=== PATIENT | female | born 1940 | race Caucasian/White ===

== ENCOUNTER → 2023-06-24 10:20 | Outpatient (REF) | payer OTHER, SELFPAY | LOC: RAD 10:20 | PROVIDERS: ATTENDING PHYSICIAN Nurse Practitioner; FAMILY PHYSICIAN Family Medicine | DX: R19.7 Diarrhea, unspecified (principal) | CPT/HCPCS: 74019 ==

== ENCOUNTER → 2023-07-13 09:51 | Outpatient (REF) | payer OTHER, SELFPAY | LOC: RAD 09:51 | PROVIDERS: ATTENDING PHYSICIAN Family Medicine; REFERRING PHYSICIAN Internal Medicine Rheumatology | DX: M81.0 Age-related osteoporosis without current pathological fracture (principal) | CPT/HCPCS: 77080 ==

== ENCOUNTER → 2023-10-07 06:39 | Day surgery (SDC) | payer OTHER, SELFPAY | LOC: GI 06:39 | PROVIDERS: ATTENDING PHYSICIAN Internal Medicine Gastroenterology | DX: R19.4 Change in bowel habit (principal); K57.30 Diverticulosis of large intestine without perforation or abscess without bleeding; K64.8 Other hemorrhoids; R13.10 Dysphagia, unspecified; K44.9 Diaphragmatic hernia without obstruction or gangrene; K31.7 Polyp of stomach and duodenum; K31.89 Other diseases of stomach and duodenum; K29.50 Unspecified chronic gastritis without bleeding | CPT/HCPCS: 45380; 43239; 88305; 88342; 93005 ==

== ENCOUNTER → 2023-10-13 13:51 | Outpatient (REF) | payer OTHER, SELFPAY | LOC: RCS 13:51 | PROVIDERS: ATTENDING PHYSICIAN Nuclear Medicine Nuclear Cardiology; FAMILY PHYSICIAN Family Medicine | DX: I10 Essential (primary) hypertension (principal); I34.0 Nonrheumatic mitral (valve) insufficiency | CPT/HCPCS: 93306 ==

== ENCOUNTER 2024-02-15 16:32 | Emergency (ER) | payer OTHER, SELFPAY ==
[2024-02-15 16:37] VITALS: BP 158/80
--- NOTE | 2024-02-15 16:37 | ED.GENMED ---
ED Provider Triage
<Tha Zabala PA-C - Last Filed: 02/15/24 16:38>
-
Patient seen by provider in Triage?: Seen in Triage
Attestation: A medical screening examination has been initiated by a qualified medical provider. Based on the assessment performed at this time, it has been determined that an emergent medical condition may exist and the patient has been informed
that further medical evaluation and possible additional diagnostic testing may be needed.
HPI: 83-year-old female status post accidental fall. Injuring left elbow and left rib area. Patient has a moderate to large size hematoma over the left elbow. No other injuries sustained.
GENERAL: Alert , in no apparent distress
EYE: No visual abnormalities.
NECK: Trachea midline
ENT: No visible abnormalities.
LUNGS: No acute respiratory distress
NEUROLOGICAL: Alert and oriented
SKIN: Skin intact. Hematoma to the left elbow
MUSCULOSKELETAL: Moving extremities normally
PSYCH: Normal and appropriate interaction.
This is a medical evaluation conducted in person to initiate diagnostic evaluation and provide initial therapeutics. Please see further documentation by the treating clinician.
History of Present Illness
<Tha Zabala PA-C - Last Filed: 02/15/24 16:38>
General
Chief Complaint: Skin Surface Trauma
Time Seen by Provider: 02/15/24 18:57
<Caitlin Crystal NP - Last Filed: 02/15/24 19:18>
General
Source: patient
Exam Limitations: none
Nursing documentation reviewed up to this point in time: agreed with
History of Present Illness
History of Present Illness:
Patient states she tripped and fell in parking lot. Denies hitting her head. COmplains of pain to left elbow, left chest wall lpain. Brought to ED by son for eval.
Past History
<Tha Zabala PA-C - Last Filed: 02/15/24 16:38>
Past History
ED Past Medical History: CHF, GERD, HTN, Psychiatric (Anxiety/depression), Other (Osteopenia) and Other (Neuropathy feet under care of Pain Management)
ED Past Surgical History: Cholecystectomy, Gynecological (Hysterectomy) and Other (Hemorrhoidectomy, bladder lift)
Social History
Tobacco: Former smoker
Alcohol: None
Personal:
Living: alone
Review of Systems
<Caitlin Crystal NP - Last Filed: 02/15/24 19:18>
Review of Systems
Allergies reviewed?: Yes
All Other Systems: ROS reviewed and negative except as documented in HPI and ROS
Constitutional: Reports no symptoms
EENT: Reports no symptoms
Respiratory: Reports no symptoms
Cardiac: Reports no symptoms
ABD/GI: Reports no symptoms
: Reports no symptoms
Musculoskeletal: Reports joint pain (pain to left elbow, left chest wall)
Skin: Reports other (small superficial skin tear to left lateral elbow)
Neurological: Reports no symptoms
Psychiatric: Reports no symptoms
Phy Exam
<Caitlin Crystal NP - Last Filed: 02/15/24 19:18>
General Physical Exam
General Presentation: well appearing and no apparent distress
General age: appears stated age
General Skin: warm and dry
General Habitus: normal
General Mental: alert
Cardiovascular Exam
Cardiovascular Exam: regular rate/rhythm and no edema
Pulmonary Exam
Pulmonary Exam: no respiratory distress
Neurological Exam
Neurological Exam: alert, oriented x3, CN II-XII intact, no motor deficits and no sensory deficits
Musculoskeletal Exam
Musculoskeletal Exam: full ROM and neuro vasc intact
Skin Exam
Skin Exam: normal color, warm/dry and no rash
Psychiatric Exam
Psychiatric Exam: normal mood/affect
Course
<Tha Zabala PA-C - Last Filed: 02/15/24 16:38>
Orders/Labs/Results
Orders:
Orders
02/15/24 16:36
CR Elbow - Left Min 3 Views Urgent
Comment:
Reason For Exam: fall, pain, large hematoma
CR Ribs-left 3 Vw W/pa Chest Urgent
Comment:
Reason For Exam: fall, pain
Vital Signs
Initial and Last Documented VS:
Initial Vital Signs
Temp Pulse Resp BP Pulse Ox
98.2 F 79 20 158/80 97
02/15/24 16:37 02/15/24 16:37 02/15/24 16:37 02/15/24 16:37 02/15/24 16:37
Last Documented Vital Signs
Temp Pulse Resp BP Pulse Ox
98.2 F 79 20 158/80 97
02/15/24 16:37 02/15/24 16:37 02/15/24 16:37 02/15/24 16:37 02/15/24 16:37
<Caitlin Crystal, FISH PEDDLER - Last Filed: 02/15/24 19:18>
Orders/Labs/Results
Orders:
Orders
02/15/24 16:36
CR Elbow - Left Min 3 Views Urgent
Comment:
Reason For Exam: fall, pain, large hematoma
CR Ribs-left 3 Vw W/pa Chest Urgent
Comment:
Reason For Exam: fall, pain
Vital Signs
Initial and Last Documented VS:
Initial Vital Signs
Temp Pulse Resp BP Pulse Ox
98.2 F 79 20 158/80 97
02/15/24 16:37 02/15/24 16:37 02/15/24 16:37 02/15/24 16:37 02/15/24 16:37
Last Documented Vital Signs
Temp Pulse Resp BP Pulse Ox
98.2 F 79 20 158/80 97
02/15/24 16:37 02/15/24 16:37 02/15/24 16:37 02/15/24 16:37 02/15/24 16:37
<Caitlin Crystal NP - Last Filed: 02/15/24 19:18>
*Radiology
Radiology exam reviewed: radiology read reviewed
*Pulse Oximetry
Patient hypoxic: no
*Critical Care Note
Total Time (30-74mins, 75-104mins- exclusive of procedures): Not Applicable
ED Attending Note
<Tha Zabala PA-C - Last Filed: 02/15/24 16:38>
-
Portions of this chart may have been created with voice recognition software.� Occasional wrong word or��sound alike� substitutions may have occurred due to the inherent limitations of voice recognition software.
Discharge Plan
Departure
Patient Disposition: Home (Routine Discharge)
Date of Disposition: 02/15/24
Time of Disposition: 19:10
Patient with high blood pressure during this ER visit?: No
Condition: Good
Covid-19: Not Applicable
Discharge Problem:
Chest wall contusion, Contusion of elbow
Instructions: Wound Care (DC), Contusion, RICE Therapy
Prescriptions:
No Action
conjugated estrogens [Premarin] 0.625 MG tablet
0.625 mg PO DAILY@1700
estradiol [Estring] 1 VAG.RING ring
1 vag.ring VG [id number]
acetaminophen 325 MG tablet
650 mg PO Q6HPRN PRN (Reason: MILD PAIN) 0RF
aspirin 325 MG tablet
325 mg PO DAILY Qty: 30 0RF
pantoprazole 40 MG tablet,delayed release (DR/EC)
40 mg PO DAILY Qty: 30 0RF
metoprolol tartrate 50 MG tablet
50 mg PO DAILY Qty: 30 0RF
fludrocortisone 0.1 MG tablet
0.1 mg PO DAILY Qty: 30 0RF
cyclosporine [Restasis] 10 DROPS dropperette
1 drops ophthalmic (eye) BID Qty: 1 0RF
cholecalciferol (vitamin D3) 1,000 UNITS tablet
1,000 units PO DAILY Qty: 30 0RF
multivitamin with folic acid [Tab-A-Chapo] 1 TABLET tablet
1 tab PO DAILY 0RF
amitriptyline 10 MG tablet
10 mg PO HS Qty: 60 0RF
Rx Instructions:
take 2 tablets at night for 14 days, then 1 tablet a day for 14 days, then 1 tablet every other day.
colestipol 1 GM tablet
1 gm PO BID Qty: 60 0RF
Referrals:
Darian Giles DO [Family Provider] - Follow up in 2-3 days
Interventions
Interventions:
*Risk Screen - Suicide Last Done: 02/15/24 16:38
*General Assessment Last Done: 02/15/24 16:38
*Neglect/Abuse Screening Last Done: 02/15/24 18:00
*ED COVID-19 Vaccine History Last Done: 02/15/24 16:38
ED-Skin Assessment Last Done: 02/15/24 18:00
Discharge Date and Time
Print Language: [place] LEONE[place]
Skin Exam
<Caitlin Crystal FISH PEDDLER - Last Filed: 02/15/24 19:18>
Abrasion
Left Lateral Elbow:
Description of abrasion: superfical/clean
Musculoskeletal Injury Exam
<Caitlin Crystal FISH PEDDLER - Last Filed: 02/15/24 19:18>
Musculoskeletal Injury Exam
Left Elbow:
Pain with Movement?: Moderate
Tender to palpation?: Moderate
Soft tissue swelling?: Moderate
External deformity and angulation?: None
Joint effusion?: None
Contusion?: Moderate
Hematoma-local bleeding into tissue?: Moderate
Strain- Sprain- Tear (Connective tissue injury)?: None
Crepitus with movement?: No
Joint instability?: No
Malalignment/deformity?: No
Range of motion: Full
Distal skin color and temperature: normal-warm & good color
Capillary Refill: normal
Normal distal neurovascular exam?: Yes
Left Lateral Chest:
Pain with Movement?: Moderate
Tender to palpation?: Mild
Soft tissue swelling?: None
External deformity and angulation?: None
Joint effusion?: None
Contusion?: Moderate
Strain- Sprain- Tear (Connective tissue injury)?: None
Crepitus with movement?: No
Joint instability?: No
Malalignment/deformity?: No
Range of motion: Full
Distal skin color and temperature: normal-warm & good color
Capillary Refill: normal
Normal distal neurovascular exam?: Yes
[2024-02-15 20:11] VITALS: BP 150/80
== END 2024-02-15 20:13 | disposition home or self-care (01) ==
LOC: EMR 16:32
PROVIDERS: EMERGENCY PHYSICIAN Emergency Medicine; FAMILY PHYSICIAN Family Medicine
DX: S20.212A Contusion of left front wall of thorax, initial encounter (principal); S50.02XA Contusion of left elbow, initial encounter; W01.0XXA Fall on same level from slipping, tripping and stumbling without subsequent striking against object, initial encounter; I11.0 Hypertensive heart disease with heart failure; I50.9 Heart failure, unspecified; K21.9 Gastro-esophageal reflux disease without esophagitis; Z79.01 Long term (current) use of anticoagulants; Z90.49 Acquired absence of other specified parts of digestive tract; Z87.891 Personal history of nicotine dependence
CPT/HCPCS: 99284; 71101; 73080

== ENCOUNTER → 2024-03-15 12:03 | Outpatient (REF) | payer OTHER, SELFPAY | LOC: HWWDC 12:03 | PROVIDERS: ATTENDING PHYSICIAN Advanced Practice Midwife; FAMILY PHYSICIAN Family Medicine | DX: Z12.31 Encounter for screening mammogram for malignant neoplasm of breast (principal) | CPT/HCPCS: 77063; 77067 ==

== ENCOUNTER → 2024-07-28 14:18 | Outpatient (REF) | payer OTHER, SELFPAY | LOC: RCS 14:18 | PROVIDERS: ATTENDING PHYSICIAN Nuclear Medicine Nuclear Cardiology; FAMILY PHYSICIAN Family Medicine | DX: I48.0 Paroxysmal atrial fibrillation (principal); I34.0 Nonrheumatic mitral (valve) insufficiency | CPT/HCPCS: 93306 ==

== ENCOUNTER → 2024-08-18 14:23 | Outpatient (REF) | payer OTHER, SELFPAY | LOC: RAD 14:23 | PROVIDERS: ATTENDING PHYSICIAN Internal Medicine Gastroenterology | DX: R19.4 Change in bowel habit (principal); K59.1 Functional diarrhea; R19.7 Diarrhea, unspecified; N39.490 Overflow incontinence | CPT/HCPCS: 74018 ==

== ENCOUNTER → 2024-09-27 12:48 | Outpatient (REF) | payer OTHER, SELFPAY | LOC: HWRAD 12:48 | PROVIDERS: ATTENDING PHYSICIAN Family Medicine | DX: R10.31 Right lower quadrant pain (principal) | CPT/HCPCS: 74176 ==

== ENCOUNTER 2024-11-06 00:46 | Emergency (ER) | payer OTHER, SELFPAY ==
[2024-11-06 00:48] VITALS: BP 132/72
[2024-11-06 02:41] VITALS: BP 115/68
--- NOTE | 2024-11-06 02:43 | ED.GENMED ---
History of Present Illness
General
Chief Complaint: Abdominal Pain
Source: patient, records and family
Exam Limitations: none
Time Seen by Provider: 11/06/24 02:33
Nursing documentation reviewed up to this point in time: agreed with
History of Present Illness
History of Present Illness:
[age]-year-old female chronic A-fib on Eliquis, right sided spigelian hernia scheduled for elective repair in November with Dr. Snell presents with 2 episodes of right sided abdominal pain worse with sitting up better with lying back, no vomiting
no diarrhea no constipation no fevers
Past History
Past History
ED Past Medical History: Arrthythmia, CHF, GERD, HTN, Psychiatric (Anxiety/depression), Other (Osteopenia) and Other (Neuropathy feet under care of Pain Management)
ED Past Surgical History: Cholecystectomy, Gynecological (Hysterectomy) and Other (Hemorrhoidectomy, bladder lift)
Social History
Tobacco: Former smoker
Alcohol: None
Drug: None
Personal:
Living: alone
Employment: Retired
Review of Systems
Review of Systems
All Other Systems: Not applicable
Constitutional: Denies fever or fatigue
ABD/GI: Reports abdominal pain; Denies nausea, vomiting, diarrhea, bloody stools or black stools
: Reports no symptoms
Phy Exam
Physical Exam
Physical Exam:
Physical Exam
General: no apparent distress, not acutely ill
Neck: No jaundice
Heart: Irregular
Lungs: no acute respiratory distress. clear bilaterally
Abdomen: Soft minimal pain in the right abdomen no appreciable hernia
Neuro: alert and oriented. no focal neurological deficits
Skin: no rash
Psychiatric: well kept. interactive and cooperative
Extremities: no edema.
Course
Orders/Labs/Results
Orders:
Orders
11/06/24 02:42
Electrocardiogram (*1) Urgent
Reason for Study: Abdominal Pain
CT Abd/pel W Iv And Oral Contr Urgent
Comment:
Reason For Exam: Pain right-sided spigelian hernia
EKG- Treatment ONCE
Iohexol [Omnipaque] See Protocol PO NOW STA
11/06/24 02:43
Iohexol [Omnipaque] 50 ml .ROUTE .STK-MED ONE
11/06/24 02:54
Complete Blood Count/With Diff Urgent
Comprehensive Metabolic Panel Urgent
11/06/24 06:24
Urinalysis Reflex To Culture Urgent
Abnormal Lab Results
11/06/24
02:54
WBC 4.5 L 10^3/uL
(4.8-10.8)
RBC 4.00 L 10^6/uL
(4.20-5.40)
Hgb 10.0 L g/dL
(12.0-16.0)
Hct 31.8 L %
(37.0-47.0)
MCV 79.5 L fL
(81.0-99.0)
MCH 25.0 L pg
(27.0-31.0)
MCHC 31.4 L g/dL
(33.0-37.0)
RDW 15.0 H %
(11.5-14.5)
Plt Count 129 L 10^3/uL
(130-400)
Absolute Lymphs (auto) 0.5 L 10^3/uL
(1.2-3.4)
Absolute Monos (auto) 0.8 H 10^3/uL
(0.1-0.6)
Lymphocytes % 11.2 L %
(20.5-51.1)
Monocytes % 16.5 H %
(1.7-9.3)
Carbon Dioxide 31 H mmol/L
(22-30)
BUN 20 H mg/dl
(7-17)
Creatinine 1.1 H mg/dL
(0.6-1.0)
Glucose 160 H mg/dl
(70-99)
Calcium 11.1 H mg/dl
(8.4-10.2)
Alkaline Phosphatase 251 H U/L
(38-126)
Total Protein 6.1 L g/dl
(6.3-8.2)
Albumin 3.4 L g/dl
(3.5-5.0)
11/06/24 02:54
11/06/24 02:54
Vital Signs
Initial and Last Documented VS:
Initial Vital Signs
Temp Pulse Resp BP Pulse Ox
98 F 80 20 132/72 97
11/06/24 00:48 11/06/24 00:48 11/06/24 00:48 11/06/24 00:48 11/06/24 00:48
Last Documented Vital Signs
Temp Pulse Resp BP Pulse Ox
98 F 81 16 125/60 97
11/06/24 00:48 11/06/24 06:03 11/06/24 06:03 11/06/24 06:03 11/06/24 02:46
MDM/Problems Addressed
Differential Diagnosis Includes:
Symptomatic hernia, appendicitis, colitis, muscle strain ischemic bowel
MDM/Problems Addressed:
Abdominal pain
Chronic conditions affecting care: Arrhythmia
Acute Exacerbation and/or Progression of Chronic Illness: Arrhythmia
*Radiology
Radiology exam reviewed: radiology read reviewed
*Pulse Oximetry
SaO2: 97
Oxygen Mode of Delivery: Room air
Patient hypoxic: no
*EKG
Interpreted by ED Provider?: Yes
Interpretation: abnormal
Comparison EKG: no comparison EKG present
Heart Rate: 78
Rate: normal
Rhythm: a-fib
Ischemia: non-specific ST changes
*Casting Finisher Interpretation
Rate: normal
Interpretation: normal
Heart Rate: 78
Rhythm: a-fib
*Critical Care Note
Total Time (30-74mins, 75-104mins- exclusive of procedures): Not Applicable
Update Note
Update Note:
Update prior records briefly reviewed particularly history and physical prior to planned elective surgery, she is on Eliquis, does not have much pain now she is elderly we will check CT scan to define anatomy potential pathology that would require
intervention
Update, CT report noted, will check urinalysis
ED Attending Note
-
Portions of this chart may have been created with voice recognition software.� Occasional wrong word or��sound alike� substitutions may have occurred due to the inherent limitations of voice recognition software.
Discharge Plan
Departure
Prescriptions:
No Action
Premarin 0.625 MG tablet
0.625 mg PO DAILY@1700
Estring 1 VAG.RING ring
1 vag.ring VG [id number]
acetaminophen 325 MG tablet
650 mg PO Q6HPRN PRN (Reason: MILD PAIN) 0RF
aspirin 325 MG tablet
325 mg PO DAILY Qty: 30 0RF
pantoprazole 40 MG tablet,delayed release (DR/EC)
40 mg PO DAILY Qty: 30 0RF
metoprolol tartrate 50 MG tablet
50 mg PO DAILY Qty: 30 0RF
fludrocortisone 0.1 MG tablet
0.1 mg PO DAILY Qty: 30 0RF
cyclosporine [Restasis] 10 DROPS dropperette
1 drops ophthalmic (eye) BID Qty: 1 0RF
cholecalciferol (vitamin D3) 1,000 UNITS tablet
1,000 units PO DAILY Qty: 30 0RF
multivitamin with folic acid [Tab-A-Chapo] 1 TABLET tablet
1 tab PO DAILY 0RF
amitriptyline 10 MG tablet
10 mg PO HS Qty: 60 0RF
Rx Instructions:
take 2 tablets at night for 14 days, then 1 tablet a day for 14 days, then 1 tablet every other day.
colestipol 1 GM tablet
1 gm PO BID Qty: 60 0RF
Referrals:
Darian Giles DO [Family Provider, Family Practice]
Interventions
Interventions:
*Risk Screen - Suicide Last Done: 11/06/24 00:48
*General Assessment Last Done: 11/06/24 02:47
*Neglect/Abuse Screening Last Done: 11/06/24 00:48
*ED- Fall Risk Assessment Last Done: 11/06/24 02:59
KN-Seecvm-Cnwdcnalsy Assessment Last Done: 11/06/24 03:06
Discharge Date and Time
Print Language: KYRGYZ
[2024-11-06 02:47] VITALS: BMI 25.9
[2024-11-06] MEDS: OMNIPAQUE 50 ML PO (02:55)
[2024-11-06 03:00] VITALS: BP 115/83
--- NOTE | 2024-11-06 03:12 | EDRN ---
Pt noted R side abdominal pain around [id number] last night. Pt called her daughter who brought pt to ED. Pt had similar episode of pain last week and did not tell anyone until the following day after pain resolved. Pt scheduled for hernia repair
in November. Pt denies pain at present time. No cp, sob, n/v/d/c, urinary symptoms, fever/chills/cough.
[2024-11-06 03:22] LABS: Hematocrit 31.8 % (37.0-47.0); Hemoglobin 10.0 g/dL (12.0-16.0); Mean Corp Hgb Conc. 31.4 g/dL (33.0-37.0); Mean Corpuscular Volume 79.5 fL (81.0-99.0); Nucleated Red Blood Cells % 0 %; Platelet Count 129 10^3/uL (130-400); Red Cell Dist. Width 15.0 % (11.5-14.5)
[2024-11-06 03:34] LABS: ALT (SGPT) 18 U/L (0-35); AST (SGOT) 28 U/L (14-36); Albumin 3.4 g/dl (3.5-5.0); Alkaline Phosphatase 251 U/L (38-126); Blood Urea Nitrogen 20 mg/dl (7-17); Calcium 11.1 mg/dl (8.4-10.2); Carbon Dioxide 31 mmol/L (22-30); Chloride 100 mmol/L (98-107); Estimated Creatinine Clearance 34 ml/min; Glucose 160 mg/dl (70-99); Potassium 4.2 mmol/L (3.5-5.1); Sodium 135 mmol/L (135-145); Total Protein 6.1 g/dl (6.3-8.2); eGFR 49.24
[2024-11-06 04:00] VITALS: BP 134/84
[2024-11-06 06:03] VITALS: BP 125/60
[2024-11-06 06:58] LABS: Urine Character Clear (Clear)
[2024-11-06 07:33] VITALS: BP 123/60
== END 2024-11-06 07:52 | disposition home or self-care (01) ==
LOC: EMR 00:46
PROVIDERS: EMERGENCY PHYSICIAN Emergency Medicine; FAMILY PHYSICIAN Family Medicine
DX: R10.9 Unspecified abdominal pain (principal); K43.9 Ventral hernia without obstruction or gangrene; I48.20 Chronic atrial fibrillation, unspecified; Z79.01 Long term (current) use of anticoagulants; I11.0 Hypertensive heart disease with heart failure; I50.9 Heart failure, unspecified; Z87.891 Personal history of nicotine dependence; Z90.49 Acquired absence of other specified parts of digestive tract; Z90.710 Acquired absence of both cervix and uterus
CPT/HCPCS: 99284; 74177; 80053; 81003; 81015; 85025; 87077; 87086; 87186; 93005; Q9967

== ENCOUNTER 2024-11-15 03:10 | Inpatient (IN) | payer OTHER, SELFPAY ==
[2024-11-14 21:28] VITALS: BP 129/58
[2024-11-14 22:03] LABS: Urine Character Clear (Clear)
[2024-11-14 22:07] LABS: Hematocrit 32.9 % (37.0-47.0); Hemoglobin 10.4 g/dL (12.0-16.0); Mean Corp Hgb Conc. 31.6 g/dL (33.0-37.0); Mean Corpuscular Volume 79.7 fL (81.0-99.0); Nucleated Red Blood Cells % 0 %; Red Cell Dist. Width 15.3 % (11.5-14.5)
[2024-11-14 22:10] LABS: Urine Squamous Cell 0-2 /LPF (Few)
[2024-11-14 22:29] LABS: ALT (SGPT) 19 U/L (0-35); AST (SGOT) 27 U/L (14-36); Albumin 3.6 g/dl (3.5-5.0); Alkaline Phosphatase 212 U/L (38-126); Blood Urea Nitrogen 34 mg/dl (7-17); Carbon Dioxide 32 mmol/L (22-30); Chloride 94 mmol/L (98-107); Glucose 203 mg/dl (70-99); Potassium 3.4 mmol/L (3.5-5.1); Sodium 132 mmol/L (135-145); Total Protein 6.7 g/dl (6.3-8.2); eGFR 36.87
[2024-11-14 22:42] LABS: Calcium 14.5 mg/dl (8.4-10.2)
[2024-11-15] VITALS (10 sets, daily range): BP systolic 117–158; BP diastolic 60–83
--- NOTE | 2024-11-15 00:43 | ED.GENMED ---
History of Present Illness
General
Chief Complaint: Change in Mental Status
Source: patient and spouse
Time Seen by Provider: 11/15/24 00:19
History of Present Illness
History of Present Illness:
This patient is a 84-year-old female presents emergency department with progressive generalized weakness, excessive thirst, loss of appetite, weight loss, and fatigue. Is unclear exactly when this started, patient states within the last week or so
although daughter states she has had 'good days and bad days' for the last few months. She has been sleeping more than usual. She denies associated fever, chills, nausea, vomiting, chest pain, abdominal pain, headache. Patient has occasional
dyspnea which is very consistent with her prior history of heart failure. She is compliant with her medications with the exception of amoxicillin which she was recently prescribed after an ER visit for abdominal discomfort.
Past History
Past History
ED Past Medical History: Arrthythmia, CHF, GERD, HTN, Psychiatric (Anxiety/depression), Other (Osteopenia) and Other (Neuropathy feet under care of Pain Management)
ED Past Surgical History: Cholecystectomy, Gynecological (Hysterectomy), Orthopedic and Other (Hemorrhoidectomy, bladder lift)
Social History
Tobacco: Former smoker
Alcohol: None
Drug: None
Personal:
Living: alone
Employment: Retired
Phy Exam
Physical Exam
Physical Exam:
GENERAL: Alert , in no apparent distress
EYE: pupils equal and reactive
NECK: Supple, no significant adenopathy.
ENT: o/p clr, mmm.
CARDIAC: irreg irreg
LUNGS: Clear breath sounds bilaterally, no acute respiratory distress, no wheezes/rales/rhonchi
ABDOMEN: Soft, without focal tenderness, no r/g, no cvat
NEUROLOGICAL: Alert and oriented, no focal neuro deficits
SKIN: Warm and dry, skin intact.
MUSCULOSKELETAL: 1+ le edema, well perfused.
PSYCH: Normal and appropriate interaction.
Course
Orders/Labs/Results
Orders:
Orders
11/14/24 21:52
Complete Blood Count/With Diff Urgent
Comprehensive Metabolic Panel Urgent
Urine Microscopic Reflex Cult Urgent
Urine Reflex Culture from UA [Urinalysis Reflex To Culture] Urgent
Date Specimen was Collected: 11/14/24
Time Specimen was Collected: 21:36
Urine Culture Urgent
ERIK Source: U
Specimen Description:
Date Specimen was Collected: 11/14/24
Time Specimen was Collected: 21:36
11/15/24 00:50
Furosemide [Lasix] 40 mg IV NOW STA
CR Chest - 2 Views Urgent
Comment:
Reason For Exam: cough, hx smoking
11/15/24 00:53
Potassium Chloride [KCl] 40 meq PO NOW STA
11/15/24 01:00
0.9% Sodium Chloride 500 ml [Nss] 500 ml IV 100 mls/hr
11/15/24 01:07
Intact PTH Includes Calcium Urgent
TSH Urgent
11/15/24 01:23
Calcitonin ([place]) Synthetic [Calcimar/Calcitonin 400 Units/ 2 ml] 280 units IM NOW STA
11/15/24 01:44
EKG [Electrocardiogram (*1)] Urgent
Reason for Study: Fatigue / Weakness
Other Reason for Exam: elevated calcium
11/15/24 01:46
EKG- Treatment ONCE
11/15/24 02:41
Admit/Transfer Patient As Directed
Co-Sign Provider:
Level of Care: Inpatient admission
Assign to:: Medical/Surgical
Physician / Group: neftali
Diagnosis: hypercalcemia
Reason for Hospitalization: hypercalcemia
Expected length of stay greater than two midnights?: Yes
ELOS- Estimated Length of Stay in days: 2
I certify the patient meets the requirements for IP care: Yes
PRN Pain Medication Management As Directed
May give lesser potent ordered pain med per pt: Yes
preference::
Protocol:: Medication orders for pain may be administered in a
manner that supports deferring to patient preference
when the pt is:
- Requesting an ordered lesser potent pain medication.
Least to most potent pain medications are defined
as: acetaminophen < NSAID < tramadol < opioids
(morphine, oxycodone, hydromorphone).
- Requesting a lesser dose of the same medication IF
ORDERED.
- Requesting a less intrusive route of administration
if both routes are prescribed by the provider (PO <
IV).
11/15/24 02:44
Code Status As Directed
Resuscitation Status: Full Code
11/15/24 03:27
0.9% Sodium Chloride 500 ml [Nss] 500 ml IV 125 mls/hr
Acetaminophen [Tylenol] 650 mg PO Q4HPRN PRN
Bisacodyl [Dulcolax] 10 mg RECTAL [id number] PRN
Docusate W/Senna [Senokot-S] 1 tablet PO BIDPRN PRN
Guaifenesin/Dextromethorphan [Robitussin Dm] 5 ml PO Q6HPRN PRN
Ondansetron Injectable [Zofran] 4 mg IV Q6HPRN PRN
Polyethylene Glycol Powder [Miralax] 17 grams PO DAILYPRN PRN
11/15/24 03:27
Consult Notification Routine
Specialty to Notify: Nephrology
Date consulting provider notified: 11/15/24
Time consulting provider notified: 07:22
Notified:: Provider
NEPHROLOGY CONSULT Routine
Consulting Provider: Blayne Hoskins
Was physician already notified: No
Reason for consult: hypecalcemia, IVETTE
VTE Contraindication Routine
VTE Mechanical Device Contraindication: Medical Contraindication
Pharmocologic Contraindication: Medical Contraindication
Activity As Directed
Activity Level: With Assistance
Intake/ Output As Directed
Frequency: Per unit guidelines
Vital Signs As Directed
Frequency: Per unit guidelines
Kidney & Bladder US [US Renal With Bladder] Routine
Comment:
Reason For Exam: IVETTE
11/15/24 Breakfast
Regular
At Your Request: Limited Participation
Does patient need a safe tray?: No
11/15/24 06:21
Basic Metabolic Panel IN AM
Complete Blood Count/No Diff IN AM
Magnesium IN AM
Phosphorus IN AM
Protein Electrophoresis Reflex [S] IN AM
Vitamin D 1,25 Dihydroxy [S] IN AM
Vitamin D, 25-OH IN AM
11/15/24 08:00
Amlodipine [Norvasc] 2.5 mg PO DAILY
Apixaban [Eliquis] 5 mg PO BID
Furosemide [Lasix] 60 mg PO DAILY
Loratadine [Claritin] 10 mg PO DAILY
Memantine HCl [Namenda] 10 mg PO BID
Metoprolol Xl [Toprol Xl] 75 mg PO DAILY
Pantoprazole [Protonix] 40 mg PO DAILY
Sertraline HCl [Zoloft] 25 mg PO DAILY
11/15/24 12:00
Calcitonin ([place]) Synthetic [Calcimar/Calcitonin 400 Units/ 2 ml] 280 units IM Q12H
11/15/24 22:00
Amitriptyline [Elavil] 10 mg PO HS
11/16/24 11:23
colestipol See Dose Instructions PO BID
Abnormal Lab Results
11/14/24 11/15/24
21:52 01:07
WBC 4.4 L 10^3/uL
(4.8-10.8)
RBC 4.13 L 10^6/uL
(4.20-5.40)
Hgb 10.4 L g/dL
(12.0-16.0)
Hct 32.9 L %
(37.0-47.0)
MCV 79.7 L fL
(81.0-99.0)
MCH 25.2 L pg
(27.0-31.0)
MCHC 31.6 L g/dL
(33.0-37.0)
RDW 15.3 H %
(11.5-14.5)
Absolute Lymphs (auto) 0.7 L 10^3/uL
(1.2-3.4)
Absolute Monos (auto) 0.8 H 10^3/uL
(0.1-0.6)
Lymphocytes % 16.8 L %
(20.5-51.1)
Monocytes % 18.4 H %
(1.7-9.3)
Sodium 132 L mmol/L
(135-145)
Potassium 3.4 L mmol/L
(3.5-5.1)
Chloride 94 L mmol/L
(98-107)
Carbon Dioxide 32 H mmol/L
(22-30)
BUN 34 H mg/dl
(7-17)
Creatinine 1.4 H mg/dL
(0.6-1.0)
Glucose 203 H mg/dl
(70-99)
Calcium 14.5 H* mg/dl 13.8 H* mg/dl
(8.4-10.2) (8.4-10.2)
Alkaline Phosphatase 212 H U/L
(38-126)
PTH Intact 4.0 L pg/ml
(13.6-85.8)
Ur Occult Blood Reflex 2+ A
(Negative)
Urine RBC 3-6 A /HPF
(0-2)
Urine Bacteria (Reflex) Many A
(Negative)
Urine Albumin (Reflex) 1+ A
(Neg - Trace)
11/14/24 21:52
11/14/24 21:52
Vital Signs
Initial and Last Documented VS:
Initial Vital Signs
Temp Pulse Resp BP Pulse Ox
97.6 F 78 20 129/58 95
11/14/24 21:28 11/14/24 21:28 11/14/24 21:28 11/14/24 21:28 11/14/24 21:28
Last Documented Vital Signs
Temp Pulse Resp BP Pulse Ox
97.3 F 108 18 143/86 97
11/18/24 14:00 11/18/24 14:00 11/18/24 14:00 11/18/24 14:00 11/18/24 14:00
*Pulse Oximetry
SaO2: 95
Oxygen Mode of Delivery: Room air
Patient hypoxic: no
*Critical Care Note
Total Time (30-74mins, 75-104mins- exclusive of procedures): Not Applicable
Update Note
Update Note:
Patient presents to the Emergency Department with ____weakness, fatigue, etc
Number and Complexity of Problems Addressed at the Encounter
� Chronic conditions affecting care:
� Acute Exacerbation and/or Progression of Chronic Illness:
� Differential Diagnosis includes:but not limited to hyperparathyr, malignancy, electrolyte d/w, uti, etc etc.
Amount and/or Complexity of Data to be Reviewed and Analyzed
� I performed an independent evaluation of and my interpretation is:
EKG:Read by me, atrial fibrillation, nonspecific T wave flattening, no acute ischemia
CT:
Xrays:cxr nad
Laboratory Studies:stable wbc/hgb...platelet clumping but presumed nl on smear. HypoNa, Hypo K, increasing renal insuffic with markedly increased HyperCa. U/a not c/w infx.
Other:
� Review of other/old records reveals:
� Clinical information was obtained by an independent historian:daughter
� Prescriptions/Medications Considered but not given:
� Further testing considered but not performed:
Risk of Complications and/or Morbidity or Mortality of Patient Management
� Social determinants of health affecting care:
� Discussion with other providers (PCP, Hospitalists, Consultants, etc):
� Escalation of care including admission/observation vs risk of discharge considered: New onset hyper Ca noted which may be cause of many of her sxs. Will check pth. Occas cough noted here, hx of smoking at least 20 pack years
in past, will get screening cxr here (pox wnl), admit for hyperCa tx and continued evalatuion re:cause. Malignancy a consideration.Discussed with Dr. Trinh via Marydel text for admission
ED Attending Note
-
Portions of this chart may have been created with voice recognition software.� Occasional wrong word or��sound alike� substitutions may have occurred due to the inherent limitations of voice recognition software.
Discharge Plan
Departure
Patient Disposition: Admit
Date of Disposition: 11/15/24
Time of Disposition: 00:54
Presentation/result/management discussed w/ accepting MD/DO: Hospitalist
Discharge Problem:
Hypercalcemia
Interventions
Interventions:
*Risk Screen - Suicide Last Done: 11/15/24 10:13
*General Assessment Last Done: 11/14/24 21:28
*Neglect/Abuse Screening Last Done: 11/14/24 21:28
*ED COVID-19 Vaccine History Last Done: 11/14/24 21:33
*Nursing Disposition Last Done: 11/15/24 14:42
ED- Pulmonary Assessment Last Done: 11/15/24 14:42
ED-Psychological Assessment Last Done: 11/15/24 14:42
ED- Neurological Assessment Last Done: 11/15/24 01:30
ED- Cardiac Assessment Last Done: 11/15/24 14:42
ED Swallowing Screen Last Done: 11/15/24 01:30
Discharge Date and Time
Discharge Date/Time: 11/15/24 14:44
[2024-11-15] MEDS: NSS 500 IV ×3 (01:25→11:12)
[2024-11-15] MEDS: KCL 40 MEQ PO ×2 (01:25→09:16)
[2024-11-15] MEDS: LASIX 40 MG IV (01:25)
[2024-11-15 01:52] LABS: Calcium 13.8 mg/dl (8.4-10.2)
[2024-11-15] MEDS: CALCIMAR/CALCITONIN 400 UNITS/ 2 ML 280 UNITS IM (01:53)
--- NOTE | 2024-11-15 01:59 | HPS.HSE ---
Family Physician
-
Family Physician: Darian Giles
Chief Complaint
-
Weakness
History of Present Illness
This is a 84 y.o female with PMH of arial fibrillation on apixaban, CHF, hypertension, presenting to the emergency department with progressive generalized weakness and failure to thrive over the last 1 week.
Patient and family unclear when symptoms started. However more recently she has had decreased appetite, decreased p.o. intake, subjective weight loss. She is denying any diarrhea. She is denying nausea or vomiting. She is also denying
constipation. She has had no fevers or chills. She reports a nonproductive hacking cough. Daughters report increased nasal drip with clear mucus. She reports headaches occasionally. She reports small somnolence.
Patient is currently awaiting surgery for inguinal hernia repair and she has been mostly laying flat. Medication list indicates that she is more recently on vitamin D as well as calcium supplementation. No other medication changes.
She is chronically on Lasix and she states that weight is been slowly going down. She denies any night sweats. She denies any recent travels and no known sick contacts. She denies any flank pain. She denies any dysuria or gross hematuria.
In the emergency department she was afebrile, blood pressure was 142/89 with a pulse rate of 76 and she was satting 95% on room air. Chest x-ray shows trace bilateral pleural effusions which are similar to prior x-ray from 1 year ago.
CBC was unremarkable, electrolytes notable for bicarb of 32, sodium of 132 and a potassium of 3.4. BUN and creatinine were 34 and 1.4 respectively. She has calcium is elevated to 14.9. LFTs unremarkable. TSH is within the normal range. UA has
2+ blood and bacteria but otherwise unremarkable.
Medical History
Past Medical History
Past Medical History: Reports Arrhythmia (Atrial fibrillation status post cardioversion), CHF, GERD and HTN
Past Surgical History: Reports Cholecystectomy, Gynocological (Hysterectomy) and Orthopedic (Left hip partial replacement)
Additional Past Surgical History:
Rectocele Repair() 1997
Bladder Suspension Repair() 1999
Social History
Tobacco: Non-smoker
Alcohol: None
Drug: None
Employment: Not Employed
Family History
Family History: Not pertinent
Allergies / Home Medications
Allergies reflects when Allergies were last updated in [facility].
Home Medications with original date entered in [facility]
Allergy/Medication List:
Allergies
Allergy/AdvReac Type Severity Reaction Status Date / Time
clarithromycin Allergy Unknown Verified 11/14/24 21:33
erythromycin base Allergy Unknown Verified 11/14/24 21:33
Home Medications
Eliquis 5 MG 1 tab Orally twice daily for 90 days Sep, Active
Lasix 40 MG 1.5 tablet Orally Once a Day for 90 days Active
Pantoprazole Sodium 40 MG 1 tablet 1/2 hour before morning and evening meal Orally twice a day for 90 days Active
Toprol XL 50 MG 1.5 tab Orally Once a day for 90 days Oct, Active
Calcium Carbonate 1250 (500 Ca) MG 1 tablet with food Orally once a day Active
Amitriptyline HCl 50 MG 1 tablet at bedtime Oral Once a day July, Active
Propylene Glycol - 2 drops in affected eye once a day Active
Sertraline HCl 25 MG 1 tablet Orally Once a Day at bedtime Active
Multivitamin - 1 tablet Orally Once a day Active
Acetaminophen 500 MG 1 capsule Orally Once a Day at night Active
Memantine HCl 10 MG 1 tablet Orally twice a day for 90 days Active
Claritin 10 MG 1 tablet Orally prn Active
Acidophilus - 1 tab Orally Once a Day Active
Colestipol HCl 1 GM 1 tablet Orally Twice a day for 90 days Active
amLODIPine Besylate 2.5 MG 1 tablet Orally twice a day for 90 days Active
Magnesium 250 MG 1 tablet with a meal Orally Once a day Active
Vitamin D3 25 MCG (1000 UT) 1 tablet Orally Once a Day Active
Review of Systems
-
Constitutional: Reports No Symptoms
EENT: Reports Runny Nose
Respiratory: Reports Cough (non-productive)
Cardiac: Reports No Symptoms
Abdomen/GI: Reports Anorexia
: Reports No Symptoms
Musculoskeletal: Reports No Symptoms
Skin: Reports No Symptoms
Neurological: Reports Weakness; Denies Dizzy
Hematologic/Lymphatic: Reports No Symptoms; Denies Bleeding or Swollen Glands
Psych: Reports No Symptoms
Physical Exam
Vital Signs
Vital Signs
Temp Pulse Resp BP Pulse Ox
97.6 F 76 20 142/89 95
11/14/24 21:28 11/15/24 01:25 11/14/24 21:28 11/15/24 01:11/15/24 00:50
Physical Exam
General: No Apparent Distress and Conversant
HEENT: NormoCephalic, Anicteric, Moist mucous membranes, Atraumatic and PERRLA; No Oxygen
Respiratory: Clear
Cardiac: S1/S2 and Irregular Rhythm
Breast: Deferred by me
GI: Soft, Non Tender, Non Distended, Normal Bowel Sounds and No Hepatosplenomegaly
Rectal: Deferred by Provider
Genito-urinary: Deferred by me
Musculoskeletal: No Clubbing, No Cyanosis, Edema, Left Lower Extremity (1+ pitting), Edema, Right Lower Extremity (1+ pitting) and No Edema
Skin: Warm
Neuro: AO x 3 and Nonfocal/grossly intact
Hematologic/Lymphatic: No Lymphadenopathy
Psych: Calm
Laboratory Results
-
11/14/24 21:52
11/14/24 21:52
Laboratory Results
Total Bilirubin 1.1 mg/dl (0.2-1.3) 11/14/24 21:52
AST 27 U/L (14-36) 11/14/24 21:52
ALT 19 U/L (0-35) 11/14/24 21:52
Alkaline Phosphatase 212 U/L (38-126) H 11/14/24 21:52
Data Reviewed
-
Diagnostic Radiology: Image Personally Visualized and interpreted
Lab Data: Labs Reviewed by me
Old Records: Reviewed
Impression/Plan
-
IMPRESSION:
84 y.o w/ AFIB, CHF, CKD presenting with weakness and found to have hypercalcemia and IVETTE.
PLAN:
1. Hypercalcemia - Ca 14.9 ,was normal within the last 6 months, on calcium and Vitamin D supplementation but unlikely to cause this degree of elevation. Hx suggestive of dehydration which is also unlikely to be causative. Evidence suggests
symptomatic with loss of appetite, weightloss, lethargy and weakness. Also IVETTE.
- admit to med/surg
- pth pending, checking pthrp, spep
- check phos and vit D
- given hx of CHF with small pl effusions and peripheral edema, hesitant to give aggressive hydration
- continue lasix with gentle hydration at 75ml/hr and monitor closely
- calcitonin x 1 given but developed a facial rash soon after, stopped and gave benadryl. H
- bisphosphonate likely in am pending renal eval
- nephrology consult
2. IVETTE - Suspect related to hypercalcemia/dehydration. ? CRAB
- spep as above
- renal u/s
- avoid nephrotoxins
- continue lasix with hydration
- nephrology consult
3. Cough - suspect UACS. No infiltrates to suggest pneumonia. Rhinorrhea and hx of alleriges
- continue loratidine daily
- cough suppression
4. AFIB
- continue eliquis
- continue metoprolol
- check bnp
HTN
- continue amlodipine
GERD
- continue ppi
DVT PPX - on apixaban
Code status - Full Code
[2024-11-15 02:21] LABS: TSH 2.48 uIU/ml (0.47-4.68)
[2024-11-15] MEDS: BENADRYL 25 MG PO (04:25)
[2024-11-15 07:20] LABS: Hematocrit 33.2 % (37.0-47.0); Hemoglobin 10.6 g/dL (12.0-16.0); Mean Corp Hgb Conc. 31.9 g/dL (33.0-37.0); Mean Corpuscular Volume 78.7 fL (81.0-99.0); Red Cell Dist. Width 15.4 % (11.5-14.5)
[2024-11-15 07:31] LABS: Vitamin D, 25-OH*** 60.1 ng/mL (30-80)
--- NOTE | 2024-11-15 07:40 | W.PN.HOSP.TC ---
Today's Communication/Plan
-
see A/P
Assessment / Plan
Assessment / Plan
HPI: 84 yo female with PMH of A fibrillation on apixaban, CHF, hypertension, p/w progressive generalized weakness and failure to thrive over the last 1 week.
She also c/o decreased appetite, decreased p.o. intake, subjective weight loss. Daughters report increased nasal drip with clear mucus.
Patient is currently awaiting surgery for inguinal hernia repair. Medication list indicates that she is more recently on vitamin D as well as calcium supplementation. No other medication changes.
She is chronically on Lasix and she states that weight is been slowly going down.
In the ED, her calcium level was noted to be elevated at 14.9.
A/P:
# Hypercalcemia
Noted pt recently started with calcium and Vitamin D supplementation
Calcium level 14.5 on admission
s/p calcitonin and developed facial rash soon after, stopped and gave Benadryl.
Vit D level WNL at 60
Follow PTH level, PTH related peptide
Follow SPEP
Cont gentle IVF insetting of h/o CHF and small peripheral edema
Cont lasix with gentle hydration
Renal eval for likely bisphosphonate
# IVETTE, related to hypercalcemia/dehydration.
SCr 1.4 -> 1.1 with IVF
Follow SPEP as above
Follow renal US
Avoid nephrotoxins
Continue lasix with hydration
Nephrology consult
# Cough - suspect UACS, much resolved.
Rhinorrhea and hx of allergies
No infiltrates to suggest pneumonia. Follow formal report
continue loratadine daily
cough suppression
# Paroxysmal AFIB
continue eliquis
continue metoprolol
# HTN
continue amlodipine
# GERD
continue ppi
# Hypokalemia
replete
DVT PPX - on apixaban
Code status - Full Code
DW daughter at bedside
DW RN
Anticipated Discharge: 24 - 48 hours
Subjective/Interval History
-
Date of Service: November 15, 2024
Objective Data
-
Labs:
Laboratory Results
11/14/24 11/15/24 11/15/24
21:52 01:07 06:21
WBC 4.4 L 5.7
Hgb 10.4 L 10.6 L
Hct 32.9 L 33.2 L
Plt Count Pending
Sodium 132 L Pending
Potassium 3.4 L Pending
Chloride 94 L Pending
Carbon Dioxide 32 H Pending
BUN 34 H Pending
Creatinine 1.4 H Pending
Glucose 203 H Pending
Calcium 14.5 H* 13.8 H* Pending
Total Bilirubin 1.1
AST 27
ALT 19
Alkaline Phosphatase 212 H
Vital Signs:
Vital Signs
Temp Pulse Resp BP Pulse Ox
36.4 C 78 18 134/61 96
11/14/24 21:28 11/15/24 05:00 11/15/24 05:00 11/15/24 05:00 11/15/24 05:00
I&O
11/14/24 11/15/24 11/16/24
06:59 06:59 06:59
Output Total 900 / 900
Balance -900 / -900
Review of Systems
-
History Source: Patient
All other systems: Reviewed and negative
Physical Exam
-
General: Well Developed, Well Nourished, No Apparent Distress, Comfortable and Conversant; Negative Respiratory Distress
HEENT: Normocephalic, Atraumatic, Nose Appears Normal and Ears Appear Normal; Negative Oxygen
Respiratory: Clear to Auscultation and Non Labored Respirations; Negative Accessory Resp Muscle Use
Cardiac: S1/S2 and Irregular Rhythm; Negative Tachycardic
GI: Soft, Nontender, Nondistended and Normal Bowel Sounds
Skin: Warm and Dry
Neuro: Awake, Alert and Oriented
Psych: Calm and Intact Judgement/Insight
Data Reviewed
-
Labs: Labs Reviewed by me
[2024-11-15] MEDS: NSS IV (07:41)
[2024-11-15 07:43] LABS: Blood Urea Nitrogen 30 mg/dl (7-17); Calcium 13.4 mg/dl (8.4-10.2); Carbon Dioxide 32 mmol/L (22-30); Chloride 96 mmol/L (98-107); Glucose 169 mg/dl (70-99); Magnesium 1.6 mg/dl (1.6-2.3); Potassium 3.2 mmol/L (3.5-5.1); Sodium 135 mmol/L (135-145); eGFR 49.24
[2024-11-15] MEDS: TOPROL XL 75 MG PO (09:14)
[2024-11-15] MEDS: PROTONIX 40 MG PO (09:15)
[2024-11-15] MEDS: CLARITIN 10 MG PO (09:15)
[2024-11-15] MEDS: LASIX 60 MG PO (09:15)
[2024-11-15] MEDS: NAMENDA 10 MG PO ×2 (09:15→20:25)
[2024-11-15] MEDS: NORVASC 2.5 MG PO (09:15)
[2024-11-15] MEDS: ELIQUIS 5 MG PO ×2 (09:16→20:24)
[2024-11-15] MEDS: ZOLOFT 25 MG PO (09:17)
--- NOTE | 2024-11-15 10:18 | W.CON.NEPH ---
Consultation
-
Date/Time Consultation Requested: November 15, 2024 1 AM
Date/Time Consultation Performed: November 15, 2024 9 AM
Requesting Provider: Aiden Puri
Performing Provider: Dr. Hoskins
Reason for Consultation: Acute kidney injury and hypercalcemia
Medical History
-
Chief Complaint: Acute kidney injury and hypercalcemia
History of Present Illness:
84 y.o female with PMH of arial fibrillation on apixaban, CHF, hypertension, presenting to the emergency department with progressive generalized weakness and failure to thrive over the last 1 week.
She is found to have hypercalcemia of 14.2 as well as acute kidney injury
Renal consult for above
She was given calcitonin last night developed a rash
Receiving IV fluids isotonic saline
Remains on Lasix
History was obtained via the patient and her daughter at the bedside
She does take vitamin D and calcium
Past Medical History
arial fibrillation on apixaban, CHF, hypertension,
Social History
Quit smoking in her 50s
Tobacco: Former Smoker
Alcohol: None
Family History
Family History: Not Pertinent
Allergies / Home Medications
Allergy/AdvReac Type Severity Reaction Status Date / Time
clarithromycin Allergy Unknown Verified 11/14/24 21:33
erythromycin base Allergy Unknown Verified 11/14/24 21:33
�Medication �Instructions �Recorded �Confirmed �Type
cholecalciferol (vitamin D3) 25 1,000 units PO DAILY #30 tabs 10/08/19 11/15/24 Rx
mcg (1,000 unit) tablet
colestipol 1 gram tablet 1 gm PO BID High cholesterol #60 10/08/19 11/15/24 Rx
tabs
multivitamin with folic acid 400 1 tab PO DAILY 10/08/19 11/15/24 Rx
mcg tablet (Tab-A-Chapo)
pantoprazole 40 mg tablet,delayed 40 mg PO DAILY #30 tabs 10/08/19 11/15/24 Rx
release
Lactobac no.2-Bifidobac no.1-S. 1 cap PO DAILY 11/15/24 11/15/24 History
thermo 112.5 billion cell capsule
(Visbiome)
acetaminophen 325 mg tablet 500 mg PO DAILY 11/15/24 11/15/24 History
amitriptyline 50 mg tablet 50 mg PO HS 11/15/24 11/15/24 History
amlodipine 2.5 mg tablet 2.5 mg PO DAILY 11/15/24 11/15/24 History
apixaban 5 mg tablet (Eliquis) 5 mg PO BID 11/15/24 11/15/24 History
calcium carbonate 500 mg PO DAILY 11/15/24 11/15/24 History
furosemide 40 mg tablet (Lasix) 60 mg PO DAILY 11/15/24 11/15/24 History
loratadine 10 mg tablet (Claritin) 10 mg PO DAILYPRN PRN allergies 11/15/24 11/15/24 History
magnesium oxide 250 mg PO DAILY 11/15/24 11/15/24 History
memantine 10 mg tablet 10 mg PO BID 11/15/24 11/15/24 History
metoprolol succinate 25 mg 75 mg PO DAILY 11/15/24 11/15/24 History
tablet,extended release 24 hr
peg 400-propylene glycol (PF) 0.4 1 drp BOTH EYES TIDPRN PRN dryness 11/15/24 11/15/24 History
%-0.3 % eye drops in a dropperette
(Systane (PF))
sertraline 25 mg tablet (Zoloft) 25 mg PO HS 11/15/24 11/15/24 History
Review of Systems
-
No chest pain or shortness of breath chronic neuropathy
All other systems: Negative unless noted
Physical Exam
Vital Signs
Vital Signs
Temp Pulse Resp BP Pulse Ox
97.6 F 78 18 134/61 96
11/14/24 21:28 11/15/24 05:00 11/15/24 05:00 11/15/24 05:00 11/15/24 05:00
Lab Results
WBC 5.7 10^3/uL (4.8-10.8) 11/15/24 06:21
RBC 4.22 10^6/uL (4.20-5.40) 11/15/24 06:21
Hgb 10.6 g/dL (12.0-16.0) L 11/15/24 06:21
Hct 33.2 % (37.0-47.0) L 11/15/24 06:21
Plt Count 10^3/uL (130-400) 11/15/24 06:21
Sodium 135 mmol/L (135-145) 11/15/24 06:21
Potassium 3.2 mmol/L (3.5-5.1) L 11/15/24 06:21
Chloride 96 mmol/L (98-107) L 11/15/24 06:21
Carbon Dioxide 32 mmol/L (22-30) H 11/15/24 06:21
BUN 30 mg/dl (7-17) H 11/15/24 06:21
Creatinine 1.1 mg/dL (0.6-1.0) H 11/15/24 06:21
eGFR 49.24 11/15/24 06:21
Glucose 169 mg/dl (70-99) H 11/15/24 06:21
Calcium 13.4 mg/dl (8.4-10.2) H* 11/15/24 06:21
Phosphorus 3.8 mg/dl (2.5-4.5) 11/15/24 06:21
Albumin 3.6 g/dl (3.5-5.0) 11/14/24 21:52
Physical Exam
General no acute distress
HEENT no cephalic atraumatic extraocular muscle intact no scleral icterus no JVD neck supple
lungs clear to auscultation bilateral
heart regular S1-S2 positive
abdomen soft nontender positive bowel sounds
extremities trace edema
Neurologically nonfocal alert and oriented x 3
Skin no lesions no abrasions no petechiae
Psych normal affect no bizarre behavior
Data Reviewed
-
Radiology: Image Personally Visualized and interpreted (No nodules/official read pending)
Labs: Labs Reviewed by me, Discussed with Nurse, Discussed with Patient and Discussed with Family
Assessment/Plan
-
84 y.o female with PMH of arial fibrillation on apixaban, CHF, hypertension, presenting to the emergency department with progressive generalized weakness and failure to thrive over the last 1 week.
She is found to have hypercalcemia of 14.2 as well as acute kidney injury
Renal consult for above
Impression.
Acute kidney injury creatinine of 1.4 on chronic kidney disease stage IIIa
Hypercalcemia concern for paraprotein
CHF ejection fraction 50% as of July 2024 = compensated
Hypertension stable
Atrial fibrillation stable
Plan.
Continue normal saline we will increase the rate slightly to 125 cc/h
Discontinue Lasix for now and follow weights
Vitamin D 25 OH-60.1
PTH
Status post calcitonin appears to have developed a rash
Ordered pamidronate
Paraproteinemia workup pending
[2024-11-15] MEDS: NSS 1000 IV ×2 (11:10→17:37)
[2024-11-15] MEDS: AREDIA 280 MG IV (11:41)
--- NOTE | 2024-11-15 14:30 | CM ---
CM reviewed chart and met with pt's granddaughter in ED, pt was in Ultrasound. Pt lives alone, [address] story [facility], [address].
Independent in ADLs, personal care and ambulation at baseline, no assistive devices, has RW.
Per chart pt is waiting to have inguinal hernia repair.
No hx VN, granddaughter unsure if hx of SNF/Acute Rehab.
PCP: Darian Giles
Pharmacy: [facility]
CM will continue to follow for any discharge planning needs.
[2024-11-15] MEDS: ROBITUSSIN DM 5 ML PO (20:33)
[2024-11-15] MEDS: ELAVIL 10 MG PO ×2 (21:16→21:22)
--- NOTE | 2024-11-15 21:25 | PTCARENOTE ---
This RN reached out to patient's daughter/ POChrissy Chang, to explain that pharmacy does not stock Colestipol. She will have a family member bring in medication . She will also fax patient's living will to the nursing station.
[2024-11-16] MEDS: NSS 1000 IV ×3 (02:15→20:34)
--- NOTE | 2024-11-16 02:37 | DOWNTIME ---
There was a [employer] Downtime on 11/16/2024 from 0100 to 11/16/2024 at 0235. Downtime documentation of patient's care, including medication administrations, has been reconciled in the electronic record per guidelines. Refer to the
patient's paper chart under the miscellaneous tab to see printed paper medication records and downtime forms.
[2024-11-16] MEDS: ROBITUSSIN DM 5 ML PO ×2 (05:06→20:32)
--- NOTE | 2024-11-16 06:29 | PTCARENOTE ---
Patient urinated moderate amount urine beginning of shift and dry throughout the night. Receiving IVF @125ml/hr. Patient bladder scanned 630ml- urinated- scanned 438ml- orders entered to straight cath- tolerated 15F straight for 500ml yellow urine.
[2024-11-16 07:38] LABS: Hematocrit 31.1 % (37.0-47.0); Hemoglobin 10.0 g/dL (12.0-16.0); Mean Corp Hgb Conc. 32.2 g/dL (33.0-37.0); Mean Corpuscular Volume 78.7 fL (81.0-99.0); Red Cell Dist. Width 15.7 % (11.5-14.5)
[2024-11-16 07:45] VITALS: BP 132/68
--- NOTE | 2024-11-16 08:00 | W.PN.HOSP.TC ---
Today's Communication/Plan
-
see A/P
Assessment / Plan
Assessment / Plan
HPI: 84 yo female with PMH of A fibrillation on apixaban, CHF, hypertension, p/w progressive generalized weakness and failure to thrive over the last 1 week.
She also c/o decreased appetite, decreased p.o. intake, subjective weight loss. Daughters report increased nasal drip with clear mucus.
Patient is currently awaiting surgery for inguinal hernia repair. Medication list indicates that she is more recently on vitamin D as well as calcium supplementation. No other medication changes.
She is chronically on Lasix and she states that weight is been slowly going down.
In the ED, her calcium level was noted to be elevated at 14.9.
A/P:
# Hypercalcemia
Noted pt recently started with calcium and Vitamin D supplementation
Calcium level 14.5 on admission
s/p calcitonin and developed facial rash soon after, stopped and gave Benadryl.
Vit D level WNL at 60, PTH level low at 4.0
Follow PTH related peptide
Follow SPEP
Cont IVF and off lasix per renal
s/p pamidronate 11/15 per renal
Renal on board
# IVETTE, related to hypercalcemia/dehydration.
SCr 1.4 -> 1.1 with IVF
Follow SPEP as above
renal US unrevealing: No calculus. No hydronephrosis or obstructive uropathy.
Avoid nephrotoxins
IVF as above
Nephrology on board
# ?Acute urinary retention
bladder scan, straight cath PRN
# Cough - suspect UACS, much resolved.
Rhinorrhea and hx of allergies
No infiltrates to suggest pneumonia. Follow formal report
continue loratadine daily
cough suppression
# Paroxysmal AFIB
continue eliquis
continue metoprolol
# HTN
continue amlodipine
# GERD
continue ppi
# Hypokalemia
replete
DVT PPX - on apixaban
Code status - Full Code
Dispo: PT OT eval
Anticipated Discharge: 24 - 48 hours
Subjective/Interval History
-
Date of Service: November 16, 2024
Objective Data
-
Labs:
Laboratory Results
11/16/24
07:11
WBC 5.3
Hgb 10.0 L
Hct 31.1 L
Plt Count Pending
Sodium Pending
Potassium Pending
Chloride Pending
Carbon Dioxide Pending
BUN Pending
Creatinine Pending
Glucose Pending
Calcium Pending
Vital Signs:
Vital Signs
Temp Pulse Resp BP Pulse Ox
36.7 C 81 18 132/68 94
11/16/24 07:45 11/16/24 07:45 11/16/24 07:45 11/16/24 07:45 11/16/24 07:45
I&O
11/15/24 11/16/24 11/17/24
06:59 06:59 06:59
Intake Total 2460 / 2460
Output Total 900 / 900 500 / 500
Balance -900 / -900 1959 / 1959
Review of Systems
-
History Source: Patient
All other systems: Reviewed and negative
Physical Exam
-
General: Well Developed, Well Nourished, No Apparent Distress, Comfortable and Conversant; Negative Respiratory Distress
HEENT: Normocephalic, Atraumatic, Nose Appears Normal and Ears Appear Normal; Negative Oxygen
Respiratory: Clear to Auscultation and Non Labored Respirations; Negative Accessory Resp Muscle Use
Cardiac: S1/S2 and Irregular Rhythm; Negative Tachycardic
GI: Soft, Nontender, Nondistended and Normal Bowel Sounds
Skin: Warm and Dry
Neuro: Awake, Alert and Oriented
Psych: Calm and Intact Judgement/Insight
Data Reviewed
-
Ultrasound: Report Reviewed by me
Labs: Labs Reviewed by me
[2024-11-16 08:13] LABS: Blood Urea Nitrogen 29 mg/dl (7-17); Calcium 11.8 mg/dl (8.4-10.2); Carbon Dioxide 26 mmol/L (22-30); Chloride 104 mmol/L (98-107); Glucose 118 mg/dl (70-99); Magnesium 1.3 mg/dl (1.6-2.3); Potassium 3.7 mmol/L (3.5-5.1); Sodium 134 mmol/L (135-145); eGFR 33.94
[2024-11-16] MEDS: NAMENDA 10 MG PO ×2 (08:51→20:25)
[2024-11-16] MEDS: ZOLOFT 25 MG PO (08:51)
[2024-11-16] MEDS: TOPROL XL 75 MG PO (08:51)
[2024-11-16] MEDS: NORVASC 2.5 MG PO (08:51)
[2024-11-16] MEDS: PROTONIX 40 MG PO (08:51)
[2024-11-16] MEDS: CLARITIN 10 MG PO (08:51)
[2024-11-16] MEDS: ELIQUIS 5 MG PO ×2 (08:51→20:24)
[2024-11-16] MEDS: NON-FORMULARY ITEM 1 GM PO ×2 (11:30→20:25)
[2024-11-16 13:24] VITALS: BP 134/72; PULSE 77
[2024-11-16] MEDS: MAGNESIUM SULFATE 50 IV (13:50)
--- NOTE | 2024-11-16 13:59 | W.PN.NEPH.PH ---
Today's Communication / Plan
-
Maintain IV fluids
Obtain urine protein to creatinine ratio
Follow BMP
Replete magnesium
Assessment/Plan
-
84 y.o female with PMH of arial fibrillation on apixaban, CHF, hypertension, presenting to the emergency department with progressive generalized weakness and failure to thrive over the last 1 week.
She is found to have hypercalcemia of 14.2 as well as acute kidney injury
Renal consult for above
Impression.
Acute kidney injury creatinine of 1.4 on chronic kidney disease stage IIIa
Hypercalcemia concern for paraprotein
CHF ejection fraction 50% as of July 2024 = compensated
Hypertension stable
Atrial fibrillation stable
Plan.
IVETTE worsening
Will obtain bladder scan to assess for possible underlying constrictive
Continue normal saline we will increase the rate slightly to 100 cc/hr
Discontinue Lasix for now and follow weights
Vitamin D 25 OH-60.1
PTH expectedly low at 4
Status post calcitonin appears to have developed a rash
Pamidronate provided last evening with good result serum calcium level now down to 11.8
Anemia narrow anion gap hypercalcemia and proteinuria concerning for multiple myeloma
Will quantitate underlying proteinuria, with urine protein to creatinine ratio
Renal ultrasound reviewed without acute abnormalities
Paraproteinemia workup pending
Worsening IVETTE with ongoing hypercalcemia notable for increased clinical risk, maintain IV fluids
-
-
Date of Service: November 16, 2024
CC / HPI / ROS
-
Chief Complaint:
Hypercalcemia
Acute kidney injury
History of Present Illness:
Serum calcium down to 11.8 following IV fluids and pamidronate
Hemodynamically stable
IVETTE worsening with creatinine up to 1.5
Review of Systems:
Nonoliguric but did require straight cath
No chest pain or shortness of breath
Labs
-
Labs:
WBC 5.3 10^3/uL (4.8-10.8) 11/16/24 07:11
RBC 3.95 10^6/uL (4.20-5.40) L 11/16/24 07:11
Hgb 10.0 g/dL (12.0-16.0) L 11/16/24 07:11
Hct 31.1 % (37.0-47.0) L 11/16/24 07:11
Plt Count 10^3/uL (130-400) 11/16/24 07:11
Sodium 134 mmol/L (135-145) L 11/16/24 07:11
Potassium 3.7 mmol/L (3.5-5.1) 11/16/24 07:11
Chloride 104 mmol/L (98-107) 11/16/24 07:11
Carbon Dioxide 26 mmol/L (22-30) 11/16/24 07:11
BUN 29 mg/dl (7-17) H 11/16/24 07:11
Creatinine 1.5 mg/dL (0.6-1.0) H 11/16/24 07:11
eGFR 33.94 11/16/24 07:11
Glucose 118 mg/dl (70-99) H 11/16/24 07:11
Calcium 11.8 mg/dl (8.4-10.2) H 11/16/24 07:11
Phosphorus 3.8 mg/dl (2.5-4.5) 11/15/24 06:21
Albumin 3.6 g/dl (3.5-5.0) 11/14/24 21:52
Physical Exam
-
Vital Signs:
Vital Signs
Temp Pulse Resp BP Pulse Ox
98.1 F 81 18 132/68 94
11/16/24 07:45 11/16/24 07:45 11/16/24 07:45 11/16/24 07:45 11/16/24 13:36
Cardiovascular:: Regular rate and rhythm
Respiratory:: Bilateral: CTA
Lung Excursion:: Normal
Abdomen:: Nontender and Soft
Bowel Sounds:: Normal
Extremity Edema:: +1: Bilateral:
Kumar Catheter: No
[2024-11-16 14:48] VITALS: BP 128/73; PULSE 75; O2SAT 96
[2024-11-16 15:50] VITALS: BP 136/72
[2024-11-16 23:45] VITALS: BP 162/87
[2024-11-17] MEDS: NSS 1000 IV ×2 (05:42→19:35)
[2024-11-17 06:57] LABS: Hematocrit 32.7 % (37.0-47.0); Hemoglobin 10.5 g/dL (12.0-16.0); Mean Corp Hgb Conc. 32.1 g/dL (33.0-37.0); Mean Corpuscular Volume 78.0 fL (81.0-99.0); Red Cell Dist. Width 15.8 % (11.5-14.5)
[2024-11-17 07:19] LABS: Blood Urea Nitrogen 30 mg/dl (7-17); Calcium 11.5 mg/dl (8.4-10.2); Carbon Dioxide 23 mmol/L (22-30); Chloride 107 mmol/L (98-107); Glucose 150 mg/dl (70-99); Magnesium 1.5 mg/dl (1.6-2.3); Potassium 4.0 mmol/L (3.5-5.1); Sodium 136 mmol/L (135-145); eGFR 33.94
[2024-11-17 07:49] VITALS: BP 133/82
[2024-11-17] MEDS: MAGNESIUM SULFATE 50 IV (07:59)
[2024-11-17] MEDS: PROTONIX 40 MG PO (08:27)
[2024-11-17] MEDS: TOPROL XL 75 MG PO (08:28)
[2024-11-17] MEDS: NORVASC 2.5 MG PO (08:29)
[2024-11-17] MEDS: NON-FORMULARY ITEM 1 GM PO ×2 (08:29→19:34)
[2024-11-17] MEDS: NAMENDA 10 MG PO ×2 (08:29→19:34)
[2024-11-17] MEDS: ZOLOFT 25 MG PO (08:29)
[2024-11-17] MEDS: ELIQUIS 5 MG PO ×2 (08:29→19:34)
[2024-11-17] MEDS: CLARITIN 10 MG PO (08:30)
--- NOTE | 2024-11-17 08:48 | W.PN.HOSP.TC ---
Today's Communication/Plan
-
see A/P
Assessment / Plan
Assessment / Plan
HPI: 84 yo female with PMH of A fibrillation on apixaban, CHF, hypertension, p/w progressive generalized weakness and failure to thrive over the last 1 week.
She also c/o decreased appetite, decreased p.o. intake, subjective weight loss. Daughters report increased nasal drip with clear mucus.
Patient is currently awaiting surgery for inguinal hernia repair. Medication list indicates that she is more recently on vitamin D as well as calcium supplementation. No other medication changes.
She is chronically on Lasix and she states that weight is been slowly going down.
In the ED, her calcium level was noted to be elevated at 14.9.
A/P:
# Hypercalcemia
Noted pt recently started with calcium and Vitamin D supplementation
Calcium level 14.5 on admission -> 11.5 today
s/p calcitonin and developed facial rash soon after, stopped and gave Benadryl.
Vit D level WNL at 60, PTH level low at 4.0
Follow PTH related peptide
Follow SPEP
Cont IVF and off lasix per renal
s/p pamidronate 11/15 per renal
Renal on board
# IVETTE, related to hypercalcemia/dehydration.
SCr 1.4 -> 1.1 -> 1.5
IVF as above
Follow SPEP as above
renal US unrevealing: No calculus. No hydronephrosis or obstructive uropathy.
Avoid nephrotoxins
Nephrology on board
# Intermittent urinary retention
cont bladder scan, straight cath PRN
# Cough - suspect UACS, much resolved.
Rhinorrhea and hx of allergies
No infiltrates to suggest pneumonia. Follow formal report
continue loratadine daily
cough suppression
# Paroxysmal AFIB
continue eliquis
continue metoprolol
# HTN
continue amlodipine
# GERD
continue ppi
# Hypokalemia
replete
DVT PPX - on apixaban
Code status - Full Code
Dispo: PT OT eval cleared for HH
DW RN
Anticipated Discharge: 24 - 48 hours
Subjective/Interval History
-
Date of Service: November 17, 2024
Objective Data
-
Labs:
Laboratory Results
11/17/24
06:33
WBC 10.0
Hgb 10.5 L
Hct 32.7 L
Plt Count
Sodium 136
Potassium 4.0
Chloride 107
Carbon Dioxide 23
BUN 30 H
Creatinine 1.5 H
Glucose 150 H
Calcium 11.5 H
Vital Signs:
Vital Signs
Temp Pulse Resp BP Pulse Ox
37.6 C 89 16 162/87 95
11/16/24 23:45 11/16/24 23:45 11/16/24 23:45 11/16/24 23:45 11/17/24 01:44
I&O
11/16/24 11/17/24 11/18/24
06:59 06:59 06:59
Intake Total 2460 / 2460 1979
Output Total 500 / 500
Balance 1959 / 1959
Review of Systems
-
History Source: Patient
All other systems: Reviewed and negative
Physical Exam
-
General: Well Developed, Well Nourished, No Apparent Distress, Comfortable and Conversant; Negative Respiratory Distress
HEENT: Normocephalic, Atraumatic, Nose Appears Normal and Ears Appear Normal; Negative Oxygen
Respiratory: Clear to Auscultation and Non Labored Respirations; Negative Accessory Resp Muscle Use
Cardiac: S1/S2; Negative Tachycardic
GI: Soft, Nontender, Nondistended and Normal Bowel Sounds
Skin: Warm and Dry
Neuro: Awake, Alert and Oriented
Psych: Calm and Intact Judgement/Insight
Data Reviewed
-
Ultrasound: Report Reviewed by me
Labs: Labs Reviewed by me
--- NOTE | 2024-11-17 10:16 | CM ---
Chart reviewed. Care ongoing.
Therapy rec home PT. Discussed w/ patient who appeared to be unsure but eventually declined altogether. CM encouraged patient if she changes her mind at d/c to let CM know
Plan: Home, no needs. Declined HC needs
--- NOTE | 2024-11-17 11:19 | W.PN.NEPH.PH ---
Today's Communication / Plan
-
Maintain IV fluids for hypercalcemia
20 mg of IV Lasix provided
Please try to record accurate I's and O's
Assessment/Plan
-
84 y.o female with PMH of arial fibrillation on apixaban, CHF, hypertension, presenting to the emergency department with progressive generalized weakness and failure to thrive over the last 1 week.
She is found to have hypercalcemia of 14.2 as well as acute kidney injury
Renal consult for above
Impression.
Acute kidney injury creatinine of 1.4 on chronic kidney disease stage IIIa
Hypercalcemia concern for paraprotein
CHF ejection fraction 50% as of July 2024 = compensated
Hypertension stable
Atrial fibrillation stable
Plan.
IVETTE persistent at 1.5 and subjectively non oliguric
Continue normal saline we will increase the rate slightly to 100 cc/hr but will give 20mg IV lasix
Vitamin D 25 OH-60.1
PTH expectedly low at 4
Status post calcitonin appears to have developed a rash
Pamidronate provided with good result serum calcium level now down to 11.5
Anemia, narrow anion gap, hypercalcemia and proteinuria concerning for multiple myeloma
Will quantitate underlying proteinuria, with urine protein to creatinine ratio: 400mg
Renal ultrasound reviewed without acute abnormalities
Paraproteinemia workup pending
Persistent IVETTE with ongoing hypercalcemia notable for increased clinical risk, maintain IV fluids
-
-
Date of Service: November 17, 2024
CC / HPI / ROS
-
Chief Complaint:
Hypercalcemia
Acute kidney injury
History of Present Illness:
Serum calcium down to 11.3 following IV fluids and pamidronate
Hemodynamically stable
IVETTE worsening with creatinine up to 1.5
Review of Systems:
Nonoliguric but did require straight cath
No chest pain or shortness of breath
Labs
-
Labs:
WBC 10.0 10^3/uL (4.8-10.8) 11/17/24 06:33
RBC 4.19 10^6/uL (4.20-5.40) L 11/17/24 06:33
Hgb 10.5 g/dL (12.0-16.0) L 11/17/24 06:33
Hct 32.7 % (37.0-47.0) L 11/17/24 06:33
Plt Count 10^3/uL (130-400) 11/17/24 06:33
Sodium 136 mmol/L (135-145) 11/17/24 06:33
Potassium 4.0 mmol/L (3.5-5.1) 11/17/24 06:33
Chloride 107 mmol/L (98-107) 11/17/24 06:33
Carbon Dioxide 23 mmol/L (22-30) 11/17/24 06:33
BUN 30 mg/dl (7-17) H 11/17/24 06:33
Creatinine 1.5 mg/dL (0.6-1.0) H 11/17/24 06:33
eGFR 33.94 11/17/24 06:33
Glucose 150 mg/dl (70-99) H 11/17/24 06:33
Calcium 11.5 mg/dl (8.4-10.2) H 11/17/24 06:33
Phosphorus 3.8 mg/dl (2.5-4.5) 11/15/24 06:21
Albumin 3.6 g/dl (3.5-5.0) 11/14/24 21:52
Physical Exam
-
Vital Signs:
Vital Signs
Temp Pulse Resp BP Pulse Ox
98.6 F 93 18 133/82 93
11/17/24 07:49 11/17/24 07:49 11/17/24 07:49 11/17/24 07:49 11/17/24 10:09
Cardiovascular:: Regular rate and rhythm
Respiratory:: Bilateral: Coarse
Lung Excursion:: Normal
Abdomen:: Nontender and Soft
Bowel Sounds:: Normal
Extremity Edema:: +1: Bilateral:
Kumar Catheter: No
[2024-11-17] MEDS: LASIX 20 MG IV (12:02)
[2024-11-17 15:54] VITALS: BP 137/72
[2024-11-17] MEDS: ELAVIL 10 MG PO (19:34)
[2024-11-17 23:50] VITALS: BP 159/81
[2024-11-18] MEDS: NSS 1000 IV (05:09)
[2024-11-18 07:35] VITALS: BP 166/90
[2024-11-18 08:22] LABS: Hematocrit 30.2 % (37.0-47.0); Hemoglobin 10.0 g/dL (12.0-16.0); Mean Corp Hgb Conc. 33.1 g/dL (33.0-37.0); Mean Corpuscular Volume 76.6 fL (81.0-99.0); Red Cell Dist. Width 15.9 % (11.5-14.5)
[2024-11-18 08:48] LABS: Blood Urea Nitrogen 25 mg/dl (7-17); Calcium 10.0 mg/dl (8.4-10.2); Carbon Dioxide 20 mmol/L (22-30); Chloride 107 mmol/L (98-107); Glucose 140 mg/dl (70-99); Magnesium 1.2 mg/dl (1.6-2.3); Potassium 3.2 mmol/L (3.5-5.1); Sodium 135 mmol/L (135-145); eGFR 44.36
[2024-11-18] MEDS: NORVASC 2.5 MG PO (09:26)
[2024-11-18] MEDS: ZOLOFT 25 MG PO (09:26)
[2024-11-18] MEDS: TOPROL XL 75 MG PO (09:26)
[2024-11-18] MEDS: PROTONIX 40 MG PO (09:26)
[2024-11-18] MEDS: ELIQUIS 5 MG PO (09:26)
[2024-11-18] MEDS: NAMENDA 10 MG PO (09:27)
[2024-11-18] MEDS: CLARITIN 10 MG PO (09:27)
[2024-11-18] MEDS: NON-FORMULARY ITEM 1 GM PO (09:27)
[2024-11-18] MEDS: MAGNESIUM SULFATE 50 IV (09:45)
[2024-11-18] MEDS: KCL 40 MEQ PO (09:45)
[2024-11-18] MEDS: FLUSH (NSS) 1 FLUSH IV ×2 (09:45→10:37)
[2024-11-18] MEDS: MERREM 1000 MG IV (10:37)
[2024-11-18] MEDS: STERILE WATER FOR INJECTION 20 ML IV (10:37)
--- NOTE | 2024-11-18 10:57 | W.PN.HOSP.TC ---
Today's Communication/Plan
-
see A/P
Assessment / Plan
Assessment / Plan
HPI: 84 yo female with PMH of A fibrillation on apixaban, CHF, hypertension, p/w progressive generalized weakness and failure to thrive over the last 1 week.
She also c/o decreased appetite, decreased p.o. intake, subjective weight loss. Daughters report increased nasal drip with clear mucus.
Patient is currently awaiting surgery for inguinal hernia repair. Medication list indicates that she is more recently on vitamin D as well as calcium supplementation. No other medication changes.
She is chronically on Lasix and she states that weight is been slowly going down.
In the ED, her calcium level was noted to be elevated at 14.9.
A/P:
# Hypercalcemia
Noted pt recently started with calcium and Vitamin D supplementation, DC both going forward
Calcium level 14.5 on admission -> 10 today, follow up repeat level outpt
s/p calcitonin and developed facial rash soon after, stopped and gave Benadryl.
Vit D level WNL at 60, PTH level low at 4.0
Follow PTH related peptide and SPEP result outpt with your PCP
DC IVF per renal
s/p IV Lasix 20 mg
s/p pamidronate 11/15 per renal
Renal on board , cleared for discharge
# IVETTE, related to hypercalcemia/dehydration.
SCr 1.2 today
IVF as above
Follow SPEP as above outpt
renal US unrevealing: No calculus. No hydronephrosis or obstructive uropathy.
Avoid nephrotoxins
Nephrology on board
# Intermittent urinary retention
# ESBL E coli UTI
cont bladder scan, straight cath PRN
Started Merrem, DC with Levaquin for 3 days
# Cough - suspect UACS, much resolved.
Rhinorrhea and hx of allergies
No infiltrates to suggest pneumonia. Follow formal report
continue loratadine daily
cough suppression
# Paroxysmal AFIB
continue Eliquis
continue metoprolol
# HTN
continue amlodipine
# GERD
continue ppi
# Hypokalemia
# Hypomagnesemia
replete lytes
Check levels ouptpt
DVT PPX - on apixaban
Code status - Full Code
Dispo: PT OT eval cleared for HH
DW renal
updated daughter on the phone. Explained at great length.
Anticipated Discharge: Today
Subjective/Interval History
-
Date of Service: November 18, 2024
Objective Data
-
Labs:
Laboratory Results
11/18/24
07:53
WBC 8.7
Hgb 10.0 L
Hct 30.2 L
Plt Count
Sodium 135
Potassium 3.2 L
Chloride 107
Carbon Dioxide 20 L
BUN 25 H
Creatinine 1.2 H
Glucose 140 H
Calcium 10.0 D
Vital Signs:
Vital Signs
Temp Pulse Resp BP Pulse Ox
36.7 C 102 20 166/90 93
11/18/24 07:35 11/18/24 09:26 11/18/24 07:35 11/18/24 09:26 11/18/24 09:22
I&O
11/17/24 11/18/24 11/19/24
06:59 06:59 06:59
Intake Total 1979 300 / 300
Balance 1979 300 / 300
Review of Systems
-
History Source: Patient
All other systems: Reviewed and negative
Physical Exam
-
General: Well Developed, Well Nourished, No Apparent Distress, Comfortable and Conversant; Negative Respiratory Distress
HEENT: Normocephalic, Atraumatic, Nose Appears Normal and Ears Appear Normal; Negative Oxygen
Respiratory: Clear to Auscultation and Non Labored Respirations; Negative Accessory Resp Muscle Use
Cardiac: S1/S2; Negative Tachycardic
GI: Soft, Nontender, Nondistended and Normal Bowel Sounds
Skin: Warm and Dry
Neuro: Awake, Alert and Oriented
Psych: Calm and Intact Judgement/Insight
Data Reviewed
-
Ultrasound: Report Reviewed by me
Labs: Labs Reviewed by me
[2024-11-18 11:07] VITALS: BP 150/90; PULSE 103; O2SAT 94
[2024-11-18] MEDS: KCL 20 MEQ PO (12:17)
--- NOTE | 2024-11-18 12:20 | W.PN.NEPH.PH ---
Today's Communication / Plan
-
Okay for discharge from renal standpoint follow-up with primary labs in a week
Assessment/Plan
-
84 y.o female with PMH of arial fibrillation on apixaban, CHF, hypertension, presenting to the emergency department with progressive generalized weakness and failure to thrive over the last 1 week.
She is found to have hypercalcemia of 14.2 as well as acute kidney injury
Renal consult for above
Impression.
Acute kidney injury creatinine of 1.4 on chronic kidney disease stage IIIa
Hypercalcemia concern for paraprotein
CHF ejection fraction 50% as of July 2024 = compensated
Hypertension stable
Atrial fibrillation stable
Plan.
IVETTE persistent at 1.5 and subjectively non oliguric
Continue normal saline we will increase the rate slightly to 100 cc/hr but will give 20mg IV lasix
Vitamin D 25 OH-60.1
PTH expectedly low at 4
Status post calcitonin appears to have developed a rash
Pamidronate provided with good result serum calcium level now down to 11.5
Anemia, narrow anion gap, hypercalcemia and proteinuria concerning for multiple myeloma
Will quantitate underlying proteinuria, with urine protein to creatinine ratio: 400mg
Renal ultrasound reviewed without acute abnormalities
Paraproteinemia workup pending
Improved electrolytes
Okay for discharge from renal standpoint follow-up with primary
-
-
Date of Service: November 18, 2024
CC / HPI / ROS
-
Chief Complaint:
Hypercalcemia
Acute kidney injury
History of Present Illness:
Serum calcium down to 11.3 following IV fluids and pamidronate
Hemodynamically stable
IVETTE improved
Review of Systems:
Nonoliguric but did require straight cath
No chest pain or shortness of breath
Labs
-
Labs:
WBC 8.7 10^3/uL (4.8-10.8) 11/18/24 07:53
RBC 3.94 10^6/uL (4.20-5.40) L 11/18/24 07:53
Hgb 10.0 g/dL (12.0-16.0) L 11/18/24 07:53
Hct 30.2 % (37.0-47.0) L 11/18/24 07:53
Plt Count 10^3/uL (130-400) 11/18/24 07:53
Sodium 135 mmol/L (135-145) 11/18/24 07:53
Potassium 3.2 mmol/L (3.5-5.1) L 11/18/24 07:53
Chloride 107 mmol/L (98-107) 11/18/24 07:53
Carbon Dioxide 20 mmol/L (22-30) L 11/18/24 07:53
BUN 25 mg/dl (7-17) H 11/18/24 07:53
Creatinine 1.2 mg/dL (0.6-1.0) H 11/18/24 07:53
eGFR 44.36 11/18/24 07:53
Glucose 140 mg/dl (70-99) H 11/18/24 07:53
Calcium 10.0 mg/dl (8.4-10.2) D 11/18/24 07:53
Phosphorus 3.8 mg/dl (2.5-4.5) 11/15/24 06:21
Albumin 3.6 g/dl (3.5-5.0) 11/14/24 21:52
Physical Exam
-
Vital Signs:
Vital Signs
Temp Pulse Resp BP Pulse Ox
98.0 F 102 20 166/90 93
11/18/24 07:35 11/18/24 09:26 11/18/24 07:35 11/18/24 09:26 11/18/24 09:22
Cardiovascular:: Regular rate and rhythm
Respiratory:: Bilateral: Coarse
Lung Excursion:: Normal
Abdomen:: Nontender and Soft
Bowel Sounds:: Normal
Extremity Edema:: +1: Bilateral:
Kumar Catheter: No
--- NOTE | 2024-11-18 12:26 | CM ---
Patient for d/c today
Met w/ patient and daughter bedside. Offered home PT again, daughter agreeable to [facility]. Daughter requesting her sister, Chrissy, to be contacted to arrange initial visit.
Referral to [facility] entered in [facility]
IMM verbally reviewed, copy provided, copy on chart
[facility]

Plan: Home w/ [facility]
[2024-11-18 13:26] LABS: Albumin 3.07 g/dL (3.75-5.01); SPEP IFE Reflex Not Done; Total Protein-Electrophoresis 6.2 g/dL (6.3-8.2)
[2024-11-18 14:00] VITALS: BP 143/86
--- NOTE | 2024-11-18 15:49 | W.DCSUMMARY ---
Discharge Summary
Discharge Data
Date of Admission: 11/15/24
Date of Discharge: 11/18/24
Total time spent discharging patient (in min): 40
-
Pending Results: No
Hospital Course
Principal Diagnosis:
Hypercalcemia, currently unclear etiology
IVETTE, related to hypercalcemia/dehydration.
Intermittent urinary retention with ESBL E coli UTI
Chronic Diagnoses:�
Paroxysmal atrial fibrillation, on Eliquis and metoprolol
HTN, continue amlodipine
GERD
Consultations:�
Nephrology
Procedures:�
None
Clinical course:�
This is a 84-year-old female with past medical history as stated above, who presented with generalized weakness and failure to thrive for about 1 week.
In the ED, her calcium level was noted to be elevated at 14.9.
Problem 1:
Hypercalcemia, currently unclear etiology.
It was noted that the patient was recently started with calcium and vitamin D supplementation. She should stop these supplementation going forward.
Her calcium level normalized to 10 on the day of discharge.
She did receive calcitonin x 1 dose (and developed facial rash, which resolved following Benadryl), and pamidronate x 1 dose.
She also received IV fluid during her hospital stay.
Her vitamin D level was within normal limit at 60, and parathyroid hormone level appropriately low at 4.0.
SPEP and parathyroid hormone related protein were sent, results were still pending at the time of discharge.
She has been informed to follow up these results outpatient with her PCP.
Problem 2:
IVETTE, related to hypercalcemia/dehydration.
Her creatinine improved from 1.5 to 1.2.
Her renal ultrasound was unrevealing: No calculus. No hydronephrosis or obstructive uropathy.
She has been informed to follow-up SPEP outpatient.
Problem 3:
Intermittent urinary retention with ESBL E coli UTI.
She was started with Merrem while in the hospital, and was discharged with Levaquin for 3 more days.
As for the rest of her medical problems, they were stable during her hospital stay.
Discharge Plan
-
Patient Disposition: Home with Home Care
Discharge Diagnosis/Procedures: Hypercalcemia (status post calcitonin and pamidronate, calcium level improved from 14.5 to 10);
IVETTE (related to hypercalcemia vs dehydration), SCr at 1.2 on day of discharge;
ESBL E coli UTI
Condition: Fair
Diet: As tolerated
Activity: As tolerated
Driving Restrictions: As prior to admission
Blood Work: BMP, Magnesium level within 1 week, result to PCP
Activity Restrictions/Additional Instructions:
Follow up PTH related peptide and SPEP result with your PCP
Referrals:
Darian Giles DO [Family Provider, [facility]] - in less than 1 week
Additional Discharge Medication Instructions: Hold Lasix for 1 week, resume when cleared by your PCP
Continue Levaquin for 3 days
STOP calcium and vit D supplement.
Prescriptions:
New
levofloxacin 500 mg tablet
500 mg PO DAILY 3 Days Qty: 3 0RF
(DME) BMP
See Rx Instructions .Route .MEDSUPPLY Qty: 1 0RF
Rx Instructions:
Check within 1 week (11/21 to 11/25), result to PCP
(DME) magnesium
See Rx Instructions .Route .MEDSUPPLY Qty: 1 0RF
Rx Instructions:
Check within 1 week (11/21 to 11/25), result to PCP
Continued
acetaminophen 325 MG tablet
500 mg PO DAILY
metoprolol succinate 25 mg Tablet Extended Release 24 Hr
75 mg PO DAILY
memantine 10 mg Tablet
10 mg PO BID
Eliquis 5 mg Tablet
5 mg PO BID
amlodipine 2.5 mg Tablet
2.5 mg PO DAILY
sertraline [Zoloft] 25 mg Tablet
25 mg PO HS
amitriptyline 50 mg Tablet
50 mg PO HS
loratadine [Claritin] 10 mg Tablet
10 mg PO DAILYPRN PRN (Reason: allergies)
magnesium oxide 250 mg magnesium Tablet
250 mg PO DAILY
Systane (PF) 0.4-0.3 % Dropperette
1 drp BOTH EYES TIDPRN PRN (Reason: dryness)
Visbiome 112.5 billion cell Capsule
1 cap PO DAILY
pantoprazole 40 MG tablet,delayed release (DR/EC)
40 mg PO DAILY Qty: 30 0RF
multivitamin with folic acid [Tab-A-Chapo] 1 TABLET tablet
1 tab PO DAILY 0RF
colestipol 1 GM tablet
1 gm PO BID Qty: 60 0RF
Held
furosemide [Lasix] 40 mg Tablet
60 mg PO DAILY
Hold Instructions: Resume on 11/25/24.
Discontinued
calcium carbonate [Calcium 500] 500 mg calcium (1,250 mg) Tablet
500 mg PO DAILY
cholecalciferol (vitamin D3) 1,000 UNITS tablet
1,000 units PO DAILY Qty: 30 0RF
Discharge Orders:
Discharge Patient (As Directed); Ordered 11/18/24
Ordered By: Neena Evans
Discharge Date and Time
Discharge Date/Time: 11/18/24 14:49
Print Language: MONTSERRATIAN
[2024-11-20 20:00] LABS: PTH Related Peptide LC-MS/MS <2.0 pmol/L (0.0-3.4)
== END 2024-11-18 14:49 | disposition home health service (06) | DRG 683 ==
LOC: 4 EAST ACU 03:10
PROVIDERS: Emergency Medicine; Nurse Practitioner Family; ADMITTING PHYSICIAN Internal Medicine; ATTENDING PHYSICIAN Internal Medicine; CONSULT PHYSICIAN Internal Medicine Nephrology; EMERGENCY PHYSICIAN Emergency Medicine; FAMILY PHYSICIAN Family Medicine
DX: N17.9 Acute kidney failure, unspecified (principal); C90.00 Multiple myeloma not having achieved remission; I13.0 Hypertensive heart and chronic kidney disease with heart failure and stage 1 through stage 4 chronic kidney disease, or unspecified chronic kidney disease; N39.0 Urinary tract infection, site not specified; E83.52 Hypercalcemia; I48.0 Paroxysmal atrial fibrillation; E86.0 Dehydration; E78.00 Pure hypercholesterolemia, unspecified; K21.9 Gastro-esophageal reflux disease without esophagitis; Z79.01 Long term (current) use of anticoagulants; Z79.899 Other long term (current) drug therapy; Z87.891 Personal history of nicotine dependence; Z88.1 Allergy status to other antibiotic agents; N18.31 Chronic kidney disease, stage 3a; R05.8 Other specified cough; E87.6 Hypokalemia; R62.7 Adult failure to thrive; R33.8 Other retention of urine; B96.20 Unspecified Escherichia coli [E. coli] as the cause of diseases classified elsewhere; I50.9 Heart failure, unspecified; G62.9 Polyneuropathy, unspecified; F32.A Depression, unspecified; F41.9 Anxiety disorder, unspecified; M85.80 Other specified disorders of bone density and structure, unspecified site
CPT/HCPCS: 71046; 76770; 80048; 80053; 81003; 81015; 82306; 82570; 82652; 83519; 83735; 83970; 84100; 84155; 84156; 84165; 84300; 84443; 85025; 85027; 87077; 87086; 87186; 93005; 97116; 97163; 97167; 97530; J0630; J2185; J2430

== ENCOUNTER 2024-11-20 14:02 | Inpatient (IN) | payer OTHER, SELFPAY ==
[2024-11-20] VITALS (13 sets, daily range): BP systolic 117–154; BP diastolic 65–127; BMI 26.6; BMI 26.7
--- NOTE | 2024-11-20 11:02 | ED.GENMED ---
History of Present Illness
General
Chief Complaint: Breathing Problem
Source: patient and family
Time Seen by Provider: 11/20/24 10:34
History of Present Illness
History of Present Illness:
84-year-old female presents to the emergency room complaining of feeling short of breath. Patient also has been feeling quite weak seems a bit confused to family. She has a fairly significant sore throat. She has had poor oral intake because she
has no appetite. She has been drinking some liquids. She was hospitalized here at [facility] very recently for hypercalcemia and renal insufficiency. She was discharged 2 days ago. She was instructed to hold her daily dose of Lasix 60 mg for 1
week based upon the fact she was very dry in association with her hypocalcemia. A workup was initiated for multiple myeloma which as far as the family notes is still pending. Patient also complaining of pain in her left neck and bilateral thighs.
The neck pain is worse with movement. Patient was also started on Levaquin 500 mg 1 pill once a day for 3 days. She did not take her dose today. No fever.
Past History
Past History
ED Past Medical History: Arrthythmia, CHF, GERD, HTN, Psychiatric (Anxiety/depression), Other (Osteopenia) and Other (Neuropathy feet under care of Pain Management)
ED Past Surgical History: Cholecystectomy, Gynecological (Hysterectomy), Orthopedic and Other (Hemorrhoidectomy, bladder lift)
Social History
Tobacco: Former smoker
Alcohol: None
Drug: None
Personal:
Living: alone
Employment: Retired
Phy Exam
Physical Exam
Physical Exam:
General: Awake, Alert, Oriented X3. Has moderate increased work of breathing
Vitals: Afebrile, tachycardic, tachypneic, hypoxic on room air
Head: Atraumatic
Eyes: Pupils equal, EOMI
Throat: Airway intact, no exudates
Neck: Trachea midline
Lungs: Crackles bilaterally
Heart: Tachycardic, irregular
Abd: Soft, Nontender, No pulsatile mass
Neuro: Nonfocal
Skin: Warm, dry, no rash
Extremities: pulses equal b/l, minimal edema
Scores
Heart Failure Risk
Heart Failure Risk Score: Yes
History of Stroke or TIA: No
History of intubation for respiratory distress: No
Heart rate on ED arrival >/= 110: Yes
SaO2 <90% on arrival on room air: Yes
HR >/=110 during 3min walk test (or too ill to perform test): Yes
ECG has acute ischemic changes: No
Urea >/=12mmol/L (BUN 33.6mg/dL): No
Serum CO2>/=35mmol/L: No
Troponin I or T elevated to ID Level (0.4mg/dL): No
NT-proBNP >/=5,000ng/L (5,000pg/ml): No
HF Risk Score: 3
Admission Status: HIGH RISK 15.9% Consider SNF treatment or admission to hospital
Course
Orders/Labs/Results
Orders:
Orders
11/20/24 10:27
EKG [Electrocardiogram (*1)] Urgent
Reason for Study: Bradycardia / Tachycardia
EKG- Treatment ONCE
11/20/24 10:48
Complete Blood Count/With Diff Urgent
Comprehensive Metabolic Panel Urgent
Creatine Phosphokinase Urgent
NT-proBNP Urgent
11/20/24 11:06
Add On- LAB Urgent
Tests Added?: bnp, cpk
11/20/24 11:07
CR Chest Portable - 1 View Urgent
Comment:
Reason For Exam: sob
Reason Study Needs to be Portable: Patient Unstable
11/20/24 11:10
Diltiazem 125 mg/125 ml Nss [Cardizem] 125 mg in 125 ml IV NOW
Initial dose in mg/hr, then titrate:: 5
Titrate to keep:: Heart rate 80-100 bpm
Titrate by mg/hr:: 5 mg/hr
Frequency of titrations (minutes):: 15
Maximum dose in mg/hr:: 15
Diltiazem HCl [Cardizem] 15 mg IV NOW STA
11/20/24 11:12
COVID-19 Antigen Urgent
Source: Nasal Swab
Influenza A+B Rapid Molecular Urgent
ERIK Source: Nasal Swab
Specimen Description:
11/20/24 12:13
Apixaban [Eliquis] 5 mg PO NOW STA
Furosemide [Lasix] 40 mg IV NOW STA
11/20/24 13:13
Admit/Transfer Patient As Directed
Co-Sign Provider:
Level of Care: Inpatient admission
Assign to:: Telemetry
Physician / Group: elizabeth
Diagnosis: chf exacerbation
Reason for Telemetry: Acute Heart Failure
Date to Stop Telemetry: 11/23/24
Time to Stop Telemetry: 11:00
Reason for Hospitalization: chf exacerbation
Expected length of stay greater than two midnights?: Yes
ELOS- Estimated Length of Stay in days: 2
I certify the patient meets the requirements for IP care: Yes
PRN Pain Medication Management As Directed
May give lesser potent ordered pain med per pt: Yes
preference::
Protocol:: Medication orders for pain may be administered in a
manner that supports deferring to patient preference
when the pt is:
- Requesting an ordered lesser potent pain medication.
Least to most potent pain medications are defined
as: acetaminophen < NSAID < tramadol < opioids
(morphine, oxycodone, hydromorphone).
- Requesting a lesser dose of the same medication IF
ORDERED.
- Requesting a less intrusive route of administration
if both routes are prescribed by the provider (PO <
IV).
11/20/24 13:14
Code Status As Directed
Resuscitation Status: Full Code
11/20/24 13:52
Monotest Urgent
Rapid Strep Group A Urgent
ERIK Source: Throat/Pharynx
Specimen Description:
Date Specimen was Collected: 11/20/24
Time Specimen was Collected: 13:44
Throat Culture [Throat Culture, Comprehensive] Urgent
ERIK Source: Throat/Pharynx
Specimen Description:
Date Specimen was Collected: 11/20/24
Time Specimen was Collected: 13:44
11/20/24 Dinner
Cholesterol Lowering
At Your Request: Full Participation
Cholesterol Lowering: Sodium, 2 Gram
11/20/24 16:42
Echo 2D MMode Color/Doppler Routine
Reason for Study: chf
VTE Contraindication Routine
VTE Mechanical Device Contraindication: Medical Contraindication
Pharmocologic Contraindication: Medical Contraindication
Activity As Directed
Activity Level: As Tolerated
I/O [Intake/ Output] As Directed
Frequency: q12h
Vital Signs As Directed
Frequency: Per unit guidelines
Weight As Directed
Frequency: Daily
11/20/24 16:53
Carboxymethylcellulose [Refresh Celluvisc Gel] 1 drops BOTH EYES TIDPRN PRN
11/20/24 20:00
Apixaban [Eliquis] 5 mg PO BID
Memantine HCl [Namenda] 10 mg PO BID
colestipol 1 gm PO BID
11/20/24 22:00
Acetaminophen [Tylenol] 500 mg PO HS
Amitriptyline [Elavil] 50 mg PO HS
Sertraline HCl [Zoloft] 25 mg PO HS
11/21/24 06:00
Complete Blood Count/With Diff IN AM
Comprehensive Metabolic Panel IN AM
11/21/24 08:00
Amlodipine [Norvasc] 2.5 mg PO DAILY
Furosemide [Lasix] 40 mg IV DAILY
LevoFLOXacin [Levaquin] 500 mg PO DAILY
Metoprolol Xl [Toprol Xl] 75 mg PO DAILY
Pantoprazole [Protonix] 40 mg PO DAILY
11/23/24 11:00
DC Protocol for Telemetry ONCE
Abnormal Lab Results
11/20/24
10:48
WBC 11.4 H 10^3/uL
(4.8-10.8)
Hgb 10.8 L g/dL
(12.0-16.0)
Hct 33.1 L %
(37.0-47.0)
MCV 76.4 L fL
(81.0-99.0)
MCH 24.9 L pg
(27.0-31.0)
MCHC 32.6 L g/dL
(33.0-37.0)
RDW 16.5 H %
(11.5-14.5)
Absolute Neuts (auto) 9.7 H 10^3/uL
(1.4-6.5)
Absolute Lymphs (auto) 0.5 L 10^3/uL
(1.2-3.4)
Absolute Monos (auto) 1.2 H 10^3/uL
(0.1-0.6)
Neutrophils % 85.2 H %
(42.2-75.2)
Lymphocytes % 4.0 L %
(20.5-51.1)
Monocytes % 10.2 H %
(1.7-9.3)
Sodium 131 L mmol/L
(135-145)
Carbon Dioxide 17 L mmol/L
(22-30)
BUN 23 H mg/dl
(7-17)
Glucose 140 H mg/dl
(70-99)
Total Bilirubin 2.0 H mg/dl
(0.2-1.3)
Alkaline Phosphatase 166 H U/L
(38-126)
Creatine Kinase < 20 L U/L
(30-135)
Total Protein 6.2 L g/dl
(6.3-8.2)
Albumin 3.2 L g/dl
(3.5-5.0)
11/20/24 10:48
11/20/24 10:48
Vital Signs
Initial and Last Documented VS:
Initial Vital Signs
Temp Pulse Resp BP Pulse Ox
97.7 F 132 18 154/88 92
11/20/24 10:23 11/20/24 10:23 11/20/24 10:23 11/20/24 10:23 11/20/24 10:23
Last Documented Vital Signs
Temp Pulse Resp BP Pulse Ox
97.7 F 120 29 134/75 93
11/20/24 10:23 11/20/24 15:04 11/20/24 14:30 11/20/24 15:04 11/20/24 14:30
MDM/Problems Addressed
Differential Diagnosis Includes:
COVID, heart failure, recurrence of hypercalcemia, renal failure
MDM/Problems Addressed:
Patient presents with shortness of breath, mild confusion. Workup here indicates development of congestive heart failure likely due to the required IV fluid resuscitation during her recent hospitalization as well as holding Lasix. Patient will
require hospitalization for IV diuresis. Patient also was noted to be in A-fib with rapid ventricular response on arrival. IV Cardizem bolus and infusion initiated as well. Heart rate improved to the 1 teens.
*Pulse Oximetry
SaO2: 91
Nasal Cannula flow liters per minute: 2
Oxygen Mode of Delivery: Room air
Patient hypoxic: yes
*EKG
Interpreted by ED Provider?: Yes
Interpretation: abnormal
Comparison EKG: changes noted
Heart Rate: 131
Rate: tachycardiac
Rhythm: a-fib
[place]: normal axis
Interval: normal interval
QRS Pattern: normal QRS
Ischemia: non-specific ST changes
*[employer] Interpretation
Rate: tachycardiac
Interpretation: abnormal
Heart Rate: 131
Rhythm: a-fib
*Critical Care Note
Total Time (30-74mins, 75-104mins- exclusive of procedures): 33 min
comment:
Critical care statement: A total of 33 minutes of critical care time was provided for this patient. This includes management of unstable vital signs, evaluation of the patient at bedside, reviewing the patient's pertinent medical records, discussion
with consultants, review of old EKGs and review of pertinent medical records. This time with separate from time utilized to perform the aforementioned documented procedures
Data Reviewed
Review of Other/Old Records Reveals: Testing, Progress Notes and Discharge Summary
ED Attending Note
-
Portions of this chart may have been created with voice recognition software.� Occasional wrong word or��sound alike� substitutions may have occurred due to the inherent limitations of voice recognition software.
Discharge Plan
Departure
Patient Disposition: Admit
Date of Disposition: 11/20/24
Time of Disposition: 12:14
Admit to: IMU
Presentation/result/management discussed w/ accepting MD/DO: Hospitalist
Condition: Fair
Discharge Problem:
Acute exacerbation of CHF (congestive heart failure)
Interventions
Interventions:
*Risk Screen - Suicide Last Done: 11/20/24 15:19
*General Assessment Last Done: 11/20/24 10:25
*Neglect/Abuse Screening Last Done: 11/20/24 10:25
*ED COVID-19 Vaccine History Last Done: 11/20/24 15:19
*Nursing Disposition Last Done: 11/20/24 15:07
ED- Cardiac Assessment Last Done: 11/20/24 10:55
ED- Pulmonary Assessment Last Done: 11/20/24 10:55
Discharge Date and Time
Discharge Date/Time: 11/20/24 15:09
[2024-11-20 11:15] LABS: Hematocrit 33.1 % (37.0-47.0); Hemoglobin 10.8 g/dL (12.0-16.0); Mean Corp Hgb Conc. 32.6 g/dL (33.0-37.0); Mean Corpuscular Volume 76.4 fL (81.0-99.0); Nucleated Red Blood Cells % 0 %; Red Cell Dist. Width 16.5 % (11.5-14.5)
[2024-11-20] MEDS: CARDIZEM 15 MG IV (11:18)
[2024-11-20 11:20] LABS: ALT (SGPT) 21 U/L (0-35); AST (SGOT) 29 U/L (14-36); Albumin 3.2 g/dl (3.5-5.0); Alkaline Phosphatase 166 U/L (38-126); Blood Urea Nitrogen 23 mg/dl (7-17); Calcium 9.4 mg/dl (8.4-10.2); Carbon Dioxide 17 mmol/L (22-30); Chloride 106 mmol/L (98-107); Estimated Creatinine Clearance 41 ml/min; Glucose 140 mg/dl (70-99); Potassium 4.2 mmol/L (3.5-5.1); Sodium 131 mmol/L (135-145); Total Protein 6.2 g/dl (6.3-8.2); eGFR > 60.00
[2024-11-20] MEDS: CARDIZEM 125 IV ×2 (11:22→20:30)
[2024-11-20 11:42] LABS: COVID-19 Antigen Negative (Negative)
[2024-11-20] MEDS: LASIX 40 MG IV (12:23)
[2024-11-20] MEDS: ELIQUIS 5 MG PO ×2 (12:23→19:48)
--- NOTE | 2024-11-20 13:19 | HPS.HSE ---
Family Physician
-
Family Physician: Darian Giles
Chief Complaint
-
shortness of breath
History of Present Illness
84-year-old female past medical history of paroxysmal atrial fibrillation on apixaban, CHF, hypertension, GERD, ESBL E. coli, presenting with ongoing shortness of breath and increased lower extremity swelling. She has been very fatigued and
sleeping more. She has been having intermittent sore throat. She continues to have swelling behind her left neck with discomfort. She has increased lower extreme edema. Unclear if weight gain. No cough. No fevers or chills.
Patient was recently admitted for hypercalcemia thought to be secondary to calcium and vitamin D supplementation. She underwent workup for paraproteinemia and SPEP was negative. Seen by nephrology. She was initially given IV fluids then diuresed
and Lasix was held afterwards on discharge.
She is a former smoker. Denies alcohol.
Medical History
Past Medical History
Past Medical History: Reports Other (paroxysmal atrial fibrillation on apixaban, CHF, hypertension, GERD, ESBL E. coli)
Past Surgical History: Reports None
Social History
Tobacco: Former Smoker
Alcohol: None
Drug: None
Family History
Family History: Not pertinent
Allergies / Home Medications
Allergies reflects when Allergies were last updated in [facility].
Home Medications with original date entered in [facility]
Allergy/Medication List:
Allergies
Allergy/AdvReac Type Severity Reaction Status Date / Time
clarithromycin Allergy Unknown Verified 11/20/24 10:26
erythromycin base Allergy Unknown Verified 11/20/24 10:26
Home Medications
colestipol 1 gram tablet 1 gm PO BID High cholesterol #60 tabs 10/08/19
pantoprazole 40 mg tablet,delayed release 40 mg PO DAILY #30 tabs 10/08/19
amitriptyline 50 mg tablet 50 mg PO HS 11/15/24
amlodipine 2.5 mg tablet 2.5 mg PO DAILY 11/15/24
apixaban 5 mg tablet (Eliquis) 5 mg PO BID 11/15/24
memantine 10 mg tablet 10 mg PO BID 11/15/24
metoprolol succinate 25 mg tablet,extended release 24 hr 75 mg PO DAILY 11/15/24
peg 400-propylene glycol (PF) 0.4 %-0.3 % eye drops in a dropperette (Systane (PF)) 1 drp BOTH EYES TIDPRN PRN dryness 11/15/24
sertraline 25 mg tablet (Zoloft) 25 mg PO HS 11/15/24
levofloxacin 500 mg tablet 500 mg PO DAILY 3 days #3 tabs 11/18/24
acetaminophen 500 mg tablet 500 mg PO HS 11/20/24
Review of Systems
-
Constitutional: Reports No Symptoms
EENT: Reports No Symptoms
Respiratory: Reports See HPI
Cardiac: Reports See HPI
Abdomen/GI: Reports No Symptoms
: Reports No Symptoms
Musculoskeletal: Reports No Symptoms
Skin: Reports No Symptoms
Neurological: Reports No Symptoms
Endocrine: Reports No Symptoms
Hematologic/Lymphatic: Reports No Symptoms
Psych: Reports No Symptoms
Physical Exam
Vital Signs
Vital Signs
Temp Pulse Resp BP Pulse Ox
97.7 F 122 25 140/127 93
11/20/24 10:23 11/20/24 12:00 11/20/24 12:00 11/20/24 12:00 11/20/24 12:00
Physical Exam
General: Well Developed, Well Nourished and No Apparent Distress
HEENT: NormoCephalic, Moist mucous membranes and Atraumatic
Respiratory: Clear
Cardiac: S1/S2, Regular Rhythm, Irregular Rhythm and Peripheral Edema; No Murmur or Rub
GI: Soft, Non Tender, Non Distended and Normal Bowel Sounds; No Organomegaly
Rectal: Deferred by Provider
Musculoskeletal: No Clubbing, No Cyanosis and No Edema
Skin: No Rash
Neuro: Nonfocal/grossly intact
Laboratory Results
-
11/20/24 10:48
11/20/24 10:48
Laboratory Results
Total Bilirubin 2.0 mg/dl (0.2-1.3) H 11/20/24 10:48
AST 29 U/L (14-36) 11/20/24 10:48
ALT 21 U/L (0-35) 11/20/24 10:48
Alkaline Phosphatase 166 U/L (38-126) H 11/20/24 10:48
Data Reviewed
-
Lab Data: Labs Reviewed by me
Old Records: Reviewed
Impression/Plan
-
IMPRESSION:
PLAN:
# Acute CHF exacerbation secondary to recent IV fluids given for hypercalcemia
-Cardiac BNP of 3500
-Chest x-ray shows moderate acute interstitial/alveolar cardiogenic pulm edema, small bilateral pleural effusions, moderate bilateral lower lobe opacities probably compressive atelectasis, moderate cardiomegaly,
- Check I's and O's, daily weight
- 40 IV Lasix daily
- Echo from 09/2023 shows EF of 45 to 50%, severely dilated LA,
- Check echo
- Cardiology consulted
# Atrial fibrillation with RVR
- Cardizem drip
- Continue apixaban
- Continue metoprolol
# Intermittent sore throat
- Leukocytosis
- COVID-negative
- Check throat culture, strep, mono
- No clear signs of malignancy
# Posterior neck lymphadenopathy secondary to URI
- No clear signs of malignancy
# ESBL E. coli
- Received meropenem in hospital, has to finish Levaquin today and tomorrow
- No urinary symptoms at any time
Essential hypertension
- Continue amlodipine
GERD
- Continue Protonix
Chronic anemia
- Hemoglobin stable
History of hypercalcemia secondary to calcium supplementation versus rule out underlying paraproteinemia/malignancy
- Had paraprotein workup with negative SPEP
- PTH only for
- PTH RP pending
Dementia
- Continue memantine
Anxiety/depression
- Continue Zoloft, amitriptyline
Hypercholesteremia
- Continue colestipol
Full code
DVT prophylaxis�Eliquis
Regular diet
--- NOTE | 2024-11-20 13:25 | CM ---
Addendum entered by Rose Amador 11/20/24 13:31:
Pt is scheduled for hernia repair surgery on 12/02 at
Original Note:
CM reviewed chart and met with pt bedside in ED. Lives alone in [address] [facility], [address] [facility].
Independent in ADLs, personal care and ambulation at baseline. Has been using [facility] since last admission, discharged 11/18
Confirms prescription coverage.
Current with [facility] but they have not seen her yet as she just returned home 2 days ago.
No hx SNF, hx [facility] in 2019.
PCP: Darian Giles
Pharmacy: [facility]
Anticipate discharge home with [facility], CM will continue to follow.
--- NOTE | 2024-11-20 15:30 | PTCARENOTE ---
Addendum entered by Adam Truong RN 11/20/24 19:21:
PT received from ED AAOx3 w/o complaints of pain; Afib on monitor VSS; 2L nc clear / decreased; GI wnl; pure wick; skin CDI; PIVx1 wnl; see worklist for detailed assessment
Original Note:
PT received from OR AAOx3 w/o complaints of pain; Afib on monitor VSS; 2L nc clear / decreased; GI wnl; pure wick; skin CDI; PIVx1 wnl; see worklist for detailed assessment
[2024-11-20] MEDS: NAMENDA 10 MG PO (19:48)
[2024-11-20] MEDS: NON-FORMULARY ITEM 1 GM PO (19:49)
[2024-11-20] MEDS: ELAVIL 50 MG PO (22:07)
[2024-11-20] MEDS: ZOLOFT 25 MG PO (22:07)
[2024-11-20] MEDS: TYLENOL 500 MG PO (22:08)
--- NOTE | 2024-11-20 23:19 | PTCARENOTE ---
Received patient at change of shift. Afib on the monitor, HR in the 110s. VSS on 2L nasal cannula. Cardizem running as per protocol, see documentation. No complaints from pt at this time, call steen within reach.
[2024-11-21 03:50] VITALS: BP 128/64
[2024-11-21 04:27] VITALS: BMI 26.0
[2024-11-21 04:44] LABS: Hematocrit 29.9 % (37.0-47.0); Hemoglobin 9.8 g/dL (12.0-16.0); Mean Corp Hgb Conc. 32.8 g/dL (33.0-37.0); Mean Corpuscular Volume 76.5 fL (81.0-99.0); Nucleated Red Blood Cells % 0 %; Platelet Count 173 10^3/uL (130-400); Red Cell Dist. Width 16.7 % (11.5-14.5)
[2024-11-21 05:05] LABS: ALT (SGPT) 18 U/L (0-35); AST (SGOT) 19 U/L (14-36); Albumin 2.8 g/dl (3.5-5.0); Alkaline Phosphatase 156 U/L (38-126); Blood Urea Nitrogen 22 mg/dl (7-17); Calcium 8.7 mg/dl (8.4-10.2); Carbon Dioxide 21 mmol/L (22-30); Chloride 105 mmol/L (98-107); Estimated Creatinine Clearance 41 ml/min; Glucose 127 mg/dl (70-99); Potassium 3.3 mmol/L (3.5-5.1); Sodium 132 mmol/L (135-145); Total Protein 5.6 g/dl (6.3-8.2); eGFR > 60.00
[2024-11-21] MEDS: CARDIZEM 125 IV (06:04)
[2024-11-21] MEDS: KCL 40 MEQ PO ×2 (06:04→22:50)
[2024-11-21 07:59] VITALS: BP 122/79
[2024-11-21] MEDS: TOPROL XL 75 MG PO (08:19)
[2024-11-21] MEDS: ELIQUIS 5 MG PO ×2 (08:19→20:35)
[2024-11-21] MEDS: NAMENDA 10 MG PO ×2 (08:19→20:35)
[2024-11-21] MEDS: PROTONIX 40 MG PO (08:19)
[2024-11-21] MEDS: NON-FORMULARY ITEM 1 GM PO ×2 (08:20→20:35)
[2024-11-21] MEDS: LASIX 40 MG IV (08:21)
[2024-11-21] MEDS: NORVASC 2.5 MG PO (08:21)
[2024-11-21] MEDS: LEVAQUIN 500 MG PO (08:21)
[2024-11-21 10:40] LABS: Magnesium 1.3 mg/dl (1.6-2.3)
--- NOTE | 2024-11-21 10:41 | PTCARENOTE ---
Pt is AOx3, forgetful in conversation. No complaints of pain or discomfort. Assist x1 OOB with walker. Afib on tele monitor, VSS. Call steen within reach.
--- NOTE | 2024-11-21 11:25 | CON.CAR ---
Addendum entered and electronically signed by Kaushik Milian MD 11/21/24 15:03:
84-year-old woman admitted with acute HFmrEF following withdrawal of furosemide during brief hospital stay for hypercalcemia possibly related to vitamin D supplementation at which time furosemide 60 mg a day was withdrawn. In atrial fibrillation at
the time of presentation.
PMH: Recently diagnosed hypercalcemia, permanent/persistent atrial fibrillation, hypertension, orthostasis, hyperlipidemia, peripheral neuropathy, depression, mild presumed nonischemic cardiomyopathy, EF 45-50% 2023, cervical degenerative disc
disease, ESBL E. coli UTI
PSH:Left hip ORIF, hysterectomy, rectocele, cholecystectomy
Current meds: Acetaminophen, amitriptyline, amlodipine 2.5 mg daily, apixaban 5 mg twice daily, colestipol, Levaquin, Namenda, metoprolol succinate 75 a day, pantoprazole, sertraline 25 mg a day, furosemide 40 mg IV daily, IV diltiazem
Weight is 70.8 kg, down 1.9 kg, lungs are clear, soft systolic murmur at apex, JVD okay, mild nonpitting edema, JVD is reasonable
ECG atrial fibrillation with RVR, nonspecific ST and T wave changes
Echo 07/2024: EF 50%, mild LVH, normal RV, mild MR, mild aortic regurgitation, mild to moderate tricuspid regurgitation, pulmonary artery pressure 33 mmHg
Hemoglobin 9.8, MCV is 76, sodium 132, potassium 3.3, BUN/creatinine are 22 and 0.9, calcium is 8.7, magnesium is 1.3, bilirubin is 1.4, albumin is 2.8, proBNP is 3540
Impression:
Acute on chronic heart failure with mildly reduced EF
Persistent/permanent atrial fibrillation
Hypomagnesemia
Recent admission for hypercalcemia, possibly related to calcium supplementation
Hyperlipidemia
Urinary retention, recent USBL E. coli UTI
Plan:
She presents with weakness and acute heart failure with mildly reduced EF.
Her predominant complaint was not shortness of breath but weakness. I wonder if hypomagnesemia could have been contributing. Will supplement.
Volume status currently is reasonable and close to that of her admission weight on the previous hospital stay for hypercalcemia. Will switch back to furosemide 60 mg a day and follow renal function. Watch closely for recurrent IVETTE
I have taken liberty of adding iron studies as her MCV is low and she is anemic. This could further be contributing to her sense of malaise.
Await repeat echocardiogram.
She is on IV diltiazem, rates are reasonably controlled, will switch back to oral metoprolol using IV metoprolol as needed and can uptitrate as needed.
She would be reasonable candidate for spironolactone but will defer to her primary senior sql server database developer as an outpatient. She is a poor candidate for an SGLT2 antagonist.
Original Note:
Consultation
Consultation Request
Date/Time Consultation Requested: 11/21/2024, 1000
Date/Time Consultation Performed: 11/21/2024, 1125
Requesting Provider: Dr Betancourt
Performing Provider: LOWELL Carrera for Dr Milian
Reason for Consultation: heart failure
Medical History
-
Chief Complaint: SOB
History of Present Illness:
84-year-old female with PMH permanent atrial fibrillation on apixaban, HF, hypertension, GERD, admission last week to [facility] for hypercalcemia and IVETTE with creat 1.5. Hypercalcemia thought to be secondary to calcium and vit D supplements and they
were stopped. She was given IVF and one dose of IV Lasix. Lasix was held at discharge. Since discharge on 11/18/2024 she has had shortness of breath, fatigue, and has developed increased lower extremity edema. Also with sore throat. She presented
to ED 11/20/2024.
ED workup: proBNP 3540
Chest x-ray moderate pulmonary edema and small bilateral pleural effusions.
EKG: Atrial fibrillation with rapid ventricular response 131 bpm.
BUN/creatinine 23/0.9, NA 131, K 4.2, repeat 3.3, mag 1.3, calcium 9.4
She was started on IV Cardizem for rate control and given IV Lasix 40 mg x 1. Admitted to IVU for further management of acute heart failure exacerbation and A-fib with RVR.
Last admission 11/15-11/18/24 for hypercalcemia thought to be secondary to calcium and vitamin D supplementation. She underwent workup for paraproteinemia and SPEP was negative. Seen by nephrology. She was initially given IV fluids then diuresed
and Lasix was held afterwards on discharge.
She is a former smoker. Denies alcohol.
PMH:
Permanent atrial fibrillation
HTN
GERD
Hypercalcemia
IVETTE, related to hypercalcemia/dehydration s/p admission to 11/15-11/18/2024
Intermittent urinary retention with ESBL E coli UTI
Past Medical History
Past Medical History: Other (As above)
Past Surgical History: Other (Hemorrhoidectomy, rectocele repair, hysterectomy, bladder suspension repair, cholecystectomy, epidural steroid injections, left hip ORIF, cardioversion [facility] 09/2023)
Social History
Tobacco: Non-Smoker
Alcohol: Occasional
Allergies / Home Medications
Allergy/AdvReac Type Severity Reaction Status Date / Time
calcitonin Allergy Intermediate Rash Verified 11/20/24 15:48
clarithromycin Allergy Unknown Verified 11/20/24 10:26
erythromycin base Allergy Unknown Verified 11/20/24 10:26
�Medication �Instructions �Recorded �Confirmed �Type
colestipol 1 gram tablet 1 gm PO BID High cholesterol #60 10/08/19 11/20/24 Rx
tabs
pantoprazole 40 mg tablet,delayed 40 mg PO DAILY #30 tabs 10/08/19 11/20/24 Rx
release
amitriptyline 50 mg tablet 50 mg PO HS Mental Health/Anxiety 11/15/24 11/20/24 History
amlodipine 2.5 mg tablet 2.5 mg PO DAILY Blood Pressure 11/15/24 11/20/24 History
apixaban 5 mg tablet (Eliquis) 5 mg PO BID Blood Clot 11/15/24 11/20/24 History
Prevention/Tx
memantine 10 mg tablet 10 mg PO BID Neurological Condition 11/15/24 11/20/24 History
metoprolol succinate 25 mg 75 mg PO DAILY Blood Pressure 11/15/24 11/20/24 History
tablet,extended release 24 hr
peg 400-propylene glycol (PF) 0.4 1 drp BOTH EYES TIDPRN PRN dryness 11/15/24 11/20/24 History
%-0.3 % eye drops in a dropperette
(Systane (PF))
sertraline 25 mg tablet (Zoloft) 25 mg PO HS Mental Health/Anxiety 11/15/24 11/20/24 History
levofloxacin 500 mg tablet 500 mg PO DAILY 3 days #3 tabs 11/18/24 11/20/24 Rx
acetaminophen 500 mg tablet 500 mg PO HS Pain 11/20/24 11/20/24 History
Review of Systems
-
History Source: Patient
All other systems: Negative unless noted
Physical Exam
Vital Signs
Temp Pulse Resp BP Pulse Ox
97.5 F 115 20 122/79 93
11/21/24 07:59 11/21/24 08:30 11/21/24 07:59 11/21/24 08:19 11/21/24 07:59
GEN: No distress, awake, Ox3
HEENT: supple, anicteric, mmm
LUNGS: CTA, no wheezes/rales
CV: Irregular irregular
ABD: soft, BS+, NT/ND
EXT: 1+ bilateral lower extremity edema
NEURO: Gross non-focal
SKIN: No rash
Lab Results
11/21/24 03:56
11/21/24 03:56
[id number] Pept 3540 pg/ml 11/20/24 10:48
Impression / Plan
-
PCP:Jam Giles
Primary senior sql server database developer: Dr Stoll
Imp:
Acute HFpEF
Permanent atrial fibrillation
HTN
GERD
Hyperlipidemia
Hypercalcemia
admission for IVETTE, hypercalcemia/dehydration 11/15-11/18/2024
E coli UTI
intermittant urinary retention
Previous cardiovascular testing:
Echo 03/18: EF 55 to 60%, mild MR, TR
Echo 09/2023: EF 45 to 50%, mild LVH, mild MR, AI, TR, PASP 39 mmHg
Echo 07/2024: EF 50%, mild MR, AI, mild to moderate TR with PAP 30 mmHg
Plan:
1. Acute heart failure preserved EF
-Volume overloaded on exam, proBNP 3500, chest x-ray with pulmonary edema
- Agree with IV diuresis
- Acute heart failure likely due to her being off her usual outpatient furosemide 60 mg daily. Would resume outpatient diuretic dose
- Echo in July 2024 with EF 50% with mild valvular heart disease
- Daily weights, check I's and O's
- Continue Toprol, may need to uptitrate dose if needed for better rate control
- Consider SHANELLE/ARB, spironolactone for heart failure preserved EF, would need to be cautious given her history of orthostatic hypotension
- Would not start SGLT2 given history of UTI
- Patient lives alone and family does not feel that she is stable to return home on her own at this point.. Will likely need rehab stay after discharge.
-K 3.3, Mag 1.3-repletion ordered
2. A-fib with RVR
-Heart rates better controlled on Cardizem drip
-Wean off Cardizem and uptitrate Toprol as needed for rate control
-Continue oral anticoagulation with Eliquis
-pt does not wish to pursue rhythm control for afib, has been discussed in outpt setting.
3. HTN
- on Amlodipine in outpt setting
-consider change to SHANELLE/ARB/spironolactone given h/o HFpEF
Data Reviewed
-
EKG: Tracing Personally Visualized and interpreted
Labs: Labs Reviewed by me
[2024-11-21 11:53] VITALS: BP 112/69
--- NOTE | 2024-11-21 13:20 | CM ---
Reviewed chart. Met with and her daughter to review discharge plans. Mrs. Milian states prior to admission she resides alone in a first floor condo with out any steps to enter. She states prior to admission she just staring using a rolling walker.
She states she was current with [facility]. She states she was in [facility]. in the past. She states she has a prescription plan and Will need to pre-cert with her insurance. [facility]. We reviewed SNF/Rehab. if
indicated and she has selected [facility] and [facility] if SNF/Rehab. indicated. Awaiting therapy evaluations. Medical work-up in progress. The discharge plan is to go to SNF/Rehab. when bed available, approved by insurance when medically
sable.
[2024-11-21] MEDS: MAGNESIUM SULFATE 50 IV (13:56)
--- NOTE | 2024-11-21 13:57 | W.PN.HOSP.TC ---
Today's Communication/Plan
-
IV Lasix
Assessment / Plan
Assessment / Plan
Physical exam:
General: Acutely ill
HEENT: Normocephalic, Atraumatic and Moist Mucous Membranes
Respiratory: Few crackles in the bases; Negative Wheezes, Rales or Rhonchi
Cardiac: Irregular rate and rhythm and S1/S2
GI: Soft, Nontender and Nondistended
Musculoskeletal: No Clubbing, No Cyanosis and some bilateral lower extremity edema
Neuro: Awake, Alert and Oriented
Psych: Calm
A/P:
# Acute CHF exacerbation secondary to recent IV fluids given for hypercalcemia
-Cardiac BNP of 3500
-Chest x-ray shows moderate acute interstitial/alveolar cardiogenic pulm edema, small bilateral pleural effusions, moderate bilateral lower lobe opacities probably compressive atelectasis, moderate cardiomegaly,
- Check I's and O's, daily weight
- 40 IV Lasix daily
- Echo from 09/2023 shows EF of 45 to 50%, severely dilated LA,
- Check echo
- Cardiology consulted
- PT OT eval
- Discussed with son-in-law at bedside today on 11/21
# Atrial fibrillation with RVR
- Cardizem drip
- Continue apixaban
- Continue metoprolol
# Intermittent sore throat
- Leukocytosis
- COVID-negative
- Check throat culture, strep, mono
- No clear signs of malignancy
# Posterior neck lymphadenopathy secondary to URI
- No clear signs of malignancy
# ESBL E. coli
- Received meropenem in hospital, has to finish Levaquin today and tomorrow
- No urinary symptoms at any time
Essential hypertension
- Continue amlodipine
GERD
- Continue Protonix
Chronic anemia
- Hemoglobin stable
History of hypercalcemia secondary to calcium supplementation versus rule out underlying paraproteinemia/malignancy
- Had paraprotein workup with negative SPEP
- PTH only for
- PTH RP pending
Dementia
- Continue memantine
Anxiety/depression
- Continue Zoloft, amitriptyline
Hypercholesteremia
- Continue colestipol
Full code
DVT prophylaxis�Eliquis
Total time spent on today's encounter was 52 minutes which included time spent in counseling the patient/family regarding diagnosis and treatment plan as listed above, goals of care, and symptom management. Case was discussed with nursing staff,
specialists, and care coordinators/case management. All labs and imaging personally reviewed by me. Remainder the time spent in detailed review of previous records, lab data, imaging, and other medical provider documentation.
Anticipated Discharge: 24 - 48 hours
Subjective/Interval History
-
Date of Service: November 21, 2024
Patient is to having some shortness of breath although better overall. No chest pain. Afebrile
Objective Data
-
Labs:
Laboratory Results
11/21/24
03:56
WBC 9.6
Hgb 9.8 L
Hct 29.9 L
Plt Count 173
Sodium 132 L
Potassium 3.3 L
Chloride 105
Carbon Dioxide 21 L
BUN 22 H
Creatinine 0.9
Glucose 127 H
Calcium 8.7
Total Bilirubin 1.4 H
AST 19
ALT 18
Alkaline Phosphatase 156 H
Vital Signs:
Vital Signs
Temp Pulse Resp BP Pulse Ox
97.6 F 88 20 112/69 96
11/21/24 11:51 11/21/24 12:00 11/21/24 11:51 11/21/24 11:53 11/21/24 11:51
I&O
11/20/24 11/21/24 11/22/24
06:59 06:59 06:59
Output Total 1999
Balance -1999 / -1999
[2024-11-21 14:30] LABS: Iron 32 ug/dl (37-170)
[2024-11-21 14:39] LABS: Total Iron Binding Capacity 359 ug/dl (265-497)
[2024-11-21 15:21] VITALS: BP 123/69
[2024-11-21 19:11] VITALS: BP 124/77
[2024-11-21 22:48] VITALS: BP 123/84
[2024-11-21] MEDS: ZOLOFT 25 MG PO (22:50)
[2024-11-21] MEDS: TYLENOL 500 MG PO (22:50)
[2024-11-21] MEDS: ELAVIL 50 MG PO (22:50)
[2024-11-22] VITALS (12 sets, daily range): BP systolic 117–150; BP diastolic 65–84; PULSE 100–120; O2SAT 95; BMI 26.3
[2024-11-22 05:00] LABS: Hematocrit 31.2 % (37.0-47.0); Hemoglobin 10.1 g/dL (12.0-16.0); Mean Corp Hgb Conc. 32.4 g/dL (33.0-37.0); Mean Corpuscular Volume 77.4 fL (81.0-99.0); Red Cell Dist. Width 17.1 % (11.5-14.5)
[2024-11-22 05:37] LABS: Blood Urea Nitrogen 25 mg/dl (7-17); Calcium 9.3 mg/dl (8.4-10.2); Carbon Dioxide 20 mmol/L (22-30); Chloride 107 mmol/L (98-107); Estimated Creatinine Clearance 41 ml/min; Glucose 141 mg/dl (70-99); Magnesium 1.7 mg/dl (1.6-2.3); Potassium 4.6 mmol/L (3.5-5.1); Sodium 132 mmol/L (135-145); eGFR > 60.00
--- NOTE | 2024-11-22 09:00 | W.PN.HOSP.TC ---
Today's Communication/Plan
-
IV Lasix. Metoprolol.
Assessment / Plan
Assessment / Plan
Physical exam:
General: Acutely ill
HEENT: Normocephalic, Atraumatic and Moist Mucous Membranes
Respiratory: Few crackles in the bases; Negative Wheezes, Rales or Rhonchi
Cardiac: Irregular rate and rhythm, tachycardic and S1/S2, systolic murmur
GI: Soft, Nontender and Nondistended
Musculoskeletal: No Clubbing, No Cyanosis and some bilateral lower extremity edema
Neuro: Awake, Alert and Oriented, no gross focal deficits, cognitive deficits present
Psych: Calm
A/P:
Acute on chronic HFrEF:
Recent hospitalization for hypercalcemia in which she received fluids and diuretics held.
Back on IV Lasix--> currently Lasix IV 40 mg twice a day
Added spironolactone
Not a good candidate for SGLT2 inhibitors due to UTI
Monitor daily weights and ins and outs
Cardiology consult appreciated
PT OT eval
Discussed with daughter over the phone today, Chrissy
Persistent to permanent atrial fibrillation with rapid ventricular rates:
Received IV Cardizem drip during his hospital stay but now back to oral metoprolol succinate 75 mg daily--> increased to 75 mg twice a day today
On anticoagulation, Eliquis 5 mg p.o. twice a day
Cardiac monitoring
Sore throat:
Rapid strep negative
Influenza negative
COVID-19 negative
Monoscreen negative
Hypokalemia:
Repleted
Hypomagnesemia:
Repleted
Hyponatremia:
Mild
Recent UTI (ESBL):
Currently on Levaquin after course of meropenem
Recent hypercalcemia:
[place] to be related to vitamin D supplementation given pamidronate and rest of the workup pending as outpatient.
Will reach out to lab to see if some of the outpatient labs are back or not.
Recent IVETTE and also history of chronic kidney disease stage III-A:
Diuretics were held and now resumed but renal function remains stable
Creatinine 0.9 today
Anemia:
No signs of bleeding
Workup shows evidence of iron deficiency-will need further workup as outpatient
Hemoglobin 10.1 today
Elevated alk phos:
Will need further workup as outpatient
Hypoalbuminemia:
Monitor trend as outpatient
Hypertension:
Continue low-dose amlodipine and metoprolol
Dementia:
Continue memantine 10 mg p.o. twice a day
GERD:
Continue PPI
Depression:
Continue sertraline and amitriptyline
Other medical problems:
Dyslipidemia
Peripheral neuropathy
Orthostasis
Cervical degenerative disc disease
DVT prophylaxis:
Eliquis
CODE STATUS:
Full code
Total time spent on today's encounter was 52 minutes which included time spent in counseling the patient/family regarding diagnosis and treatment plan as listed above, goals of care, and symptom management. Case was discussed with nursing staff,
specialists, and care coordinators/case management. All labs and imaging personally reviewed by me. Remainder the time spent in detailed review of previous records, lab data, imaging, and other medical provider documentation.
Anticipated Discharge: > 48 hours
Subjective/Interval History
-
Date of Service: November 22, 2024
Heart rate was up this morning. Still somewhat short of breath. Still has some tiredness. No chest pain. Afebrile
Objective Data
-
Labs:
Laboratory Results
11/22/24
04:41
WBC 10.5
Hgb 10.1 L
Hct 31.2 L
Plt Count
Sodium 132 L
Potassium 4.6 D
Chloride 107
Carbon Dioxide 20 L
BUN 25 H
Creatinine 0.9
Glucose 141 H
Calcium 9.3
Vital Signs:
Vital Signs
Temp Pulse Resp BP Pulse Ox
98.7 F 110 13 126/65 90
11/22/24 06:46 11/22/24 06:46 11/22/24 06:46 11/22/24 04:34 11/22/24 06:46
I&O
11/21/24 11/22/24 11/23/24
06:59 06:59 06:59
Output Total 1999 700 / 700
Balance -1999 / -1999 -700 / -700
[2024-11-22] MEDS: NORVASC 2.5 MG PO (09:44)
[2024-11-22] MEDS: PROTONIX 40 MG PO (09:45)
[2024-11-22] MEDS: NAMENDA 10 MG PO ×2 (09:45→19:49)
[2024-11-22] MEDS: ELIQUIS 5 MG PO ×2 (09:45→19:49)
[2024-11-22] MEDS: MAGNESIUM OXIDE 400 MG PO (09:45)
[2024-11-22] MEDS: TOPROL XL 75 MG PO ×2 (09:46→19:51)
[2024-11-22] MEDS: LASIX 60 MG PO (09:47)
[2024-11-22] MEDS: LEVAQUIN 500 MG PO (09:47)
[2024-11-22] MEDS: NON-FORMULARY ITEM 1 GM PO ×2 (09:48→19:48)
[2024-11-22] MEDS: LOPRESSOR 5 MG IV (10:20)
[2024-11-22] MEDS: ALDACTONE 12.5 MG PO (11:47)
--- NOTE | 2024-11-22 12:23 | W.PN.CARDCBS ---
Addendum entered and electronically signed by Kaushik Milian MD 11/22/24 17:28:
84-year-old woman admitted with acute HFmrEF following withdrawal of furosemide during brief hospital stay for hypercalcemia possibly related to vitamin D supplementation at which time furosemide 60 mg a day was withdrawn. In atrial fibrillation at
the time of presentation.
PMH: Recently diagnosed hypercalcemia, permanent/persistent atrial fibrillation, hypertension, orthostasis, hyperlipidemia, peripheral neuropathy, depression, mild presumed nonischemic cardiomyopathy, EF 45-50% 2023, cervical degenerative disc
disease, ESBL E. coli UTI
Current meds: Amitriptyline, acetaminophen, amlodipine 2.5 daily, apixaban 5 twice daily, colestipol, Levaquin, Namenda, metoprolol ER 75 a day, pantoprazole, Zoloft, furosemide 60 daily, mag oxide 400
126/65, pulse 110, respiratory rate 13, weight is 71.7, which is up 0.9 kg, she seems tachypneic, sitting in chair, some crackles in bases, neck veins up modestly, irregular rate and rhythm, tachycardic, soft systolic murmur at apex
Echo yesterday: EF 55%, MAC, moderate MR, normal LA, aortic sclerosis with mild AI, moderate TR, pulmonary artery pressure is 49 mmHg, pleural effusion seen
Hemoglobin is 10.1, sodium is 132, CO2 is 20, BUN and creatinine are 25 and 0.9, magnesium is 1.7
Telemetry: Rate is rapid
Impression:
Acute HFpEF
Permanent atrial fibrillation, currently with rapid ventricular response
Hypertension
GERD
Hyperlipidemia
Recent admission for hypercalcemia, now normal calcemic
Recent IVETTE, resolved
ESBL E. coli UTI with urinary retention
Plan:
She is volume overloaded, and needs additional furosemide. I had transitioned her to oral furosemide today, will go back to furosemide 40 mg IV twice daily.
Her magnesium level is better. Will continue to supplements.
Rate control is not adequate at present. Will give IV Lopressor x 1 and increase metoprolol ER.
Echo confirms volume overload with evidence of pleural effusion and pulmonary hypertension.
Thus far renal function remains stable. Potassium is 4.6.
Will add spironolactone 12.5 mg daily , Currently she is not on potassium supplement but received 80 mill equivalents yesterday.
IVETTE may have related to hypercalcemia last visit.
No SGLT2 antagonist given UTIs.
Original Note:
Today's Communication / Plan
-
continue IV lasix
toprol increased and spironolactone added
Impression / Plan
-
PCP:Jam Giles
Primary supply cataloguer: Dr Stoll
Imp:
Acute HFpEF
Permanent atrial fibrillation with RVR
HTN
GERD
Hyperlipidemia
Hypercalcemia
admission for IVETTE, hypercalcemia/dehydration 11/15-11/18/2024
E coli UTI
intermittent urinary retention
Echo 03/18: EF 55 to 60%, mild MR, TR
Echo 09/2023: EF 45 to 50%, mild LVH, mild MR, AI, TR, PASP 39 mmHg
Echo 07/2024: EF 50%, mild MR, AI, mild to moderate TR with PAP 30 mmHg
ECHO 11/21/24: EF 55%, MAC, moderate MR, aortic sclerosis, mild AR, dilated RV and RA with moderate TR, PASP 49 mmHg
Plan:
-remains with evidence of volume overload. placed back on IV lasix 11/22. Exacerbation felt to be due to being off of her usual outpatient Lasix 60 mg daily
-continue compression stockings
-HRs suboptimally controlled in perm afib on review of tele overnight. toprol dose increased from 75mg daily to 75mg BID
-continue eliquis
-per OP conversations, does not wish to pursue rhythm control for afib.
-spironolactone 12.5mg added today given CHF and hypokalemia. She does have history of orthostatic hypotension. Will need to monitor. Not felt to be candidate for SGLT2 inhibitor given history of UTI. could stop OP amlodipine if additional BP
room needed
-replete mag
-Results of echo as above. Discussed results with patient and daughter at bedside 11/22
-PT/OT evals
-iron studies noted, defer treatment to primary service. hgb 10.1 on 11/22
-she remains on levaquin for treatment of UTI
-daughter at bedside also inquires about results of testing for MM, defer to primary service - serum protein electrophoresis was negative for monoclonal protein 11/15
Progress Note - Full Roll Inspector
Subjective
Date of Service: November 22, 2024
denies CP, current SOB
Objective
Labs:
11/22/24 04:41
11/22/24 04:41
Labs
Hgb 10.1 g/dL (12.0-16.0) L 11/22/24 04:41
Hct 31.2 % (37.0-47.0) L 11/22/24 04:41
Plt Count 10^3/uL (130-400) 11/22/24 04:41
Sodium 132 mmol/L (135-145) L 11/22/24 04:41
Potassium 4.6 mmol/L (3.5-5.1) D 11/22/24 04:41
BUN 25 mg/dl (7-17) H 11/22/24 04:41
Creatinine 0.9 mg/dL (0.6-1.0) 11/22/24 04:41
Glucose 141 mg/dl (70-99) H 11/22/24 04:41
Vital Signs and I&O:
Vital Signs
Temp Pulse Resp BP Pulse Ox
98.7 F 95 16 117/78 95
11/22/24 06:46 11/22/24 11:11 11/22/24 11:13 11/22/24 11:11 11/22/24 11:13
Vital Signs
Temp Pulse Resp BP Pulse Ox
98.7 F 95 16 117/78 95
11/22/24 06:46 11/22/24 11:11 11/22/24 11:13 11/22/24 11:11 11/22/24 11:13
Intake & Output
11/20/24 11/21/24 11/22/24 11/23/24
07:59 07:59 07:59 07:59
Output Total 1999 700 / 700
Balance -1999 - /
Physical Exam
Physical Exam
GEN: No distress, awake, alert, oriented x3
HEENT: supple, anicteric, mmm, eomi
LUNGS: Decreased BS at bases B/L, no wheezes
CV: Irreg, S1/S2, 1/6 murmur
ABD: soft, BS+, NT/ND
EXT: No cyanosis, clubbing. trace edema of B/L LE
NEURO: Gross non-focal
SKIN: Warm, pink, dry. No rash
[2024-11-22] MEDS: LASIX 40 MG IV (17:10)
--- NOTE | 2024-11-22 18:40 | PTCARENOTE ---
Pt c/o bilat thigh pain, Dr Sahu aware, PRN Tylenol ordered. Pt L hand and forearm swollen +1-[address] Sahu aware, U/S L upper extrem ordered and Pt sent for U/S.
[2024-11-22] MEDS: ZOLOFT 25 MG PO (22:10)
[2024-11-22] MEDS: ELAVIL 50 MG PO (22:10)
[2024-11-22] MEDS: TYLENOL 500 MG PO (22:10)
--- NOTE | 2024-11-22 23:13 | PTCARENOTE ---
Received patient at change of shift. Afib on the monitor HR in the 100s. 95% on room air. Contact precautions. No complaints from pt at this time, call steen within reach.
[2024-11-23 04:13] VITALS: BP 139/78
[2024-11-23 04:58] LABS: Hematocrit 31.6 % (37.0-47.0); Hemoglobin 10.4 g/dL (12.0-16.0); Mean Corp Hgb Conc. 32.9 g/dL (33.0-37.0); Mean Corpuscular Volume 76.7 fL (81.0-99.0); Nucleated Red Blood Cells % 0 %; Platelet Count 197 10^3/uL (130-400); Red Cell Dist. Width 16.9 % (11.5-14.5)
[2024-11-23 05:05] LABS: Blood Urea Nitrogen 22 mg/dl (7-17); Calcium 8.9 mg/dl (8.4-10.2); Carbon Dioxide 22 mmol/L (22-30); Chloride 104 mmol/L (98-107); Estimated Creatinine Clearance 46 ml/min; Glucose 143 mg/dl (70-99); Magnesium 1.4 mg/dl (1.6-2.3); Potassium 3.9 mmol/L (3.5-5.1); Sodium 132 mmol/L (135-145); eGFR > 60.00
[2024-11-23 06:59] VITALS: BP 138/74
[2024-11-23 08:00] VITALS: BMI 26.5
[2024-11-23] MEDS: PROTONIX 40 MG PO (08:09)
[2024-11-23] MEDS: ELIQUIS 5 MG PO ×2 (08:09→19:59)
[2024-11-23] MEDS: NORVASC 2.5 MG PO (08:09)
[2024-11-23] MEDS: NAMENDA 10 MG PO ×2 (08:09→19:59)
[2024-11-23] MEDS: MAGNESIUM OXIDE 400 MG PO (08:10)
[2024-11-23] MEDS: LASIX 40 MG IV ×2 (08:10→16:50)
[2024-11-23] MEDS: TOPROL XL 75 MG PO (08:10)
[2024-11-23] MEDS: ALDACTONE 12.5 MG PO (08:10)
[2024-11-23] MEDS: NON-FORMULARY ITEM 1 GM PO ×2 (08:11→19:59)
[2024-11-23] MEDS: TYLENOL 650 MG PO (08:11)
--- NOTE | 2024-11-23 10:01 | W.PN.HOSP.TC ---
Addendum entered and electronically signed by Arturo Sahu MD 11/23/24 15:20:
Acute Diastolic CHF (poa)
Original Note:
Today's Communication/Plan
-
CT of the head. IV Lasix. Increase beta-blockers. ID eval
Assessment / Plan
Assessment / Plan
Physical exam:
General: Acutely ill
HEENT: Normocephalic, Atraumatic and Moist Mucous Membranes
Respiratory: Few crackles in the bases; Negative Wheezes, Rales or Rhonchi
Cardiac: Irregular rate and rhythm, tachycardic and S1/S2, systolic murmur
GI: Soft, Nontender and Nondistended
Musculoskeletal: No Clubbing, No Cyanosis and some bilateral lower extremity edema
Neuro: Awake, Alert and disoriented, no gross focal deficits, cognitive deficits present
Psych: Calm
A/P:
Acute on chronic HFrEF:
Recent hospitalization for hypercalcemia in which she received fluids and diuretics held.
Back on IV Lasix--> currently Lasix IV 40 mg twice a day
Added spironolactone 12.5 mg p.o. daily
Not a good candidate for SGLT2 inhibitors due to UTI
Monitor daily weights and ins and outs
Cardiology consult appreciated
PT OT eval
Discussed with daughter over the phone today, Chrissy LAIRD-works here in the hospital. Also discussed with second daughter at bedside today.
Persistent to permanent atrial fibrillation with rapid ventricular rates:
Received IV Cardizem drip during his hospital stay but now back to oral metoprolol succinate 75 mg daily--> increased to 100 mg twice a day today
On anticoagulation, Eliquis 5 mg p.o. twice a day
Cardiac monitoring
Leukocytosis:
ID eval in the setting of recent ESBL E. coli
Repeat urine culture since symptoms not reliable with her
Altered mental status likely related to delirium:
Obtain CT of the head today
Monitor mental status and behavior
Sore throat:
Rapid strep negative
Influenza negative
COVID-19 negative
Monoscreen negative
Hypokalemia:
Repleted
Hypomagnesemia:
Repleted
Hyponatremia:
Mild
Recent UTI (ESBL):
Finish course of antibiotics last hospitalization
Recent hypercalcemia:
[place] to be related to vitamin D supplementation given pamidronate and rest of the workup pending as outpatient.
Reached out to lab and all the workup from prior hospitalization is back. PT HR normal less than 2, PTH 4, serum protein electrophoresis normal, and 1, 25 vitamin D elevated at 88 which could have explain her hypercalcemia. Calcium remains normal
during this hospital stay.
Recent IVETTE and also history of chronic kidney disease stage III-A:
Diuretics were held and now resumed but renal function remains stable while on diuretics
Creatinine 0.8 today
Anemia:
No signs of bleeding
Workup shows evidence of iron deficiency-will need further workup as outpatient
Hemoglobin 10.4 today
Elevated alk phos:
Will need further workup as outpatient
Hypoalbuminemia:
Monitor trend as outpatient
Hypertension:
Continue metoprolol and spironolactone
Discontinued amlodipine per cardio
Dementia:
Continue memantine 10 mg p.o. twice a day
GERD:
Continue PPI
Depression:
Continue sertraline and amitriptyline
Other medical problems:
Dyslipidemia
Peripheral neuropathy
Orthostasis
Cervical degenerative disc disease
DVT prophylaxis:
Eliquis
CODE STATUS:
Full code
Total time spent on today's encounter was 52 minutes which included time spent in counseling the patient/family regarding diagnosis and treatment plan as listed above, goals of care, and symptom management. Case was discussed with nursing staff,
specialists, and care coordinators/case management. All labs and imaging personally reviewed by me. Remainder the time spent in detailed review of previous records, lab data, imaging, and other medical provider documentation.
Anticipated Discharge: > 48 hours
Subjective/Interval History
-
Date of Service: November 23, 2024
Patient is still short of breath. Some confusion on and off. Heart rate still not optimal. Afebrile
Objective Data
-
Labs:
Laboratory Results
11/23/24
04:18
WBC 13.8 H
Hgb 10.4 L
Hct 31.6 L
Plt Count 197
Sodium 132 L
Potassium 3.9
Chloride 104
Carbon Dioxide 22
BUN 22 H
Creatinine 0.8
Glucose 143 H
Calcium 8.9
Vital Signs:
Vital Signs
Temp Pulse Resp BP Pulse Ox
98.2 F 112 16 138/74 92
11/23/24 06:58 11/23/24 08:10 11/23/24 06:58 11/23/24 08:10 11/23/24 06:58
I&O
11/22/24 11/23/24 11/24/24
06:59 06:59 06:59
Output Total 700 / 700 400 / 400
Balance -700 / -700 -400 / -400
--- NOTE | 2024-11-23 11:18 | W.PN.CARDCBS ---
Addendum entered and electronically signed by Fang Cho DO 11/23/24 18:16:
I saw and examined the patient.
The General Neurologist's note was reviewed and I agree with the note.
Comment: Patient was seen and examined. Out of bed to chair and offering no complaint
GEN: No distress. sitting in chair
HEENT: supple, mmm
LUNGS: CTA B/L anterolaterally, mild wheezes
CV: Irreg, S1/S2, 1/6 murmur
ABD: soft, BS+, NT/ND
EXT: +1 edema; compression stockings in place
Plan:
Acute HFpEF, Secondary to interruption of diuretic therapy
-Will plan to continue IV Lasix today.
-Monitor potassium/magnesium. Magnesium is still low and being repleted
- Continue compression stockings
- Heart rates remain suboptimally controlled in permanent A-fib on review of telemetry, overall heart rates around 100. Outpatient Norvasc 2.5 mg daily and increase Toprol dose to 100 mg twice daily
- Continue Eliquis
- per OP conversations, does not wish to pursue rhythm control for afib.
- spironolactone 12.5mg added this admission given CHF and hypokalemia. Not felt to be candidate for SGLT2 inhibitor given history of UTI.
- PT/OT evals
Original Note:
Today's Communication / Plan
-
continue IV lasix
stop norvasc, increase toprol
replete mag
Impression / Plan
-
PCP:Jam Giles
Primary unemployment specialist: Dr Stoll
Imp:
Acute HFpEF
Permanent atrial fibrillation with RVR
HTN
GERD
Hyperlipidemia
Hypercalcemia
Hypomagnesemia
admission for IVETTE, hypercalcemia/dehydration 11/15-11/18/2024
E coli UTI
intermittent urinary retention
Echo 03/18: EF 55 to 60%, mild MR, TR
Echo 09/2023: EF 45 to 50%, mild LVH, mild MR, AI, TR, PASP 39 mmHg
Echo 07/2024: EF 50%, mild MR, AI, mild to moderate TR with PAP 30 mmHg
ECHO 11/21/24: EF 55%, MAC, moderate MR, aortic sclerosis, mild AR, dilated RV and RA with moderate TR, PASP 49 mmHg
Plan:
- Will plan to continue IV Lasix today. Creatinine stable. Exacerbation felt to be due to being off her usual outpatient Lasix 60 mg daily
- Continue compression stockings
- Heart rates remain suboptimally controlled in permanent A-fib on review of telemetry, overall heart rates around 100. Outpatient Norvasc 2.5 mg daily and increase Toprol dose to 100 mg twice daily
- Continue Eliquis
- per OP conversations, does not wish to pursue rhythm control for afib.
- spironolactone 12.5mg added this admission given CHF and hypokalemia. She does have history of orthostatic hypotension. Will need to monitor. Not felt to be candidate for SGLT2 inhibitor given history of UTI.
- replete mag. Workup of hypomagnesemia per primary service
- Results of echo as above. Discussed results with patient and daughter at bedside 11/22
- PT/OT evals
- iron studies noted, defer treatment to primary service. hgb 10.4 on 11/23
- levaquin course completed
Progress Note - Director Of Managed Services
Subjective
Date of Service: November 23, 2024
Resting comfortably
Objective
Labs:
11/23/24 04:18
11/23/24 04:18
Labs
Hgb 10.4 g/dL (12.0-16.0) L 11/23/24 04:18
Hct 31.6 % (37.0-47.0) L 11/23/24 04:18
Plt Count 197 10^3/uL (130-400) 11/23/24 04:18
Sodium 132 mmol/L (135-145) L 11/23/24 04:18
Potassium 3.9 mmol/L (3.5-5.1) 11/23/24 04:18
BUN 22 mg/dl (7-17) H 11/23/24 04:18
Creatinine 0.8 mg/dL (0.6-1.0) 11/23/24 04:18
Glucose 143 mg/dl (70-99) H 11/23/24 04:18
Vital Signs and I&O:
Vital Signs
Temp Pulse Resp BP Pulse Ox
98.2 F 112 16 138/74 92
11/23/24 06:58 11/23/24 08:10 11/23/24 06:58 11/23/24 08:10 11/23/24 06:58
Vital Signs
Temp Pulse Resp BP Pulse Ox
98.2 F 112 16 138/74 92
11/23/24 06:58 11/23/24 08:10 11/23/24 06:58 11/23/24 08:10 11/23/24 06:58
Intake & Output
11/21/24 11/22/24 11/23/24 11/24/24
07:59 07:59 07:59 07:59
Output Total 1999 700 / 700 400 / 400
Balance -2000 / -2000 -700 / -700 -400 / -400
Physical Exam
Physical Exam
GEN: No distress. sitting in chair
HEENT: supple, mmm
LUNGS: CTA B/L anterolaterally, mild wheezes
CV: Irreg, S1/S2, 1/6 murmur
ABD: soft, BS+, NT/ND
EXT: No cyanosis, clubbing, edema. compression stockings in place
NEURO: Gross non-focal
SKIN: Warm, pink, dry. No rash
[2024-11-23 12:06] VITALS: BP 121/81
--- NOTE | 2024-11-23 12:08 | CON.ID ---
Consultation
-
Date/Time Consultation Requested: November 23, 2024 1201
Date/Time Consultation Performed: November 23, 2024 1210
Requesting Provider: Dr. Arturo Sahu
Performing Provider: Dr. Annabel Mendoza
Reason for Consultation: Leukocytosis and recent ESBL-ecoli in urine
Chief Complaint / Past History
Chief Complaint
Short of breath
History of Present Illness
History obtained from the patient as well as from her daughter at bedside. She is a 84-year-old female with CHF, paroxysmal atrial fibrillation on Eliquis who presented to the hospital November 20 due to shortness of breath and lower extremity
edema. She was recently hospitalized November 14 to November 18 with hypercalcemia, IVETTE. She had intermittent urinary retention. 11/14 UA with negative leukocyte Estrace negative nitrite, no significant pyuria. Urine culture grew 20,000 ESBL E. coli.
But she received meropenem in the hospital and then discharged on levofloxacin x 3 more days. She returned to the ER 11/20 due to SOB and increased LE edema. CXR showed pulm edema. PT also noted to have left hand swelling. No injury. She has
difficulty making a fist. No hx of gout. Peripheral US LUE neg DVT. c/o rhinorrhea and sore throat. No sore throat today. Rapid Group A strep negative. Admission wbc 11.4 which quickly resolved. WBC today 13.8. She has been afebrile. She does
have cough, nonproductive. SOB better. no N/V/abd pain/diarrhea. No dysuria/urgency/frequency/flank pain. Appetite has been poor for several months with weight loss, per daughter. Daughter also noted that patient is confused today.
Past History
Additional Past Medical History:
Mild dementia
Anxiety/depression
Dyslipidemia
Hypertension
Paroxysmal atrial fibrillation
CHF
GERD
Inguinal hernia
Additional Past Surgical History:
Left Hip partial replacement ORIF
Cholecystectomy
Rectocele repair
Hemorrhoidectomy
Bladder suspension
Cervical spine epidural steroid injection
Allergy History:
calcitonin Allergy (Verified 11/22/24 18:18)
Rash
clarithromycin Allergy (Verified 11/20/24 10:26)
Unknown
erythromycin base Allergy (Verified 11/20/24 10:26)
Unknown
Medications Reviewed: Yes
Current Antibiotics:
s/p levofloxacin x 2 doses
Social History
Tobacco: Former Smoker
Alcohol: None
Drug: None
Family History
Family History: Not Pertinent
Review of Systems
Review of Systems
General: Change in Appetite; Negative Fever or Chills
HEENT: Negative Sinus Problems or Headache
Cardiovascular: Negative Chest Pain
Respiratory: Dyspnea and Cough; Negative Sputum Production
Gasteroenterology: Negative Nausea, Vomiting or Diarrhea
Genital / Urological: Negative Dysuria or Flank Pain
Endocrine: Weakness
Skin / Hair / Nails: Negative Rash
All systems: All other systems were reviewed and were negative
Vital Signs
Temp Pulse Resp BP Pulse Ox
97.4 F 97 18 138/74 94
11/23/24 12:06 11/23/24 12:06 11/23/24 12:06 11/23/24 08:10 11/23/24 12:06
Physical Exam
Physical Exam
Constitutional: No Acute Distress
Head: Other (No frontal or maxillary sinus tenderness)
Eyes: No Conjunctival Hemorrhage and Sclera Anicteric
Cardiovascular: Regular Rate and S1/S2
Pulmonary: Rales (bases)
Gastrointestinal: Soft, Non Tender, Non Distended and Normal Bowel Sounds
Genito-Urinary: Negative CVA Tenderness
Extremities: Edema ( BLE)
Musculoskeletal: Other (left forearm/hand/wrist/fingers edematous, mildy warm, ecchymotic, ROM at wrist intact)
Neurological: Awake and Alert
Lab / Diagnostic Study Results
11/23/24 04:18
11/23/24 04:18
Abs Immat Gran (auto) 0.1 10^3/uL (0-0.05) H 11/23/24 04:18
Absolute Neuts (auto) 11.1 10^3/uL (1.4-6.5) H 11/23/24 04:18
Absolute Lymphs (auto) 0.9 10^3/uL (1.2-3.4) L 11/23/24 04:18
Absolute Monos (auto) 1.6 10^3/uL (0.1-0.6) H 11/23/24 04:18
Absolute Basos (auto) 0.0 10^3/uL (0-0.2) 11/23/24 04:18
Immature Gran % 0.6 % (0-0.5) H 11/23/24 04:18
Neutrophils % 80.6 % (42.2-75.2) H 11/23/24 04:18
Lymphocytes % 6.2 % (20.5-51.1) L 11/23/24 04:18
Monocytes % 11.6 % (1.7-9.3) H 11/23/24 04:18
Eosinophils % 0.9 % (0-6) 11/23/24 04:18
Basophils % 0.1 % (0-2) 11/23/24 04:18
Microbiology Results
Micro:
11/20/24 13:52 Throat Culture - Final
Throat/Pharynx Usual Respiratory Monserrat
11/20/24 13:52 Streptococcus Screen (ERIK) - Final
Throat/Pharynx No Beta Hemolytic Streptococci Isolated
Streptococcus Rapid Screen - Final
Rapid Strep Screen (Group A) Negative
11/20/24 11:12 Influenza Types A & B (ANISA) - Final
Nasal Swab Negative for Influenza A & B, NAAT
Negative results must be combined with clinical observations
and patient history.
Nucleic Acid Amplification test (NAAT)performed on the
[employer] platform.
CXR: MODERATE ACUTE INTERSTITIAL and ALVEOLAR CARDIOGENIC PULMONARY EDEMA. Small bilateral pleural effusions. Moderate bilateral lower lobe opacities (probably compressive atelectasis).
Assessment / Plan
# Leukocytosis - noninfectious vs infectious etiology. Afebrile
# Recent ESBL-Ecoli bacteruria only 20K, UA no pyuria - completed abx 11/22
- check blood cx's x 2
- doubt UTI as no symptoms. Daughter requesting repeat Ucx.
- trend wbc
-observe off abx for now.
# Left hand edema
- US no DVT
- check uric acid
-elevate extremity
# Acute on chronic CHF
-on diuretic
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
Mild dementia
Anxiety/depression
Dyslipidemia
Hypertension
Paroxysmal atrial fibrillation
CHF
GERD
Inguinal hernia
[2024-11-23] MEDS: MAGNESIUM SULFATE 50 IV (13:27)
--- NOTE | 2024-11-23 13:44 | CM ---
Reviewed chart. Sent referral to [facility] and [facility] to check on bed availability. Both [facility] and [facility] approved for admission pending bed availability and approval from her health insurance. Will need to check with them
tomorrow afternoon to confirm bed availability. Telephone call to daughter, Chrissy to update her on status of referrals. Prior to admission she resides alone in a first floor condo with out any steps to enter. Prior to admission she just staring
using a rolling walker. She was current with [facility]. She was in [facility]. in the past. She has a prescription plan and uses [facility]. Medical work-up in progress. The discharge plan is to go to SNF/Rehab. when bed
available, approved by insurance when medically sable.
[2024-11-23 13:48] LABS: Uric Acid 4.1 mg/dl (2.5-6.2)
--- NOTE | 2024-11-23 14:47 | PN.CDI ---
CDI
- -
CDI:
Physician Documentation Request
Admit Date: 11/20/24 14:02
Dear Doctor Luis Alberto,
Please review the following and provide your response in the progress notes.
Clinical Indicators:
Pt admitted with CHF
ECHO 11/21 ejection fraction 55%.
Due to potentially conflicting documentation regarding the type of CHF.
Cardiology 11/22 ,' Echo yesterday: EF 55%....Acute HFpEF...'
Progress notes 11/22 &11/23, ' Acute on chronic HFrEF....'
Due to potentially conflicting documentation please clarify the type/acuity of CHF :
Acute Diastolic CHF
Acute on Chronic Systolic CHF ( no change in documentation)
Other ( please specify)
Use of terms such as suspected, likely, concern for, or probable (associated with a specific diagnosis that is being evaluated, monitored, or treated as if it exists) are acceptable and can be coded in the inpatient setting, when documented at the
time of discharge.
Thank you,
Kaci Rodas RN
CDI Specialist
[place] [facility]
Please use your independent medical judgment in providing your response.
[2024-11-23 17:42] LABS: Urine Character Slightly Cloudy (Clear)
[2024-11-23 18:23] LABS: Urine Red Blood Cell 0-2 /HPF (0-2)
--- NOTE | 2024-11-23 19:04 | PTCARENOTE ---
~2648-2032: Handoff report received from ignacio RN. Pt Aox4 but forgetful at times. Max Ax2 with walker OOB to chair. Pt c/o generalized aches she says are 'from working with therapy.' PRN tylenol given with AM meds. Afib 100s-130s on tele, SBP
130s, RA satting 92%. All needs met at this time, call steen within reach.
~3874-1728: Patient to bedside commode with Ax2. Patient requires frequent prompting and reassurance with moving. Per daughters, 'this is not her baseline. She is more confused that usual, can you please ask Dr. Sahu what his plan is for this?'
Luis Alberto questioned, Head CT ordered. Patient transfered to head CT via stretcher.
~1330: Patient returned from CT scan via stretcher and slid over to bed. Mag bag hung per order.
~1350: RN noticed, IV site infiltrated. Dr Sahu made aware. New IV placed and blood cultures drawn and sent to lab.
~[id number]: Second set of blood cultures obtained and sent to lab. Pt Ax2 to commode, urine sample copllected and sent to lab. OOB to chair after. All needs met at this time, call steen within reach. Handoff report given to tommy LAIRD.
[2024-11-23] MEDS: TOPROL XL 100 MG PO (19:59)
--- NOTE | 2024-11-23 20:39 | PTCARENOTE ---
Received patient at change of shift. Bed assigned for transfer. Informed patient of transfer and new room number. Afib on the monitor, HR in the 100s. VSS on room air. OOB to chair. Report called to 3W. Patient transferred via wheel chair with
belongings from room.
[2024-11-23 20:45] VITALS: BP 120/68
[2024-11-23] MEDS: TYLENOL 500 MG PO (21:08)
[2024-11-23] MEDS: ELAVIL 50 MG PO (21:08)
[2024-11-23] MEDS: ZOLOFT 25 MG PO (21:08)
[2024-11-23 23:00] VITALS: BP 110/64
[2024-11-24] VITALS (8 sets, daily range): BP systolic 103–133; BP diastolic 60–75; PULSE 88; BMI 25.6
[2024-11-24 07:45] LABS: Blood Urea Nitrogen 24 mg/dl (7-17); Calcium 8.6 mg/dl (8.4-10.2); Carbon Dioxide 24 mmol/L (22-30); Chloride 103 mmol/L (98-107); Estimated Creatinine Clearance 46 ml/min; Glucose 112 mg/dl (70-99); Magnesium 1.7 mg/dl (1.6-2.3); Potassium 3.7 mmol/L (3.5-5.1); Sodium 132 mmol/L (135-145); eGFR > 60.00
[2024-11-24 07:56] LABS: Hematocrit 33.0 % (37.0-47.0); Hemoglobin 10.5 g/dL (12.0-16.0); Mean Corp Hgb Conc. 31.8 g/dL (33.0-37.0); Mean Corpuscular Volume 78.6 fL (81.0-99.0); Red Cell Dist. Width 16.8 % (11.5-14.5)
[2024-11-24] MEDS: ALDACTONE 12.5 MG PO (08:21)
[2024-11-24] MEDS: LASIX 40 MG IV ×2 (08:21→17:00)
[2024-11-24] MEDS: TOPROL XL 100 MG PO ×2 (08:21→20:29)
[2024-11-24] MEDS: MAGNESIUM OXIDE 400 MG PO (08:21)
[2024-11-24] MEDS: PROTONIX 40 MG PO (08:21)
[2024-11-24] MEDS: NAMENDA 10 MG PO ×2 (08:22→20:31)
[2024-11-24] MEDS: ELIQUIS 5 MG PO ×2 (08:22→20:31)
[2024-11-24] MEDS: NON-FORMULARY ITEM 1 GM PO ×2 (08:29→20:31)
--- NOTE | 2024-11-24 09:52 | W.PN.CARDCBS ---
Addendum entered and electronically signed by Kaushik Milian MD 11/24/24 11:09:
84-year-old woman admitted with acute HFmrEF following withdrawal of furosemide during brief hospital stay for hypercalcemia possibly related to vitamin D supplementation at which time furosemide 60 mg a day was withdrawn. In atrial fibrillation at
the time of presentation.
PMH: Recently diagnosed hypercalcemia, permanent/persistent atrial fibrillation, hypertension, orthostasis, hyperlipidemia, peripheral neuropathy, depression, mild presumed nonischemic cardiomyopathy, EF 45-50% 2023, cervical degenerative disc
disease, ESBL E. coli UTI
Meds: Acetaminophen, amitriptyline, apixaban 5 twice daily, colestipol, Namenda 10 mg twice daily, pantoprazole 40 mg a day, sertraline 25 mg a day, mag oxide 400 mg a day, furosemide still 40 mg IV twice daily, spironolactone 12.5 mg twice daily,
metoprolol ER 100 mg twice daily
133/75, pulse 99, respiratory rate 14, afebrile, sats 96%, weight is 69.85 kg, down 2.3 kg, though not substantially changed from admission, she says she feels much better, rare crackles in bases, irregular rate rhythm with MR murmur, JVD okay,
edema is improved
Hemoglobin 10.5, sodium 132, potassium 3.7, BUN and creatinine are 24 and 0.8
Ultrasound of left upper extremity unremarkable
Telemetry: Rate control is better
Impression:
Acute HFpEF
Permanent atrial fibrillation, currently with rapid ventricular response
Hypertension
GERD
Hyperlipidemia
Recent admission for hypercalcemia, now normal calcemic
Recent IVETTE, resolved
ESBL E. coli UTI with urinary retention
Plan:
Although her weight has not substantially changed she looks considerably better and heart rate is now controlled on higher dose metoprolol. Spironolactone has been started.
Will continue IV Lasix today and likely switch to oral in a.m. Potassium is adequate.
Given UTIs, no SGLT2 antagonist. Digoxin remains an option, but will hold for now
Okay to proceed with discharge planning. Patient possibly okay for discharge in the morning.
Original Note:
Today's Communication / Plan
-
Continue another day of IV diuretics, still about 10 pounds above dry weight but symptomatically feels improved.
Continue magnesium supplementation.
Heart rates somewhat better controlled with up titration of Toprol
Impression / Plan
-
PCP:Jam Giles
Primary student services representative: Dr Stoll
Imp:
Acute HFpEF
Permanent atrial fibrillation with RVR
HTN
GERD
Hyperlipidemia
Hypercalcemia
Hypomagnesemia
admission for IVETTE, hypercalcemia/dehydration 11/15-11/18/2024
E coli UTI
intermittent urinary retention
Echo 03/18: EF 55 to 60%, mild MR, TR
Echo 09/2023: EF 45 to 50%, mild LVH, mild MR, AI, TR, PASP 39 mmHg
Echo 07/2024: EF 50%, mild MR, AI, mild to moderate TR with PAP 30 mmHg
ECHO 11/21/24: EF 55%, MAC, moderate MR, aortic sclerosis, mild AR, dilated RV and RA with moderate TR, PASP 49 mmHg
Plan:
-Weight down 4 pounds overnight to 154 pounds. Weight down 6 pounds since admission. Patient and daughter report dry weight is around 145 to 148 pounds. Will plan to continue IV Lasix today, consider transition back to oral Lasix in a.m.. Usual
home dose is Lasix 60 mg daily. Creatinine stable. Exacerbation felt to be due to being off her usual outpatient Lasix 60 mg daily
- Continue compression stockings
- Heart rates somewhat better controlled since up titration of Toprol to 100 mg twice daily. Heart rates averaging in 90s.
-Outpatient amlodipine stopped when Toprol uptitrated
- Continue Eliquis
- per OP conversations, does not wish to pursue rhythm control for afib.
- spironolactone 12.5mg added this admission given CHF and hypokalemia. She does have history of orthostatic hypotension. Will need to monitor. BP is currently well-controlled 110/64 to 133/75. Not felt to be candidate for SGLT2 inhibitor given
history of UTI.
-Continue magnesium supplementation, magnesium oxide 400 mg daily. Mag 1.7 11/24. Workup of hypomagnesemia per primary service
- Results of echo as above. Discussed results with patient and daughter at bedside 11/22
- PT/OT evals
- iron studies noted, defer treatment to primary service. hgb 10.4 on 11/23
- levaquin course completed
- Will be going to [facility] for rehab prior to returning home
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
Subjective
Date of Service: November 24, 2024
Feels well, the best she has felt in days. No shortness of breath
No palpitations, lightheadedness
Objective
Labs:
11/24/24 06:50
11/24/24 06:50
Labs
Hgb 10.5 g/dL (12.0-16.0) L 11/24/24 06:50
Hct 33.0 % (37.0-47.0) L 11/24/24 06:50
Plt Count 10^3/uL (130-400) 11/24/24 06:50
Sodium 132 mmol/L (135-145) L 11/24/24 06:50
Potassium 3.7 mmol/L (3.5-5.1) 11/24/24 06:50
BUN 24 mg/dl (7-17) H 11/24/24 06:50
Creatinine 0.8 mg/dL (0.6-1.0) 11/24/24 06:50
Glucose 112 mg/dl (70-99) H 11/24/24 06:50
Vital Signs and I&O:
Vital Signs
Temp Pulse Resp BP Pulse Ox
98.2 F 99 14 133/75 96
11/24/24 07:52 11/24/24 07:52 11/24/24 07:52 11/24/24 07:52 11/24/24 07:52
Vital Signs
Temp Pulse Resp BP Pulse Ox
98.2 F 99 14 133/75 96
11/24/24 07:52 11/24/24 07:52 11/24/24 07:52 11/24/24 07:52 11/24/24 07:52
Intake & Output
11/22/24 11/23/24 11/24/24 11/25/24
06:59 06:59 06:59 06:59
Intake Total 240 / 240
Output Total 700 / 700 400 / 400 450 / 450
Balance -700 / -700 -400 / -400 -210 / -210
Physical Exam
Physical Exam
GEN: No distress, awake, Ox3
HEENT: supple, anicteric, mmm
LUNGS: CTA, no wheezes/rales
CV: Irregularly irregular reg, S1/S2, 1/6 syst LSB,
ABD: soft, BS+, NT/ND
EXT: Trace lower extremity edema
NEURO: Gross non-focal
SKIN: No rash
--- NOTE | 2024-11-24 11:52 | W.PN.ID1 ---
Date of Service
Date of Service: November 24, 2024
Today's Communication
Repeat blood cx's.
Observing off abx for now.
Assessment / Plan
# Leukocytosis resolved. Afebrile
# GPC cluster bacteremia 1 of 2 sets
- Suspect contaminant.
- Repeat blood cx's x 2 off abx.
# Urinary retention last night
- 11/23 ucx pending
- Send UA/Ucx if straight catheterization
# Left hand edema, improving
- US no DVT
- uric acid normal
-elevate extremity
# Acute on chronic CHF
-on diuretic
# Conditions [employer]
Mild dementia
Anxiety/depression
Dyslipidemia
Hypertension
Paroxysmal atrial fibrillation
CHF
GERD
Inguinal hernia
Chief Complaint
-: Leukocytosis
Subjective / Review of Systems
Unable to void overnight. Bladder scan with some retention.
Vital Signs / Physical Exam
Vital Signs
Vital Signs
Temp Pulse Resp BP Pulse Ox
98.3 F 91 14 103/60 96
11/24/24 10:53 11/24/24 10:53 11/24/24 10:53 11/24/24 10:53 11/24/24 10:53
Physical Exam
Constitutional: Chronically Ill
Cardiovascular: Regular Rate and S1/S2
Pulmonary: Rales (bases)
Gastrointestinal: Soft, Non Tender, Non Distended and Normal Bowel Sounds
Genito-Urinary: Negative CVA Tenderness
Extremities: Edema (BLE; Left hand edema improving.)
Neurological: Awake and Alert
Objective Data
Lab Data
Lab Results
11/24/24 06:50
11/24/24 06:50
Estimated Creat Clear 46 ml/min 11/24/24 06:50
Total Bilirubin 1.4 mg/dl (0.2-1.3) H 11/21/24 03:56
AST 19 U/L (14-36) 11/21/24 03:56
ALT 18 U/L (0-35) 11/21/24 03:56
Alkaline Phosphatase 156 U/L (38-126) H 11/21/24 03:56
Most recent labs reviewed.
Micro Results:
11/23/24 14:05 Blood Culture - Preliminary
Blood/Venous Positive culture in progress
Gram Stain - Preliminary
11/24/24 09:26 Blood Culture - Pending
Blood/Venous
11/24/24 08:36 Blood Culture - Pending
Blood/Venous
11/23/24 17:28 Urine Culture - Pending
Urine
11/23/24 14:50 Blood Culture - Pending
Blood/Venous
11/20/24 13:52 Throat Culture - Final
Throat/Pharynx Usual Respiratory Monserrat
11/20/24 13:52 Streptococcus Screen (ERIK) - Final
Throat/Pharynx No Beta Hemolytic Streptococci Isolated
Streptococcus Rapid Screen - Final
Rapid Strep Screen (Group A) Negative
11/20/24 11:12 Influenza Types A & B (ANISA) - Final
Nasal Swab Negative for Influenza A & B, NAAT
Negative results must be combined with clinical observations
and patient history.
Nucleic Acid Amplification test (NAAT)performed on the
[employer] platform.
CXR: MODERATE ACUTE INTERSTITIAL and ALVEOLAR CARDIOGENIC PULMONARY EDEMA. Small bilateral pleural effusions. Moderate bilateral lower lobe opacities (probably compressive atelectasis).
--- NOTE | 2024-11-24 11:56 | W.PN.HOSP.TC ---
Today's Communication/Plan
-
IV Lasix
Assessment / Plan
Assessment / Plan
Physical exam:
General: Acutely ill
HEENT: Normocephalic, Atraumatic and Moist Mucous Membranes
Respiratory: Clear to auscultation bilaterally; Negative Wheezes, Rales or Rhonchi
Cardiac: Irregular rate and rhythm, and S1/S2, systolic murmur
GI: Soft, Nontender and Nondistended
Musculoskeletal: No Clubbing, No Cyanosis and some bilateral lower extremity edema
Neuro: Awake, Alert and oriented, no gross focal deficits, cognitive deficits present
Psych: Calm
A/P:
Acute on chronic HFrEF:
Recent hospitalization for hypercalcemia in which she received fluids and diuretics held.
Back on IV Lasix--> currently Lasix IV 40 mg twice a day
Added spironolactone 12.5 mg p.o. daily
Not a good candidate for SGLT2 inhibitors due to UTI
Monitor daily weights and ins and outs
Cardiology consult appreciated
PT OT eval
Discussed with both daughters today-at bedside and over the phone
Persistent to permanent atrial fibrillation with rapid ventricular rates:
Received IV Cardizem drip during his hospital stay but now back to oral metoprolol suc-->tolerating 100 mg twice a day
On anticoagulation, Eliquis 5 mg p.o. twice a day
Cardiac monitoring
Leukocytosis:
Improved
ID eval in the setting of recent ESBL E. coli appreciated
Blood cultures ordered by ID (one of the sets positive) ID reordering today blood cx
Repeat urine culture pending
Altered mental status likely related to delirium:
Improving
Obtain CT of the head unremarkable for acute findings
Monitor mental status and behavior
Sore throat:
Rapid strep negative
Influenza negative
COVID-19 negative
Monoscreen negative
Hypokalemia:
Repleted
Hypomagnesemia:
Repleted
Hyponatremia:
Mild
Recent UTI (ESBL):
Finish course of antibiotics last hospitalization
Recent hypercalcemia:
[place] to be related to vitamin D supplementation given pamidronate and rest of the workup pending as outpatient.
Reached out to lab and all the workup from prior hospitalization is back. PT HR normal less than 2, PTH 4, serum protein electrophoresis normal, and 1, 25 vitamin D elevated at 88 which could have explain her hypercalcemia. Calcium remains normal
during this hospital stay.
Recent IVETTE and also history of chronic kidney disease stage III-A:
Diuretics were held and now resumed but renal function remains stable while on diuretics
Creatinine 0.8 today
Anemia:
No signs of bleeding
Workup shows evidence of iron deficiency-will need further workup as outpatient
Hemoglobin 10.5 today
Elevated alk phos:
Will need further workup as outpatient
Hypoalbuminemia:
Monitor trend as outpatient
Hypertension:
Continue metoprolol and spironolactone
Discontinued amlodipine per cardio
Dementia:
Continue memantine 10 mg p.o. twice a day
GERD:
Continue PPI
Depression:
Continue sertraline and amitriptyline
Other medical problems:
Dyslipidemia
Peripheral neuropathy
Orthostasis
Cervical degenerative disc disease
DVT prophylaxis:
Eliquis
CODE STATUS:
Full code
Total time spent on today's encounter was 52 minutes which included time spent in counseling the patient/family regarding diagnosis and treatment plan as listed above, goals of care, and symptom management. Case was discussed with nursing staff,
specialists, and care coordinators/case management. All labs and imaging personally reviewed by me. Remainder the time spent in detailed review of previous records, lab data, imaging, and other medical provider documentation.
Anticipated Discharge: 24 - 48 hours
Subjective/Interval History
-
Date of Service: November 24, 2024
Patient appears more alert today and had some nap this morning. Less shortness of breath. Heart rate much better. Afebrile
Objective Data
-
Labs:
Laboratory Results
11/24/24
06:50
WBC 10.0
Hgb 10.5 L
Hct 33.0 L
Plt Count
Sodium 132 L
Potassium 3.7
Chloride 103
Carbon Dioxide 24
BUN 24 H
Creatinine 0.8
Glucose 112 H
Calcium 8.6
Vital Signs:
Vital Signs
Temp Pulse Resp BP Pulse Ox
98.3 F 91 14 103/60 96
11/24/24 10:53 11/24/24 10:53 11/24/24 10:53 11/24/24 10:53 11/24/24 10:53
I&O
11/23/24 11/24/24 11/25/24
06:59 06:59 06:59
Intake Total 240 / 240
Output Total 400 / 400 450 / 450
Balance -400 / -400 -210 / -210
--- NOTE | 2024-11-24 15:18 | CM ---
spoke with daughter Chrissy Schneider [phone]
requested additional referral of [facility] in [facility]
Prefers [facility]
call daughter with updates
PLAN: SNF, pending bed availability, when stable, will need ins auth
--- NOTE | 2024-11-24 15:48 | PTCARENOTE ---
at 0827, lab called with positive blood culture of gram +cocci in clusters. at 0845, Dr. Mendoza in room and made aware. patient voided 500mls of daniela urine on bsc and bladder scanned for 27mls of urine. less sob, sat oob for breakfast and lunch,
appetite poor though, telemetry, vss, will continue to monitor.
[2024-11-24] MEDS: ZOLOFT 25 MG PO (21:20)
[2024-11-24] MEDS: ELAVIL 50 MG PO (21:20)
[2024-11-24] MEDS: TYLENOL 500 MG PO (21:20)
[2024-11-25] VITALS (7 sets, daily range): BP systolic 105–149; BP diastolic 50–88; PULSE 93; O2SAT 96; BMI 25.2
[2024-11-25 07:27] LABS: Hematocrit 30.7 % (37.0-47.0); Hemoglobin 9.9 g/dL (12.0-16.0); Mean Corp Hgb Conc. 32.2 g/dL (33.0-37.0); Mean Corpuscular Volume 77.7 fL (81.0-99.0); Nucleated Red Blood Cells % 0 %; Red Cell Dist. Width 16.5 % (11.5-14.5)
[2024-11-25 07:51] LABS: Blood Urea Nitrogen 22 mg/dl (7-17); Calcium 8.1 mg/dl (8.4-10.2); Carbon Dioxide 26 mmol/L (22-30); Chloride 103 mmol/L (98-107); Estimated Creatinine Clearance 41 ml/min; Glucose 107 mg/dl (70-99); Magnesium 1.5 mg/dl (1.6-2.3); Potassium 3.7 mmol/L (3.5-5.1); Sodium 131 mmol/L (135-145); eGFR > 60.00
[2024-11-25 08:02] LABS: Glucose - Point of Care 115 mg/dl (70-99)
--- NOTE | 2024-11-25 08:29 | W.PN.HOSP.TC ---
Addendum entered and electronically signed by Arturo Sahu MD 11/25/24 12:07:
Correction--> discussed with daughters yesterday and not today.
Original Note:
Today's Communication/Plan
-
IV Lasix
Assessment / Plan
Assessment / Plan
Physical exam:
General: Acutely ill
HEENT: Normocephalic, Atraumatic and Moist Mucous Membranes
Respiratory: Clear to auscultation bilaterally; Negative Wheezes, Rales or Rhonchi
Cardiac: Irregular rate and rhythm, and S1/S2, systolic murmur
GI: Soft, Nontender and Nondistended
Musculoskeletal: No Clubbing, No Cyanosis and some bilateral lower extremity edema
Neuro: Awake, Alert and oriented, no gross focal deficits, cognitive deficits present
Psych: Calm
A/P:
Acute on chronic HFrEF:
Recent hospitalization for hypercalcemia in which she received fluids and diuretics held.
Back on IV Lasix--> currently Lasix IV 40 mg twice a day and might be able to switch to oral either later today or tomorrow
Added spironolactone 12.5 mg p.o. daily
Not a good candidate for SGLT2 inhibitors due to UTI
Monitor daily weights and ins and outs
Cardiology consult appreciated
PT OT eval
Discussed with both daughters today-at bedside and over the phone
Persistent to permanent atrial fibrillation with rapid ventricular rates:
Received IV Cardizem drip during his hospital stay but now back to oral metoprolol suc-->tolerating 100 mg twice a day
On anticoagulation, Eliquis 5 mg p.o. twice a day
Cardiac monitoring
Leukocytosis:
Improved
ID eval in the setting of recent ESBL E. coli appreciated
Blood cultures ordered by ID (one of the sets positive) ID reordering today blood cx
Repeat urine culture pending
Altered mental status likely related to delirium:
Improving
Obtain CT of the head unremarkable for acute findings
Monitor mental status and behavior
Sore throat:
Rapid strep negative
Influenza negative
COVID-19 negative
Monoscreen negative
Hypokalemia:
Repleted
Hypomagnesemia:
Repleted
Hyponatremia:
Mild
Recent UTI (ESBL):
Finish course of antibiotics last hospitalization
Recent hypercalcemia:
[place] to be related to vitamin D supplementation given pamidronate and rest of the workup pending as outpatient.
Reached out to lab and all the workup from prior hospitalization is back. PT HR normal less than 2, PTH 4, serum protein electrophoresis normal, and 1, 25 vitamin D elevated at 88 which could have explain her hypercalcemia. Calcium remains normal
during this hospital stay.
Recent IVETTE and also history of chronic kidney disease stage III-A:
Diuretics were held and now resumed but renal function remains stable while on diuretics
Creatinine 0.8 today
Anemia:
No signs of bleeding
Workup shows evidence of iron deficiency-will need further workup as outpatient
Hemoglobin 10.5 today
Elevated alk phos:
Will need further workup as outpatient
Hypoalbuminemia:
Monitor trend as outpatient
Hypertension:
Continue metoprolol and spironolactone
Discontinued amlodipine per cardio
Dementia:
Continue memantine 10 mg p.o. twice a day
GERD:
Continue PPI
Depression:
Continue sertraline and amitriptyline
Other medical problems:
Dyslipidemia
Peripheral neuropathy
Orthostasis
Cervical degenerative disc disease
DVT prophylaxis:
Eliquis
CODE STATUS:
Full code
Time spent 35-minutes
Anticipated Discharge: 24 - 48 hours
Subjective/Interval History
-
Date of Service: November 25, 2024
Patient feels better overall. Less shortness of breath. No chest pain
Objective Data
-
Labs:
Laboratory Results
11/25/24
06:42
WBC 7.4
Hgb 9.9 L
Hct 30.7 L
Plt Count
Sodium 131 L
Potassium 3.7
Chloride 103
Carbon Dioxide 26
BUN 22 H
Creatinine 0.9
Glucose 107 H
Calcium 8.1 L
Vital Signs:
Vital Signs
Temp Pulse Resp BP Pulse Ox
97.6 F 99 19 105/88 94
11/25/24 07:00 11/25/24 07:00 11/25/24 07:00 11/25/24 07:00 11/25/24 07:00
I&O
11/24/24 11/25/24 11/26/24
06:59 06:59 06:59
Intake Total 240 / 240 600 / 600
Output Total 450 / 450 400 / 400
Balance -210 / -210 200 / 200
[2024-11-25] MEDS: ELIQUIS 5 MG PO ×2 (09:24→21:49)
[2024-11-25] MEDS: ALDACTONE 12.5 MG PO (09:24)
[2024-11-25] MEDS: LASIX 40 MG IV ×2 (09:25→16:56)
[2024-11-25] MEDS: MAGNESIUM OXIDE 400 MG PO ×2 (09:25→21:48)
[2024-11-25] MEDS: PROTONIX 40 MG PO (09:25)
[2024-11-25] MEDS: NAMENDA 10 MG PO ×2 (09:25→21:49)
[2024-11-25] MEDS: TOPROL XL 100 MG PO ×2 (09:25→21:49)
[2024-11-25] MEDS: MAGNESIUM SULFATE 50 IV (09:26)
[2024-11-25] MEDS: NON-FORMULARY ITEM 1 GM PO ×2 (10:05→21:50)
--- NOTE | 2024-11-25 10:59 | W.PN.CARDCBS ---
Addendum entered and electronically signed by Kaushik Milian MD 11/25/24 15:26:
84-year-old woman admitted with acute HFmrEF following withdrawal of furosemide during brief hospital stay for hypercalcemia possibly related to vitamin D supplementation at which time furosemide 60 mg a day was withdrawn. In atrial fibrillation at
the time of presentation.
PMH: Recently diagnosed hypercalcemia, permanent/persistent atrial fibrillation, hypertension, orthostasis, hyperlipidemia, peripheral neuropathy, depression, mild presumed nonischemic cardiomyopathy, EF 45-50% 2023, cervical degenerative disc
disease, ESBL E. coli UTI
Current meds: Amitriptyline 50 a day apixaban 5 mg twice daily, colestipol call, Namenda 10 twice daily, pantoprazole 40 a day, sertraline 25 at bedtime, mag oxide 400 a day, furosemide IV 40 mg twice daily, spironolactone 12.5 daily, metoprolol ER
100 mg twice daily
105/50, pulse 93, respiratory rate 18, weight is 68.7 kg, down 1.1 kg still with mild edema, lungs are clear, systolic murmur at apex, JVD probably still minimally elevated, abdomen benign, daughter at bedside
Hemoglobin 9.9, BUN/creatinine are 22 and 0.9, potassium is 3.7 sodium 131, had been 132, magnesium is 1.5
Plan:
Overall improved, still mildly volume overloaded so we will continue IV furosemide 1 more day, likely transition to 40 mg twice daily by mouth in AM. She is on spironolactone, not a good SGLT2 candidate.
Magnesium level is still low, will double mag oxide to 400 mg twice daily
Heart rate in atrial fibrillation is controlled on metoprolol ER 100 mg twice daily
She remains anticoagulated.
Goal is transfer to rehab, probably after the weekend.
Original Note:
Today's Communication / Plan
-
Replete K, mag
Consider transition to oral Lasix 60 mg daily 11/26/2024 and Aldactone 12.5 mg daily
Continue Toprol 100 mg twice a day for rate control
Would not send home on amlodipine
Outpatient cardiology follow-up
Impression / Plan
-
PCP:Jam Giles
Primary authorization nurse: Dr Stoll
Imp:
Presented 11/20/2024 with shortness of breath, fatigue, and has developed increased lower extremity edema
Acute HFpEF, proBNP 3540
Permanent atrial fibrillation with RVR on admission, improved
HTN
GERD
Hyperlipidemia
Hypercalcemia
Hypomagnesemia
admission for IVETTE, hypercalcemia/dehydration 11/15-11/18/2024
E coli UTI
intermittent urinary retention
Echo 03/18: EF 55 to 60%, mild MR, TR
Echo 09/2023: EF 45 to 50%, mild LVH, mild MR, AI, TR, PASP 39 mmHg
Echo 07/2024: EF 50%, mild MR, AI, mild to moderate TR with PAP 30 mmHg
ECHO 11/21/24: EF 55%, MAC, moderate MR, aortic sclerosis, mild AR, dilated RV and RA with moderate TR, PASP 49 mmHg
Plan:
Presented 11/20/2024 with shortness of breath, fatigue, and has developed increased lower extremity edema after interruption of outpatient diuretic therapy.
Acute heart failure exacerbation, proBNP 3540
-Weight down 3 pounds overnight to 151 pounds. Weight down 9 pounds since admission. Patient and daughter report dry weight is around 145 to 148 pounds.
-Transition back to oral Lasix 60 mg on 11/26/2024 which was prior outpatient dosing and patient did well on this
spironolactone 12.5mg added this admission given CHF and hypokalemia. She does have history of orthostatic hypotension. Will need to monitor.
-Creatinine stable 0.9
-Replete potassium, currently 3.7 11/25
-Continue magnesium supplementation, Mag 1.5 11/25, magnesium oxide 400 mg daily plus getting IV magnesium 11/25. Workup of hypomagnesemia per primary service
-Not felt to be candidate for SGLT2 inhibitor given history of UTI.
Persistent to permanent atrial fibrillation's. Previous outpatient conversations were to continue rate controlled A-fib and not consider resuming sinus rhythm.
- heart rates somewhat better controlled since up titration of Toprol to 100 mg twice daily. Heart rates averaging in 90s.
- Outpatient amlodipine stopped when Toprol uptitrated. Would not resume Amlodipine
- Continue Eliquis
- per OP conversations, does not wish to pursue rhythm control for afib.
- iron studies noted, defer treatment to primary service. hgb 10.4 on 11/23
- PT/OT input appreciated. Will be going to [facility] for rehab prior to returning home.
Discussed with nursing, daughter at bedside
History of Present Illness:
84-year-old female with PMH permanent atrial fibrillation on apixaban, HF, hypertension, GERD, admission last week to [facility] for hypercalcemia and IVETTE with creat 1.5. Hypercalcemia thought to be secondary to calcium and vit D supplements and they
were stopped. She was given IVF and one dose of IV Lasix. Lasix was held at discharge. Since discharge on 11/18/2024 she has had shortness of breath, fatigue, and has developed increased lower extremity edema. Also with sore throat. She presented
to ED 11/20/2024.
ED workup: proBNP 3540
Chest x-ray moderate pulmonary edema and small bilateral pleural effusions.
EKG: Atrial fibrillation with rapid ventricular response 131 bpm.
BUN/creatinine 23/0.9, NA 131, K 4.2, repeat 3.3, mag 1.3, calcium 9.4
She was started on IV Cardizem for rate control and given IV Lasix 40 mg x 1. Admitted to IVU for further management of acute heart failure exacerbation and A-fib with RVR.
Last admission 11/15-11/18/24 for hypercalcemia thought to be secondary to calcium and vitamin D supplementation. She underwent workup for paraproteinemia and SPEP was negative. Seen by nephrology. She was initially given IV fluids then diuresed
and Lasix was held afterwards on discharge.
Progress Note - De Icer Element Winder
Subjective
Date of Service: November 25, 2024
Patient seen and examined. Patient resting comfortably in bed. Notes good ongoing diuresis. No longer short of breath.
Objective
Labs:
11/25/24 06:42
11/25/24 06:42
Labs
Hgb 9.9 g/dL (12.0-16.0) L 11/25/24 06:42
Hct 30.7 % (37.0-47.0) L 11/25/24 06:42
Plt Count 10^3/uL (130-400) 11/25/24 06:42
Sodium 131 mmol/L (135-145) L 11/25/24 06:42
Potassium 3.7 mmol/L (3.5-5.1) 11/25/24 06:42
BUN 22 mg/dl (7-17) H 11/25/24 06:42
Creatinine 0.9 mg/dL (0.6-1.0) 11/25/24 06:42
Glucose 107 mg/dl (70-99) H 11/25/24 06:42
Vital Signs and I&O:
Vital Signs
Temp Pulse Resp BP Pulse Ox
98.0 F 93 18 105/50 96
11/25/24 10:57 11/25/24 10:57 11/25/24 10:57 11/25/24 10:57 11/25/24 10:57
Vital Signs
Temp Pulse Resp BP Pulse Ox
98.0 F 93 18 105/50 96
11/25/24 10:57 11/25/24 10:57 11/25/24 10:57 11/25/24 10:57 11/25/24 10:57
Intake & Output
11/23/24 11/24/24 11/25/24 11/26/24
06:59 06:59 06:59 06:59
Intake Total 240 / 240 600 / 600
Output Total 400 / 400 450 / 450 400 / 400
Balance -400 / -400 -210 / -210 200 / 200
Physical Exam
Physical Exam
GEN: No distress, awake, Ox3
HEENT: supple, anicteric, mmm
LUNGS: CTA, no wheezes/rales
CV: Irregularly irregular reg, S1/S2, 1/6 syst LSB,
ABD: soft, BS+, NT/ND
EXT: Trace lower extremity edema
NEURO: Gross non-focal
SKIN: No rash, clubbing or cyanosis
[2024-11-25] MEDS: KCL 40 MEQ PO (13:15)
--- NOTE | 2024-11-25 14:45 | W.PN.ID1 ---
Date of Service
Date of Service: November 25, 2024
Today's Communication
Observe off abx.
ID will sign off.
Assessment / Plan
# Leukocytosis resolved. Afebrile
# CoNS bacteremia 1 of 2 sets
- skin contaminant.
- Repeat blood cx's x 2 off abx, negative
# Intermittent urinary retention
- 11/23 ucx no growth
# Acute on chronic CHF
-on diuretic
Plan:
Observe off abx.
ID will sign off.
# Conditions [employer]
Mild dementia
Anxiety/depression
Dyslipidemia
Hypertension
Paroxysmal atrial fibrillation
CHF
GERD
Inguinal hernia
Chief Complaint
-: Leukocytosis
Subjective / Review of Systems
Cough resolved. Voiding without issues. No urine sxs.
Vital Signs / Physical Exam
Vital Signs
Vital Signs
Temp Pulse Resp BP Pulse Ox
98.0 F 93 18 105/50 96
11/25/24 10:57 11/25/24 10:57 11/25/24 10:57 11/25/24 10:57 11/25/24 10:57
Physical Exam
Constitutional: No Acute Distress and Comfortable
Cardiovascular: Regular Rate and S1/S2
Gastrointestinal: Soft, Non Tender, Non Distended and Normal Bowel Sounds
Genito-Urinary: Negative CVA Tenderness
Extremities: Edema (BLE and left hand decreasing)
Neurological: Awake and Alert
Objective Data
Lab Data
Lab Results
11/25/24 06:42
11/25/24 06:42
Estimated Creat Clear 41 ml/min 11/25/24 06:42
Total Bilirubin 1.4 mg/dl (0.2-1.3) H 11/21/24 03:56
AST 19 U/L (14-36) 11/21/24 03:56
ALT 18 U/L (0-35) 11/21/24 03:56
Alkaline Phosphatase 156 U/L (38-126) H 11/21/24 03:56
Most recent labs reviewed.
Micro Results:
11/23/24 17:28 Urine Culture - Final
Urine No Significant Growth
11/23/24 14:05 Blood Culture - Preliminary
Blood/Venous Coagulase neg. staphylococcus
Additional testing on request
Gram Stain - Preliminary
11/24/24 09:26 Blood Culture - Preliminary
Blood/Venous No Growth in 24 hours- Final report to follow
11/24/24 08:36 Blood Culture - Preliminary
Blood/Venous No Growth in 24 hours- Final report to follow
11/23/24 14:50 Blood Culture - Preliminary
Blood/Venous No Growth in 24 hours- Final report to follow
11/20/24 13:52 Throat Culture - Final
Throat/Pharynx Usual Respiratory Monserrat
11/20/24 13:52 Streptococcus Screen (ERIK) - Final
Throat/Pharynx No Beta Hemolytic Streptococci Isolated
Streptococcus Rapid Screen - Final
Rapid Strep Screen (Group A) Negative
11/20/24 11:12 Influenza Types A & B (ANISA) - Final
Nasal Swab Negative for Influenza A & B, NAAT
Negative results must be combined with clinical observations
and patient history.
Nucleic Acid Amplification test (NAAT)performed on the
[employer] platform.
CXR: MODERATE ACUTE INTERSTITIAL and ALVEOLAR CARDIOGENIC PULMONARY EDEMA. Small bilateral pleural effusions. Moderate bilateral lower lobe opacities (probably compressive atelectasis).
[2024-11-25] MEDS: TYLENOL 500 MG PO (21:49)
[2024-11-25] MEDS: ZOLOFT 25 MG PO (21:49)
[2024-11-25] MEDS: ELAVIL 50 MG PO (21:49)
[2024-11-26] VITALS (7 sets, daily range): BP systolic 109–122; BP diastolic 56–64; BMI 25.8
--- NOTE | 2024-11-26 07:34 | W.PN.HOSP.TC ---
Today's Communication/Plan
-
Diuresis.
Assessment / Plan
Assessment / Plan
Physical exam:
General: Acutely ill
HEENT: Normocephalic, Atraumatic and Moist Mucous Membranes
Respiratory: Clear to auscultation bilaterally; Negative Wheezes, Rales or Rhonchi
Cardiac: Irregular rate and rhythm, and S1/S2, systolic murmur
GI: Soft, Nontender and Nondistended
Musculoskeletal: No Clubbing, No Cyanosis and some bilateral lower extremity edema
Neuro: Awake, Alert and oriented, no gross focal deficits, cognitive deficits present
Psych: Calm
A/P:
Acute on chronic HFrEF:
Recent hospitalization for hypercalcemia in which she received fluids and diuretics held.
Back on IV Lasix--> currently Lasix IV 40 mg twice a day and might be able to switch to oral either later today or tomorrow
Added spironolactone 12.5 mg p.o. daily
Not a good candidate for SGLT2 inhibitors due to UTI
Monitor daily weights and ins and outs
Cardiology consult appreciated
PT OT recommends skilled rehab
Discussed with daughter Chrissy over the phone today
Persistent to permanent atrial fibrillation with rapid ventricular rates:
Received IV Cardizem drip during his hospital stay but now back to oral metoprolol suc-->tolerating 100 mg twice a day
On anticoagulation, Eliquis 5 mg p.o. twice a day
Cardiac monitoring
Leukocytosis:
Improved
ID eval in the setting of recent ESBL E. coli appreciated
Blood cultures ordered by ID (one of the sets positive) ID reordered blood cx and remain sterile
Repeat urine culture no growth
Altered mental status likely related to delirium:
Improving
Obtained CT of the head unremarkable for acute findings
Monitor mental status and behavior
Sore throat:
Rapid strep negative
Influenza negative
COVID-19 negative
Monoscreen negative
Hypokalemia:
Repleted
Hypomagnesemia:
Repleted
Hyponatremia:
Mild
Recent UTI (ESBL):
Finish course of antibiotics last hospitalization
Recent hypercalcemia:
[place] to be related to vitamin D supplementation given pamidronate and rest of the workup pending as outpatient.
Reached out to lab and all the workup from prior hospitalization is back. PT HR normal less than 2, PTH 4, serum protein electrophoresis normal, and 1, 25 vitamin D elevated at 88 which could have explain her hypercalcemia. Calcium remains normal
during this hospital stay.
Recent IVETTE and also history of chronic kidney disease stage III-A:
Diuretics were held and now resumed but renal function remains stable while on diuretics
Creatinine stable
Anemia:
No signs of bleeding
Workup shows evidence of iron deficiency-will need further workup as outpatient
Hemoglobin stable
Elevated alk phos:
Will need further workup as outpatient
Hypoalbuminemia:
Monitor trend as outpatient
Hypertension:
Continue metoprolol and spironolactone
Discontinued amlodipine per cardio
Dementia:
Continue memantine 10 mg p.o. twice a day
GERD:
Continue PPI
Depression:
Continue sertraline and amitriptyline
Other medical problems:
Dyslipidemia
Peripheral neuropathy
Orthostasis
Cervical degenerative disc disease
DVT prophylaxis:
Eliquis
CODE STATUS:
Full code
Time spent 35-minutes
Anticipated Discharge: > 48 hours
Subjective/Interval History
-
Date of Service: November 26, 2024
Patient feels better overall today. No chest pain.
Objective Data
-
Labs:
Laboratory Results
11/26/24
06:00
WBC Pending
Hgb Pending
Hct Pending
Plt Count Pending
Sodium Pending
Potassium Pending
Chloride Pending
Carbon Dioxide Pending
BUN Pending
Creatinine Pending
Glucose Pending
Calcium Pending
Vital Signs:
Vital Signs
Temp Pulse Resp BP Pulse Ox
98.1 F 83 16 111/63 100
11/26/24 07:00 11/26/24 07:00 11/26/24 07:00 11/26/24 07:00 11/26/24 07:00
I&O
11/25/24 11/26/24 11/27/24
06:59 06:59 06:59
Intake Total 600 / 600 1250 / 1250
Output Total 400 / 400 550 / 550
Balance 200 / 200 700 / 700
[2024-11-26] MEDS: ALDACTONE 12.5 MG PO (08:25)
[2024-11-26] MEDS: NAMENDA 10 MG PO ×2 (08:26→21:01)
[2024-11-26] MEDS: TOPROL XL 100 MG PO ×2 (08:26→21:04)
[2024-11-26] MEDS: ELIQUIS 5 MG PO ×2 (08:26→21:01)
[2024-11-26] MEDS: MAGNESIUM OXIDE 400 MG PO ×2 (08:26→21:04)
[2024-11-26] MEDS: PROTONIX 40 MG PO (08:26)
[2024-11-26] MEDS: LASIX 40 MG IV ×2 (08:26→16:56)
[2024-11-26] MEDS: NON-FORMULARY ITEM 1 GM PO ×2 (08:27→20:59)
[2024-11-26 09:36] LABS: Blood Urea Nitrogen 23 mg/dl (7-17); Calcium 8.8 mg/dl (8.4-10.2); Carbon Dioxide 23 mmol/L (22-30); Chloride 103 mmol/L (98-107); Estimated Creatinine Clearance 46 ml/min; Glucose 113 mg/dl (70-99); Magnesium 1.7 mg/dl (1.6-2.3); Potassium 4.2 mmol/L (3.5-5.1); Sodium 131 mmol/L (135-145); eGFR > 60.00
[2024-11-26 09:39] LABS: Hematocrit 30.9 % (37.0-47.0); Hemoglobin 10.1 g/dL (12.0-16.0); Mean Corp Hgb Conc. 32.7 g/dL (33.0-37.0); Mean Corpuscular Volume 77.3 fL (81.0-99.0); Red Cell Dist. Width 16.3 % (11.5-14.5)
[2024-11-26] MEDS: TYLENOL 650 MG PO (15:09)
--- NOTE | 2024-11-26 15:28 | W.PN.CARDCBS ---
Today's Communication / Plan
-
Metolazone 5 mg x 1 now with IV Lasix
Switch to oral furosemide 60 mg twice daily in a.m.
Impression / Plan
-
PCP:Jam Giles
Primary garnett feeder: Dr Stoll
Imp:
Presented 11/20/2024 with shortness of breath, fatigue, and has developed increased lower extremity edema
Acute HFpEF, proBNP 3540
Permanent atrial fibrillation with RVR on admission, improved
HTN
GERD
Hyperlipidemia
Hypercalcemia
Hypomagnesemia
admission for IVETTE, hypercalcemia/dehydration 11/15-11/18/2024
E coli UTI
intermittent urinary retention
Echo 03/18: EF 55 to 60%, mild MR, TR
Echo 09/2023: EF 45 to 50%, mild LVH, mild MR, AI, TR, PASP 39 mmHg
Echo 07/2024: EF 50%, mild MR, AI, mild to moderate TR with PAP 30 mmHg
ECHO 11/21/24: EF 55%, MAC, moderate MR, aortic sclerosis, mild AR, dilated RV and RA with moderate TR, PASP 49 mmHg
Plan:
She looks reasonably well, but her weight is up, and still not substantially changed from admission. Her lungs are relatively clear, neck veins are still somewhat elevated.
Will give metolazone 5 mg x 1 now prior to her last dose of Lasix IV.
Continue spironolactone, no Farxiga.
She is febrile, defer to hospitalist regarding evaluation. She has a history of UTI.
Ventricular response to atrial fibrillation is controlled.
Magnesium is 1.7.
History of Present Illness:
84-year-old female with PMH permanent atrial fibrillation on apixaban, HF, hypertension, GERD, admission last week to [facility] for hypercalcemia and IVETTE with creat 1.5. Hypercalcemia thought to be secondary to calcium and vit D supplements and they
were stopped. She was given IVF and one dose of IV Lasix. Lasix was held at discharge. Since discharge on 11/18/2024 she has had shortness of breath, fatigue, and has developed increased lower extremity edema. Also with sore throat. She presented
to ED 11/20/2024.
ED workup: proBNP 3540
Chest x-ray moderate pulmonary edema and small bilateral pleural effusions.
EKG: Atrial fibrillation with rapid ventricular response 131 bpm.
BUN/creatinine 23/0.9, NA 131, K 4.2, repeat 3.3, mag 1.3, calcium 9.4
She was started on IV Cardizem for rate control and given IV Lasix 40 mg x 1. Admitted to IVU for further management of acute heart failure exacerbation and A-fib with RVR.
Last admission 11/15-11/18/24 for hypercalcemia thought to be secondary to calcium and vitamin D supplementation. She underwent workup for paraproteinemia and SPEP was negative. Seen by nephrology. She was initially given IV fluids then diuresed
and Lasix was held afterwards on discharge.
Progress Note - Plasterer Stucco
Subjective
Date of Service: November 26, 2024:
Current meds: Acetaminophen, Elavil, apixaban 5 twice daily, colestipol, Namenda, Protonix, sertraline 25 a day, furosemide IV 40 twice daily, spironolactone 12.5 daily, metoprolol ER 100 mg twice daily, mag oxide 400 twice daily
States she feels well, but is febrile
109/69, temp is 38.3, respiratory rate 16, pulse 91, weight is 70.3 kg, up 1.6 kg, head neck exam is unremarkable, lungs are relatively clear, JVD about 8-10, irregular rate and rhythm with rate controlled, MR murmur, still 2+ edema
White count is 7.3 hemoglobin is 10.1, MCV is 77, sodium 131, potassium is 4.2, CO2 is 23, BUN/creatinine are 23 and 0.8, magnesium is 1.7
Objective
Labs:
11/26/24 08:09
11/26/24 08:09
Labs
Hgb 10.1 g/dL (12.0-16.0) L 11/26/24 08:09
Hct 30.9 % (37.0-47.0) L 11/26/24 08:09
Plt Count 10^3/uL (130-400) 11/26/24 08:09
Sodium 131 mmol/L (135-145) L 11/26/24 08:09
Potassium 4.2 mmol/L (3.5-5.1) 11/26/24 08:09
BUN 23 mg/dl (7-17) H 11/26/24 08:09
Creatinine 0.8 mg/dL (0.6-1.0) 11/26/24 08:09
Glucose 113 mg/dl (70-99) H 11/26/24 08:09
Vital Signs and I&O:
Vital Signs
Temp Pulse Resp BP Pulse Ox
38.3 C H 91 16 109/64 95
11/26/24 15:03 11/26/24 15:03 11/26/24 15:03 11/26/24 15:03 11/26/24 15:03
Vital Signs
Temp Pulse Resp BP Pulse Ox
38.3 C H 91 16 109/64 95
11/26/24 15:03 11/26/24 15:03 11/26/24 15:03 11/26/24 15:03 11/26/24 15:03
Intake & Output
11/24/24 11/25/24 11/26/24 11/27/24
07:59 07:59 07:59 07:59
Intake Total 240 / 240 600 / 600 1250 / 1250
Output Total 450 / 450 400 / 400 550 / 550 230 / 230
Balance -210 / -210 200 / 200 700 / 700 -230 / -230
Physical Exam
Physical Exam
See above
[2024-11-26] MEDS: ZAROXOLYN 5 MG PO (16:20)
[2024-11-26] MEDS: ZOLOFT 25 MG PO (21:01)
[2024-11-26] MEDS: TYLENOL 500 MG PO (21:01)
[2024-11-26] MEDS: ELAVIL 50 MG PO (21:01)
[2024-11-27 03:03] VITALS: BP 113/58
[2024-11-27 05:02] VITALS: BMI 25.4
[2024-11-27 07:20] LABS: Hematocrit 29.5 % (37.0-47.0); Hemoglobin 9.7 g/dL (12.0-16.0); Mean Corp Hgb Conc. 32.9 g/dL (33.0-37.0); Mean Corpuscular Volume 76.0 fL (81.0-99.0); Red Cell Dist. Width 16.1 % (11.5-14.5)
[2024-11-27 07:38] LABS: Blood Urea Nitrogen 20 mg/dl (7-17); Calcium 8.4 mg/dl (8.4-10.2); Carbon Dioxide 26 mmol/L (22-30); Chloride 99 mmol/L (98-107); Estimated Creatinine Clearance 46 ml/min; Glucose 110 mg/dl (70-99); Magnesium 1.5 mg/dl (1.6-2.3); Potassium 3.6 mmol/L (3.5-5.1); Sodium 130 mmol/L (135-145); eGFR > 60.00
[2024-11-27 08:00] VITALS: BP 130/66
--- NOTE | 2024-11-27 08:40 | W.PN.HOSP.TC ---
Today's Communication/Plan
-
Diuresis. Discharge planning
Assessment / Plan
Assessment / Plan
Physical exam:
General: No acute distress
HEENT: Normocephalic, Atraumatic and Moist Mucous Membranes
Respiratory: Clear to auscultation bilaterally; Negative Wheezes, Rales or Rhonchi
Cardiac: Irregular rate and rhythm, and S1/S2, systolic murmur
GI: Soft, Nontender and Nondistended
Musculoskeletal: No Clubbing, No Cyanosis and some bilateral lower extremity edema
Neuro: Awake, Alert and oriented, no gross focal deficits, cognitive deficits present
Psych: Calm
A/P:
Acute on chronic HFrEF:
Recent hospitalization for hypercalcemia in which she received fluids and diuretics held.
She had received IV Lasix during this hospital stay up until yesterday. She also had an extra dose of metolazone yesterday x 1. Currently on Lasix 60 mg twice a day.
Added spironolactone 12.5 mg p.o. daily
Not a good candidate for SGLT2 inhibitors due to UTI
Monitor daily weights and ins and outs
Cardiology consult appreciated
PT OT recommends skilled rehab
Discussed with daughter Chrissy over the phone yesterday and discussed with the other daughter today at bedside.
business system manager for discharge disposition
Fever on 11/26:
Blood cultures ordered yesterday and today pending so follow-up results over the next 24 hours
Afebrile today and hemodynamically stable
Persistent to permanent atrial fibrillation with rapid ventricular rates:
Received IV Cardizem drip during his hospital stay but now back to oral metoprolol suc-->tolerating 100 mg twice a day
On anticoagulation, Eliquis 5 mg p.o. twice a day
Cardiac monitoring
Leukocytosis:
Improved
ID eval in the setting of recent ESBL E. coli appreciated
Blood cultures ordered by ID (one of the sets positive) ID reordered blood cx and remained sterile
Repeated urine culture no growth.
Altered mental status likely related to delirium:
Improved
Obtained CT of the head unremarkable for acute findings
Monitor mental status and behavior but so far stable
Sore throat:
Rapid strep negative
Influenza negative
COVID-19 negative
Monoscreen negative
Hypokalemia:
Replete and trend
Hypomagnesemia:
Give 2 g of IV magnesium sulfate today and continue oral supplementation
Hyponatremia:
Mild
Continue to monitor
Recent UTI (ESBL):
Finish course of antibiotics last hospitalization
Recent hypercalcemia:
[place] to be related to vitamin D supplementation given pamidronate and rest of the workup pending as outpatient.
Reached out to lab and all the workup from prior hospitalization is back. PT HR normal less than 2, PTH 4, serum protein electrophoresis normal, and 1, 25 vitamin D elevated at 88 which could have explain her hypercalcemia. Calcium remains normal
during this hospital stay.
Recent IVETTE and also history of chronic kidney disease stage III-A:
Diuretics were held and now resumed but renal function remains stable while on diuretics
Creatinine stable, creatinine today 0.8
Anemia:
No signs of bleeding
Workup shows evidence of iron deficiency-will need further workup as outpatient
Hemoglobin stable, hemoglobin 9.7 today
Elevated alk phos:
Will need further workup as outpatient
Hypoalbuminemia:
Monitor trend as outpatient
Hypertension:
Continue metoprolol and spironolactone
Discontinued amlodipine per cardio
Dementia:
Continue memantine 10 mg p.o. twice a day
GERD:
Continue PPI
Depression:
Continue sertraline and amitriptyline
Other medical problems:
Dyslipidemia
Peripheral neuropathy
Orthostasis
Cervical degenerative disc disease
DVT prophylaxis:
Eliquis
CODE STATUS:
Full code
Time spent 35-minutes
Anticipated Discharge: 24 - 48 hours
Subjective/Interval History
-
Date of Service: November 27, 2024
Patient denies shortness of breath. No chest pain. Afebrile today
Objective Data
-
Labs:
Laboratory Results
11/27/24
06:22
WBC 5.8
Hgb 9.7 L
Hct 29.5 L
Plt Count
Sodium 130 L
Potassium 3.6
Chloride 99
Carbon Dioxide 26
BUN 20 H
Creatinine 0.8
Glucose 110 H
Calcium 8.4
Vital Signs:
Vital Signs
Temp Pulse Resp BP Pulse Ox
97.9 F 91 16 130/66 95
11/27/24 08:00 11/27/24 08:00 11/27/24 08:00 11/27/24 08:00 11/27/24 08:00
I&O
11/26/24 11/27/24 11/28/24
06:59 06:59 06:59
Intake Total 1250 / 1250 600 / 600
Output Total 550 / 550 1205 / 1205
Balance 700 / 700 -605 / -605
[2024-11-27] MEDS: ALDACTONE 12.5 MG PO (08:47)
[2024-11-27] MEDS: MAGNESIUM OXIDE 400 MG PO ×2 (08:47→22:12)
[2024-11-27] MEDS: LASIX 60 MG PO ×2 (08:47→16:40)
[2024-11-27] MEDS: ELIQUIS 5 MG PO ×2 (08:47→22:12)
[2024-11-27] MEDS: NAMENDA 10 MG PO ×2 (08:47→22:13)
[2024-11-27] MEDS: TOPROL XL 100 MG PO ×2 (08:47→22:13)
[2024-11-27] MEDS: NON-FORMULARY ITEM 1 GM PO ×2 (08:48→22:09)
[2024-11-27] MEDS: PROTONIX 40 MG PO (08:48)
[2024-11-27] MEDS: MAGNESIUM SULFATE 50 IV (08:50)
--- NOTE | 2024-11-27 09:28 | W.PN.CARDCBS ---
Today's Communication / Plan
-
Continue current regimen
Follow-up sodium
Impression / Plan
-
PCP:Jam Giles
Primary centrex radio operator: Dr Stoll
Imp:
Presented 11/20/2024 with shortness of breath, fatigue, and has developed increased lower extremity edema
Acute HFpEF, proBNP 3540
Permanent atrial fibrillation with RVR on admission, improved
HTN
GERD
Hyperlipidemia
Hypercalcemia
Hypomagnesemia
admission for IVETTE, hypercalcemia/dehydration 11/15-11/18/2024
E coli UTI
intermittent urinary retention
Echo 03/18: EF 55 to 60%, mild MR, TR
Echo 09/2023: EF 45 to 50%, mild LVH, mild MR, AI, TR, PASP 39 mmHg
Echo 07/2024: EF 50%, mild MR, AI, mild to moderate TR with PAP 30 mmHg
ECHO 11/21/24: EF 55%, MAC, moderate MR, aortic sclerosis, mild AR, dilated RV and RA with moderate TR, PASP 49 mmHg
Plan:
Overall she is doing reasonably well, now on oral furosemide.
However, she is still hypomagnesemic. She received IV magnesium today.
Sodium is 130, will need to follow.
Will continue current oral regimen, furosemide 60 mg twice daily.
If weight remains above target we can add intermittent dosing of metolazone or increase oral furosemide further.
Continue spironolactone, Farxiga.
Her ventricular response to atrial fibrillation remains controlled.
History of Present Illness:
84-year-old female with PMH permanent atrial fibrillation on apixaban, HF, hypertension, GERD, admission last week to [facility] for hypercalcemia and IVETTE with creat 1.5. Hypercalcemia thought to be secondary to calcium and vit D supplements and they
were stopped. She was given IVF and one dose of IV Lasix. Lasix was held at discharge. Since discharge on 11/18/2024 she has had shortness of breath, fatigue, and has developed increased lower extremity edema. Also with sore throat. She presented
to ED 11/20/2024.
ED workup: proBNP 3540
Chest x-ray moderate pulmonary edema and small bilateral pleural effusions.
EKG: Atrial fibrillation with rapid ventricular response 131 bpm.
BUN/creatinine 23/0.9, NA 131, K 4.2, repeat 3.3, mag 1.3, calcium 9.4
She was started on IV Cardizem for rate control and given IV Lasix 40 mg x 1. Admitted to IVU for further management of acute heart failure exacerbation and A-fib with RVR.
Last admission 11/15-11/18/24 for hypercalcemia thought to be secondary to calcium and vitamin D supplementation. She underwent workup for paraproteinemia and SPEP was negative. Seen by nephrology. She was initially given IV fluids then diuresed
and Lasix was held afterwards on discharge.
Progress Note - Medical Transcription Supervisor
Subjective
Date of Service: November 27, 2024:
84-year-old woman admitted with acute HFmrEF following withdrawal of furosemide during brief hospital stay for hypercalcemia possibly related to vitamin D supplementation at which time furosemide 60 mg a day was withdrawn. In atrial fibrillation at
the time of presentation.
PMH: Recently diagnosed hypercalcemia, permanent/persistent atrial fibrillation, hypertension, orthostasis, hyperlipidemia, peripheral neuropathy, depression, mild presumed nonischemic cardiomyopathy, EF 45-50% 2023, cervical degenerative disc
disease, ESBL E. coli UTI
Current medications: Acetaminophen, amitriptyline 50 nightly, apixaban 5 twice daily, colestipol, Namenda 10 mg twice daily, Protonix 40 mg a day, sertraline 25 at bedtime, spironolactone 12.5 twice daily, metoprolol ER 100 mg twice daily, mag oxide
400 twice daily, furosemide 60 mg p.o. twice daily, magnesium 2 g IV
130/66, pulse 91, respiratory rate 16, intake and output -0.6 L, weight is 69.26 kg, which is down 1 kg. She feels relatively well, is not febrile. Lungs are clear, neck veins are okay, systolic murmur at bases 1+ edema abdomen benign
Hemoglobin is 9.7, magnesium is 1.5, sodium is 130, potassium is 3.6 BUN and creatinine are 20 and 0.8
Objective
Labs:
11/27/24 06:22
11/27/24 06:22
Labs
Hgb 9.7 g/dL (12.0-16.0) L 11/27/24 06:22
Hct 29.5 % (37.0-47.0) L 11/27/24 06:22
Plt Count 10^3/uL (130-400) 11/27/24 06:22
Sodium 130 mmol/L (135-145) L 11/27/24 06:22
Potassium 3.6 mmol/L (3.5-5.1) 11/27/24 06:22
BUN 20 mg/dl (7-17) H 11/27/24 06:22
Creatinine 0.8 mg/dL (0.6-1.0) 11/27/24 06:22
Glucose 110 mg/dl (70-99) H 11/27/24 06:22
Vital Signs and I&O:
Vital Signs
Temp Pulse Resp BP Pulse Ox
36.6 C 91 16 130/66 95
11/27/24 08:00 11/27/24 08:00 11/27/24 08:00 11/27/24 08:00 11/27/24 08:00
Vital Signs
Temp Pulse Resp BP Pulse Ox
36.6 C 91 16 130/66 95
11/27/24 08:00 11/27/24 08:00 11/27/24 08:00 11/27/24 08:00 11/27/24 08:00
Intake & Output
11/25/24 11/26/24 11/27/24 11/28/24
07:59 07:59 07:59 07:59
Intake Total 600 / 600 1250 / 1250 600 / 600
Output Total 400 / 400 550 / 550 1205 / 1205
Balance 200 / 200 700 / 700 -605 / -605
Physical Exam
Physical Exam
See above
[2024-11-27 12:32] VITALS: BP 113/56
--- NOTE | 2024-11-27 12:32 | PTCARENOTE ---
patient c/o slight lightheadedness while on bsc, had been sitting oob for about 4 hours in chair prior. transferred back to bed and lightheadedness resolved immediately. vss, will make Dr. Barroso aware, will continue to monitor.
[2024-11-27 16:28] VITALS: BP 113/63
[2024-11-27] MEDS: TYLENOL 500 MG PO (22:10)
[2024-11-27] MEDS: ELAVIL 50 MG PO (22:11)
[2024-11-27] MEDS: ZOLOFT 25 MG PO (22:12)
[2024-11-27 23:00] VITALS: BP 114/68
[2024-11-28 05:58] VITALS: BMI 26.6
[2024-11-28 07:02] LABS: Blood Urea Nitrogen 20 mg/dl (7-17); Calcium 8.3 mg/dl (8.4-10.2); Carbon Dioxide 30 mmol/L (22-30); Chloride 95 mmol/L (98-107); Estimated Creatinine Clearance 41 ml/min; Glucose 111 mg/dl (70-99); Magnesium 1.6 mg/dl (1.6-2.3); Potassium 3.1 mmol/L (3.5-5.1); Sodium 129 mmol/L (135-145); eGFR > 60.00
[2024-11-28 07:18] VITALS: BP 117/63
[2024-11-28] MEDS: TOPROL XL 100 MG PO ×2 (08:24→20:59)
[2024-11-28] MEDS: NAMENDA 10 MG PO ×2 (08:25→20:58)
[2024-11-28] MEDS: PROTONIX 40 MG PO (08:25)
[2024-11-28] MEDS: MAGNESIUM OXIDE 400 MG PO ×2 (08:25→20:57)
[2024-11-28] MEDS: ELIQUIS 5 MG PO ×2 (08:25→20:56)
[2024-11-28] MEDS: LASIX 60 MG PO ×2 (08:25→15:41)
[2024-11-28] MEDS: ALDACTONE 12.5 MG PO (08:25)
[2024-11-28] MEDS: NON-FORMULARY ITEM 1 GM PO ×2 (08:26→20:56)
--- NOTE | 2024-11-28 09:28 | W.PN.HOSP.TC ---
Today's Communication/Plan
-
Vascular evaluation for right big toe ulcer
CT chest
Replace K & Mg
F/w Cardiology recommendations
Assessment / Plan
Assessment / Plan
Physical exam:
General: No acute distress
HEENT: Normocephalic, Atraumatic and Moist Mucous Membranes
Respiratory: Clear to auscultation bilaterally; Negative Wheezes, Rales or Rhonchi
Cardiac: Irregular rate and rhythm, and S1/S2, systolic murmur
GI: Soft, Nontender and Nondistended
Musculoskeletal: No Clubbing, No Cyanosis and some bilateral lower extremity edema
Neuro: Awake, Alert and oriented, no gross focal deficits, cognitive deficits present
Psych: Calm
A/P:
Acute on chronic HFrEF:
Recent hospitalization for hypercalcemia in which she received fluids and diuretics held.
She had received IV Lasix during this hospital stay up until yesterday. She also had an extra dose of metolazone yesterday x 1. Currently on Lasix 60 mg twice a day.
Added spironolactone 12.5 mg p.o. daily
Not a good candidate for SGLT2 inhibitors due to UTI
Monitor daily weights and ins and outs
Cardiology consult appreciated
PT OT recommends skilled rehab
Discussed with daughter Chrissy over the phone yesterday and discussed with the other daughter today at bedside.
senior planning manager for discharge disposition
Fever on 11/26:
No recurrence
Afebrile and hemodynamically stable
# possible abnormality of Chest x ray
with known prolonged smoking history, anemia, weakness, low sodium, ? lung disease, will do CT chest with IV contrast
# Right first toe small ulcer,
Per daughter, she noticed it few days ago
No known PAD, known neuropathy
Pt seems to have mild tenderness but not significant
d/w vascular sharepoint consultant, they will see her tomorrow
Will order BASIL study for now
Persistent to permanent atrial fibrillation with rapid ventricular rates:
Received IV Cardizem drip during his hospital stay but now back to oral metoprolol suc-->tolerating 100 mg twice a day
On anticoagulation, Eliquis 5 mg p.o. twice a day
Cardiac monitoring
Leukocytosis:
Resolved.
ID eval in the setting of recent ESBL E. coli appreciated
Blood cultures ordered by ID (one of the sets positive) ID reordered blood cx and remained sterile
Repeated urine culture no growth.
TME
Resolved, back to baseline
Obtained CT of the head unremarkable for acute findings
Monitor mental status and behavior but so far stable
Sore throat:
Resolved
Rapid strep negative
Influenza negative
COVID-19 negative
Monoscreen negative
Hypokalemia:
Replace
Hypomagnesemia:
Replace
Hyponatremia:
Mild
Continue to monitor
Recent UTI (ESBL):
Finish course of antibiotics last hospitalization
Recent hypercalcemia:
[place] to be related to vitamin D supplementation given pamidronate and rest of the workup pending as outpatient.
Reached out to lab and all the workup from prior hospitalization is back. PT HR normal less than 2, PTH 4, serum protein electrophoresis normal, and 1, 25 vitamin D elevated at 88 which could have explain her hypercalcemia. Calcium remains normal
during this hospital stay.
Recent IVETTE and also history of chronic kidney disease stage III-A:
Diuretics were held and now resumed but renal function remains stable while on diuretics
Creatinine stable, creatinine today 0.8
Anemia:
No signs of bleeding
Workup shows evidence of iron deficiency-will need further workup as outpatient
Hemoglobin stable, hemoglobin 9.7 today
Elevated alk phos:
Will need further workup as outpatient
Hypoalbuminemia:
Monitor trend as outpatient
Hypertension:
Continue metoprolol and spironolactone
Discontinued amlodipine per cardio
Dementia:
Continue memantine 10 mg p.o. twice a day
GERD:
Continue PPI
Depression:
Continue sertraline and amitriptyline
Other medical problems:
Dyslipidemia
Peripheral neuropathy
Orthostasis
Cervical degenerative disc disease
DVT prophylaxis:
Eliquis
CODE STATUS:
Full code
Total time spent to see the patient, examine the patient, review data and lab results, discuss treatment plan with patient, family, nursing staff around 59 minutes�
Anticipated Discharge: > 48 hours
Subjective/Interval History
-
Date of Service: November 28, 2024
No chest pain
No sob
No fevers
Objective Data
-
Labs:
Laboratory Results
11/28/24
06:08
Sodium 129 L
Potassium 3.1 L
Chloride 95 L
Carbon Dioxide 30
BUN 20 H
Creatinine 0.9
Glucose 111 H
Calcium 8.3 L
Vital Signs:
Vital Signs
Temp Pulse Resp BP Pulse Ox
97.8 F 81 17 117/63 96
11/28/24 07:18 11/28/24 08:25 11/28/24 07:18 11/28/24 08:25 11/28/24 07:18
I&O
11/27/24 11/28/24 11/29/24
06:59 06:59 06:59
Intake Total 600 / 600 780 / 780
Output Total 1205 / 1205
Balance -605 / -605 780 / 780
[2024-11-28] MEDS: MAGNESIUM SULFATE 100 IV (11:54)
[2024-11-28] MEDS: KLOR-CON 20 MEQ PO ×3 (12:03→20:57)
--- NOTE | 2024-11-28 12:48 | W.PN.CARDCBS ---
Today's Communication / Plan
-
Electrolyte repletion
Diuresis, monitor intake and output Daily weights
Impression / Plan
-
PCP:Jam Giles
Primary referral rn: Dr Stoll
Imp:
Presented 11/20/2024 with shortness of breath, fatigue, and has developed increased lower extremity edema
Acute HFpEF, proBNP 3540
Permanent atrial fibrillation with RVR on admission, improved
HTN
GERD
Hyperlipidemia
Hypercalcemia
Hypomagnesemia
admission for IVETTE, hypercalcemia/dehydration 11/15-11/18/2024
E coli UTI
intermittent urinary retention
Echo 03/18: EF 55 to 60%, mild MR, TR
Echo 09/2023: EF 45 to 50%, mild LVH, mild MR, AI, TR, PASP 39 mmHg
Echo 07/2024: EF 50%, mild MR, AI, mild to moderate TR with PAP 30 mmHg
ECHO 11/21/24: EF 55%, MAC, moderate MR, aortic sclerosis, mild AR, dilated RV and RA with moderate TR, PASP 49 mmHg
Plan:
She is still hypomagnesemic. She received IV magnesium previously, repeat IV mag today
Potassium 3.1 currently receiving 20 mEq twice daily, will add additional one-time dose this afternoon. Likely low mag driving low potassium
Sodium is 129, will need to follow.
Will continue current oral regimen, furosemide 60 mg twice daily.
If weight remains above target we can add intermittent dosing of metolazone or increase oral furosemide further.
Continue spironolactone, Farxiga.
Her ventricular response to atrial fibrillation remains controlled.
History of Present Illness:
84-year-old female with PMH permanent atrial fibrillation on apixaban, HF, hypertension, GERD, admission last week to [facility] for hypercalcemia and IVETTE with creat 1.5. Hypercalcemia thought to be secondary to calcium and vit D supplements and they
were stopped. She was given IVF and one dose of IV Lasix. Lasix was held at discharge. Since discharge on 11/18/2024 she has had shortness of breath, fatigue, and has developed increased lower extremity edema. Also with sore throat. She presented
to ED 11/20/2024.
ED workup: proBNP 3540
Chest x-ray moderate pulmonary edema and small bilateral pleural effusions.
EKG: Atrial fibrillation with rapid ventricular response 131 bpm.
BUN/creatinine 23/0.9, NA 131, K 4.2, repeat 3.3, mag 1.3, calcium 9.4
She was started on IV Cardizem for rate control and given IV Lasix 40 mg x 1. Admitted to IVU for further management of acute heart failure exacerbation and A-fib with RVR.
Last admission 11/15-11/18/24 for hypercalcemia thought to be secondary to calcium and vitamin D supplementation. She underwent workup for paraproteinemia and SPEP was negative. Seen by nephrology. She was initially given IV fluids then diuresed
and Lasix was held afterwards on discharge.
Progress Note - Information Developer
Subjective
Date of Service: November 28, 2024
Patient seen and examined. No acute events overnight. Patient resting comfortably in bed. Patient notes mild lower extremity swelling. Denies cough, congestion, fever.
Objective
Labs:
11/27/24 06:22
11/28/24 06:08
Labs
Hgb 9.7 g/dL (12.0-16.0) L 11/27/24 06:22
Hct 29.5 % (37.0-47.0) L 11/27/24 06:22
Plt Count 10^3/uL (130-400) 11/27/24 06:22
Sodium 129 mmol/L (135-145) L 11/28/24 06:08
Potassium 3.1 mmol/L (3.5-5.1) L 11/28/24 06:08
BUN 20 mg/dl (7-17) H 11/28/24 06:08
Creatinine 0.9 mg/dL (0.6-1.0) 11/28/24 06:08
Glucose 111 mg/dl (70-99) H 11/28/24 06:08
Vital Signs and I&O:
Vital Signs
Temp Pulse Resp BP Pulse Ox
97.8 F 81 17 117/63 96
11/28/24 07:18 11/28/24 08:25 11/28/24 07:18 11/28/24 08:11/28/24 07:18
Vital Signs
Temp Pulse Resp BP Pulse Ox
97.8 F 81 17 117/63 96
11/28/24 07:18 11/28/24 08:25 11/28/24 07:18 11/28/24 08:25 11/28/24 07:18
Intake & Output
11/26/24 11/27/24 11/28/24 11/29/24
06:59 06:59 06:59 06:59
Intake Total 1250 / 1250 600 / 600 780 / 780
Output Total 550 / 550 1205 / 1205
Balance 700 / 700 -605 / -605 780 / 780
Physical Exam
Physical Exam
GENERAL: no acute distress
EYE: sclera anicteric
NECK: Supple, no JVD, no carotid bruit appreciated
ENT: normal nose, moist mucosal membranes
CARDIAC: Regular rate and rhythm, +S1/S2, 2/6 systolic murmur at base; no rubs, or gallops
CHEST/PULMONARY: Normal effort, clear breath sounds
ABDOMEN: Soft, without focal tenderness or distention
NEUROLOGICAL: Alert and oriented x3
SKIN: Warm and dry, no rash; 1+ bilateral lower extremity swelling
PSYCH: Normal and appropriate interaction.
Patient not on telemetry
[2024-11-28 15:34] VITALS: BP 111/56
[2024-11-28] MEDS: ELAVIL 50 MG PO (20:59)
[2024-11-28] MEDS: ZOLOFT 25 MG PO (21:00)
[2024-11-28] MEDS: TYLENOL 500 MG PO (21:01)
[2024-11-28 23:00] VITALS: BP 105/56
[2024-11-29 05:01] VITALS: BMI 25.0
[2024-11-29 07:32] VITALS: BP 112/55
[2024-11-29] MEDS: LASIX 60 MG PO (07:45)
[2024-11-29] MEDS: PROTONIX 40 MG PO (07:45)
[2024-11-29] MEDS: ALDACTONE 12.5 MG PO (07:45)
[2024-11-29] MEDS: NAMENDA 10 MG PO ×2 (07:45→20:36)
[2024-11-29] MEDS: MAGNESIUM OXIDE 400 MG PO ×2 (07:45→20:36)
[2024-11-29] MEDS: ELIQUIS 5 MG PO ×2 (07:45→20:35)
[2024-11-29] MEDS: TOPROL XL 100 MG PO ×2 (07:45→20:36)
[2024-11-29] MEDS: NON-FORMULARY ITEM 1 GM PO ×2 (07:46→20:35)
--- NOTE | 2024-11-29 08:13 | W.PN.CARDCBS ---
Addendum entered and electronically signed by Zan Stoll DO 11/29/24 11:24:
I saw and examined the patient.
The C D Stripper's note was reviewed and I agree with the note.
Comment:
Plan:
She remains in rate controlled permanent atrial fibrillation.
Her dyspnea has improved.
In light of bilateral moderate pleural effusions seen on CT scan, would resume IV Lasix at least another 24 hours.
Watch lytes closely with diuresis
She appears clinically improved.
Work up of LE ongoing. u/s pending.
Original Note:
Today's Communication / Plan
-
await labs, replete lytes as needed
afib rate controlled
Impression / Plan
-
PCP:Jam Giles
Primary induction coordination power engineer: Dr Stoll
Imp:
Presented 11/20/2024 with shortness of breath, fatigue, and has developed increased lower extremity edema
Acute HFpEF, proBNP 3540
Permanent atrial fibrillation with RVR on admission, improved
HTN
GERD
Hyperlipidemia
Hypercalcemia
Hypomagnesemia
admission for IVETTE, hypercalcemia/dehydration 11/15-11/18/2024
E coli UTI
intermittent urinary retention
Echo 03/18: EF 55 to 60%, mild MR, TR
Echo 09/2023: EF 45 to 50%, mild LVH, mild MR, AI, TR, PASP 39 mmHg
Echo 07/2024: EF 50%, mild MR, AI, mild to moderate TR with PAP 30 mmHg
ECHO 11/21/24: EF 55%, MAC, moderate MR, aortic sclerosis, mild AR, dilated RV and RA with moderate TR, PASP 49 mmHg
Plan:
wt down 10 lbs since admission
initially on IV diuretics, has been on home diuretic dose Lasix 60 mg bid since 11/[address] 11/28/2024 with concern for B/L mod pleural effusions L>R. Pt denies SOB, not requiring O2
hypomagnesmic and hypokalemic - receiving repletion. On mag oxide 400 mg bid and PRN KCl- awaiting labs today 11/29
cont spironolactone 12.5 mg daily, added 11/22. Could consider uptitation although BPs lower 105-112/50s-60s
Had been on KCl 20 mEq twice daily x 2 days, await today's labs
Sodium is 129, will need to follow.
Continue spironolactone, Farxiga.
Her ventricular response to atrial fibrillation remains controlled with uptitration of Metoprolol to 100 mg bid. HRs 80s. No longer on telemetry. Cont Eliquis 5 mg bid.
concern for new ulcer on R first toe- vasc was consulted and LE BASIL ordered. DP pulses 2+ B/L. Pt on Eliquis
History of Present Illness:
84-year-old female with PMH permanent atrial fibrillation on apixaban, HF, hypertension, GERD, admission last week to [facility] for hypercalcemia and IVETTE with creat 1.5. Hypercalcemia thought to be secondary to calcium and vit D supplements and they
were stopped. She was given IVF and one dose of IV Lasix. Lasix was held at discharge. Since discharge on 11/18/2024 she has had shortness of breath, fatigue, and has developed increased lower extremity edema. Also with sore throat. She presented
to ED 11/20/2024.
ED workup: proBNP 3540
Chest x-ray moderate pulmonary edema and small bilateral pleural effusions.
EKG: Atrial fibrillation with rapid ventricular response 131 bpm.
BUN/creatinine 23/0.9, NA 131, K 4.2, repeat 3.3, mag 1.3, calcium 9.4
She was started on IV Cardizem for rate control and given IV Lasix 40 mg x 1. Admitted to IVU for further management of acute heart failure exacerbation and A-fib with RVR.
Last admission 11/15-11/18/24 for hypercalcemia thought to be secondary to calcium and vitamin D supplementation. She underwent workup for paraproteinemia and SPEP was negative. Seen by nephrology. She was initially given IV fluids then diuresed
and Lasix was held afterwards on discharge.
Progress Note - Retort Loader
Subjective
Date of Service: November 29, 2024
denies SOB
wt down 10 lbs since discharge
no palps, lightheadedness
Objective
Labs:
11/27/24 06:22
Labs
Hgb 9.7 g/dL (12.0-16.0) L 11/27/24 06:22
Hct 29.5 % (37.0-47.0) L 11/27/24 06:22
Plt Count 10^3/uL (130-400) 11/27/24 06:22
Sodium 129 mmol/L (135-145) L 11/28/24 06:08
Potassium 3.1 mmol/L (3.5-5.1) L 11/28/24 06:08
BUN 20 mg/dl (7-17) H 11/28/24 06:08
Creatinine 0.9 mg/dL (0.6-1.0) 11/28/24 06:08
Glucose 111 mg/dl (70-99) H 11/28/24 06:08
Vital Signs and I&O:
Vital Signs
Temp Pulse Resp BP Pulse Ox
97.5 F 81 17 112/55 96
11/29/24 07:32 11/29/24 07:45 11/29/24 07:32 11/29/24 07:45 11/29/24 07:32
Vital Signs
Temp Pulse Resp BP Pulse Ox
97.5 F 81 17 112/55 96
11/29/24 07:32 11/29/24 07:45 11/29/24 07:32 11/29/24 07:45 11/29/24 07:32
Intake & Output
11/27/24 11/28/24 11/29/24 11/30/24
06:59 06:59 06:59 06:59
Intake Total 600 / 600 780 / 780 570 / 570
Output Total 1205 / 1205
Balance -605 / -605 780 / 780 570 / 570
Physical Exam
Physical Exam
GEN: No distress, awake, Ox3
HEENT: supple, anicteric, mmm
LUNGS: CTA, no wheezes/rales
CV: Reg, S1/S2, no murmur
ABD: soft, BS+, NT/ND
EXT: trace LE edema. R great toe with sm circular erythematous ulcer, nontender
2+ B/L DP pulses, LEs warm
NEURO: Gross non-focal
SKIN: No rash
--- NOTE | 2024-11-29 09:13 | W.PN.HOSP.TC ---
Today's Communication/Plan
-
f/w vascular recommendations
IV Lasix
Assessment / Plan
Assessment / Plan
Physical exam:
General: No acute distress
HEENT: Normocephalic, Atraumatic and Moist Mucous Membranes
Respiratory: Clear to auscultation bilaterally; Negative Wheezes, Rales or Rhonchi
Cardiac: Irregular rate and rhythm, and S1/S2, systolic murmur
GI: Soft, Nontender and Nondistended
Musculoskeletal: No Clubbing, No Cyanosis and some bilateral lower extremity edema
Neuro: Awake, Alert and oriented, no gross focal deficits, cognitive deficits present
Psych: Calm
A/P:
Acute on chronic HFrEF:
Recent hospitalization for hypercalcemia in which she received fluids and diuretics held.
She had received IV Lasix during this hospital stay up until yesterday. She also had an extra dose of metolazone yesterday x 1. Currently on Lasix 60 mg twice a day.
Added spironolactone 12.5 mg p.o. daily
Not a good candidate for SGLT2 inhibitors due to UTI
Monitor daily weights and ins and outs
Cardiology consult appreciated
PT OT recommends skilled rehab
senior manager quality assurance for discharge disposition
Fever on 11/26:
No recurrence
Afebrile and hemodynamically stable
# Bilateral pleural effusion
Agree with changing back to IV Lasix
CT chest did not show pulmonary nodule
# Right first toe small ulcer,
Per daughter, she noticed it few days ago
No known PAD, known neuropathy
Pt seems to have mild tenderness but not significant
F/w Vascular, appreciate help
Persistent to permanent atrial fibrillation with rapid ventricular rates:
Received IV Cardizem drip during his hospital stay but now back to oral metoprolol suc-->tolerating 100 mg twice a day
On anticoagulation, Eliquis 5 mg p.o. twice a day
Cardiac monitoring
Leukocytosis:
Resolved.
ID eval in the setting of recent ESBL E. coli appreciated
Blood cultures ordered by ID (one of the sets positive) ID reordered blood cx and remained sterile
Repeated urine culture no growth.
TME
Resolved, back to baseline
Obtained CT of the head unremarkable for acute findings
Monitor mental status and behavior but so far stable
Sore throat:
Resolved
Rapid strep negative
Influenza negative
COVID-19 negative
Monoscreen negative
Hypokalemia:
Replace
Hypomagnesemia:
Replace
Hyponatremia:
Mild
Continue to monitor
Recent UTI (ESBL):
Finish course of antibiotics last hospitalization
Recent hypercalcemia:
[place] to be related to vitamin D supplementation given pamidronate and rest of the workup pending as outpatient.
Reached out to lab and all the workup from prior hospitalization is back. PT HR normal less than 2, PTH 4, serum protein electrophoresis normal, and 1, 25 vitamin D elevated at 88 which could have explain her hypercalcemia. Calcium remains normal
during this hospital stay.
Recent IVETTE and also history of chronic kidney disease stage III-A:
Diuretics were held and now resumed but renal function remains stable while on diuretics
Creatinine stable, creatinine today 0.8
Anemia:
No signs of bleeding
Workup shows evidence of iron deficiency-will need further workup as outpatient
Hemoglobin stable, hemoglobin 9.7 today
Elevated alk phos:
Will need further workup as outpatient
Hypoalbuminemia:
Monitor trend as outpatient
Hypertension:
Continue metoprolol and spironolactone
Discontinued amlodipine per cardio
Dementia/ senile :
Continue memantine 10 mg p.o. twice a day
GERD:
Continue PPI
Depression:
Continue sertraline and amitriptyline
Other medical problems:
Dyslipidemia
Peripheral neuropathy
Orthostasis
Cervical degenerative disc disease
DVT prophylaxis:
Eliquis
CODE STATUS:
Full code
Total time spent to see the patient, examine the patient, review data and lab results, discuss treatment plan with patient, family, nursing staff around 59 minutes�
Anticipated Discharge: 24 - 48 hours
Subjective/Interval History
-
Date of Service: November 29, 2024
Objective Data
-
Labs:
Laboratory Results
11/29/24
08:40
Sodium Pending
Potassium Pending
Chloride Pending
Carbon Dioxide Pending
BUN Pending
Creatinine Pending
Glucose Pending
Calcium Pending
Vital Signs:
Vital Signs
Temp Pulse Resp BP Pulse Ox
97.5 F 81 17 112/55 96
11/29/24 07:32 11/29/24 07:45 11/29/24 07:32 11/29/24 07:45 11/29/24 08:55
I&O
11/28/24 11/29/24 11/30/24
06:59 06:59 06:59
Intake Total 780 / 780 570 / 570
Balance 780 / 780 570 / 570
[2024-11-29 09:55] LABS: Blood Urea Nitrogen 17 mg/dl (7-17); Calcium 8.4 mg/dl (8.4-10.2); Carbon Dioxide 28 mmol/L (22-30); Chloride 96 mmol/L (98-107); Estimated Creatinine Clearance 46 ml/min; Glucose 109 mg/dl (70-99); Magnesium 1.6 mg/dl (1.6-2.3); Potassium 3.5 mmol/L (3.5-5.1); Sodium 129 mmol/L (135-145); eGFR > 60.00
--- NOTE | 2024-11-29 11:40 | HFEDUCATE ---
84 yo female admitted with SOB, fatigue and increased lower extremity edema. Medical history includes acute HFpEF, permanent A-fib with RVR, HTN, GERD, hyperlipidemia, hypercalcemia, hypomagnesia, frequent UTI's.. Her current echocardiogram shows
an ejection fraction of 55 %. Spoke with patients daughterCailtin as patient sleeping. She reports her mother following a low sodium diet and a 48oz fluid restriction per day. She has a scale and weighs herself daily.
I provided HF education and discussed the usual lifestyle recommendations. I advised she continue her low sodium diet of 2000-3000mg. per day and follow a 500-750mg. per meal restriction. I advised a 48 oz. fluid restriction per day and discussed
ways to achieve the recommendations. I also advised she continue weighing herself daily and monitoring for any slight weight gain. I reviewed how to monitor for exacerbations. We discussed other alarming symptoms to watch for and when to notify her
provider. We discussed need for medications.
Recommendations:
Continue all HF recommended medications as ordered on discharge.
Limit sodium intake to <500-750 mg. per meal.
Limit fluid intake to <48 oz per day.
Daily weights and contact provider for any weight gain >3lbs in one day or 5lbs in one week.
Follow up with provider as recommended.
--- NOTE | 2024-11-29 11:55 | CON.VAS ---
Addendum entered and electronically signed by Karl Kumar III, MD 11/29/24 20:09:
This patient was seen and examined in collaboration with Niurka Stephenson DO, PGY1. I agree with the history and physical exam as well as the assessment and plan. I have the following additions:
Admitted for heart failure
Asked to see patient regarding right hallux tip discoloration
Present for about a week
Was painful but less so now
History of atrial fibrillation, on anticoagulation
On physical examination she is well-appearing and in no acute distress
Right foot is warm
Nonpalpable pedal pulses on the right. Palpable DP on the left
Small 2 to 3 mm area of skin discoloration on the right hallux tip. No surrounding erythema or infection. There is no open wound or ulceration component to this area of discoloration
Recommend obtaining baseline lower extremity arterial studies in the vascular lab
Will make additional recommendations after studies have been completed
Call with questions or concerns
Signed:
Karl Kumar III, MD
Vascular Surgery
[facility]
Original Note:
Consultation
Consultation Request
Date/Time Consultation Performed: 11/29/2024
Performing Provider: Karl Kumar
Medical History
-
Chief Complaint: right toe ulceration
History of Present Illness:
Patient is an 84 year old female with PMH of HFrEF, a fib on Eliis currently admitted for an acute on chronic exacerbation of HFrEF, presenting with a right great toe ulcer. Patient's daughter states that she first notes the discoloration of the
patient's toe about a week ago. She described it as a 'volcano lesion' that was red/discolored and has worsened during the patient's admission. Patient endorses pain with movement and palpation of the right foot/toes.
Past Medical History
Past Medical History: Arrhythmias and CHF
Allergies / Home Medications
Allergy/AdvReac Type Severity Reaction Status Date / Time
calcitonin Allergy Rash Verified 11/22/24 18:18
clarithromycin Allergy Unknown Verified 11/20/24 10:26
erythromycin base Allergy Unknown Verified 11/20/24 10:26
�Medication �Instructions �Recorded �Confirmed �Type
colestipol 1 gram tablet 1 gm PO BID High cholesterol #60 10/08/19 11/20/24 Rx
tabs
pantoprazole 40 mg tablet,delayed 40 mg PO DAILY #30 tabs 10/08/19 11/20/24 Rx
release
amitriptyline 50 mg tablet 50 mg PO HS Mental Health/Anxiety 11/15/24 11/20/24 History
amlodipine 2.5 mg tablet 2.5 mg PO DAILY Blood Pressure 11/15/24 11/20/24 History
apixaban 5 mg tablet (Eliquis) 5 mg PO BID Blood Clot 11/15/24 11/20/24 History
Prevention/Tx
memantine 10 mg tablet 10 mg PO BID Neurological Condition 11/15/24 11/20/24 History
metoprolol succinate 25 mg 75 mg PO DAILY Blood Pressure 11/15/24 11/20/24 History
tablet,extended release 24 hr
peg 400-propylene glycol (PF) 0.4 1 drp BOTH EYES TIDPRN PRN dryness 11/15/24 11/20/24 History
%-0.3 % eye drops in a dropperette
(Systane (PF))
sertraline 25 mg tablet (Zoloft) 25 mg PO HS Mental Health/Anxiety 11/15/24 11/20/24 History
levofloxacin 500 mg tablet 500 mg PO DAILY 3 days #3 tabs 11/18/24 11/20/24 Rx
acetaminophen 500 mg tablet 500 mg PO HS Pain 11/20/24 11/20/24 History
Review of Systems
-
History Source: Patient and Family
Constitutional: Reports No Symptoms
Respiratory: Reports No Symptoms
Cardiac: Reports No Symptoms
Vascular: Reports Other (right first toe pain/ discoloration)
Abdomen/GI: Reports No Symptoms
: Reports No Symptoms
Musculoskeletal: Reports Other (right first toe pain/discoloration)
Neurological: Reports No Symptoms
Physical Exam
Vital Signs
Temp Pulse Resp BP Pulse Ox
97.5 F 81 17 112/55 96
11/29/24 07:32 11/29/24 07:45 11/29/24 07:32 11/29/24 07:45 11/29/24 08:55
Lab Results
11/27/24 06:22
11/29/24 08:40
[id number] Pept 1820 pg/ml 11/24/24 09:26
Physical Exam
General: Well Developed and No Apparent Distress
Musculoskeletal: Other (ulceration/discoloration present on right first toe, mild pain to palpation of foot. Right DP pulse not present (0). Left DP pulse 2+. )
Skin: Warm and Dry
Neuro: Awake, Alert and Oriented
Psych: Calm
Pulses: Left Dorsalis Pedis: +2
Assessment / Plan
-
US right LE Arterial with BASIL ordered.
Will await results.
--- NOTE | 2024-11-29 12:11 | CM ---
Patient seen at bedside with daughter Caitlin
IV lasix
vascular consulted
PT rec SNF
referrals in [facility] updated
spoke with Leta at [facility] for bed availability
will need ins auth
PLAN: SNF, pending bed availability when stable, will need insurance auth
[2024-11-29 13:55] VITALS: BP 105/61; BP 133/69; PULSE 85; O2SAT 95
[2024-11-29 14:35] VITALS: BP 118/67
[2024-11-29 15:21] VITALS: BP 105/56; PULSE 83
[2024-11-29] MEDS: LASIX 40 MG IV (15:45)
[2024-11-29 20:34] VITALS: BP 110/63
[2024-11-29] MEDS: SODIUM CHLORIDE 1 GRAM PO (20:36)
[2024-11-29] MEDS: KCL 20 MEQ PO (20:36)
[2024-11-29] MEDS: ELAVIL 50 MG PO (22:20)
[2024-11-29] MEDS: ZOLOFT 25 MG PO (22:21)
[2024-11-29] MEDS: TYLENOL 500 MG PO (22:21)
[2024-11-29 23:00] VITALS: BP 101/64
[2024-11-30 06:00] VITALS: BMI 24.8
[2024-11-30 07:00] VITALS: BP 106/51
[2024-11-30 07:44] LABS: Hematocrit 30.4 % (37.0-47.0); Hemoglobin 9.8 g/dL (12.0-16.0); Mean Corp Hgb Conc. 32.2 g/dL (33.0-37.0); Mean Corpuscular Volume 77.0 fL (81.0-99.0); Red Cell Dist. Width 15.9 % (11.5-14.5)
[2024-11-30 08:15] LABS: Blood Urea Nitrogen 17 mg/dl (7-17); Calcium 8.6 mg/dl (8.4-10.2); Carbon Dioxide 29 mmol/L (22-30); Chloride 97 mmol/L (98-107); Estimated Creatinine Clearance 46 ml/min; Glucose 116 mg/dl (70-99); Magnesium 1.5 mg/dl (1.6-2.3); Potassium 3.7 mmol/L (3.5-5.1); Sodium 130 mmol/L (135-145); eGFR > 60.00
--- NOTE | 2024-11-30 08:33 | W.PN.CARDCBS ---
Today's Communication / Plan
-
In light of bilateral moderate pleural effusions seen on CT scan 11/28, IV Lasix was resumed Nov 29 and would continue at least another 24 hours.
She had been on home diuretic dose Lasix 60 mg bid since 11/27 before changing back to IV lasix Nov 29.
Her wt continues to come down. Wt down about 10 lbs over admit.
Consider repeat imaging with CXR/chest u/s Dec 01 to reassess b/l pleural effusions
Watch lytes closely with diuresis; cr remains stable.
She remains in rate controlled permanent atrial fibrillation.Cont Eliquis and Metoprolol which had been increased.
Vascular input reviewed. Work up of LE ongoing. BASIL are pending.
Continue to replete lytes. Mg remains low, consider Mg rider.
Continue to replete potassium, K+3.7.
Sodium improved.
Her dementia appears worse, defer to primary service for eval and tx
Impression / Plan
-
.
PCP:Darian Giles
Primary graphic arts instructor: Dr Stoll
Impression:
Presented 11/20/2024 with shortness of breath, fatigue, and has developed increased lower extremity edema
Acute HFpEF, proBNP 3540
Permanent atrial fibrillation with RVR on admission, improved
Hyperlipidemia
Hypercalcemia
Hypomagnesemia
HTN
Recent admission for IVETTE, hypercalcemia/dehydration 11/15-11/18/2024
E coli UTI
intermittent urinary retention
GERD
Dementia
Echo 03/18: EF 55 to 60%, mild MR, TR
Echo 09/2023: EF 45 to 50%, mild LVH, mild MR, AI, TR, PASP 39 mmHg
Echo 07/2024: EF 50%, mild MR, AI, mild to moderate TR with PAP 30 mmHg
ECHO 11/21/24: EF 55%, MAC, moderate MR, aortic sclerosis, mild AR, dilated RV and RA with moderate TR, PASP 49 mmHg
Plan:
In light of bilateral moderate pleural effusions seen on CT scan 11/28, IV Lasix was resumed Nov 29 and would continue at least another 24 hours.
She had been on home diuretic dose Lasix 60 mg bid since 11/27 before changing back to IV lasix Nov 29.
Her wt continues to come down. Wt down about 10 lbs over admit.
Consider repeat imaging with CXR/chest u/s Dec 01 to reassess b/l pleural effusions
Watch lytes closely with diuresis; cr remains stable.
She remains in rate controlled permanent atrial fibrillation.Cont Eliquis and Metoprolol which had been increased.
Vascular input reviewed. Work up of LE ongoing. BASIL are pending.
Continue to replete lytes. Mg remains low, consider Mg rider.
Continue to replete potassium, K+3.7.
Sodium improved.
Her dementia appears worse, defer to primary service for eval and tx
Discussed with primary service.
History of Present Illness:
84-year-old female with PMH permanent atrial fibrillation on apixaban, HF, hypertension, GERD, admission last week to [facility] for hypercalcemia and IVETTE with creat 1.5. Hypercalcemia thought to be secondary to calcium and vit D supplements and they
were stopped. She was given IVF and one dose of IV Lasix. Lasix was held at discharge. Since discharge on 11/18/2024 she has had shortness of breath, fatigue, and has developed increased lower extremity edema. Also with sore throat. She presented
to ED 11/20/2024.
ED workup: proBNP 3540
Chest x-ray moderate pulmonary edema and small bilateral pleural effusions.
EKG: Atrial fibrillation with rapid ventricular response 131 bpm.
BUN/creatinine 23/0.9, NA 131, K 4.2, repeat 3.3, mag 1.3, calcium 9.4
She was started on IV Cardizem for rate control and given IV Lasix 40 mg x 1. Admitted to IVU for further management of acute heart failure exacerbation and A-fib with RVR.
Last admission 11/15-11/18/24 for hypercalcemia thought to be secondary to calcium and vitamin D supplementation. She underwent workup for paraproteinemia and SPEP was negative. Seen by nephrology. She was initially given IV fluids then diuresed
and Lasix was held afterwards on discharge.
Progress Note - Registered Nurses
Subjective
Date of Service: November 30, 2024
Pt seen and examined. No complaints. No chest pain or shortness of breath.
Objective
Labs:
11/30/24 06:39
11/30/24 06:40
Labs
Hgb 9.8 g/dL (12.0-16.0) L 11/30/24 06:39
Hct 30.4 % (37.0-47.0) L 11/30/24 06:39
Plt Count 10^3/uL (130-400) 11/27/24 06:22
Sodium 130 mmol/L (135-145) L 11/30/24 06:40
Potassium 3.7 mmol/L (3.5-5.1) 11/30/24 06:40
BUN 17 mg/dl (7-17) 11/30/24 06:40
Creatinine 0.8 mg/dL (0.6-1.0) 11/30/24 06:40
Glucose 116 mg/dl (70-99) H 11/30/24 06:40
Vital Signs and I&O:
Vital Signs
Temp Pulse Resp BP Pulse Ox
98.3 F 73 17 106/51 96
11/30/24 07:00 11/30/24 07:00 11/30/24 07:00 11/30/24 07:00 11/30/24 07:00
Vital Signs
Temp Pulse Resp BP Pulse Ox
98.3 F 73 17 106/51 96
11/30/24 07:00 11/30/24 07:00 11/30/24 07:00 11/30/24 07:00 11/30/24 07:00
Intake & Output
11/28/24 11/29/24 11/30/24 12/01/24
06:59 06:59 06:59 06:59
Intake Total 780 / 780 570 / 570 1080 / 1080
Balance 780 / 780 570 / 570 1080 / 1080
Physical Exam
Physical Exam
General: No acute distress, awake and alert
Neck: Negative JVD
Heart: Irregularly irregular, Negative S3 positive S1/S2, Negative S4, No murmur
Lungs: CTA b/l, negative wheezes/rales/rhonchi
Abd: Positive BS, NT/ND, neg rebound/rigidity/guarding
Ext: Negative cyanosis/clubbing/edema
Neuro: nonfocal
[2024-11-30] MEDS: PROTONIX 40 MG PO (08:54)
[2024-11-30] MEDS: MAGNESIUM OXIDE 400 MG PO ×2 (08:54→21:17)
[2024-11-30] MEDS: TOPROL XL 100 MG PO (08:54)
[2024-11-30] MEDS: ELIQUIS 5 MG PO ×2 (08:54→21:22)
[2024-11-30] MEDS: SODIUM CHLORIDE 1 GRAM PO ×2 (08:54→21:22)
[2024-11-30] MEDS: ALDACTONE 12.5 MG PO (08:54)
[2024-11-30] MEDS: NAMENDA 10 MG PO ×2 (08:54→21:16)
[2024-11-30] MEDS: KCL 20 MEQ PO ×2 (08:54→21:21)
[2024-11-30] MEDS: LASIX 40 MG IV (08:55)
[2024-11-30] MEDS: NON-FORMULARY ITEM 1 GM PO (08:55)
--- NOTE | 2024-11-30 10:15 | W.PN.HOSP.TC ---
Today's Communication/Plan
-
Likely discharge if no vascular intervention needed
Lower dose of Lasix due to low Bp
Assessment / Plan
Assessment / Plan
Physical exam:
General: No acute distress
HEENT: Normocephalic, Atraumatic and Moist Mucous Membranes
Respiratory: Clear to auscultation bilaterally; Negative Wheezes, Rales or Rhonchi
Cardiac: Irregular rate and rhythm, and S1/S2, systolic murmur
GI: Soft, Nontender and Nondistended
Musculoskeletal: No Clubbing, No Cyanosis and some bilateral lower extremity edema
Neuro: Awake, Alert and oriented, no gross focal deficits, cognitive deficits present
Psych: Calm
A/P:
Acute on chronic HFrEF:
Recent hospitalization for hypercalcemia in which she received fluids and diuretics held.
She had received IV Lasix during this hospital stay up until yesterday. She also had an extra dose of metolazone yesterday x 1. Currently on Lasix 60 mg twice a day.
Added spironolactone 12.5 mg p.o. daily
Not a good candidate for SGLT2 inhibitors due to UTI
Monitor daily weights and ins and outs
Cardiology consult appreciated
PT OT recommends skilled rehab
manager data center for discharge disposition
# Bilateral pleural effusion
Agree with changing back to IV Lasix, lower the dose due to low Bp, she lost weight
CT chest did not show pulmonary nodule
# Right first toe small ulcer,
Per daughter, she noticed it few days ago
No known PAD, known neuropathy
Pt denies tenderness today
F/w Vascular, appreciate help
Persistent to permanent atrial fibrillation with rapid ventricular rates:
Received IV Cardizem drip during his hospital stay but now back to oral metoprolol suc-->tolerating 100 mg twice a day
On anticoagulation, Eliquis 5 mg p.o. twice a day
Cardiac monitoring
Leukocytosis:
Resolved.
ID eval in the setting of recent ESBL E. coli appreciated
Blood cultures ordered by ID (one of the sets positive) ID reordered blood cx and remained sterile
Repeated urine culture no growth.
TME
Resolved, back to baseline
Obtained CT of the head unremarkable for acute findings
She is forgetful, possible vascular or senile dementia
Sore throat:
Resolved
Rapid strep negative
Influenza negative
COVID-19 negative
Monoscreen negative
Hypokalemia:
Replace
Hypomagnesemia:
Replace
Hyponatremia:
Mild, started on regular diet with NACL. I think its related to SSRIs.
Recent UTI (ESBL):
Finish course of antibiotics last hospitalization
Recent hypercalcemia:
[place] to be related to vitamin D supplementation given pamidronate and rest of the workup pending as outpatient.
Reached out to lab and all the workup from prior hospitalization is back. PT HR normal less than 2, PTH 4, serum protein electrophoresis normal, and 1, 25 vitamin D elevated at 88 which could have explain her hypercalcemia. Calcium remains normal
during this hospital stay.
Recent IVETTE and also history of chronic kidney disease stage III-A:
Diuretics were held and now resumed but renal function remains stable while on diuretics
Creatinine stable, creatinine today 0.8
Anemia:
No signs of bleeding
Workup shows evidence of iron deficiency-will need further workup as outpatient
Hemoglobin stable, hemoglobin 9.7 today
Elevated alk phos:
Will need further workup as outpatient
Hypoalbuminemia:
Monitor trend as outpatient
Hypertension:
Continue metoprolol and spironolactone
Discontinued amlodipine per cardio
Dementia/ senile :
Continue memantine 10 mg p.o. twice a day
GERD:
Continue PPI
Depression:
Continue sertraline and amitriptyline
Other medical problems:
Dyslipidemia
Peripheral neuropathy
Orthostasis
Cervical degenerative disc disease
DVT prophylaxis:
Eliquis
CODE STATUS:
Full code
Total time spent to see the patient, examine the patient, review data and lab results, discuss treatment plan with patient, family, nursing staff around 59 minutes�
Anticipated Discharge: Within 24 hours
Subjective/Interval History
-
Date of Service: November 30, 2024
No chest pain
No sob
Objective Data
-
Labs:
Laboratory Results
11/30/24 11/30/24
06:39 06:40
WBC 5.4
Hgb 9.8 L
Hct 30.4 L
Plt Count
Sodium 130 L
Potassium 3.7
Chloride 97 L
Carbon Dioxide 29
BUN 17
Creatinine 0.8
Glucose 116 H
Calcium 8.6
Vital Signs:
Vital Signs
Temp Pulse Resp BP Pulse Ox
98.3 F 73 17 106/51 96
11/30/24 07:00 11/30/24 07:00 11/30/24 07:00 11/30/24 07:00 11/30/24 07:00
I&O
11/29/24 11/30/24 12/01/24
06:59 06:59 06:59
Intake Total 570 / 570 1080 / 1080
Balance 570 / 570 1080 / 1080
[2024-11-30 14:41] VITALS: BP 101/52; PULSE 83; O2SAT 95
--- NOTE | 2024-11-30 15:33 | PTCARENOTE ---
patient no chest pain or sob, poor appetite continues, transfers with assist x2 and rolling walker, vss, will continue to monitor.
[2024-11-30 16:15] VITALS: BP 96/51
[2024-11-30] MEDS: LASIX 20 MG IV (17:12)
[2024-11-30] MEDS: ELAVIL 50 MG PO (21:21)
[2024-11-30] MEDS: ZOLOFT 25 MG PO (21:21)
[2024-11-30] MEDS: TOPROL XL PO (21:21)
[2024-11-30] MEDS: TYLENOL 500 MG PO (21:22)
[2024-11-30 22:56] VITALS: BP 117/70
[2024-12-01] MEDS: NON-FORMULARY ITEM PO (00:25)
[2024-12-01 05:14] VITALS: BMI 24.7
[2024-12-01 07:00] VITALS: BP 109/57
[2024-12-01 07:07] LABS: Blood Urea Nitrogen 17 mg/dl (7-17); Calcium 8.6 mg/dl (8.4-10.2); Carbon Dioxide 30 mmol/L (22-30); Chloride 98 mmol/L (98-107); Estimated Creatinine Clearance 46 ml/min; Glucose 115 mg/dl (70-99); Potassium 3.8 mmol/L (3.5-5.1); Sodium 131 mmol/L (135-145); eGFR > 60.00
[2024-12-01] MEDS: SODIUM CHLORIDE 1 GRAM PO ×2 (08:03→19:37)
[2024-12-01] MEDS: MAGNESIUM OXIDE 400 MG PO ×2 (08:03→19:38)
[2024-12-01] MEDS: NAMENDA 10 MG PO ×2 (08:03→19:38)
[2024-12-01] MEDS: TOPROL XL 100 MG PO ×2 (08:03→19:38)
[2024-12-01] MEDS: PROTONIX 40 MG PO (08:04)
[2024-12-01] MEDS: NON-FORMULARY ITEM 1 GM PO ×2 (08:04→19:38)
[2024-12-01] MEDS: KCL 20 MEQ PO ×2 (08:04→19:38)
[2024-12-01] MEDS: ELIQUIS 5 MG PO ×2 (08:04→19:38)
--- NOTE | 2024-12-01 08:09 | W.PN.VS ---
Today's Communication / Plan
-
Patient seen and examined at bedside with Dr. Wander Chance M.D., below plan reviewed with attending.
Assessment/Plan
-
Assessment: 84-year-old female admitted for CHF exacerbation and developed right hallux tip blister during admission prompting vascular consultation.
Plan:
Right lower extremity BASIL slightly decreased at 0.82 with moderate reduction in TBI at 0.5. Although, readings are slightly decreased and there is a stenosis identified at distal SFA suspect patient should still have enough blood flow to heal
given wound is not open. However, we will follow her in the outpatient setting closely and if wound healing is slow or worsens we will proceed with recommending right lower extremity angiogram.
Follow-up placed in discharge instructions
We will sign off please call with questions or concerns
Subjective Data
-
Date of Service: December 01, 2024
Patient seen and examined at bedside, offers no complaints. Reports no changes to blood blister at right hallux toe.
Objective Data
-
Vital Signs
Temp Pulse Resp BP Pulse Ox
97.7 F 77 18 109/57 97
12/01/24 07:00 12/01/24 07:00 12/01/24 07:00 12/01/24 07:00 12/01/24 07:00
Intake and Output
11/30/24 12/01/24 12/02/24
06:59 06:59 06:59
Intake Total 1080 / 1080 900 / 900 240 / 240
Output Total 75 / 75
Balance 1080 / 1080 825 / 825 240 / 240
Intake:
Oral fluids 1080 / 1080 900 / 900 240 / 240
Output:
Urine, Voided 75 / 75
Other:
Number of approximated SMALL 1
amounts of urine
Number of approximated MODERATE 1 2
amounts of urine
Number of approximated LARGE 1
amounts of urine
How many times incontinent 1
MODERATE amount urine
How many times incontinent 2
SATURATED amount urine
Lab Results
11/30/24 06:39
12/01/24 05:55
Calcium 8.6 mg/dl (8.4-10.2) 12/01/24 05:55
Magnesium 1.5 mg/dl (1.6-2.3) L 11/30/24 06:40
Total Bilirubin 1.4 mg/dl (0.2-1.3) H 11/21/24 03:56
AST 19 U/L (14-36) 11/21/24 03:56
ALT 18 U/L (0-35) 11/21/24 03:56
Alkaline Phosphatase 156 U/L (38-126) H 11/21/24 03:56
Total Protein 5.6 g/dl (6.3-8.2) L 11/21/24 03:56
Albumin 2.8 g/dl (3.5-5.0) L 11/21/24 03:56
Physical Exam
-
No apparent distress, resting in bed comfortably
No dyspnea on room air
Right hallux blood blister unchanged from prior exam, nonpalpable distal pulses at right foot, right foot warm
--- NOTE | 2024-12-01 09:15 | W.PN.CARDCBS ---
Addendum entered and electronically signed by Fang Cho DO 12/01/24 12:01:
I saw and examined the patient.
The Video Games Mechanic's note was reviewed and I agree with the note.
Comment: Patient was seen and examined. Sitting out of bed to chair on room air. Chart/studies reviewed.
General: No acute distress, AAOX3
Heart: Irregularly irregular positive S1/S2, 2/6 SM
Lungs: Decreased breath sounds bilaterally, most prominent left base to mid left lung. No wheezes.
Abd: Positive BS, NT/ND, neg rebound/rigidity/guarding
Ext: No edema
Neuro: nonfocal
Plan:
Acute hypoxic shortness of breath felt to be related to acute heart failure with preserved ejection fraction
- CT of the chest November 28 with left and right lower lobe consolidations and moderate bilateral pleural effusions left larger than right. No leukocytosis although she did have a low-grade temperature on 11/26
- Will resume IV Lasix with a dose now
- Basic metabolic profile with improving sodium now 131 and normal renal function. Magnesium added on and improved from yesterday but still low at 1.7.
- Will resume patient's Aldactone and monitor potassium
- Replete magnesium for mag greater than 2
- Chest ultrasound ordered showing moderate bilateral pleural effusions. Will arrange for thoracentesis. Discussed with patient and she is agreeable
- Would repeat chest x-ray following thoracentesis; monitor for signs of infection/pneumonia
- Consider speech evaluation
Permanent atrial fibrillation with controlled rates
- Continue Eliquis anticoagulation
Recent E. coli UTI status post antibiotics
Right hallux tip blister
- Vascular testing and consultation reviewed
- Outpatient follow-up recommended
PT/OT consults reviewed�recommending group home facility
Original Note:
Today's Communication / Plan
-
chest US, may need thoracentesis
IV lasix
replete electrolytes
IS
Impression / Plan
-
PCP:Darian Giles
Primary Offset Lithographic Press Operator: Dr Stoll
Impression:
Presented 11/20/2024 with shortness of breath, fatigue, and has developed increased lower extremity edema
Acute HFpEF, proBNP 3540
Permanent atrial fibrillation with RVR on admission, improved
Hyperlipidemia
Hypercalcemia
Hypomagnesemia
HTN
Recent admission for IVETTE, hypercalcemia/dehydration 11/15-11/18/2024
E coli UTI
intermittent urinary retention
GERD
Dementia
Echo 03/18: EF 55 to 60%, mild MR, TR
Echo 09/2023: EF 45 to 50%, mild LVH, mild MR, AI, TR, PASP 39 mmHg
Echo 07/2024: EF 50%, mild MR, AI, mild to moderate TR with PAP 30 mmHg
ECHO 11/21/24: EF 55%, MAC, moderate MR, aortic sclerosis, mild AR, dilated RV and RA with moderate TR, PASP 49 mmHg
Plan:
- She had moderate pleural effusions with possible consolidations noted on CT scan 11/28. IV Lasix was placed on hold due to hypotension yesterday afternoon. BPs improved. Will resume IV lasix. She had been on p.o. Lasix 60 mg twice daily prior to
admission
- Her weight if accurate is down 10+ pounds from admission.
- Creatinine stable
- For chest ultrasound today to evaluate size of pleural effusions. If remain significant, would consider for thoracentesis
- IS ordered
- She has had hypomagnesemia throughout admission. Repeat this morning. Continue repletion
- sodium improving, 131 on 12/01
- she is no longer on tele. has permanent atrial fibrillation. continue toprol, eliquis
- ABIs reviewed. For vascular follow-up.
- Continue PT as able
- Discussed with hospitalist
- Called and discussed with patient's daughter Chrissy via telephone for 11:00. She expresses concern about patient being discharged too soon and then requiring readmission, as that is what she feels happened after last admission. She is agreeable to
plan as above. We reviewed results of BASIL study completed 11/30 and vascular recommendations. She has requested a wound care consult to provide recommendations, placed by me.
History of Present Illness:
84-year-old female with PMH permanent atrial fibrillation on apixaban, HF, hypertension, GERD, admission last week to [facility] for hypercalcemia and IVETTE with creat 1.5. Hypercalcemia thought to be secondary to calcium and vit D supplements and they
were stopped. She was given IVF and one dose of IV Lasix. Lasix was held at discharge. Since discharge on 11/18/2024 she has had shortness of breath, fatigue, and has developed increased lower extremity edema. Also with sore throat. She presented
to ED 11/20/2024.
ED workup: proBNP 3540
Chest x-ray moderate pulmonary edema and small bilateral pleural effusions.
EKG: Atrial fibrillation with rapid ventricular response 131 bpm.
BUN/creatinine 23/0.9, NA 131, K 4.2, repeat 3.3, mag 1.3, calcium 9.4
She was started on IV Cardizem for rate control and given IV Lasix 40 mg x 1. Admitted to IVU for further management of acute heart failure exacerbation and A-fib with RVR.
Last admission 11/15-11/18/24 for hypercalcemia thought to be secondary to calcium and vitamin D supplementation. She underwent workup for paraproteinemia and SPEP was negative. Seen by nephrology. She was initially given IV fluids then diuresed
and Lasix was held afterwards on discharge.
Progress Note - Offset Lithographic Press Operator
Subjective
Date of Service: December 01, 2024
Does not complain of shortness of breath. Reports good urine output. Denies dizziness or lightheadedness
Objective
Labs:
11/30/24 06:39
12/01/24 05:55
Labs
Hgb 9.8 g/dL (12.0-16.0) L 11/30/24 06:39
Hct 30.4 % (37.0-47.0) L 11/30/24 06:39
Plt Count 10^3/uL (130-400) 11/30/24 06:39
Sodium 131 mmol/L (135-145) L 12/01/24 05:55
Potassium 3.8 mmol/L (3.5-5.1) 12/01/24 05:55
BUN 17 mg/dl (7-17) 12/01/24 05:55
Creatinine 0.8 mg/dL (0.6-1.0) 12/01/24 05:55
Glucose 115 mg/dl (70-99) H 12/01/24 05:55
Vital Signs and I&O:
Vital Signs
Temp Pulse Resp BP Pulse Ox
97.7 F 77 18 109/57 97
12/01/24 07:00 12/01/24 07:00 12/01/24 07:00 12/01/24 07:00 12/01/24 07:00
Vital Signs
Temp Pulse Resp BP Pulse Ox
97.7 F 77 18 109/57 97
12/01/24 07:00 12/01/24 07:00 12/01/24 07:00 12/01/24 07:00 12/01/24 07:00
Intake & Output
11/29/24 11/30/24 12/01/24 12/02/24
07:59 07:59 07:59 07:59
Intake Total 570 / 570 1080 / 1080 1140 / 1140
Output Total 75 / 75
Balance 570 / 570 1080 / 1080 1065 / 1065
Physical Exam
Physical Exam
GEN: No distress, awake, alert, oriented x3
HEENT: supple, anicteric, mmm, EOMI
LUNGS: Decreased B/L bases L>R, no wheezes
CV: Irreg, S1/S2, 1/6 murmur
ABD: soft, BS+, NT/ND
EXT: No cyanosis, clubbing. Trace edema of B/L LE
NEURO: Gross non-focal
SKIN: Warm, pink, dry. No rash
[2024-12-01] MEDS: LASIX 40 MG IV (09:27)
--- NOTE | 2024-12-01 09:33 | W.PN.HOSP.TC ---
Today's Communication/Plan
-
Cardiology adjusting diuretic treatment, requesting thoracentesis
Assessment / Plan
Assessment / Plan
Physical exam:
General: No acute distress
HEENT: Normocephalic, Atraumatic and Moist Mucous Membranes
Respiratory: Clear to auscultation bilaterally; Negative Wheezes, Rales or Rhonchi
Cardiac: Irregular rate and rhythm, and S1/S2, systolic murmur
GI: Soft, Nontender and Nondistended
Musculoskeletal: No Clubbing, No Cyanosis and some bilateral lower extremity edema
Neuro: Awake, Alert and oriented, no gross focal deficits, cognitive deficits present
Psych: Calm
A/P:
Acute on chronic HFrEF:
Recent hospitalization for hypercalcemia in which she received fluids and diuretics held.
On Lasix
Added spironolactone 12.5 mg p.o. daily
Not a good candidate for SGLT2 inhibitors due to UTI
Monitor daily weights and ins and outs
Cardiology consult appreciated
PT OT recommends skilled rehab
project construction manager for discharge disposition
# Bilateral pleural effusion
d/w block placer, plan for left thoracentesis
CT chest did not show pulmonary nodule
# Right first toe small ulcer,
Per daughter, she noticed it few days ago
No known PAD, known neuropathy
Pt denies tenderness today
F/w Vascular, appreciate help
Persistent to permanent atrial fibrillation with rapid ventricular rates:
Received IV Cardizem drip during his hospital stay but now back to oral metoprolol suc-->tolerating 100 mg twice a day
On anticoagulation, Eliquis 5 mg p.o. twice a day
Cardiac monitoring
Leukocytosis:
Resolved.
ID eval in the setting of recent ESBL E. coli appreciated
Blood cultures ordered by ID (one of the sets positive) ID reordered blood cx and remained sterile
Repeated urine culture no growth.
TME
Resolved, back to baseline
Obtained CT of the head unremarkable for acute findings
She is forgetful, possible vascular or senile dementia
Sore throat:
Resolved
Rapid strep negative
Influenza negative
COVID-19 negative
Monoscreen negative
Hypokalemia:
Replace
Hypomagnesemia:
Replace
Hyponatremia:
Mild, started on regular diet with NACL. I think its related to SSRIs.
Recent UTI (ESBL):
Finish course of antibiotics last hospitalization
Recent hypercalcemia:
[place] to be related to vitamin D supplementation given pamidronate and rest of the workup pending as outpatient.
Reached out to lab and all the workup from prior hospitalization is back. PT HR normal less than 2, PTH 4, serum protein electrophoresis normal, and 1, 25 vitamin D elevated at 88 which could have explain her hypercalcemia. Calcium remains normal
during this hospital stay.
Recent IVETTE and also history of chronic kidney disease stage III-A:
Diuretics were held and now resumed but renal function remains stable while on diuretics
Creatinine stable, creatinine today 0.8
Anemia:
No signs of bleeding
Workup shows evidence of iron deficiency-will need further workup as outpatient
Hemoglobin stable, hemoglobin 9.7 today
Elevated alk phos:
Will need further workup as outpatient
Hypoalbuminemia:
Monitor trend as outpatient
Hypertension:
Continue metoprolol and spironolactone
Discontinued amlodipine per cardio
Dementia/ senile :
Continue memantine 10 mg p.o. twice a day
GERD:
Continue PPI
Depression:
Continue sertraline and amitriptyline
Other medical problems:
Dyslipidemia
Peripheral neuropathy
Orthostasis
Cervical degenerative disc disease
DVT prophylaxis:
Eliquis
CODE STATUS:
Full code
Total time spent to see the patient, examine the patient, review data and lab results, discuss treatment plan with patient, family, nursing staff around 59 minutes�
Anticipated Discharge: > 48 hours
Subjective/Interval History
-
Date of Service: December 01, 2024
No complaints
Objective Data
-
Labs:
Laboratory Results
12/01/24
05:55
Sodium 131 L
Potassium 3.8
Chloride 98
Carbon Dioxide 30
BUN 17
Creatinine 0.8
Glucose 115 H
Calcium 8.6
Vital Signs:
Vital Signs
Temp Pulse Resp BP Pulse Ox
97.7 F 80 18 122/64 97
12/01/24 07:00 12/01/24 09:27 12/01/24 07:00 12/01/24 09:27 12/01/24 07:00
I&O
11/30/24 12/01/24 12/02/24
06:59 06:59 06:59
Intake Total 1080 / 1080 900 / 900 240 / 240
Output Total 75 / 75
Balance 1080 / 1080 825 / 825 240 / 240
[2024-12-01 09:57] LABS: Magnesium 1.7 mg/dl (1.6-2.3)
--- NOTE | 2024-12-01 11:21 | WOUNDNOTE ---
WOC RN NOTE: Reviewed chart and met with patient and daughter. Daughter reports right toe wound was POA (she noted it in ER) and at that time the daughter describes a blood blister. Vascular note from 12/01 also notes 'Right hallux blood blister
unchanged from prior exam, nonpalpable distal pulses at right foot, right foot warm.' Daughter is very upset about the wound and this tech writer explained several times that wound is a DTI and plan is for off-loading and continued assessment. Causes of
wound were also explored such as tight shoes or an injury. Daughter and patient deny injury, but patient did state that it could be her sneakers. This tech writer explained to both patient and daughter that due to the nature of the DTI, it may open as it
is an evolving wound. Both stated understanding. No sting barrier applied to toe. Will updated order and confirm with Hospitalist. Sacrum with MASD, Cal[place] applied. Heels intact. [facility] and is on a [facility]. She
reports good appetite. There is an air cushion in chair. Please call WOC RN if wound opens or worsens.
--- NOTE | 2024-12-01 11:58 | WOUNDNOTE ---
RIGHT GREAT TOE
[2024-12-01 12:28] LABS: LDH 157 U/L (120-246); Total Protein 5.4 g/dl (6.3-8.2)
--- NOTE | 2024-12-01 12:38 | CM ---
Patient chart reviewed
PT rec SNF
referrals in [facility] - will need authorization
daughter 1st choice [facility] SNF
spoke with Leta jc - bed avail tomorrow if patient stable
will need auth
PLAN: SNF, when medically stable
[2024-12-01 14:38] VITALS: BP 128/61; BP_SYST 96
[2024-12-01 15:07] VITALS: BP 110/60; BP_SYST 96
[2024-12-01 15:30] VITALS: BP 110/60
[2024-12-01 15:40] VITALS: BP 122/54
[2024-12-01] MEDS: LASIX 20 MG IV (17:23)
[2024-12-01] MEDS: ELAVIL 50 MG PO (21:35)
[2024-12-01] MEDS: TYLENOL 500 MG PO (21:35)
[2024-12-01] MEDS: ZOLOFT 25 MG PO (21:35)
[2024-12-01 23:00] VITALS: BP 109/55
[2024-12-02 06:00] VITALS: BMI 25.2
[2024-12-02 07:00] VITALS: BP 108/62
[2024-12-02] MEDS: KCL 20 MEQ PO ×2 (08:25→19:57)
[2024-12-02] MEDS: PROTONIX 40 MG PO (08:25)
[2024-12-02] MEDS: SODIUM CHLORIDE 1 GRAM PO ×2 (08:25→19:56)
[2024-12-02] MEDS: TOPROL XL 100 MG PO ×2 (08:26→19:58)
[2024-12-02] MEDS: ELIQUIS 5 MG PO ×2 (08:26→19:57)
[2024-12-02] MEDS: NAMENDA 10 MG PO ×2 (08:26→19:57)
[2024-12-02] MEDS: LASIX 20 MG IV ×3 (08:26→17:02)
[2024-12-02] MEDS: NON-FORMULARY ITEM 1 GM PO ×2 (08:26→19:58)
[2024-12-02] MEDS: MAGNESIUM OXIDE 400 MG PO ×3 (08:26→19:57)
--- NOTE | 2024-12-02 09:39 | W.PN.HOSP.TC ---
Today's Communication/Plan
-
.
Assessment / Plan
Assessment / Plan
Physical exam:
General: No acute distress
HEENT: Normocephalic, Atraumatic and Moist Mucous Membranes
Respiratory: Clear to auscultation bilaterally; Negative Wheezes, Rales or Rhonchi
Cardiac: Irregular rate and rhythm, and S1/S2, systolic murmur
GI: Soft, Nontender and Nondistended
Musculoskeletal: No Clubbing, No Cyanosis and some bilateral lower extremity edema
Neuro: Awake, Alert and oriented, no gross focal deficits, cognitive deficits present
Psych: Calm
A/P:
Acute on chronic HFrEF:
Recent hospitalization for hypercalcemia in which she received fluids and diuretics held.
On Lasix
Added spironolactone 12.5 mg p.o. daily
Not a good candidate for SGLT2 inhibitors due to UTI
Monitor daily weights and ins and outs
Cardiology consult appreciated
PT OT recommends skilled rehab
qual field manager for discharge disposition
# Bilateral pleural effusion
d/w elderly companion, s/p left thoracentesis with only [address] chest did not show pulmonary nodule
# Right first toe small ulcer,
Per daughter, she noticed it few days ago
No known PAD, known neuropathy
Pt denies tenderness today
F/w Vascular, appreciate help
Persistent to permanent atrial fibrillation with rapid ventricular rates:
No palpitations
On anticoagulation, Eliquis 5 mg p.o. twice a day
Cardiac monitoring
Leukocytosis:
Resolved.
ID eval in the setting of recent ESBL E. coli appreciated
Blood cultures ordered by ID (one of the sets positive) ID reordered blood cx and remained sterile
Repeated urine culture no growth.
TME
Resolved, back to baseline
Obtained CT of the head unremarkable for acute findings
She is forgetful, possible vascular or senile dementia
Sore throat:
Resolved
Rapid strep negative
Influenza negative
COVID-19 negative
Monoscreen negative
Hypokalemia:
Replace
Hypomagnesemia:
Replace
Hyponatremia:
Mild, started on regular diet with NACL. I think its related to SSRIs.
Recent UTI (ESBL):
Finish course of antibiotics last hospitalization
Recent hypercalcemia:
[place] to be related to vitamin D supplementation given pamidronate and rest of the workup pending as outpatient.
Reached out to lab and all the workup from prior hospitalization is back. PT HR normal less than 2, PTH 4, serum protein electrophoresis normal, and 1, 25 vitamin D elevated at 88 which could have explain her hypercalcemia. Calcium remains normal
during this hospital stay.
Recent IVETTE and also history of chronic kidney disease stage III-A:
Diuretics were held and now resumed but renal function remains stable while on diuretics
Creatinine stable, creatinine today 0.8
Anemia:
No signs of bleeding
Workup shows evidence of iron deficiency-will need further workup as outpatient
Hemoglobin stable, hemoglobin 9.7 today
Elevated alk phos:
Will need further workup as outpatient
Hypoalbuminemia:
Monitor trend as outpatient
Hypertension:
Continue metoprolol and spironolactone
Discontinued amlodipine per cardio
Dementia/ senile :
Continue memantine 10 mg p.o. twice a day
GERD:
Continue PPI
Depression:
Continue sertraline and amitriptyline
Other medical problems:
Dyslipidemia
Peripheral neuropathy
Orthostasis
Cervical degenerative disc disease
DVT prophylaxis:
Eliquis
CODE STATUS:
Full code
Total time spent to see the patient, examine the patient, review data and lab results, discuss treatment plan with patient, family, nursing staff around 59 minutes�
Anticipated Discharge: 24 - 48 hours
Subjective/Interval History
-
Date of Service: December 02, 2024
No sob
No chest pain
No fever
Objective Data
-
Vital Signs:
Vital Signs
Temp Pulse Resp BP Pulse Ox
97.5 F 86 16 108/62 96
12/02/24 07:00 12/02/24 08:26 12/02/24 07:00 12/02/24 08:26 12/02/24 07:00
I&O
12/01/24 12/02/24 12/03/24
06:59 06:59 06:59
Intake Total 900 / 900 1680 / 1680
Output Total 75 / 75
Balance 825 / 825 1680 / 1680
[2024-12-02 11:13] VITALS: BP 112/58; PULSE 81; O2SAT 96
--- NOTE | 2024-12-02 11:37 | CM ---
Patient chart reviewed
PT rec SNF
[facility]
PLAN: SNF, when medically stable
--- NOTE | 2024-12-02 12:42 | W.PN.CARDCBS ---
Addendum entered and electronically signed by Fang Cho DO 12/02/24 15:57:
I saw and examined the patient.
The Quality Control Lead's note was reviewed and I agree with the note.
Comment: Patient seen and examined. Offers no new complaints.
General: No acute distress, AAOX3
Heart: Irregularly irregular positive S1/S2, 2/6 SM
Lungs: Decreased breath sounds bilaterally, most prominent left base to mid left lung. No wheezes.
Abd: Positive BS, NT/ND, neg rebound/rigidity/guarding
Ext: No edema
Neuro: nonfocal
Plan:
Acute hypoxic shortness of breath felt to be related to acute heart failure with preserved ejection fraction
- CT of the chest November 28 with left and right lower lobe consolidations and moderate bilateral pleural effusions left larger than right. No leukocytosis although she did have a low-grade temperature on 11/26
- Unsure if weights are accurate.
- Continue IV Lasix but increase to 40 mg IV twice daily�patient's outpatient oral Lasix had been escalated prior to admission. Prior dose before escalation was Lasix 60 mg once daily.
- Continue Aldactone 12.5 mg daily and uptitrate if able
- Repeat basic metabolic profile and magnesium tomorrow. Replete magnesium for mag greater than 2
- Repeat proBNP tomorrow.
- Will defer to primary follow-up on chest consolidations�patient may need follow-up CT chest as an outpatient
- Consider speech evaluation
Permanent atrial fibrillation with controlled rates
- Continue Eliquis anticoagulation
Recent E. coli UTI status post antibiotics
Right hallux tip blister
- Vascular testing and consultation reviewed
- Outpatient follow-up recommended
PT/OT consults reviewed�recommending shelter facility
Original Note:
Today's Communication / Plan
-
Continue ongoing IV diuresis
Replete potassium and magnesium
Aldactone remains on hold secondary to hypotension
Impression / Plan
-
PCP:Darian Giles
Primary Field Crop Technical Officer: Dr Stoll
Impression:
Presented 11/20/2024 with shortness of breath, fatigue, and has developed increased lower extremity edema
Acute HFpEF, proBNP 3540
Permanent atrial fibrillation with RVR on admission, improved
Hyperlipidemia
Hypercalcemia
Hypomagnesemia
HTN
Recent admission for IVETTE, hypercalcemia/dehydration 11/15-11/18/2024
E coli UTI
intermittent urinary retention
GERD
Dementia
Echo 03/18: EF 55 to 60%, mild MR, TR
Echo 09/2023: EF 45 to 50%, mild LVH, mild MR, AI, TR, PASP 39 mmHg
Echo 07/2024: EF 50%, mild MR, AI, mild to moderate TR with PAP 30 mmHg
ECHO 11/21/24: EF 55%, MAC, moderate MR, aortic sclerosis, mild AR, dilated RV and RA with moderate TR, PASP 49 mmHg
Lower extremity arterial Doppler 11/30/2024: Right BASIL 0.82 consistent with mild arterial insufficiency, TBI moderately reduced. Multiphasic waveforms from common femoral through mid superficial femoral artery. Distal superficial femoral artery
stenosis identified, with the velocity parameters suggesting greater than 75% stenosis (peak systolic velocity of 537 cm/s with velocity ratio of 20.3). Left lower extremity: BASIL 1.0, within normal limits. TBI 0.69, essentially within normal
limits. Multiphasic waveforms throughout lower extremity arteries with no velocity elevation to suggest any significant stenosis
Plan:
-Presented 11/20/2024 with shortness of breath, fatigue, and has developed increased lower extremity edema
- She had moderate pleural effusions with possible consolidations noted on CT scan 11/28. Status post thoracentesis 12/01/2024 with only 200 cc drained.
- Weight down approximately 10 pounds since admission. Ongoing diuresis however has been de-escalated due to hypotension. Aldactone has been on hold since 11/30/2024. Still appears to be volume overloaded. Currently getting 60 mg IV daily. She was
on p.o. Lasix 60 mg twice daily prior to admission
-Aldactone has been on hold secondary to hypotension. Patient not a great candidate for SGLT2 inhibitors given history of UTIs
- Creatinine stable at 0.8
- Potassium 3.8. Would replete
- She has had hypomagnesemia throughout admission. Currently 1.7 will replete
- sodium improving, 131 on 12/02
- she is no longer on tele. has permanent atrial fibrillation. continue Toprol, Eliquis
- ABIs reviewed. For vascular follow-up.
- PT/OT recommends skilled rehab and patient agreeable
History of Present Illness:
84-year-old female with PMH permanent atrial fibrillation on apixaban, HF, hypertension, GERD, admission last week to [facility] for hypercalcemia and IVETTE with creat 1.5. Hypercalcemia thought to be secondary to calcium and vit D supplements and they
were stopped. She was given IVF and one dose of IV Lasix. Lasix was held at discharge. Since discharge on 11/18/2024 she has had shortness of breath, fatigue, and has developed increased lower extremity edema. Also with sore throat. She presented
to ED 11/20/2024.
ED workup: proBNP 3540
Chest x-ray moderate pulmonary edema and small bilateral pleural effusions.
EKG: Atrial fibrillation with rapid ventricular response 131 bpm.
BUN/creatinine 23/0.9, NA 131, K 4.2, repeat 3.3, mag 1.3, calcium 9.4
She was started on IV Cardizem for rate control and given IV Lasix 40 mg x 1. Admitted to IVU for further management of acute heart failure exacerbation and A-fib with RVR.
Last admission 11/15-11/18/24 for hypercalcemia thought to be secondary to calcium and vitamin D supplementation. She underwent workup for paraproteinemia and SPEP was negative. Seen by nephrology. She was initially given IV fluids then diuresed
and Lasix was held afterwards on discharge.
Progress Note - Field Crop Technical Officer
Subjective
Date of Service: December 02, 2024
Patient seen and examined. Sitting up in chair on room air. Notes improved SOB but still has LE edema
Objective
Labs:
11/30/24 06:39
12/01/24 05:55
Labs
Hgb 9.8 g/dL (12.0-16.0) L 11/30/24 06:39
Hct 30.4 % (37.0-47.0) L 11/30/24 06:39
Plt Count 10^3/uL (130-400) 11/30/24 06:39
Sodium 131 mmol/L (135-145) L 12/01/24 05:55
Potassium 3.8 mmol/L (3.5-5.1) 12/01/24 05:55
BUN 17 mg/dl (7-17) 12/01/24 05:55
Creatinine 0.8 mg/dL (0.6-1.0) 12/01/24 05:55
Glucose 115 mg/dl (70-99) H 12/01/24 05:55
Vital Signs and I&O:
Vital Signs
Temp Pulse Resp BP Pulse Ox
97.5 F 86 16 108/62 96
12/02/24 07:00 12/02/24 08:26 12/02/24 07:00 12/02/24 08:26 12/02/24 07:00
Vital Signs
Temp Pulse Resp BP Pulse Ox
97.5 F 86 16 108/62 96
12/02/24 07:00 12/02/24 08:26 12/02/24 07:00 12/02/24 08:26 12/02/24 07:00
Intake & Output
11/30/24 12/01/24 12/02/24 12/03/24
06:59 06:59 06:59 06:59
Intake Total 1080 / 1080 900 / 900 1680 / 1680
Output Total 75 / 75
Balance 1080 / 1080 825 / 825 1680 / 1680
Physical Exam
Physical Exam
GEN: No distress, awake, Ox3, sitting in chair
HEENT: supple, anicteric, mmm
LUNGS: Mildly decreased at bases Rt>Lt, no wheezes/rales
CV: irregularly irregular, S1/S2, 1/6 syst murmur
ABD: soft, BS+, NT/ND
EXT: +1 bilateral edema
NEURO: Gross non-focal
SKIN: No rash, no rub or gallop
[2024-12-02] MEDS: KCL 40 MEQ PO (13:29)
[2024-12-02 15:12] VITALS: BP 113/69
[2024-12-02] MEDS: ELAVIL 50 MG PO (21:19)
[2024-12-02] MEDS: TYLENOL 500 MG PO (21:19)
[2024-12-02] MEDS: ZOLOFT 25 MG PO (21:19)
[2024-12-02 23:00] VITALS: BP 108/67
[2024-12-03 06:00] VITALS: BMI 24.5
[2024-12-03 07:00] VITALS: BP 128/64
[2024-12-03 07:42] LABS: Blood Urea Nitrogen 19 mg/dl (7-17); Calcium 9.5 mg/dl (8.4-10.2); Carbon Dioxide 27 mmol/L (22-30); Chloride 103 mmol/L (98-107); Estimated Creatinine Clearance 41 ml/min; Glucose 115 mg/dl (70-99); Magnesium 1.7 mg/dl (1.6-2.3); Sodium 132 mmol/L (135-145); eGFR > 60.00
[2024-12-03 07:58] LABS: Potassium 5.1 mmol/L (3.5-5.1)
[2024-12-03] MEDS: SODIUM CHLORIDE 1 GRAM PO ×2 (08:17→20:30)
[2024-12-03] MEDS: PROTONIX 40 MG PO (08:17)
[2024-12-03] MEDS: MAGNESIUM OXIDE 400 MG PO ×3 (08:17→21:21)
[2024-12-03] MEDS: ELIQUIS 5 MG PO ×2 (08:17→20:30)
[2024-12-03] MEDS: TOPROL XL 100 MG PO ×2 (08:17→20:30)
[2024-12-03] MEDS: NAMENDA 10 MG PO ×2 (08:17→20:30)
[2024-12-03] MEDS: KCL 20 MEQ PO (08:17)
[2024-12-03] MEDS: NON-FORMULARY ITEM PO (08:19)
[2024-12-03] MEDS: LASIX 40 MG IV ×2 (08:22→16:27)
--- NOTE | 2024-12-03 08:31 | W.PN.HOSP.TC ---
Today's Communication/Plan
-
Holding potassium
Probably can change to oral Lasix if cardiology is okay with
Assessment / Plan
Assessment / Plan
Physical exam:
General: No acute distress
HEENT: Normocephalic, Atraumatic and Moist Mucous Membranes
Respiratory: Clear to auscultation bilaterally; Negative Wheezes, Rales or Rhonchi
Cardiac: Irregular rate and rhythm, and S1/S2, systolic murmur
GI: Soft, Nontender and Nondistended
Musculoskeletal: No Clubbing, No Cyanosis and some bilateral lower extremity edema
Neuro: Awake, Alert and oriented, no gross focal deficits, cognitive deficits present
Psych: Calm
A/P:
Acute on chronic HFrEF:
Recent hospitalization for hypercalcemia in which she received fluids and diuretics held.
On Lasix
Added spironolactone 12.5 mg p.o. daily
Not a good candidate for SGLT2 inhibitors due to UTI
Monitor daily weights and ins and outs
Cardiology consult appreciated
PT OT recommends skilled rehab
projects manager for discharge disposition
# Bilateral pleural effusion
d/w liaison engineer, s/p left thoracentesis with only [address] chest did not show pulmonary nodule
# Right first toe small ulcer,
Per daughter, she noticed it few days ago
No known PAD, known neuropathy
Pt denies tenderness today
F/w Vascular, appreciate help
Persistent to permanent atrial fibrillation with rapid ventricular rates:
No palpitations
On anticoagulation, Eliquis 5 mg p.o. twice a day
Cardiac monitoring
Leukocytosis:
Resolved.
ID eval in the setting of recent ESBL E. coli appreciated
Blood cultures ordered by ID (one of the sets positive) ID reordered blood cx and remained sterile
Repeated urine culture no growth.
TME
Resolved, back to baseline
Obtained CT of the head unremarkable for acute findings
She is forgetful, possible vascular or senile dementia
Sore throat:
Resolved
Rapid strep negative
Influenza negative
COVID-19 negative
Monoscreen negative
Hypokalemia:
Replace
Hypomagnesemia:
Replace
Hyponatremia:
Mild, started on regular diet with NACL. I think its related to SSRIs.
Recent UTI (ESBL):
Finish course of antibiotics last hospitalization
Recent hypercalcemia:
[place] to be related to vitamin D supplementation given pamidronate and rest of the workup pending as outpatient.
Reached out to lab and all the workup from prior hospitalization is back. PT HR normal less than 2, PTH 4, serum protein electrophoresis normal, and 1, 25 vitamin D elevated at 88 which could have explain her hypercalcemia. Calcium remains normal
during this hospital stay.
Recent IVETTE and also history of chronic kidney disease stage III-A:
Diuretics were held and now resumed but renal function remains stable while on diuretics
Creatinine stable, creatinine today 0.8
Anemia:
Platelet clumping
No signs of bleeding
Workup shows evidence of iron deficiency-will need further workup as outpatient
Hemoglobin stable, hemoglobin around 9.
Recommend OP follow up with hematology
Elevated alk phos:
Will need further workup as outpatient
Hypoalbuminemia:
Monitor trend as outpatient
Hypertension:
Continue metoprolol and spironolactone
Discontinued amlodipine per cardio
Dementia/ senile :
Continue memantine 10 mg p.o. twice a day
GERD:
Continue PPI
Depression:
Continue sertraline and amitriptyline
Other medical problems:
Dyslipidemia
Peripheral neuropathy
Orthostasis
Cervical degenerative disc disease
DVT prophylaxis:
Eliquis
CODE STATUS:
Full code
Total time spent to see the patient, examine the patient, review data and lab results, discuss treatment plan with patient, family, nursing staff around 59 minutes�
Anticipated Discharge: > 48 hours
Subjective/Interval History
-
Date of Service: December 03, 2024
Objective Data
-
Labs:
Laboratory Results
12/03/24
06:45
WBC Pending
Hgb Pending
Hct Pending
Plt Count Pending
Sodium 132 L
Potassium 5.1 D
Chloride 103
Carbon Dioxide 27
BUN 19 H
Creatinine 0.9
Glucose 115 H
Calcium 9.5
Vital Signs:
Vital Signs
Temp Pulse Resp BP Pulse Ox
98.0 F 84 17 128/64 97
12/03/24 07:00 12/03/24 08:17 12/03/24 07:00 12/03/24 08:22 12/03/24 07:00
I&O
12/02/24 12/03/24 12/04/24
06:59 06:59 06:59
Intake Total 1680 / 1680 1200 / 1200
Balance 1680 / 1680 1200 / 1200
[2024-12-03 08:55] LABS: Hematocrit 30.1 % (37.0-47.0); Hemoglobin 9.5 g/dL (12.0-16.0); Mean Corp Hgb Conc. 31.6 g/dL (33.0-37.0); Mean Corpuscular Volume 77.4 fL (81.0-99.0); Red Cell Dist. Width 16.0 % (11.5-14.5)
--- NOTE | 2024-12-03 10:45 | W.PN.CARDCBS ---
Addendum entered and electronically signed by Darian Denny MD 12/03/24 12:35:
Patient seen and examined with daughter at bedside
Agree with FRANCOISE Gaines's note and assessment
Agree with FRANCOISE Gaines's plan
Exam:
HEENT normocephalic atraumatic
JVP 6
Off oxygen
Alert and x 3
Nonfocal neurologically
Cor regular no murmurs rubs or gallops
Lungs are clear to station bilaterally
Trace extremity edema
Impression:
Presented 11/20/2024 with shortness of breath, fatigue, and has developed increased lower extremity edema
Acute HFpEF, proBNP 3540
Permanent atrial fibrillation with RVR on admission, improved
Hyperlipidemia
Hypercalcemia
Hypomagnesemia
HTN
Recent admission for IVETTE, hypercalcemia/dehydration 11/15-11/18/2024
E coli UTI
intermittent urinary retention
GERD
Dementia
Echo 03/18: EF 55 to 60%, mild MR, TR
Echo 09/2023: EF 45 to 50%, mild LVH, mild MR, AI, TR, PASP 39 mmHg
Echo 07/2024: EF 50%, mild MR, AI, mild to moderate TR with PAP 30 mmHg
ECHO 11/21/24: EF 55%, MAC, moderate MR, aortic sclerosis, mild AR, dilated RV and RA with moderate TR, PASP 49 mmHg
Lower extremity arterial Doppler 11/30/2024: Right BASIL 0.82 consistent with mild arterial insufficiency, TBI moderately reduced. Multiphasic waveforms from common femoral through mid superficial femoral artery. Distal superficial femoral artery
stenosis identified, with the velocity parameters suggesting greater than 75% stenosis (peak systolic velocity of 537 cm/s with velocity ratio of 20.3). Left lower extremity: BASIL 1.0, within normal limits. TBI 0.69, essentially within normal
limits. Multiphasic waveforms throughout lower extremity arteries with no velocity elevation to suggest any significant stenosis
Plan:
-Presented 11/20/2024 with shortness of breath, fatigue, and has developed increased lower extremity edema
- She had moderate pleural effusions with possible consolidations noted on CT scan 11/28. Status post thoracentesis 12/01/2024 with only 200 cc drained.
- Continue IV Lasix with 40 mg BID. Creatinine stable at 0.9. If accurate weight down 13 pounds from earlier in admission. She was on p.o. Lasix 60 mg twice daily prior to admission
-Would consider switching to oral Lasix on Thursday, December 04 and anticipate discharge in the next 24 to 48 hours
- Aldactone has been on hold secondary to hypotension. Patient not a great candidate for SGLT2 inhibitors given history of UTIs
- Potassium now 5.1, hold supplementation today. sodium improving
- She has had hypomagnesemia throughout admission. Currently 1.7
- she is no longer on tele. has permanent atrial fibrillation. continue Toprol, Eliquis
- ABIs reviewed. For OP vascular follow-up.
- PT/OT recommends skilled rehab and patient agreeable, ? possibly Tuesday 12/05.
Original Note:
Today's Communication / Plan
-
Continue IV diuresis
Follow electrolytes
Continue PT
Impression / Plan
-
PCP:Darian Giles
Primary Termite Control Representative: Dr Stoll
Impression:
Presented 11/20/2024 with shortness of breath, fatigue, and has developed increased lower extremity edema
Acute HFpEF, proBNP 3540
Permanent atrial fibrillation with RVR on admission, improved
Hyperlipidemia
Hypercalcemia
Hypomagnesemia
HTN
Recent admission for IVETTE, hypercalcemia/dehydration 11/15-11/18/2024
E coli UTI
intermittent urinary retention
GERD
Dementia
Echo 03/18: EF 55 to 60%, mild MR, TR
Echo 09/2023: EF 45 to 50%, mild LVH, mild MR, AI, TR, PASP 39 mmHg
Echo 07/2024: EF 50%, mild MR, AI, mild to moderate TR with PAP 30 mmHg
ECHO 11/21/24: EF 55%, MAC, moderate MR, aortic sclerosis, mild AR, dilated RV and RA with moderate TR, PASP 49 mmHg
Lower extremity arterial Doppler 11/30/2024: Right BASIL 0.82 consistent with mild arterial insufficiency, TBI moderately reduced. Multiphasic waveforms from common femoral through mid superficial femoral artery. Distal superficial femoral artery
stenosis identified, with the velocity parameters suggesting greater than 75% stenosis (peak systolic velocity of 537 cm/s with velocity ratio of 20.3). Left lower extremity: BASIL 1.0, within normal limits. TBI 0.69, essentially within normal
limits. Multiphasic waveforms throughout lower extremity arteries with no velocity elevation to suggest any significant stenosis
Plan:
-Presented 11/20/2024 with shortness of breath, fatigue, and has developed increased lower extremity edema
- She had moderate pleural effusions with possible consolidations noted on CT scan 11/28. Status post thoracentesis 12/01/2024 with only 200 cc drained.
- Continue IV Lasix with 40 mg BID. Creatinine stable at 0.9. If accurate weight down 13 pounds from earlier in admission. She was on p.o. Lasix 60 mg twice daily prior to admission
- Aldactone has been on hold secondary to hypotension. Patient not a great candidate for SGLT2 inhibitors given history of UTIs
- Potassium now 5.1, hold supplementation today. sodium improving
- She has had hypomagnesemia throughout admission. Currently 1.7
- she is no longer on tele. has permanent atrial fibrillation. continue Toprol, Eliquis
- ABIs reviewed. For OP vascular follow-up.
- PT/OT recommends skilled rehab and patient agreeable, ? possibly Tuesday 12/05.
History of Present Illness:
84-year-old female with PMH permanent atrial fibrillation on apixaban, HF, hypertension, GERD, admission last week to [facility] for hypercalcemia and IVETTE with creat 1.5. Hypercalcemia thought to be secondary to calcium and vit D supplements and they
were stopped. She was given IVF and one dose of IV Lasix. Lasix was held at discharge. Since discharge on 11/18/2024 she has had shortness of breath, fatigue, and has developed increased lower extremity edema. Also with sore throat. She presented
to ED 11/20/2024.
ED workup: proBNP 3540
Chest x-ray moderate pulmonary edema and small bilateral pleural effusions.
EKG: Atrial fibrillation with rapid ventricular response 131 bpm.
BUN/creatinine 23/0.9, NA 131, K 4.2, repeat 3.3, mag 1.3, calcium 9.4
She was started on IV Cardizem for rate control and given IV Lasix 40 mg x 1. Admitted to IVU for further management of acute heart failure exacerbation and A-fib with RVR.
Last admission 11/15-11/18/24 for hypercalcemia thought to be secondary to calcium and vitamin D supplementation. She underwent workup for paraproteinemia and SPEP was negative. Seen by nephrology. She was initially given IV fluids then diuresed
and Lasix was held afterwards on discharge.
Progress Note - Termite Control Representative
Subjective
Date of Service: December 03, 2024
Denies chest pain, shortness of breath
Objective
Labs:
12/03/24 06:45
12/03/24 06:45
Labs
Hgb 9.5 g/dL (12.0-16.0) L 12/03/24 06:45
Hct 30.1 % (37.0-47.0) L 12/03/24 06:45
Plt Count 10^3/uL (130-400) 12/03/24 06:45
Sodium 132 mmol/L (135-145) L 12/03/24 06:45
Potassium 5.1 mmol/L (3.5-5.1) D 12/03/24 06:45
BUN 19 mg/dl (7-17) H 12/03/24 06:45
Creatinine 0.9 mg/dL (0.6-1.0) 12/03/24 06:45
Glucose 115 mg/dl (70-99) H 12/03/24 06:45
Vital Signs and I&O:
Vital Signs
Temp Pulse Resp BP Pulse Ox
98.0 F 84 17 128/64 97
12/03/24 07:00 12/03/24 08:17 12/03/24 07:00 12/03/24 08:22 12/03/24 07:00
Vital Signs
Temp Pulse Resp BP Pulse Ox
98.0 F 84 17 128/64 97
12/03/24 07:00 12/03/24 08:17 12/03/24 07:00 12/03/24 08:22 12/03/24 07:00
Intake & Output
12/01/24 12/02/24 12/03/24 12/04/24
07:59 07:59 07:59 07:59
Intake Total 1140 / 1140 1440 / 1440 1200 / 1200
Output Total 75 / 75
Balance 1065 / 1065 1440 / 1440 1200 / 1200
Physical Exam
Physical Exam
GEN: No distress, awake, alert, oriented x3. Sitting in chair
HEENT: supple, anicteric, mmm
LUNGS: CTA bilaterally, no wheezes/rales
CV: Irreg, S1/S2, 1/6 syst LSB
ABD: soft, BS+, NT/ND
EXT: No cyanosis, clubbing. Trace edema of bilateral lower extremity
NEURO: Gross non-focal
SKIN: Warm, pink, dry. No rash
[2024-12-03 15:00] VITALS: BP 101/52
[2024-12-03] MEDS: NON-FORMULARY ITEM 1 GM PO (20:29)
[2024-12-03] MEDS: ELAVIL 50 MG PO (21:20)
[2024-12-03] MEDS: ZOLOFT 25 MG PO (21:20)
[2024-12-03] MEDS: TYLENOL 500 MG PO (21:21)
[2024-12-03 23:00] VITALS: BP 108/64
[2024-12-04 06:00] VITALS: BMI 25.0
[2024-12-04 07:00] VITALS: BP 106/65
[2024-12-04] MEDS: ELIQUIS 5 MG PO ×2 (07:50→20:14)
[2024-12-04] MEDS: SODIUM CHLORIDE 1 GRAM PO ×2 (07:50→20:14)
[2024-12-04] MEDS: TOPROL XL 100 MG PO ×2 (07:50→20:13)
[2024-12-04] MEDS: NAMENDA 10 MG PO ×2 (07:50→20:14)
[2024-12-04] MEDS: PROTONIX 40 MG PO (07:50)
[2024-12-04] MEDS: MAGNESIUM OXIDE 400 MG PO ×3 (07:50→22:17)
[2024-12-04] MEDS: LASIX 40 MG IV ×2 (07:51→15:27)
[2024-12-04] MEDS: NON-FORMULARY ITEM 1 GM PO ×2 (07:52→20:15)
[2024-12-04 08:10] LABS: Blood Urea Nitrogen 17 mg/dl (7-17); Calcium 8.8 mg/dl (8.4-10.2); Carbon Dioxide 30 mmol/L (22-30); Chloride 102 mmol/L (98-107); Estimated Creatinine Clearance 41 ml/min; Glucose 105 mg/dl (70-99); Magnesium 1.6 mg/dl (1.6-2.3); Potassium 4.5 mmol/L (3.5-5.1); Sodium 132 mmol/L (135-145); eGFR > 60.00
--- NOTE | 2024-12-04 08:36 | W.PN.HOSP.TC ---
Today's Communication/Plan
-
.
Assessment / Plan
Assessment / Plan
Physical exam:
General: No acute distress
HEENT: Normocephalic, Atraumatic and Moist Mucous Membranes
Respiratory: Clear to auscultation bilaterally; Negative Wheezes, Rales or Rhonchi
Cardiac: Irregular rate and rhythm, and S1/S2, systolic murmur
GI: Soft, Nontender and Nondistended
Musculoskeletal: No Clubbing, No Cyanosis and much less bilateral lower extremity edema
Neuro: Awake, Alert and oriented, no gross focal deficits, cognitive deficits present
Psych: Calm
A/P:
Acute on chronic HFrEF:
Recent hospitalization for hypercalcemia in which she received fluids and diuretics held.
On Lasix
Added spironolactone 12.5 mg p.o. daily
Not a good candidate for SGLT2 inhibitors due to UTI
Monitor daily weights and ins and outs
Cardiology consult appreciated
PT OT recommends skilled rehab
customer program manager for discharge disposition
# Bilateral pleural effusion
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 chest did not show pulmonary nodule
# Right first toe small bruising, seems traumatic? ( pt denied direct trauma) It was slightly tender but not anymore.
Per daughter, she noticed it few days ago
No known PAD, known neuropathy
Vascular surgery, recommended OP follow up
#Persistent to permanent atrial fibrillation with rapid ventricular rates:
No palpitations
On anticoagulation, Eliquis 5 mg p.o. twice a day
Cardiac monitoring
Leukocytosis:
Resolved.
ID eval in the setting of recent ESBL E. coli appreciated
Blood cultures ordered by ID (one of the sets positive) ID reordered blood cx and remained sterile
Repeated urine culture no growth.
TME
Resolved, back to baseline
Obtained CT of the head unremarkable for acute findings
She is forgetful, possible vascular or senile dementia
Sore throat:
Resolved
Rapid strep negative
Influenza negative
COVID-19 negative
Monoscreen negative
Hypokalemia:
Replace
Hypomagnesemia:
Replace
Hyponatremia:
Mild, started on regular diet with NACL. I think its related to SSRIs.
Recent UTI (ESBL):
Finish course of antibiotics last hospitalization
Recent hypercalcemia:
[place] to be related to vitamin D supplementation given pamidronate and rest of the workup pending as outpatient.
Reached out to lab and all the workup from prior hospitalization is back. PT HR normal less than 2, PTH 4, serum protein electrophoresis normal, and 1, 25 vitamin D elevated at 88 which could have explain her hypercalcemia. Calcium remains normal
during this hospital stay.
Recent IVETTE and also history of chronic kidney disease stage III-A:
Diuretics were held and now resumed but renal function remains stable while on diuretics
Creatinine stable, creatinine today 0.8
Anemia:
Platelet clumping
No signs of bleeding
Workup shows evidence of iron deficiency-will need further workup as outpatient
Hemoglobin stable, hemoglobin around 9.
Recommend OP follow up with hematology
Elevated alk phos:
Will need further workup as outpatient
Hypoalbuminemia:
Monitor trend as outpatient
Hypertension:
Continue metoprolol and spironolactone
Discontinued amlodipine per cardio
Dementia/ senile :
Continue memantine 10 mg p.o. twice a day
GERD:
Continue PPI
Depression:
Continue sertraline and amitriptyline
Other medical problems:
Dyslipidemia
Peripheral neuropathy
Orthostasis
Cervical degenerative disc disease
DVT prophylaxis:
Eliquis
CODE STATUS:
Full code
Total time spent to see the patient, examine the patient, review data and lab results, discuss treatment plan with patient, family, nursing staff around 59 minutes�
Anticipated Discharge: 24 - 48 hours
Subjective/Interval History
-
Date of Service: December 04, 2024
No chest pain
No sob
Objective Data
-
Labs:
Laboratory Results
12/04/24
06:58
WBC Pending
Hgb Pending
Hct Pending
Plt Count Pending
Sodium 132 L
Potassium 4.5
Chloride 102
Carbon Dioxide 30
BUN 17
Creatinine 0.9
Glucose 105 H
Calcium 8.8
Vital Signs:
Vital Signs
Temp Pulse Resp BP Pulse Ox
97.8 F 81 18 106/65 96
12/04/24 07:00 12/04/24 07:51 12/04/24 07:00 12/04/24 07:51 12/04/24 07:00
I&O
12/03/24 12/04/24 12/05/24
06:59 06:59 06:59
Intake Total 1200 / 1200 1200 / 1200
Balance 1200 / 1200 1200 / 1200
[2024-12-04 10:08] LABS: Hematocrit 30.5 % (37.0-47.0); Hemoglobin 9.6 g/dL (12.0-16.0); Mean Corp Hgb Conc. 31.5 g/dL (33.0-37.0); Mean Corpuscular Volume 77.6 fL (81.0-99.0); Red Cell Dist. Width 15.9 % (11.5-14.5)
--- NOTE | 2024-12-04 11:41 | W.PN.CARDCBS ---
Today's Communication / Plan
-
Reasonable to switch to oral diuretic
Nearing discharge
Impression / Plan
-
PCP:Darian Giles
Primary Sandblasting Supervisor: Dr Stoll
Impression:
Presented 11/20/2024 with shortness of breath, fatigue, and has developed increased lower extremity edema
Acute HFpEF, proBNP 3540
Permanent atrial fibrillation with RVR on admission, improved
Hyperlipidemia
Hypercalcemia
Hypomagnesemia
HTN
Recent admission for IVETTE, hypercalcemia/dehydration 11/15-11/18/2024
E coli UTI
intermittent urinary retention
GERD
Dementia
Echo 03/18: EF 55 to 60%, mild MR, TR
Echo 09/2023: EF 45 to 50%, mild LVH, mild MR, AI, TR, PASP 39 mmHg
Echo 07/2024: EF 50%, mild MR, AI, mild to moderate TR with PAP 30 mmHg
ECHO 11/21/24: EF 55%, MAC, moderate MR, aortic sclerosis, mild AR, dilated RV and RA with moderate TR, PASP 49 mmHg
Lower extremity arterial Doppler 11/30/2024: Right BASIL 0.82 consistent with mild arterial insufficiency, TBI moderately reduced. Multiphasic waveforms from common femoral through mid superficial femoral artery. Distal superficial femoral artery
stenosis identified, with the velocity parameters suggesting greater than 75% stenosis (peak systolic velocity of 537 cm/s with velocity ratio of 20.3). Left lower extremity: BASIL 1.0, within normal limits. TBI 0.69, essentially within normal
limits. Multiphasic waveforms throughout lower extremity arteries with no velocity elevation to suggest any significant stenosis
Plan:
-Presented 11/20/2024 with shortness of breath, fatigue, and has developed increased lower extremity edema
- She had moderate pleural effusions with possible consolidations noted on CT scan 11/28. Status post thoracentesis 12/01/2024 with only 200 cc drained.
- I have no objection to changing her to 60 mg twice daily p.o. of Lasix today
- Aldactone has been on hold secondary to hypotension. Patient not a great candidate for SGLT2 inhibitors given history of UTIs
- Potassium now 5.1, hold supplementation today. sodium improving
- She has had hypomagnesemia throughout admission. Currently 1.7
- she is no longer on tele. has permanent atrial fibrillation. continue Toprol, Eliquis
- ABIs reviewed. For OP vascular follow-up.
- PT/OT recommends skilled rehab and patient agreeable, ? possibly Tuesday 12/05. Would have no objection to PT OT on Thursday as she appears nearing discharge
History of Present Illness:
84-year-old female with PMH permanent atrial fibrillation on apixaban, HF, hypertension, GERD, admission last week to [facility] for hypercalcemia and IVETTE with creat 1.5. Hypercalcemia thought to be secondary to calcium and vit D supplements and they
were stopped. She was given IVF and one dose of IV Lasix. Lasix was held at discharge. Since discharge on 11/18/2024 she has had shortness of breath, fatigue, and has developed increased lower extremity edema. Also with sore throat. She presented
to ED 11/20/2024.
ED workup: proBNP 3540
Chest x-ray moderate pulmonary edema and small bilateral pleural effusions.
EKG: Atrial fibrillation with rapid ventricular response 131 bpm.
BUN/creatinine 23/0.9, NA 131, K 4.2, repeat 3.3, mag 1.3, calcium 9.4
She was started on IV Cardizem for rate control and given IV Lasix 40 mg x 1. Admitted to IVU for further management of acute heart failure exacerbation and A-fib with RVR.
Last admission 11/15-11/18/24 for hypercalcemia thought to be secondary to calcium and vitamin D supplementation. She underwent workup for paraproteinemia and SPEP was negative. Seen by nephrology. She was initially given IV fluids then diuresed
and Lasix was held afterwards on discharge.
Progress Note - Sandblasting Supervisor
Subjective
Date of Service: December 04, 2024
Off oxygen feels well
Objective
Labs:
12/04/24 06:58
12/04/24 06:58
Labs
Hgb 9.6 g/dL (12.0-16.0) L 12/04/24 06:58
Hct 30.5 % (37.0-47.0) L 12/04/24 06:58
Plt Count 10^3/uL (130-400) 12/04/24 06:58
Sodium 132 mmol/L (135-145) L 12/04/24 06:58
Potassium 4.5 mmol/L (3.5-5.1) 12/04/24 06:58
BUN 17 mg/dl (7-17) 12/04/24 06:58
Creatinine 0.9 mg/dL (0.6-1.0) 12/04/24 06:58
Glucose 105 mg/dl (70-99) H 12/04/24 06:58
Vital Signs and I&O:
Vital Signs
Temp Pulse Resp BP Pulse Ox
97.8 F 81 18 106/65 96
12/04/24 07:00 12/04/24 07:51 12/04/24 07:00 12/04/24 07:51 12/04/24 07:00
Vital Signs
Temp Pulse Resp BP Pulse Ox
97.8 F 81 18 106/65 96
12/04/24 07:00 12/04/24 07:51 12/04/24 07:00 12/04/24 07:51 12/04/24 07:00
Intake & Output
12/02/24 12/03/24 12/04/24 12/05/24
06:59 06:59 06:59 06:59
Intake Total 1680 / 1680 1200 / 1200 1200 / 1200
Balance 1680 / 1680 1200 / 1200 1200 / 1200
Physical Exam
Physical Exam
����Physical Exam
���������������������General:��no apparent distress, not acutely ill
���������������������������Neck:��supple. no meningeal signs. normal psoterior pharynx
������������������������
���������������������������Heart:��s1/s2 regular rate and rhythm, no murmur. equal radial pulses.
��������������������������Lungs: ��no acute respiratory distress. clear bilaterally
����������������������Abdomen:�normal bowel sounds. not tender. no CVAT
��������������������������Neuro:��alert and oriented. no focal neurological deficits
������������������������������Skin: ��no rash
�����������������������Psychiatric:�well kept. interactive and cooperative
�����������������������Extremities:��no edema. no calf tenderness. negative homans. good distal pulses
��
�
[2024-12-04 15:00] VITALS: BP 114/61; PULSE 96; O2SAT 96
[2024-12-04] MEDS: TYLENOL 500 MG PO (22:17)
[2024-12-04] MEDS: ELAVIL 50 MG PO (22:18)
[2024-12-04] MEDS: ZOLOFT 25 MG PO (22:18)
[2024-12-04 23:00] VITALS: BP 119/59
[2024-12-05 04:38] VITALS: BMI 24.0
[2024-12-05 07:23] LABS: Blood Urea Nitrogen 20 mg/dl (7-17); Calcium 8.9 mg/dl (8.4-10.2); Carbon Dioxide 29 mmol/L (22-30); Chloride 101 mmol/L (98-107); Estimated Creatinine Clearance 41 ml/min; Glucose 117 mg/dl (70-99); Magnesium 1.7 mg/dl (1.6-2.3); Potassium 4.1 mmol/L (3.5-5.1); Sodium 133 mmol/L (135-145); eGFR > 60.00
[2024-12-05 07:30] LABS: Hematocrit 29.0 % (37.0-47.0); Hemoglobin 9.6 g/dL (12.0-16.0); Mean Corp Hgb Conc. 33.1 g/dL (33.0-37.0); Mean Corpuscular Volume 77.3 fL (81.0-99.0); Red Cell Dist. Width 16.0 % (11.5-14.5)
[2024-12-05 08:00] VITALS: BP 121/65
--- NOTE | 2024-12-05 08:42 | W.PN.HOSP.TC ---
Addendum entered and electronically signed by Arturo Sahu MD 12/05/24 14:51:
cards holding spironolactone
Original Note:
Today's Communication/Plan
-
Diuresis
Assessment / Plan
Assessment / Plan
Physical exam:
General: No acute distress
HEENT: Normocephalic, Atraumatic and Moist Mucous Membranes
Respiratory: Clear to auscultation bilaterally; Negative Wheezes, Rales or Rhonchi
Cardiac: Irregular rate and rhythm, and S1/S2, systolic murmur
GI: Soft, Nontender and Nondistended
Musculoskeletal: No Clubbing, No Cyanosis and much less bilateral lower extremity edema
Neuro: Awake, Alert and oriented, no gross focal deficits, cognitive deficits present
Psych: Calm
A/P:
Acute on chronic HFrEF:
Recent hospitalization for hypercalcemia in which she received fluids and diuretics held.
On Lasix 40 mg IV twice a day--> switching to oral Lasix 60 mg p.o. daily from tomorrow on
Spironolactone 12.5 mg p.o. daily currently on hold due to hyperkalemia but cardiology recommend to resume today and recheck potassium tomorrow
Not a good candidate for SGLT2 inhibitors due to UTI
Monitor daily weights and ins and outs
Cardiology consult appreciated
PT OT recommends skilled rehab
Discussed with daughter at bedside today on 12/05
product management manager for discharge disposition
# Bilateral pleural effusion
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 chest did not show pulmonary nodule
# Right first toe small bruising, seems traumatic? ( pt denied direct trauma) It was slightly tender but not anymore.
Per daughter, she noticed it few days ago
No known PAD, known neuropathy
Vascular surgery, recommended OP follow up
#Persistent to permanent atrial fibrillation with rapid ventricular rates:
On rate control, metoprolol succinate 100 mg twice a day
On anticoagulation, Eliquis 5 mg p.o. twice a day
Cardiac monitoring
Leukocytosis:
Resolved.
ID eval in the setting of recent ESBL E. coli appreciated
Blood cultures ordered by ID (one of the sets positive) ID reordered blood cx and remained sterile
Repeated urine culture no growth.
TME
Resolved, back to baseline
Obtained CT of the head unremarkable for acute findings
Underlying dementia.
Sore throat:
Resolved
Rapid strep negative
Influenza negative
COVID-19 negative
Monoscreen negative
Hypokalemia:
Replace
Hypomagnesemia:
Replace
Hyponatremia:
Mild, started on regular diet. Currently on 1 g p.o. twice a day of sodium chloride.
Possible related to SSRI but she is only on low-dose of sertraline 25 mg nightly for quite a while. Can consider discontinuing or adjustment as outpatient if worsens.
Recent UTI (ESBL):
Finish course of antibiotics last hospitalization
Recent hypercalcemia:
[place] to be related to vitamin D supplementation given pamidronate and rest of the workup pending as outpatient.
Reached out to lab and all the workup from prior hospitalization is back. PT HR normal less than 2, PTH 4, serum protein electrophoresis normal, and 1, 25 vitamin D elevated at 88 which could have explain her hypercalcemia. Calcium remains normal
during this hospital stay.
Recent IVETTE and also history of chronic kidney disease stage III-A:
Diuretics were held and now resumed but renal function remains stable while on diuretics
Creatinine stable, creatinine today 0.8
Anemia:
Platelet clumping-discussed with hematology and no worrisome signs at the moment and normal count prior and can follow-up with outpatient if needed.
No signs of bleeding
Workup shows evidence of iron deficiency-will need further workup as outpatient
Hemoglobin stable, hemoglobin 9.6 today
Recommend OP follow up with hematology
Elevated alk phos:
Will need further workup as outpatient
Hypoalbuminemia:
Monitor trend as outpatient
Hypertension:
Continue metoprolol
Discontinued amlodipine per cardio
Dementia/ senile vs vascular:
Continue memantine 10 mg p.o. twice a day
GERD:
Continue PPI
Depression:
Continue sertraline and amitriptyline
Other medical problems:
Dyslipidemia
Peripheral neuropathy
Orthostasis
Cervical degenerative disc disease
DVT prophylaxis:
Eliquis
CODE STATUS:
Full code
Total time spent to see the patient, examine the patient, review data and lab results, discuss treatment plan with patient, family, nursing staff around 37 minutes�
Anticipated Discharge: Within 24 hours
Subjective/Interval History
-
Date of Service: December 05, 2024
Patient feels better today. No shortness of breath
Objective Data
-
Labs:
Laboratory Results
12/05/24
06:38
WBC 4.4 L
Hgb 9.6 L
Hct 29.0 L
Plt Count
Sodium 133 L
Potassium 4.1
Chloride 101
Carbon Dioxide 29
BUN 20 H
Creatinine 0.9
Glucose 117 H
Calcium 8.9
Vital Signs:
Vital Signs
Temp Pulse Resp BP Pulse Ox
98.1 F 85 18 119/59 93
12/04/24 23:00 12/04/24 23:00 12/04/24 23:00 12/04/24 23:00 12/04/24 23:00
I&O
12/04/24 12/05/24 12/06/24
06:59 06:59 06:59
Intake Total 1200 / 1200 1440 / 1440
Balance 1200 / 1200 1440 / 1440
[2024-12-05] MEDS: PROTONIX 40 MG PO (08:45)
[2024-12-05] MEDS: NAMENDA 10 MG PO ×2 (08:45→20:00)
[2024-12-05] MEDS: ELIQUIS 5 MG PO ×2 (08:45→20:00)
[2024-12-05] MEDS: SODIUM CHLORIDE 1 GRAM PO ×2 (08:45→20:00)
[2024-12-05] MEDS: MAGNESIUM OXIDE 400 MG PO ×4 (08:45→21:43)
[2024-12-05] MEDS: NON-FORMULARY ITEM 1 GM PO ×2 (08:45→20:01)
[2024-12-05] MEDS: TOPROL XL 100 MG PO ×2 (08:47→19:59)
[2024-12-05] MEDS: LASIX 40 MG IV ×2 (08:47→16:19)
--- NOTE | 2024-12-05 10:29 | W.PN.CARDCBS ---
Addendum entered and electronically signed by Zan Stoll DO 12/05/24 13:01:
I saw and examined the patient.
The Patternmaker Bench's note was reviewed and I agree with the note.
Comment:
Plan:
Resume lasix 60 mg daily
Cont to replete lytes as needed
Will hold off on resuming Aldactone. She was not on this as outpt
Check BMP one week after d/c
Discussed with daughter at bedside.
Outpt cardiology follow up arranged
Please recall if needed.
Original Note:
Today's Communication / Plan
-
Transition back to oral Lasix 60 mg daily 12/06/2024
Add back Aldactone 12.5 mg today
Replete magnesium
Needs BMP 5-7 days after d/c
Outpatient cardiology follow up has been arranged
Impression / Plan
-
PCP:Darian Giles
Primary Impregnating Machine Operator: Dr Stoll
Impression:
Presented 11/20/2024 with shortness of breath, fatigue, and has developed increased lower extremity edema
Acute HFpEF, proBNP 3540
Permanent atrial fibrillation with RVR on admission, improved
Hyperlipidemia
Hypercalcemia
Hypomagnesemia
HTN
Recent admission for IVETTE, hypercalcemia/dehydration 11/15-11/18/2024
E coli UTI
intermittent urinary retention
GERD
Dementia
Echo 03/18: EF 55 to 60%, mild MR, TR
Echo 09/2023: EF 45 to 50%, mild LVH, mild MR, AI, TR, PASP 39 mmHg
Echo 07/2024: EF 50%, mild MR, AI, mild to moderate TR with PAP 30 mmHg
ECHO 11/21/24: EF 55%, MAC, moderate MR, aortic sclerosis, mild AR, dilated RV and RA with moderate TR, PASP 49 mmHg
Lower extremity arterial Doppler 11/30/2024: Right BASIL 0.82 consistent with mild arterial insufficiency, TBI moderately reduced. Multiphasic waveforms from common femoral through mid superficial femoral artery. Distal superficial femoral artery
stenosis identified, with the velocity parameters suggesting greater than 75% stenosis (peak systolic velocity of 537 cm/s with velocity ratio of 20.3). Left lower extremity: BASIL 1.0, within normal limits. TBI 0.69, essentially within normal
limits. Multiphasic waveforms throughout lower extremity arteries with no velocity elevation to suggest any significant stenosis
Plan:
-Presented 11/20/2024 with shortness of breath, fatigue, and has developed increased lower extremity edema
- She had moderate pleural effusions with possible consolidations noted on CT scan 11/28. Status post thoracentesis 12/01/2024 with only 200 cc drained.
- Weight now down 16 lbs and appears to be euvolemic. Transition to oral Lasix 60 mg daily 12/06/2024 which was prior outpt dosing.
- Aldactone has been on hold secondary to hypotension since 11/30. BP seems to be improving. Would attempt to add back 12/05/2024. Patient not a great candidate for SGLT2 inhibitors given history of UTIs
- Potassium now 4.1, continue to monitor
- She has had hypomagnesemia throughout admission. Currently 1.7. Will replete
- She is no longer on tele. has permanent atrial fibrillation. continue Toprol, Eliquis
- ABIs reviewed. For OP vascular follow-up.
- PT/OT recommends skilled rehab and patient agreeable. Will need BMP 5-7 days after d/c
- Outpatient cardiology follow up has been arranged
History of Present Illness:
84-year-old female with PMH permanent atrial fibrillation on apixaban, HF, hypertension, GERD, admission last week to [facility] for hypercalcemia and IVETTE with creat 1.5. Hypercalcemia thought to be secondary to calcium and vit D supplements and they
were stopped. She was given IVF and one dose of IV Lasix. Lasix was held at discharge. Since discharge on 11/18/2024 she has had shortness of breath, fatigue, and has developed increased lower extremity edema. Also with sore throat. She presented
to ED 11/20/2024.
ED workup: proBNP 3540
Chest x-ray moderate pulmonary edema and small bilateral pleural effusions.
EKG: Atrial fibrillation with rapid ventricular response 131 bpm.
BUN/creatinine 23/0.9, NA 131, K 4.2, repeat 3.3, mag 1.3, calcium 9.4
She was started on IV Cardizem for rate control and given IV Lasix 40 mg x 1. Admitted to IVU for further management of acute heart failure exacerbation and A-fib with RVR.
Last admission 11/15-11/18/24 for hypercalcemia thought to be secondary to calcium and vitamin D supplementation. She underwent workup for paraproteinemia and SPEP was negative. Seen by nephrology. She was initially given IV fluids then diuresed
and Lasix was held afterwards on discharge.
Progress Note - Impregnating Machine Operator
Subjective
Date of Service: December 05, 2024
Objective
Labs:
12/05/24 06:38
12/05/24 06:38
Labs
Hgb 9.6 g/dL (12.0-16.0) L 12/05/24 06:38
Hct 29.0 % (37.0-47.0) L 12/05/24 06:38
Plt Count 10^3/uL (130-400) 12/05/24 06:38
Sodium 133 mmol/L (135-145) L 12/05/24 06:38
Potassium 4.1 mmol/L (3.5-5.1) 12/05/24 06:38
BUN 20 mg/dl (7-17) H 12/05/24 06:38
Creatinine 0.9 mg/dL (0.6-1.0) 12/05/24 06:38
Glucose 117 mg/dl (70-99) H 12/05/24 06:38
Vital Signs and I&O:
Vital Signs
Temp Pulse Resp BP Pulse Ox
98 F 82 17 121/65 97
12/05/24 08:00 12/05/24 08:00 12/05/24 08:00 12/05/24 08:00 12/05/24 08:00
Vital Signs
Temp Pulse Resp BP Pulse Ox
98 F 82 17 121/65 97
12/05/24 08:00 12/05/24 08:00 12/05/24 08:00 12/05/24 08:00 12/05/24 08:00
Intake & Output
12/03/24 12/04/24 12/05/24 12/06/24
06:59 06:59 06:59 06:59
Intake Total 1200 / 1200 1200 / 1200 1440 / 1440
Balance 1200 / 1200 1200 / 1200 1440 / 1440
Physical Exam
Physical Exam
GEN: No distress, awake, Ox3, sitting in chair
HEENT: supple, anicteric, mmm
LUNGS: Mildly decreased at bases Rt>Lt, no wheezes/rales
CV: irregularly irregular, S1/S2, 1/6 syst murmur
ABD: soft, BS+, NT/ND
EXT: no lower extremity edema, clubbing or cyanosis
NEURO: Gross non-focal
SKIN: No rash, no rub or gallop
--- NOTE | 2024-12-05 13:23 | CM ---
Addendum entered by Lorena Forde 12/05/24 15:47:
CM spoke with Rosenda from [id number]
auth approved Approval #: [id number]
start date 12/06/24, NRD 12/09/24
call with updates to [phone]
Called Leta jc & gave her all ins auth information - covid negative
PLAN: [facility] 12/06
REPORT - [phone]
Fax #: [phone]
transportation forms on chart, facility request after 3pm transport
Original Note:
patient seen at bedside
spoke with Leta at [facility] - bed available tomorrow
tt hospitalist - stable for dc - will order a COVID test- CM to initiate authorization
IMM expained to daughter Chrissy - placed in chart
[facility] NPI #: [id number]
DR. CHEY SANDOVAL NPI #: [id number]
PLAN: [facility] 12/06
transportation forms on chart
[2024-12-05 14:24] LABS: COVID-19 Antigen Negative (Negative)
[2024-12-05 15:39] VITALS: BP 96/57
[2024-12-05 17:07] VITALS: BP 124/67
[2024-12-05] MEDS: MAGNESIUM SULFATE 102 GRAMS IV (18:20)
[2024-12-05] MEDS: ELAVIL 50 MG PO (21:43)
[2024-12-05] MEDS: TYLENOL 500 MG PO (21:43)
[2024-12-05] MEDS: ZOLOFT 25 MG PO (21:43)
[2024-12-05 23:49] VITALS: BP 127/62
[2024-12-06 06:09] VITALS: BMI 24.1
[2024-12-06 07:29] LABS: Blood Urea Nitrogen 19 mg/dl (7-17); Calcium 9.1 mg/dl (8.4-10.2); Carbon Dioxide 30 mmol/L (22-30); Chloride 100 mmol/L (98-107); Estimated Creatinine Clearance 46 ml/min; Glucose 111 mg/dl (70-99); Magnesium 1.9 mg/dl (1.6-2.3); Potassium 4.0 mmol/L (3.5-5.1); Sodium 134 mmol/L (135-145); eGFR > 60.00
[2024-12-06 07:30] VITALS: BP 122/64
[2024-12-06] MEDS: ELIQUIS 5 MG PO (07:58)
[2024-12-06] MEDS: PROTONIX 40 MG PO (07:58)
[2024-12-06] MEDS: TOPROL XL 100 MG PO (07:58)
[2024-12-06] MEDS: NAMENDA 10 MG PO (07:58)
[2024-12-06] MEDS: SODIUM CHLORIDE 1 GRAM PO (07:58)
[2024-12-06] MEDS: NON-FORMULARY ITEM 1 GM PO (07:59)
[2024-12-06] MEDS: MAGNESIUM OXIDE 400 MG PO (07:59)
[2024-12-06] MEDS: LASIX 60 MG PO (07:59)
[2024-12-06] MEDS: TYLENOL 650 MG PO (08:09)
--- NOTE | 2024-12-06 10:15 | CM ---
spoke with Leta today, patient for [facility] to [facility] today
tt hospitalist
start date 12/06/24, NRD 12/09/24
call with updates to [phone]
Called [facility] liaison & gave her all ins auth information - covid negative
IMM in chart
PLAN: [facility] 12/06
REPORT - [phone]
Fax #: [phone]
transportation forms on chart, facility request after 3pm transport
--- NOTE | 2024-12-06 11:25 | W.PN.HOSP.TC ---
Today's Communication/Plan
-
Discharge planning
Assessment / Plan
Assessment / Plan
Physical exam:
General: No acute distress
HEENT: Normocephalic, Atraumatic and Moist Mucous Membranes
Respiratory: Clear to auscultation bilaterally; Negative Wheezes, Rales or Rhonchi
Cardiac: Irregular rate and rhythm, and S1/S2, systolic murmur
GI: Soft, Nontender and Nondistended
Musculoskeletal: No Clubbing, No Cyanosis and much less bilateral lower extremity edema
Neuro: Awake, Alert and oriented, no gross focal deficits, cognitive deficits present
Psych: Calm
A/P:
Acute on chronic HFrEF:
Recent hospitalization for hypercalcemia in which she received fluids and diuretics held.
On oral Lasix 60 mg p.o. daily
Cardiology advised against spironolactone
Monitor daily weights and ins and outs
Cardiology consult appreciated
PT OT recommends skilled rehab
Discussed with daughter at bedside yesterday on 12/05
Cardiology cleared her for discharge
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
# Bilateral pleural effusion
d/w shake splitter, s/p left thoracentesis with only [address] chest did not show pulmonary nodule
# Right first toe small bruising, seems traumatic? ( pt denied direct trauma) It was slightly tender but not anymore.
Per daughter, she noticed it few days ago
No known PAD, known neuropathy
Vascular surgery, recommended OP follow up
#Persistent to permanent atrial fibrillation with rapid ventricular rates:
On rate control, metoprolol succinate 100 mg twice a day
On anticoagulation, Eliquis 5 mg p.o. twice a day
Cardiac monitoring
Leukocytosis:
Resolved.
ID eval in the setting of recent ESBL E. coli appreciated
Blood cultures ordered by ID (one of the sets positive) ID reordered blood cx and remained sterile
Repeated urine culture no growth.
TME
Resolved, back to baseline
Obtained CT of the head unremarkable for acute findings
Underlying dementia.
Sore throat:
Resolved
Rapid strep negative
Influenza negative
COVID-19 negative
Monoscreen negative
Hypokalemia:
Replace
Hypomagnesemia:
Replacement ongoing
Hyponatremia:
Mild, started on regular diet. Currently on 1 g p.o. twice a day of sodium chloride. Sodium stable at 134
Possible related to SSRI but she is only on low-dose of sertraline 25 mg nightly for quite a while. Can consider discontinuing or adjustment as outpatient if worsens.
Recent UTI (ESBL):
Finish course of antibiotics last hospitalization
Recent hypercalcemia:
[place] to be related to vitamin D supplementation given pamidronate and rest of the workup pending as outpatient.
Reached out to lab and all the workup from prior hospitalization is back. PT HR normal less than 2, PTH 4, serum protein electrophoresis normal, and 1, 25 vitamin D elevated at 88 which could have explain her hypercalcemia. Calcium remains normal
during this hospital stay.
Recent IVETTE and also history of chronic kidney disease stage III-A:
Diuretics were held and now resumed but renal function remains stable while on diuretics
Creatinine stable, creatinine today 0.8
Anemia:
Platelet clumping-discussed with hematology and no worrisome signs at the moment and normal count prior and can follow-up with outpatient if needed.
No signs of bleeding
Workup shows evidence of iron deficiency-will need further workup as outpatient
Hemoglobin stable, hemoglobin 9.6 today
Recommend OP follow up with hematology
Elevated alk phos:
Will need further workup as outpatient
Hypoalbuminemia:
Monitor trend as outpatient
Hypertension:
Continue metoprolol
Discontinued amlodipine per cardio
Dementia/ senile vs vascular:
Continue memantine 10 mg p.o. twice a day
GERD:
Continue PPI
Depression:
Continue sertraline and amitriptyline
Other medical problems:
Dyslipidemia
Peripheral neuropathy
Orthostasis
Cervical degenerative disc disease
DVT prophylaxis:
Eliquis
CODE STATUS:
Full code�
Anticipated Discharge: Today
Subjective/Interval History
-
Date of Service: December 06, 2024
No new complaints.
Objective Data
-
Labs:
Laboratory Results
12/06/24
06:34
Sodium 134 L
Potassium 4.0
Chloride 100
Carbon Dioxide 30
BUN 19 H
Creatinine 0.8
Glucose 111 H
Calcium 9.1
Vital Signs:
Vital Signs
Temp Pulse Resp BP Pulse Ox
97.9 F 78 16 122/64 97
12/06/24 07:30 12/06/24 07:30 12/06/24 07:30 12/06/24 07:30 12/06/24 07:30
I&O
12/05/24 12/06/24 12/07/24
06:59 06:59 06:59
Intake Total 1440 / 1440 960 / 960
Balance 1440 / 1440 960 / 960
--- NOTE | 2024-12-06 11:28 | W.DCSUMMARY ---
Discharge Summary
Discharge Data
Date of Admission: 11/20/24
Date of Discharge: 12/06/24
Total time spent discharging patient (in min): 42
-
Pending Results: No
Hospital Course
Patient 84 years old female with multiple comorbidities who had a recent hospitalization for hypercalcemia came into the hospital with acute heart failure exacerbation. Cardiology was consulted. Patient was treated with IV diuresis and some of her
GDMT medications were adjusted throughout her hospital stay as reflected on the discharge medications list. Patient was also noticed to have left pleural effusion and had a thoracentesis done on 12/01. Patient was seen by vascular surgery for right
hallux tip blister and concerns for vascular issues and vascular surgery recommend outpatient follow-up. She was also seen by ID due to leukocytosis and recent ESBL possible UTI. She also had a blood culture that was positive but it turned out to
be a contaminant. ID did not recommend any further antibiotics. Her leukocytosis resolved. Patient did well rest of the hospital stay and she is going to go to skilled rehab for further rehabilitation. No other events were noticed. Patient will
be discharged in relatively stable condition today.
Discharge duration: 42 minutes
Discharge Plan
-
Patient Disposition: [facility]
Discharge Diagnosis/Procedures: Acute diastolic congestive heart failure. Permanent atrial fibrillation. Left pleural effusion status post thoracentesis.
Diet: Low Cholesterol, 2 Gram Sodium and Restrict fluids to 64 oz
Activity: As tolerated
Blood Work: Please PCP to order CBC and BMP 5-7 days after d/c
Specialty Instructions: Weigh Daily- Call MD for wt gain/loss 3 lbs overnight/5 lbs in 1 week
Activity Restrictions/Additional Instructions:
Wound Care Instructions Right Great Toe- Apply no-skin barrier daily and assess. Please call WOC RN if wound worsens or opens.
Sacrum- Apply Barrier ointment twice daily and as needed.
Referrals:
Darian Giles DO [Family Provider, Family Practice] - in less than 1 week
Namita Tidwell CRNP [Specified Professional Personl, Cardiology] - 12/22/24 12:40 pm
Referral Note: You have cardiology follow up with Namita Tidwell on December 22 at 12:40 pm in [address] in the [place]. If you are unable to make this appointment please call [phone] to reschedule
Shira Todd CRNP [Specified Professional Personl, Vascular Surgery] - 12/15/24 2:30 pm
Referral Note: Vascular surgery office follow up
Prescriptions:
New
metoprolol succinate 100 mg Tablet Extended Release 24 Hr
100 mg PO BID 30 Days Qty: 60 0RF
sodium chloride 1,000 mg Tablet,Soluble
1,000 mg PO BID Qty: 60 0RF
magnesium oxide 400 mg (241.3 mg magnesium) Tablet
400 mg PO BID Qty: 60 0RF
furosemide 20 mg Tablet
60 mg PO DAILY 30 Days Qty: 90 0RF
Continued
memantine 10 mg Tablet
10 mg PO BID
Eliquis 5 mg Tablet
5 mg PO BID
sertraline [Zoloft] 25 mg Tablet
25 mg PO HS
amitriptyline 50 mg Tablet
50 mg PO HS
Systane (PF) 0.4-0.3 % Dropperette
1 drp BOTH EYES TIDPRN PRN (Reason: dryness)
acetaminophen 500 mg Tablet
500 mg PO HS
pantoprazole 40 MG tablet,delayed release (DR/EC)
40 mg PO DAILY Qty: 30 0RF
colestipol 1 GM tablet
1 gm PO BID Qty: 60 0RF
Discontinued
metoprolol succinate 25 mg Tablet Extended Release 24 Hr
75 mg PO DAILY
amlodipine 2.5 mg Tablet
2.5 mg PO DAILY
levofloxacin 500 mg tablet
500 mg PO DAILY 3 Days Qty: 3 0RF
Discharge Orders:
Discharge Patient (As Directed); Ordered 12/06/24
Ordered By: Arturo Sahu
Care Plan Goals
Care Plan Goals:
Problem: Readiness for enhanced knowledge related to diagnosis and treatment plan
Goal: Understand your diagnosis and treatment plan needs, including medications if applicable.
Instructions: Know your diagnosis, underlying causes and treatment plan options, including medications if applicable. Consult with your health care team to learn about your diagnosis and treatment plan, including medications if applicable.
Discharge Date and Time
Print Language: YORUBA
[2024-12-06 14:37] VITALS: BP 108/65
== END 2024-12-06 15:34 | DRG 291 ==
LOC: 3 WEST ACU 14:02
PROVIDERS: Internal Medicine; Physician Assistant; Physician Assistant Medical; Radiology Vascular & Interventional Radiology; ADMITTING PHYSICIAN Hospitalist; ATTENDING PHYSICIAN Hospitalist; CONSULT PHYSICIAN Internal Medicine Cardiovascular Disease; CONSULT PHYSICIAN Internal Medicine Infectious Disease; EMERGENCY PHYSICIAN Emergency Medicine; FAMILY PHYSICIAN Family Medicine; OTHER PHYSICIAN Surgery Vascular Surgery
PROC: 0W9B3ZZ Drainage of Left Pleural Cavity, Percutaneous Approach (ICD-10-PCS; 2024-12-01)
DX: I13.0 Hypertensive heart and chronic kidney disease with heart failure and stage 1 through stage 4 chronic kidney disease, or unspecified chronic kidney disease (principal); G92.8 Other toxic encephalopathy; I50.31 Acute diastolic (congestive) heart failure; F03.A3 Unspecified dementia, mild, with mood disturbance; F03.A4 Unspecified dementia, mild, with anxiety; I48.21 Permanent atrial fibrillation; J98.11 Atelectasis; E87.1 Hypo-osmolality and hyponatremia; F05 Delirium due to known physiological condition; J90 Pleural effusion, not elsewhere classified; N18.31 Chronic kidney disease, stage 3a; M50.30 Other cervical disc degeneration, unspecified cervical region; K21.9 Gastro-esophageal reflux disease without esophagitis; M85.80 Other specified disorders of bone density and structure, unspecified site; R59.0 Localized enlarged lymph nodes; D64.9 Anemia, unspecified; E78.00 Pure hypercholesterolemia, unspecified; E83.42 Hypomagnesemia; I42.8 Other cardiomyopathies; I70.0 Atherosclerosis of aorta; E87.6 Hypokalemia; E88.09 Other disorders of plasma-protein metabolism, not elsewhere classified; L97.519 Non-pressure chronic ulcer of other part of right foot with unspecified severity; J02.9 Acute pharyngitis, unspecified; E83.52 Hypercalcemia; F32.A Depression, unspecified; G62.9 Polyneuropathy, unspecified; Z90.710 Acquired absence of both cervix and uterus; Z90.49 Acquired absence of other specified parts of digestive tract; Z79.01 Long term (current) use of anticoagulants; Z88.1 Allergy status to other antibiotic agents; Z87.440 Personal history of urinary (tract) infections; Z87.891 Personal history of nicotine dependence; Z11.52 Encounter for screening for COVID-19
CPT/HCPCS: 32555; 70450; 71045; 71260; 76604; 80048; 80053; 81003; 81015; 82550; 82962; 83540; 83550; 83615; 83735; 83880; 84155; 84157; 84550; 85025; 85027; 86308; 87040; 87070; 87086; 87150; 87205; 87502; 87811; 87880; 88112; 88305; 93005; 93308; 93321; 93325; 93922; 93925; 93971; 96374; 96375; 96376; 97116; 97163; 97167; 97530; 97535; 99291; Q9967

== ENCOUNTER 2025-01-09 15:32 | Inpatient (IN) | payer OTHER, SELFPAY ==
[2025-01-09] VITALS (9 sets, daily range): BP systolic 103–126; BP diastolic 58–87; BMI 25.6
--- NOTE | 2025-01-09 13:03 | ED.GENMED ---
History of Present Illness
General
Chief Complaint: Cough
Source: family (History provided by daughter as the patient is unable to do so given her apparent dementia)
Time Seen by Provider: 01/09/25 12:55
History of Present Illness
History of Present Illness:
84-year-old female presents emergency room for evaluation of increased shortness of breath, fatigue, sleeping more frequently, cough and hemoptysis. Patient was hospitalized here at [facility] about a month ago for heart failure. She was
discharged to rehab where she stayed for couple more weeks. Her respiratory status had been doing very well as she was on a fluid restriction. However over the weekend she began feeling the above symptoms. No known fever. Patient denies any
chest pain.
Past History
Past History
ED Past Medical History: Arrthythmia, CHF, GERD, HTN, Psychiatric (Anxiety/depression), Other (Osteopenia) and Other (Neuropathy feet under care of Pain Management)
ED Past Surgical History: Cholecystectomy, Gynecological (Hysterectomy), Orthopedic and Other (Hemorrhoidectomy, bladder lift)
Social History
Tobacco: Former smoker
Alcohol: None
Drug: None
Personal:
Living: alone
Employment: Retired
Phy Exam
Physical Exam
Physical Exam:
General: Awake, Alert, Oriented X3. Mild increased work of breathing
Vitals: Hypoxic on room
Head: Atraumatic
Eyes: Pupils equal, EOMI
Throat: Airway intact, no exudates
Neck: Trachea midline
Lungs: Crackles and x-ray wheezing bilateral
Heart: Regular rate, no murmurs
Abd: Soft, Nontender, No pulsatile mass
Neuro: Nonfocal
Skin: Warm, dry, no rash
Extremities: pulses equal b/l, 2+ edema
Course
Orders/Labs/Results
Orders:
Orders
01/09/25 Breakfast
Cholesterol Lowering
At Your Request: Full Participation
Does patient need a safe tray?: No
Fluid Restriction: 1500 mL/day (50 oz)
Cholesterol Lowering: Sodium, 2 Gram
01/09/25 13:01
Electrocardiogram (*1) Stat
Reason for Study: Other
Other Reason for Exam: chest pain
Cardiac Monitoring- Treatment ONCE
EKG- Treatment ONCE
O2 Therapy [RESP] Stat
Titrate/Wean O2 to maintain O2 sat greater than (%): 92
01/09/25 13:02
CR Chest - 2 Views Urgent
Comment:
Reason For Exam: sob, hemoptysis
01/09/25 13:08
Basic Metabolic Panel Urgent
COVID-19 Antigen Urgent
Source: Nasal Swab
Complete Blood Count/With Diff Urgent
NT-proBNP Urgent
Troponin I Urgent
Influenza A+B Rapid Molecular Urgent
ERIK Source: Nasal Swab
Specimen Description:
01/09/25 14:12
Furosemide [Lasix] 40 mg IV NOW STA
Potassium Chloride 10% Elixir [KCl Elixir] 40 meq PO NOW STA
01/09/25 14:54
Urine Culture Reflexed from UA [Urinalysis Reflex To Culture] Urgent
01/09/25 15:01
Admit/Transfer Patient As Directed
Co-Sign Provider:
Level of Care: Inpatient admission
Assign to:: Telemetry
Physician / Group: Torin Mcdermott
Diagnosis: hypokalemia, HFpEF exacerbation, PNA
Reason for Telemetry: Acute Heart Failure
Date to Stop Telemetry: 01/12/25
Time to Stop Telemetry: 11:00
Reason for Hospitalization: hypokalemia, HFpEF exacerbation, PNA
Expected length of stay greater than two midnights?: Yes
ELOS- Estimated Length of Stay in days: 3
I certify the patient meets the requirements for IP care: Yes
PRN Pain Medication Management As Directed
May give lesser potent ordered pain med per pt: Yes
preference::
Protocol:: Medication orders for pain may be administered in a
manner that supports deferring to patient preference
when the pt is:
- Requesting an ordered lesser potent pain medication.
Least to most potent pain medications are defined
as: acetaminophen < NSAID < tramadol < opioids
(morphine, oxycodone, hydromorphone).
- Requesting a lesser dose of the same medication IF
ORDERED.
- Requesting a less intrusive route of administration
if both routes are prescribed by the provider (PO <
IV).
01/09/25 15:03
Code Status As Directed
Resuscitation Status: Do not resuscitate
Reached after discussion with pt or family/Healthcare POA: Yes
Decision communicated with: patient and daughter
DNR Bracelet Application ONCE
01/09/25 15:14
Cefepime HCl [Maxipime] 2,000 mg IV NOW STA
01/09/25 16:46
Procalcitonin Routine
If negative, will antibiotics be d/c'd or not started: Yes
Does the patient have renal or hepatic impairment?: No
Any recent (w/in 48 hrs) physiologic stress (CPR, rhabdo): No
01/09/25 17:31
CARDIOLOGY CONSULT Routine
Consulting Provider: Zan Stoll
Was physician already notified: Yes
HF DIETARY CONSULT Routine
HF EDUCATOR CONSULT Routine
Comment:
Activity As Directed
Activity Level: As Tolerated
Intake/ Output As Directed
Frequency: Per unit guidelines
Patient Education As Directed
Type: CHF folder
Comment: give on admission. Document in Interdisciplinary Education record
Sleep Apnea Assessment by RN As Directed
Comment:
Physician Instructions:
Vital Signs As Directed
Frequency: Per unit guidelines
Weight As Directed
Frequency: Daily
Type of Scale: Standing Scale
Comment: Daily morning weight. If unable to stand, use balanced bed scale.
Weight As Directed
Frequency: Once
Type of Scale: Standing Scale
Comment: Upon Admission. If unable to stand, use balanced bed scale.
Pulse Ox/cont/shift [RESP] Routine
Quantity: 1
Special Instructions: Daily pulse oximetry at rest. If greater than 92% at rest also obtain pulse oximetry
while ambulating as tolerated.
Pulse Ox/spot Check [RESP] Routine
Quantity: 1
01/09/25 17:48
Artificial Tears (Pf) [Refresh Eye Drops (Pf)] 1 drops BOTH EYES TIDPRN PRN
01/09/25 20:00
Apixaban [Eliquis] 5 mg PO BID
Doxycycline [Vibramycin] 100 mg PO Q12
Magnesium Oxide 400 mg PO BID
Memantine HCl [Namenda] 10 mg PO BID
Metoprolol Xl [Toprol Xl] 100 mg PO BID
Sodium Chloride 1 gram PO BID
colestipol See Dose Instructions PO BID
01/09/25 22:00
Acetaminophen [Tylenol] 500 mg PO HS
Sertraline HCl [Zoloft] 25 mg PO HS
01/10/25 06:00
Basic Metabolic Panel IN AM
Complete Blood Count/No Diff IN AM
01/10/25 08:00
Furosemide [Lasix] 40 mg PO DAILY
Pantoprazole [Protonix] 40 mg PO DAILY
01/12/25 11:00
DC Protocol for Telemetry ONCE
Abnormal Lab Results
01/09/25
13:08
WBC 12.0 H 10^3/uL
(4.8-10.8)
RBC 3.84 L 10^6/uL
(4.20-5.40)
Hgb 9.3 L g/dL
(12.0-16.0)
Hct 31.0 L %
(37.0-47.0)
MCV 80.7 L fL
(81.0-99.0)
MCH 24.2 L pg
(27.0-31.0)
MCHC 30.0 L g/dL
(33.0-37.0)
RDW 17.2 H %
(11.5-14.5)
Abs Immat Gran (auto) 0.1 H 10^3/uL
(0-0.05)
Absolute Neuts (auto) 10.3 H 10^3/uL
(1.4-6.5)
Absolute Lymphs (auto) 0.7 L 10^3/uL
(1.2-3.4)
Absolute Monos (auto) 0.9 H 10^3/uL
(0.1-0.6)
Immature Gran % 0.6 H %
(0-0.5)
Neutrophils % 85.4 H %
(42.2-75.2)
Lymphocytes % 6.0 L %
(20.5-51.1)
Potassium 3.3 L mmol/L
(3.5-5.1)
BUN 19 H mg/dl
(7-17)
Glucose 166 H mg/dl
(70-99)
01/09/25 13:08
01/09/25 13:08
Vital Signs
Initial and Last Documented VS:
Initial Vital Signs
Temp Pulse Resp BP Pulse Ox
98.7 F 86 18 125/87 86
01/09/25 12:38 01/09/25 12:38 01/09/25 12:38 01/09/25 12:38 01/09/25 12:38
Last Documented Vital Signs
Temp Pulse Resp BP Pulse Ox
98 F 94 16 115/63 100
01/09/25 18:05 01/09/25 18:05 01/09/25 18:05 01/09/25 18:05 01/09/25 18:05
MDM/Problems Addressed
Differential Diagnosis Includes:
Pneumonia, CHF, acute bronchitis
MDM/Problems Addressed:
Patient presents hypoxic, cough productive of some blood-tinged sputum. Labs show mildly elevated white blood cell count. BNP significant elevated compared to previous, troponins normal. Chest x-ray looks suspicious for either heart failure or
perhaps pneumonia. Dose of Lasix ordered. Patient will require hospitalization.
*Radiology
Radiology exam reviewed: preliminary read by ED provider (Increased interstitial markings bilateral bases)
*Pulse Oximetry
SaO2: 86
Oxygen Mode of Delivery: Room air
Patient hypoxic: yes
*EKG
Interpreted by ED Provider?: Yes
Heart Rate: 99
Rate: normal
Rhythm: a-fib
[place]: normal axis
Interval: normal interval
QRS Pattern: normal QRS
Ischemia: non-specific ST changes
*Instrument Maker Apprentice Interpretation
Rate: normal
Interpretation: abnormal
Rhythm: a-fib
*Critical Care Note
Total Time (30-74mins, 75-104mins- exclusive of procedures): Not Applicable
ED Attending Note
-
Portions of this chart may have been created with voice recognition software.� Occasional wrong word or��sound alike� substitutions may have occurred due to the inherent limitations of voice recognition software.
Discharge Plan
Departure
Patient Disposition: Admit
Date of Disposition: 01/09/25
Time of Disposition: 14:19
Admit to: Med/Surg
Presentation/result/management discussed w/ accepting MD/DO: Hospitalist
Condition: Fair
Discharge Problem:
CHF exacerbation, Hypokalemia
Interventions
Interventions:
*Risk Screen - Suicide Last Done: 01/09/25 18:37
*General Assessment Last Done: 01/09/25 12:53
*Neglect/Abuse Screening Last Done: 01/09/25 12:38
*ED- Fall Risk Assessment Last Done: 01/09/25 12:53
*ED COVID-19 Vaccine History Last Done: 01/09/25 18:37
*ED Influenza Vaccine History Last Done: 01/09/25 12:53
*Nursing Disposition Last Done: 01/09/25 17:19
ED- Pulmonary Assessment Last Done: 01/09/25 13:16
Discharge Date and Time
Discharge Date/Time: 01/09/25 17:26
[2025-01-09 13:25] LABS: Hematocrit 31.0 % (37.0-47.0); Hemoglobin 9.3 g/dL (12.0-16.0); Mean Corp Hgb Conc. 30.0 g/dL (33.0-37.0); Mean Corpuscular Volume 80.7 fL (81.0-99.0); Nucleated Red Blood Cells % 0 %; Red Cell Dist. Width 17.2 % (11.5-14.5)
[2025-01-09 13:42] LABS: Blood Urea Nitrogen 19 mg/dl (7-17); Calcium 9.7 mg/dl (8.4-10.2); Carbon Dioxide 29 mmol/L (22-30); Chloride 103 mmol/L (98-107); Estimated Creatinine Clearance 41 ml/min; Glucose 166 mg/dl (70-99); Potassium 3.3 mmol/L (3.5-5.1); Sodium 137 mmol/L (135-145); eGFR > 60.00
[2025-01-09 13:46] LABS: COVID-19 Antigen Negative (Negative)
[2025-01-09 13:54] LABS: Troponin I 0.013 ng/ml
--- NOTE | 2025-01-09 14:21 | HPS.HSE ---
Family Physician
-
Family Physician: Darian Giles
Chief Complaint
-
shortness of breath, fatigue, cough, confusion and hemoptysis
History of Present Illness
Patient is a 84-year-old female with past medical history significant for hypertension, permanent atrial fibrillation, HFpEF and GERD who presented to [facility] ED for evaluation of increased shortness of breath, fatigue, cough, confusion and hemoptysis.
Patient and daughter at bedside to assist with HPI. Patient was recently hospitalized 11/20/2024 - 12/06/2024 for CHF exacerbation. Patient was discharged to rehab where she did well. Even since discharge from rehab home patient has done well until
the past 2 days. Patient reports a productive cough starting 2 days ago, increased shortness of breath and overall increased fatigue. Daughter reports despite symptoms weights have been trending downward, despite this morning having obvious BLLE
edema. Patients visiting nurse came today where patient had increased confusion and was found to be hypoxic in 80s on room air. Daughter reported [address]sis on [address] to hospital and one after arrival, described as bright red blood in
sputum. Nurse recommended evaluation in ED. Denies fever, chills, chest pain, nausea, vomiting, constipation, diarrhea or urinary symptoms.
Medical History
Past Medical History
Past Medical History: Reports Other
Additional Past Medical History:
hypertension
permanent atrial fibrillation
HFpEF
GERD
depression/anxiety
dementia
Past Surgical History: Reports Other
Additional Past Surgical History:
cholecystectomy
hysterectomy
left hip partial replacement
Rectocele Repair 1997
Bladder Suspension Repair 1999
Social History
Tobacco: Non-smoker
Alcohol: None
Drug: None
Employment: Not Employed
Family History
Family History: Not pertinent
Allergies / Home Medications
Allergies reflects when Allergies were last updated in [employer].
Home Medications with original date entered in [employer]
Allergy/Medication List:
Allergies
Allergy/AdvReac Type Severity Reaction Status Date / Time
acetaminophen (From Allergy Unknown Verified 01/09/25 12:56
Tylenol-Codeine)
calcitonin Allergy Rash Verified 01/09/25 12:56
clarithromycin Allergy Unknown Verified 01/09/25 12:56
codeine (From Allergy Unknown Verified 01/09/25 12:56
Tylenol-Codeine)
erythromycin base Allergy Unknown Verified 01/09/25 12:56
Home Medications
colestipol 1 gram tablet 1 gm PO BID High cholesterol #60 tabs 10/08/19
pantoprazole 40 mg tablet,delayed release 40 mg PO DAILY #30 tabs 10/08/19
amitriptyline 50 mg tablet 50 mg PO HS Mental Health/Anxiety 11/15/24
apixaban 5 mg tablet (Eliquis) 5 mg PO BID Blood Clot Prevention/Tx 11/15/24
memantine 10 mg tablet 10 mg PO BID Neurological Condition 11/15/24
peg 400-propylene glycol (PF) 0.4 %-0.3 % eye drops in a dropperette (Systane (PF)) 1 drp BOTH EYES TIDPRN PRN dryness 11/15/24
sertraline 25 mg tablet (Zoloft) 25 mg PO HS Mental Health/Anxiety 11/15/24
acetaminophen 500 mg tablet 500 mg PO HS Pain 11/20/24
magnesium oxide 400 mg (241.3 mg magnesium) tablet 400 mg PO BID #60 tabs 12/06/24
sodium chloride 1,000 mg soluble tablet 1,000 mg PO BID #60 tabs 12/06/24
dextromethorphan polistirex 30 mg/5 mL oral susp ext.release 12hr (Delsym 12 hour) 10 ml PO DAILYPRN PRN cough 01/09/25
furosemide 20 mg tablet 40 mg PO QPM 01/09/25
furosemide 80 mg tablet (Lasix) 80 mg PO DAILY 01/09/25
loratadine 10 mg tablet 10 mg PO DAILYPRN PRN allergies 01/09/25
metoprolol succinate 100 mg tablet,extended release 24 hr 100 mg PO DAILY 01/09/25
Review of Systems
-
History Source: Patient
Constitutional: Reports Weight Loss and Fatigue; Denies Fever or Chills
EENT: Denies Sore Throat
Respiratory: Reports Cough, Hemoptysis and Trouble Breathing
Cardiac: Denies Chest Pain, Diaphoresis, Palpitations or Syncope
Abdomen/GI: Denies Abdominal Pain, Nausea, Vomiting or Diarrhea
: Denies Dysuria, Frequency or Urgency
Musculoskeletal: Denies Joint Pain or Joint Swelling
Skin: Denies Rash
Neurological: Denies Dizzy, Headache, Weakness or Numbness
Endocrine: Denies Polyuria or Polydipsia
Physical Exam
Vital Signs
Vital Signs
Temp Pulse Resp BP Pulse Ox
98.7 F 92 20 125/82 94
01/09/25 12:38 01/09/25 13:45 01/09/25 13:45 01/09/25 13:00 01/09/25 13:45
Physical Exam
General: Well Developed, Well Nourished, Comfortable and Conversant
HEENT: NormoCephalic, Moist mucous membranes, Nose Appears Normal and Ears Appear Normal
Respiratory: Crackles, Non Labored Respirations and Decreased Breath Sounds; No Wheezes, Rales, Rhonchi or Accessory Resp Muscle Use
Cardiac: S1/S2, Irregular Rhythm and Peripheral Edema; No Murmur, Rub or Gallop
GI: Soft, Non Tender, Non Distended and Normal Bowel Sounds
Musculoskeletal: No Clubbing and No Cyanosis
Skin: Warm and IV/Catheter Site
Neuro: Awake and AO x 3
Psych: Calm
Laboratory Results
-
01/09/25 13:08
01/09/25 13:08
Laboratory Results
Troponin I 0.013 ng/ml 01/09/25 13:08
Data Reviewed
-
Diagnostic Radiology: Report Reviewed by me (CXR: There are new patchy airspace opacities within the left mid/lower lung which likely represent pneumonia. There are minimal opacities within the right lower lung which may represent multifocal
pneumonia or atelectasis. Small bilateral pleural effusions, more pronounced on the left.)
Medical Tests (Nuc Med, Echo, EKG etc): Report Reviewed by me (EKG: ATRIAL FIBRILLATION NONSPECIFIC T WAVE ABNORMALITY ABNORMAL ECG)
Lab Data: Labs Reviewed by me (WBC 12.0, hgb 9.3, hct 31.0, neut 85.4, K+ 3.3, pBNP 5550)
Impression/Plan
-
IMPRESSION/PLAN:
#increased shortness of breath, fatigue, cough, confusion and hemoptysis 2/2 viral infection vs. PNA vs. HFpEF exacerbation
#pneumonia
WBC 12.0, hgb 9.3, hct 31.0, neut 85.4
EKG: ATRIAL FIBRILLATION
NONSPECIFIC T WAVE ABNORMALITY
ABNORMAL ECG
CXR: There are new patchy airspace opacities within the left mid/lower lung which likely represent pneumonia. There are minimal opacities within the right lower lung which may represent multifocal pneumonia or atelectasis.
Small bilateral pleural effusions, more pronounced on the left.
Covid: negative
Influenza: negative
- Admit to telemetry
- start IV cefepime and PO doxycycline
- Procalcitonin pending
- supportive care
#HFpEF
pBNP 5550
- daily weights
- I & Os
- fluid restriction 1500mL/day
- IV Lasix
- Consult Cardiology
#hypokalemia
K+ 3.3
- repleted in ED
- monitor electrolytes
#hypertension
- continue metoprolol
#permanent atrial fibrillation
- continue Eliquis and metoprolol
#GERD
- continue pantoprazole
#depression/anxiety
- continue sertraline
- hold amitriptyline
#dementia
- continue memantine
Code status: DNR
DVT prophylaxis: Eliquis
--- NOTE | 2025-01-09 14:21 | W.PN.UPDATE ---
Addendum entered and electronically signed by Torin Mcdermott MD 01/09/25 15:14:
CXR:
There are new patchy airspace opacities within the left mid/lower lung which likely represent pneumonia.
There are minimal opacities within the right lower lung which may represent multifocal pneumonia or atelectasis.
Small bilateral pleural effusions, more pronounced on the left.
Afebrile , WCC 12
- Nl cret
- check PCT
- start Empiric IV CFP and PO Doxy
case dw AP and informed daughter
Original Note:
Update Note
Progress Note Update
This note serves as an addendum to the H&P by chain sales consultant CHASITY�
[place]
HPI
Permanent AF on apixaban, HF, hypertension, GERD
multiple comorbidities who had a recent hospitalization for hypercalcemia came into the hospital with acute heart failure exacerbation.
84F Recent prolonged admission ( 11/20/24 -12/06/24) with acute on Chr HFpEF, Permanent AF on apixaban,, hypertension, GERD, multiple comorbidities sen at ER
- From Home with nurse healthcare manager
- for evaluation of increased shortness of breath, fatigue, sleeping more frequently, cough and hemoptysis.
- was hospitalized here at [place] about a month ago for heart failure.
- Then she was discharged [facility] where she stayed for couple more weeks.
- Respiratory status had been doing very well as she was on a fluid restriction.
- However over the weekend she began feeling the above symptoms.
No known fever. Patient denies any chest pain.
Relevant VS
Temp Pulse Resp BP Pulse Ox
98.7 F 94 20 126/69 94
01/09/25 12:38 01/09/25 14:26 01/09/25 13:45 01/09/25 14:26 01/09/25 13:45
PE
Gen: awake and alert , plesantly confused
HEENT: Nl speech
Neck: supple , no JVD
Lungs: symmetric AE
Cor: Irregulare
Abdomen:�soft
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
MS: wearing b/l compression stockings
Psych: has dementia
Relevant Data
12/05/24 01/09/25
06:38 13:08
WBC 4.4 L 12.0 H
Hgb 9.6 L 9.3 L
Potassium 3.3 L
Creatinine 0.9
eGFR > 60.00
Troponin I 0.013
Njw-S-Ylbafftalcy Pept 1910 5550
12/06/24 01/09/25
06:34 13:08
Calcium 9.1 9.7
EKG
ATRIAL FIBRILLATION
NONSPECIFIC T WAVE ABNORMALITY
ABNORMAL ECG
WHEN COMPARED WITH ECG OF 20-Nov-2024 10:38,
NO SIGNIFICANT CHANGE WAS FOUND
Confirmed by MD BARRINGTON, ROBINA Strauss ([id number]) on 01/09/2025 1:28:52 PM
CXR report pending
ECHO 11/21/24:
EF 55%, MAC,
moderate MR, aortic sclerosis, mild AR,
dilated RV and RA with moderate TR, PASP 49 mmHg
Lower extremity arterial Doppler 11/30/2024:
Right BASIL 0.82 consistent with mild arterial insufficiency, TBI moderately reduced.
Multiphasic waveforms from common femoral through mid superficial femoral artery.
Distal superficial femoral artery stenosis identified, with the velocity parameters suggesting greater than 75% stenosis (peak systolic velocity of 537 cm/s with velocity ratio of 20.3).
Left lower extremity: BASIL 1.0, within normal limits. TBI 0.69, essentially within normal limits.
Multiphasic waveforms throughout lower extremity arteries with no velocity elevation to suggest any significant stenosis
Last hospitalist admission: 11/20/24 -12/06/24
Discharge Diagnosis/Procedures:
Acute diastolic congestive heart failure. Permanent atrial fibrillation. Left pleural effusion status post thoracentesis.
ASSESSMENT & PLAN
Pending Rx reconciliation
Acute HFpEF- proBNP 5000s
HX Permanent atrial fibrillation control VR
Normal creat
- FU final CXR report
- IV Lasix 40 daily
- on Chr Eliquis
- FU daily Wt + IOS and daily BMP
- Tele
- DCA card consult : defer GDMT to Card
Persistent to permanent AF with VR in 90s
- On rate control, metoprolol succinate 100 mg twice a day
- On anticoagulation, Eliquis 5 mg p.o. twice a day
- Cardiac monitoring
Lethargy likely due to metabolic encephalopathy due to acute HF
HX underlying Dementia - vascular vs Alzheimer
- f/u clinical response to IV diuresis
- check UA
- Continue memantine 10 mg p.o. twice a day
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
Recent UTI (ESBL):
s/p Finish course of antibiotics last hospitalization
- check UA to eavl for infective encepahlopathy
HX Bilateral pleural effusion- s/p left thoracentesis with only 200 cc drained on last admission
- prior CT chest did not show pulmonary nodule
Hypertension:
- Continue metoprolol
Known HX
Resolved hypercalcemia
Hyperlipidemia
HTN
E coli UTI
intermittent urinary retention
GERD
Dementia
Hypoalbuminemia:
Dementia/ senile vs vascular:
Depression: on sertraline - hold amitriptyline
Peripheral neuropathy
Orthostasis
Cervical degenerative disc disease
DVT Px: chr Eliquis
DNR per daughter and patient
IP TLM
[2025-01-09] MEDS: KCL ELIXIR 40 MEQ PO (14:22)
[2025-01-09] MEDS: LASIX 40 MG IV (14:26)
--- NOTE | 2025-01-09 15:55 | CON.CAR ---
Addendum entered and electronically signed by Zan Stoll DO 01/09/25 17:11:
I saw and examined the patient.
The Healthcare Advisory Services Manager's note was reviewed and I agree with the note.
Comment:
Plan:
Per her daughters she had been doing well up until a day of admission. She had been walking without symptoms.
She is now being treated for pneumonia. We did discuss the potential for possible aspiration. Will defer to primary service regarding consideration for swallowing evaluation.
Transition to IV Lasix diuresis. She had been taking 80 mg in the a.m. and 40 mg in the p.m. of Lasix with improvement in her edema and weight. Some of her proBNP may be related to her pneumonia. Her proBNP is interestingly higher than it has
been.
Recent echo October 2024 with preserved EF 55%. May consider repeating this, this admission given elevated proBNP.
Continue to monitor potassium and magnesium and replete as needed.
Remains in permanent atrial fibrillation on anticoagulation. She does have blood-tinged sputum. Continue to monitor H/H closely
Continue anticoagulation which she is tolerating. Continue Toprol for rate control.
Discussed with 2 of her daughters at bedside. Her daughter Chrissy would like regular updates. She works in same-day surgery at [employer].
Original Note:
Consultation
Consultation Request
Date/Time Consultation Requested: 01/09/2025
Date/Time Consultation Performed: 01/09/2025
Requesting Provider: Dr. Mcdermott with the Hospitalists
Performing Provider: Dr. Stoll
Reason for Consultation: Possible acute HF
Medical History
-
History of Present Illness:
Patient came to the ER today after an episode of confusion and new coughing and SOB prompting admission for PNA, possible HF and therefore consultation to cardiology. Patient was just admitted from 11/20/2024 until 12/06/2024 with acute HF. Patient
was at rehab until 12/26/2024 and has been home for about 2 weeks. Family feels that the patient has been doing well at home and reports that yesterday she was able to walk 4 houses down on the block and then come back home which is an overall
increase in her activity levels. Patient was seen in the cardiology office on 12/22/2024 and appeared to be doing well, but weight was trending up since last admission so her Lasix was increased to 80 mg a.m. and 40 mg p.m. daily. Patient's
daughter, Chrissy who is a nurse in same-day surgery, called the office then to report that weight had improved and was down to 148 lbs, the LE edema was not improving much. Patient had labs that were stable and she remained on her usual dose of Lasix
and now the daughter feels that overall the edema has improved, but separately patient is now coughing and has blood in her mucus which is a new change in less than 24 hours. Patient denies any chest pain. No fevers or chills. Patient is now
requiring 2 L nasal cannula. CXR suggest PNA, but interestingly the proBNP is 5550 which is up from last admission when it was only 1910.
PMH:
Chronic HFpEF
Recent admission for acute HF 11/20/2024 until 12/06/2024
Permanent atrial fibrillation
Chronic Eliquis OAC
Hyperlipidemia
Hypercalcemia
Hypomagnesemia
HTN
Recent admission for IVETTE, hypercalcemia/dehydration 11/15-11/18/2024
h/o E coli UTI
intermittent urinary retention
GERD
Dementia
Past Medical History
Past Medical History: Other (As above)
Past Surgical History: Other (Hemorrhoidectomy, rectocele repair, hysterectomy, bladder suspension repair, cholecystectomy, epidural steroid injections, left hip ORIF, cardioversion [facility] 09/2023)
Social History
Tobacco: Non-Smoker
Alcohol: Occasional
Drug: None
Personal:
Living: Alone
Family History
Family History: Cancer, Diabetes and Other (CVA)
Allergies / Home Medications
Allergy/AdvReac Type Severity Reaction Status Date / Time
acetaminophen (From Allergy Unknown Verified 01/09/25 12:56
Tylenol-Codeine)
calcitonin Allergy Rash Verified 01/09/25 12:56
clarithromycin Allergy Unknown Verified 01/09/25 12:56
codeine (From Allergy Unknown Verified 01/09/25 12:56
Tylenol-Codeine)
erythromycin base Allergy Unknown Verified 01/09/25 12:56
�Medication �Instructions �Recorded �Confirmed �Type
colestipol 1 gram tablet 1 gm PO BID High cholesterol #60 10/08/19 01/09/25 Rx
tabs
pantoprazole 40 mg tablet,delayed 40 mg PO DAILY #30 tabs 10/08/19 01/09/25 Rx
release
amitriptyline 50 mg tablet 50 mg PO HS Mental Health/Anxiety 11/15/24 01/09/25 History
apixaban 5 mg tablet (Eliquis) 5 mg PO BID Blood Clot 11/15/24 01/09/25 History
Prevention/Tx
memantine 10 mg tablet 10 mg PO BID Neurological Condition 11/15/24 01/09/25 History
peg 400-propylene glycol (PF) 0.4 1 drp BOTH EYES TIDPRN PRN dryness 11/15/24 01/09/25 History
%-0.3 % eye drops in a dropperette
(Systane (PF))
sertraline 25 mg tablet (Zoloft) 25 mg PO HS Mental Health/Anxiety 11/15/24 01/09/25 History
acetaminophen 500 mg tablet 500 mg PO HS Pain 11/20/24 01/09/25 History
magnesium oxide 400 mg (241.3 mg 400 mg PO BID #60 tabs 12/06/24 01/09/25 Rx
magnesium) tablet
sodium chloride 1,000 mg soluble 1,000 mg PO BID #60 tabs 12/06/24 01/09/25 Rx
tablet
dextromethorphan polistirex 30 10 ml PO DAILYPRN PRN cough 01/09/25 01/09/25 History
mg/5 mL oral susp ext.release 12hr
(Delsym 12 hour)
furosemide 20 mg tablet 40 mg PO QPM 01/09/25 01/09/25 History
furosemide 80 mg tablet (Lasix) 80 mg PO DAILY 01/09/25 01/09/25 History
loratadine 10 mg tablet 10 mg PO DAILYPRN PRN allergies 01/09/25 01/09/25 History
metoprolol succinate 100 mg 100 mg PO BID 01/09/25 01/09/25 History
tablet,extended release 24 hr
Review of Systems
-
History Source: Patient and Family (2 daughter sitting bedside helping with HPI)
All other systems: Negative unless noted
Physical Exam
Vital Signs
Temp Pulse Resp BP Pulse Ox
98.7 F 95 22 112/66 94
01/09/25 12:38 01/09/25 15:30 01/09/25 15:30 01/09/25 15:00 01/09/25 15:30
GEN: NAD, AAO x 3
HEENT: EOMI, MMM
LUNGS: 2 L NC. Productive cough with coarse breath sounds throughout, no wheeze or rales mildly
CV: A-fib on telemetry. Irregularly irregular, S1/S2, 1/6 syst murmur
ABD: ND
EXT: B/L LE Tubigrip's in place. +1 nonpitting B/L LE edema
NEURO: Gross non-focal
SKIN: No rash, no rub or gallop
Lab Results
01/09/25 13:08
01/09/25 13:08
Troponin I 0.013 ng/ml 01/09/25 13:08
Ayc-Q-Ogzixkflqch Pept 5550 pg/ml 01/09/25 13:08
Impression / Plan
-
PCP:Darian Giles
Primary Drupal Architect: Dr Stoll
Impression:
Admitted with SOB, cough, confusion and possible PNA and HFpEF 01/09/2025
PNA
Acute on chronic HFpEF
Recent admission for acute HF 11/20/2024 until 12/06/2024
Recent admission for IVETTE, hypercalcemia/dehydration 11/15/24 until 11/18/2024
Permanent atrial fibrillation
Chronic Eliquis OAC
Hyperlipidemia
Hypercalcemia
Hypomagnesemia
HTN
intermittent urinary retention
GERD
Dementia
Hypokalemia
Echo 03/18: EF 55 to 60%, mild MR, TR
Echo 09/2023: EF 45 to 50%, mild LVH, mild MR, AI, TR, PASP 39 mmHg
Echo 07/2024: EF 50%, mild MR, AI, mild to moderate TR with PAP 30 mmHg
ECHO 11/21/24: EF 55%, MAC, moderate MR, aortic sclerosis, mild AR, dilated RV and RA with moderate TR, PASP 49 mmHg
Plan:
-Patient came to the ER today after an episode of confusion and new coughing and SOB prompting admission for PNA, possible HF and therefore consultation to cardiology. Patient was just admitted from 11/20/2024 until 12/06/2024 with acute HF. Patient
was at rehab until 12/26/2024 and has been home for about 2 weeks. Family feels that the patient has been doing well at home and reports that yesterday she was able to walk 4 houses down on the block and then come back home which is an overall
increase in her activity levels. Patient was seen in the cardiology office on 12/22/2024 and appeared to be doing well, but weight was trending up since last admission so her Lasix was increased to 80 mg a.m. and 40 mg p.m. daily. Patient's
daughter, Chrissy who is a nurse in same-day surgery, called the office then to report that weight had improved and was down to 148 lbs, the LE edema was not improving much. Patient had labs that were stable and she remained on her usual dose of Lasix
and now the daughter feels that overall the edema has improved, but separately patient is now coughing and has blood in her mucus which is a new change in less than 24 hours. Patient denies any chest pain. No fevers or chills. Patient is now
requiring 2 L nasal cannula. CXR suggest PNA, but interestingly the proBNP is 5550 which is up from last admission when it was only 1910.
-ECG reviewed by me looks like A-fib with controlled ventricular response
-Patient with leukocytosis and CXR suggest PNA. She is afebrile and denies any fevers or chills prior to admission. Agree with treatment for PNA.
-There is some concern that the proBNP is now 5550 and was previously only 1910 when she was admitted for acute HF last month. There may be some false elevation in the BNP in the setting of acute PNA. Patient was given Lasix 40 mg IV x 1 in the ER
we will follow-up on diuretic response on 01/10/2025 to consider additional IV diuresis. Patient was taking Lasix 80 mg a.m. and 40 mg p.m. daily just prior to admission
-EF was 55% by echo 11/21/2024.
-Outpatient dose of Toprol XL 100 mg BID should be continued
-Patient is not chronically on SHANLELE/ARB/ARNI due to hypotension
-Patient was previously on spironolactone, but it was held due to hypotension starting 11/2024
-Patient not a great candidate for SGLT2 inhibitors given history of UTIs
-Patient has a history of hypomagnesemia and was started on magnesium oxide last admission. Patient now with hypokalemia and received a dose of Lasix IV in the ER. ER attending ordered KCl 40 mEq x 1, follow-up on labs in the morning.
-Patient with known permanent A-fib and she is not interested in rhythm control. Continue rate control with Toprol-XL as noted.
-Continue outpatient dose of Eliquis 5 mg BID (age 84, Cre 0.9, wt 69.8 kg)
[2025-01-09] MEDS: MAXIPIME 2000 MG IV (16:49)
--- NOTE | 2025-01-09 17:07 | EDCM ---
CM reviewed chart and met with pt and daughters bedside in ED. Lives alone in 1 story town home, [address].
Independent with ADLs, personal care and ambulation at baseline, using RW since last admission.
Also has shower chair, wheelchair and commode.
Confirms prescription coverage.
Current with [facility].
Hx [facility] after last admit 11/20 to 12/06, also hx [facility]
PCP: Darian Giles
Pharmacy: [facility]
Pt's daughter Chrissy works at , asked to be called with any updates [phone], can also TT her.
Anticipate discharge home with resumption of [facility], CM will continue to follow.
[2025-01-09 17:24] LABS: Procalcitonin 0.96 ng/ml (0.0-0.25)
[2025-01-09] MEDS: MAGNESIUM OXIDE 400 MG PO (20:34)
[2025-01-09] MEDS: ELIQUIS 5 MG PO (20:34)
[2025-01-09] MEDS: TOPROL XL 100 MG PO (20:35)
[2025-01-09] MEDS: VIBRAMYCIN 100 MG PO (20:36)
[2025-01-09] MEDS: SODIUM CHLORIDE 1 GRAM PO (20:36)
[2025-01-09] MEDS: NAMENDA 10 MG PO (20:40)
[2025-01-09] MEDS: TYLENOL 500 MG PO (21:26)
[2025-01-09] MEDS: ZOLOFT 25 MG PO (21:26)
[2025-01-09] MEDS: MAXIPIME 1000 MG IV (23:52)
[2025-01-09] MEDS: STERILE WATER FOR INJECTION 10 ML IV (23:59)
[2025-01-10] VITALS (8 sets, daily range): BP systolic 111–142; BP diastolic 54–85; PULSE 94–99; O2SAT 97
[2025-01-10] MEDS: ELIQUIS 5 MG PO ×2 (08:27→20:34)
[2025-01-10] MEDS: KCL 40 MEQ PO (08:28)
[2025-01-10] MEDS: MAGNESIUM OXIDE 400 MG PO ×2 (08:29→20:35)
[2025-01-10] MEDS: LASIX 40 MG IV ×2 (08:29→16:00)
[2025-01-10] MEDS: MAXIPIME 1000 MG IV (08:30)
[2025-01-10] MEDS: NAMENDA 10 MG PO ×2 (08:30→20:36)
[2025-01-10] MEDS: PROTONIX 40 MG PO (08:30)
[2025-01-10] MEDS: TOPROL XL 100 MG PO ×2 (08:31→20:37)
[2025-01-10] MEDS: SODIUM CHLORIDE 1 GRAM PO ×2 (08:31→20:34)
[2025-01-10] MEDS: STERILE WATER FOR INJECTION 10 ML IV ×2 (08:31→13:07)
[2025-01-10] MEDS: VIBRAMYCIN 100 MG PO ×2 (08:32→20:36)
--- NOTE | 2025-01-10 08:32 | VNURNOTE ---
Addendum entered by Ramandeep Lara RN 01/10/25 14:25:
[facility] Resumption referral placed in [facility].
Original Note:
Chart reviewed. Patient is current with [facility]. Will continue to follow hospital course and DC plans.
[2025-01-10 08:36] LABS: Hematocrit 29.9 % (37.0-47.0); Hemoglobin 8.9 g/dL (12.0-16.0); Mean Corp Hgb Conc. 29.8 g/dL (33.0-37.0); Mean Corpuscular Volume 82.4 fL (81.0-99.0); Red Cell Dist. Width 17.4 % (11.5-14.5)
[2025-01-10 08:49] LABS: Blood Urea Nitrogen 20 mg/dl (7-17); Calcium 9.3 mg/dl (8.4-10.2); Carbon Dioxide 31 mmol/L (22-30); Chloride 104 mmol/L (98-107); Estimated Creatinine Clearance 41 ml/min; Glucose 102 mg/dl (70-99); Potassium 3.5 mmol/L (3.5-5.1); Sodium 139 mmol/L (135-145); eGFR > 60.00
--- NOTE | 2025-01-10 09:49 | CON.PUL ---
Consultation
Consultation Request
Date/Time Consultation Requested: 01/10/2025-8 AM
Date/Time Consultation Performed: 01/10/2025-8:30 AM
Requesting Provider: hospitalist
Performing Provider: Dr. Triplett
Reason for Consultation: Pneumonia
Medical History
-
Chief Complaint: Shortness of breath
History of Present Illness:
84-year-old former smoking female with a history of hypertension, atrial fibrillation, heart failure, GERD, and dementia recently discharged from the hospital 12/06/2024 with previous hypercalcemia hospitalization and then acute heart failure
exacerbation now presents with confusion and hypoxemia and possible hemoptysis noted to have pneumonia and pulmonary consulted for hypoxemia/pneumonia 01/10/2025. Patient denies any shortness of breath at rest while on oxygen. She has chest
congestion, brown sputum production, no obvious hemoptysis today, and offers no complaints of chest pain, chest tightness, wheezing, pleurisy, abdominal pain, nausea, or focal weakness.
Past Medical History
Past Medical History: None (Hypertension. Atrial fibrillation. Heart failure preserved EF. GERD. Depression/anxiety. Dementia. Cholecystectomy. Hysterectomy. Left hip replacement. Rectocele repair. Bladder suspension repair.)
Social History
Tobacco: Former Smoker (Less than 34-csqx-gotn smoker quit 50 years ago)
Alcohol: None
Drug: None
Personal:
Living: Alone
Occupational Exposures: No known asbestos exposure
Environmental Exposures: No known tuberculosis exposure
Family History
Family History: Reviewed & Not Pertinent
Allergies / Home Medications
Allergies
Allergy/AdvReac Type Severity Reaction Status Date / Time
acetaminophen (From Allergy stomach Verified 01/09/25 17:47
Tylenol-Codeine) ache
calcitonin Allergy Rash Verified 01/09/25 12:56
clarithromycin Allergy Unknown Verified 01/09/25 12:56
codeine (From Allergy stomach Verified 01/09/25 17:47
Tylenol-Codeine) ache
erythromycin base Allergy Unknown Verified 01/09/25 12:56
Home Medications
�Medication �Instructions �Recorded �Confirmed �Last Taken �Type
colestipol 1 gram tablet 1 gm PO BID High cholesterol #60 10/08/19 01/09/25 01/09/25 Rx
tabs
pantoprazole 40 mg tablet,delayed 40 mg PO DAILY #30 tabs 10/08/19 01/09/25 01/09/25 Rx
release
amitriptyline 50 mg tablet 50 mg PO HS Mental Health/Anxiety 11/15/24 01/09/25 01/08/25 History
apixaban 5 mg tablet (Eliquis) 5 mg PO BID Blood Clot 11/15/24 01/09/25 01/09/25 History
Prevention/Tx
memantine 10 mg tablet 10 mg PO BID Neurological Condition 11/15/24 01/09/25 01/09/25 History
peg 400-propylene glycol (PF) 0.4 1 drp BOTH EYES TIDPRN PRN dryness 11/15/24 01/09/25 11/19/24 History
%-0.3 % eye drops in a dropperette
(Systane (PF))
sertraline 25 mg tablet (Zoloft) 25 mg PO HS Mental Health/Anxiety 11/15/24 01/09/25 01/08/25 History
acetaminophen 500 mg tablet 500 mg PO HS Pain 11/20/24 01/09/25 01/08/25 History
magnesium oxide 400 mg (241.3 mg 400 mg PO BID #60 tabs 12/06/24 01/09/25 01/09/25 Rx
magnesium) tablet
sodium chloride 1,000 mg soluble 1,000 mg PO BID #60 tabs 12/06/24 01/09/25 01/09/25 Rx
tablet
dextromethorphan polistirex 30 10 ml PO DAILYPRN PRN cough 01/09/25 01/09/25 01/08/25 History
mg/5 mL oral susp ext.release 12hr
(Delsym 12 hour)
furosemide 20 mg tablet 40 mg PO QPM Fluid 01/09/25 01/09/25 01/08/25 History
Retention/Swelling
furosemide 80 mg tablet (Lasix) 80 mg PO DAILY Fluid 01/09/25 01/09/25 01/09/25 History
Retention/Swelling
loratadine 10 mg tablet 10 mg PO DAILYPRN PRN allergies 01/09/25 01/09/25 01/08/25 History
metoprolol succinate 100 mg 100 mg PO BID Blood Pressure 01/09/25 01/09/25 01/09/25 History
tablet,extended release 24 hr
Review of Systems
-
Unable to Obtain full review of systems at this time due to: Other ( per HPI)
Vitals / Labs / Diagnostic Testing
Vital Signs
Temp Pulse Resp BP Pulse Ox
97.4 F 77 16 123/75 96
01/10/25 07:30 01/10/25 07:30 01/10/25 07:30 01/10/25 07:30 01/10/25 07:30
Lab Data
01/10/25 07:32
01/10/25 07:32
Microbiology
01/09/25 13:08 Nasal Swab Influenza Types A & B (ANISA) - Final
Negative for Influenza A & B, NAAT
Negative results must be combined with clinical observations
and patient history.
Nucleic Acid Amplification test (NAAT)performed on the
[employer] platform.
Diagnostic Testing:
Physical Exam
-
Exam:
Well-nourished and well-developed in no apparent distress
HEENT-atraumatic, normocephalic
Neck-supple, no JVD, no bruit
Heart-regular rate and rhythm-no murmurs, rubs or gallops
Chest with some rhonchi and rare basilar crackles and no wheezes
Back without tenderness
Abdomen-soft, nontender, nondistended, no hepatosplenomegaly
Extremities-no cyanosis, clubbing, edema and good peripheral pulses
Integument-intact, no rashes, lesions or ecchymosis
Neurology-alert and oriented, nonfocal motor and sensory exam
Assessment
-
84-year-old former smoking female with a history of hypertension, atrial fibrillation, heart failure, GERD, and dementia recently discharged from the hospital 12/06/2024 with previous hypercalcemia hospitalization and then acute heart failure
exacerbation now presents with confusion and hypoxemia and possible hemoptysis noted to have pneumonia and pulmonary consulted for hypoxemia/pneumonia 01/10/2025.
Pneumonia-elevated procalcitonin
Acute on top of chronic heart failure preserved EF
Leukocytosis
Exrhqb-cfpdffvpdd-guncakyolr 8.9
Conditions present prior to admission:
Recent hospitalization 11/18/2024-hypercalcemia and IVETTE
Recent hospitalization-heart failure 12/06/2024
Hypertension.
Atrial fibrillation.
Chronic Eliquis
Heart failure preserved EF.
Left thoracentesis 12/22--200 mL liter clear transudative fluid hypercalcemia
Hypomagnesemia
History of E. coli UTI
Intermittent urinary retention
GERD.
Depression/anxiety.
Dementia.
Cholecystectomy.
Hysterectomy. Left hip replacement. Rectocele repair. Bladder suspension repair. Hemorrhoidectomy. Epidural steroid injections. Cardioversion [facility] September 2023.
Plan
Recent hospitalization records reviewed-now admitted with acute decompensation likely due to pneumonia-aspiration risk
Supplemental oxygen as needed
Aspiration precautions
Consider speech therapy evaluation if aspiration suspected
Incentive spirometry
Mucolytic's
Mucus clearing devices if needed
Nebulizers if needed-currently not bronchospastic
Check cultures
Sputum culture if possible
Cefepime and doxycycline initiated-finite course
Follow radiographically
Monitor leukocytosis
Diuresis as tolerated
Monitor renal function, electrolytes, intake/output, lower extremity edema and weight
Replace electrolytes as needed
Cardiology following-correspondence reviewed
Follow hemoglobin
Transfuse if needed
DVT prophylaxis-on apixaban
GI prophylaxis-on pantoprazole
Nutrition
Early mobilization
Consider outpatient pulmonary evaluation to ensure pneumonia resolution
Diagnostic data:
Chest x-ray 11/15/2024-small bilateral pleural effusions, cardiomegaly
Chest x-ray 12/22-status post left thoracentesis, no pneumothorax
Chest x-ray 01/09/2025-new patchy airspace opacifications left mid and lower lung field likely pneumonia, small bilateral pleural effusions more pronounced on the left
CT chest 11/28/2024-moderate bilateral pleural effusions left greater than right, moderate left lower lobe and mild right lower lobe consult patient-ectasis or pneumonia, no pulmonary nodules identified, pericardial effusion
Echo 03/18: EF 55 to 60%, mild MR, TR
Echo 09/2023: EF 45 to 50%, mild LVH, mild MR, AI, TR, PASP 39 mmHg
Echo 07/2024: EF 50%, mild MR, AI, mild to moderate TR with PAP 30 mmHg
ECHO 11/21/24: EF 55%, MAC, moderate MR, aortic sclerosis, mild AR, dilated RV and RA with moderate TR, PASP 49 mmHg
Data Reviewed
-
EKG: Report reviewed by me
Radiology: Image personally visualized and interpreted and Report reviewed by me
CT Scan: Report reviewed by me
Medical Tests (Nuc Med, Echo etc): Report reviewed by me
Labs: Labs reviewed by me
Old Records: Reviewed
Total Time Spent with Patient (in minutes): 55
--- NOTE | 2025-01-10 10:31 | W.PN.CARDCBS ---
Addendum entered and electronically signed by Gina Gaines PA-C 01/10/25 14:07:
called patient's daughter Chrissy at phone number provided in chart, no answer. will continue to attempt to update on daily basis as requested.
Addendum entered and electronically signed by Suha Lowery MD 01/10/25 12:39:
I saw and examined the patient.
The Oil Pump Station Operator Chief's note was reviewed and I agree with the note.
Comment: Overall Shima is coming along well. She tells me that her breathing has significantly improved. She still coughs and brings up yellow sputum. She denies any chest discomfort.
Vital signs and lab work reviewed. On exam patient is well-appearing, no acute distress, daughter is at bedside, regular rate, normal S1 and S2, no murmurs, rubs or gallops, decreased breath sounds at bilateral bases, elevated JVD, abdomen is soft,
nontender, nondistended with active bowel sounds, warm extremities without significant edema.
Recommendations:
1. Continue with IV diuresis with strict monitoring of daily upright weights, close monitoring of renal function and electrolytes with repletion as needed.
2. Continue to wean supplemental oxygen. Encourage incentive spirometry and out of bed as much as possible.
We will continue to follow with you. Answered all of patient's questions and concerns as well as daughters at bedside.
Suha Lowery MD, FAC, [facility] [place]
Suha Lowery MD, [facility], [facility]
Original Note:
Today's Communication / Plan
-
continue IV lasix
replete K
wean supp O2
speech eval
Impression / Plan
-
PCP:Darian Giles
Primary Medical Records Field Technician: Dr Stoll
Impression:
Admitted with SOB, cough, confusion and possible PNA and HFpEF 01/09/2025
PNA
Acute on chronic HFpEF
Recent admission for acute HF 11/20/2024 until 12/06/2024
Recent admission for IVETTE, hypercalcemia/dehydration 11/15/24 until 11/18/2024
Permanent atrial fibrillation
Chronic Eliquis OAC
Hyperlipidemia
Hypercalcemia
Hypomagnesemia
HTN
intermittent urinary retention
GERD
Dementia
Hypokalemia
Echo 03/18: EF 55 to 60%, mild MR, TR
Echo 09/2023: EF 45 to 50%, mild LVH, mild MR, AI, TR, PASP 39 mmHg
Echo 07/2024: EF 50%, mild MR, AI, mild to moderate TR with PAP 30 mmHg
ECHO 11/21/24: EF 55%, MAC, moderate MR, aortic sclerosis, mild AR, dilated RV and RA with moderate TR, PASP 49 mmHg
Plan:
-Patient presented with cough and lower extremity edema
-Being treated for pneumonia. Would consider speech evaluation to ensure no degree of aspiration. video swallow ordered
-Also with elevated proBNP, so concern for acute CHF. Was on regimen of Lasix 80 mg every morning and 40 mg every afternoon prior to admission. Is presently on IV Lasix 40 mg twice daily. Creatinine stable at 0.9
-replete K
-Wean supplemental oxygen as able
-EF was 55% by echo 11/21/2024. She has history of mild reduction in EF of 45% in September 2023 with subsequent recovery
-Outpatient dose of Toprol XL 100 mg BID should be continued
-Patient is not chronically on SHANELLE/ARB/ARNI due to hypotension
-Patient was previously on spironolactone, but it was held due to hypotension starting 11/2024
-Patient not a great candidate for SGLT2 inhibitors given history of UTIs
-Patient with known permanent A-fib and she is not interested in rhythm control. Continue rate control with Toprol-XL as noted.
-Continue outpatient dose of Eliquis 5 mg BID
-PT/OT
PREADMIT DATA:
-Patient came to the ER today after an episode of confusion and new coughing and SOB prompting admission for PNA, possible HF and therefore consultation to cardiology. Patient was just admitted from 11/20/2024 until 12/06/2024 with acute HF. Patient
was at rehab until 12/26/2024 and has been home for about 2 weeks. Family feels that the patient has been doing well at home and reports that yesterday she was able to walk 4 houses down on the block and then come back home which is an overall
increase in her activity levels. Patient was seen in the cardiology office on 12/22/2024 and appeared to be doing well, but weight was trending up since last admission so her Lasix was increased to 80 mg a.m. and 40 mg p.m. daily. Patient's
daughter, Chrissy who is a nurse in same-day surgery, called the office then to report that weight had improved and was down to 148 lbs, the LE edema was not improving much. Patient had labs that were stable and she remained on her usual dose of Lasix
and now the daughter feels that overall the edema has improved, but separately patient is now coughing and has blood in her mucus which is a new change in less than 24 hours. Patient denies any chest pain. No fevers or chills. Patient is now
requiring 2 L nasal cannula. CXR suggest PNA, but interestingly the proBNP is 5550 which is up from last admission when it was only 1910.
Progress Note - Medical Records Field Technician
Subjective
Date of Service: January 10, 2025
Patient reports some improvement in her breathing overnight. Continues with coughing with eating/drinking
Objective
Labs:
01/10/25 07:32
01/10/25 07:32
Labs
Hgb 8.9 g/dL (12.0-16.0) L 01/10/25 07:32
Hct 29.9 % (37.0-47.0) L 01/10/25 07:32
Plt Count 10^3/uL (130-400) 01/10/25 07:32
Sodium 139 mmol/L (135-145) 01/10/25 07:32
Potassium 3.5 mmol/L (3.5-5.1) 01/10/25 07:32
BUN 20 mg/dl (7-17) H 01/10/25 07:32
Creatinine 0.9 mg/dL (0.6-1.0) 01/10/25 07:32
Glucose 102 mg/dl (70-99) H 01/10/25 07:32
Troponins
01/09/25
13:08
Troponin I 0.013
Vital Signs and I&O:
Vital Signs
Temp Pulse Resp BP Pulse Ox
97.4 F 77 16 123/75 96
01/10/25 07:30 01/10/25 07:30 01/10/25 07:30 01/10/25 07:30 01/10/25 07:30
Vital Signs
Temp Pulse Resp BP Pulse Ox
97.4 F 77 16 123/75 96
01/10/25 07:30 01/10/25 07:30 01/10/25 07:30 01/10/25 07:30 01/10/25 07:30
Intake & Output
01/08/25 01/09/25 01/10/25 01/11/25
07:59 07:59 07:59 07:59
Intake Total 480 / 480
Balance 480 / 480
Physical Exam
Physical Exam
GEN: No distress, awake, alert, oriented x3. on supp O2
HEENT: supple, anicteric, mmm, eomi
LUNGS: CTA B/L, no wheezes
CV: Irreg, S1/S2, 1/6 murmur
ABD: soft, BS+, NT/ND
EXT: No cyanosis, clubbing. 1+ edema of B/L LE, compression stockings in place
NEURO: Gross non-focal
SKIN: Warm, pink, dry. No rash
--- NOTE | 2025-01-10 11:44 | PTOTSP ---
Speech Therapy Evaluation:
Pt with chronic risk factors of dysphagia including hx of Dementia and GERD, acutely compounded by generalized weakness and tenuous respiratory status in the setting of multifocal PNA. At bedside, oral and pharyngeal phase grossly functional without
any s/sx of aspiration. Despite this, cannot r/o pharyngeal component given risk factors for dysphagia, current chest imaging, need for supplemental O2, and elevated procalcitonin. MD ordered VSE for further assessment.
Recommend:
1. Continue regular solids and thin liquids
2. Meds as tolerated
3. VSE to be completed today. Further recommendations pending results of VSE
--- NOTE | 2025-01-10 12:37 | W.PN.HOSP.TC ---
Today's Communication/Plan
-
VSE.
Antibiotics.
Diuresis
Assessment / Plan
Assessment / Plan
Impression:
Presentation with shortness of breath, persistent cough and mild hemoptysis.
Acute hypoxic respiratory failure (hypoxemia at 88% on room air on presentation).
Bilateral multifocal pneumonia left greater than right suspected secondary to aspiration event.
Acute CHF preserved EF exacerbation
Conditions prior to admission:
Recent hospitalization for decompensated CHF and IVETTE 11/20/2024 - 12/06/2024.
Permanent atrial fibrillation
Anticoagulation with Eliquis
Dyslipidemia.
Essential hypertension.
GERD.
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
Plan:
Patient presents with rather acute onset of cough, mild hemoptysis and hypoxemia
Afebrile,
Mild elevated WBC
Chest x-ray with multifocal left greater than right infiltrates.
No prior aspiration events, and patient denies any trouble swallowing
Bedside speech is elevation with no overt aspiration
Will proceed with VSE
Continue aspiration precautions
At this point recommended regular consistency diet and thin liquids.
Continue antibiotics narrowing coverage to ceftriaxone and doxycycline
If hemoptysis persist we will quantify.
Sputum culture.
Acute CHF preserved EF
ECHO 11/21/24: EF 55%, MAC, moderate MR, aortic sclerosis, mild AR, dilated RV and RA with moderate TR, PASP 49 mmHg
Hypoxemic likely due to multifactorial causes including aspiration. Chest x-ray suggestive rather pneumonia with focal infiltrates rather than interstitial pattern pulmonary edema per
Noted elevated pro CHF BNP offline with weight gain up to 69 kg on admission (dry weight 65 kg)
Continue IV Lasix
Follow renal function and daily weights closely.
Continue preadmission regimen including metoprolol XL,
Chronic hyponatremia
Monitor sodium and volume status while on Lasix and preadmission regimen including solutab
Permanent atrial fibrillation baseline rate controlled. Continue metoprolol.
Continue Eliquis
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
Continue preadmission regimen including Zoloft, Namenda
Anticipated Discharge: 24 - 48 hours
Subjective/Interval History
-
Date of Service: January 10, 2025
Objective Data
-
Labs:
Laboratory Results
01/10/25
07:32
WBC 5.8
Hgb 8.9 L
Hct 29.9 L
Plt Count
Sodium 139
Potassium 3.5
Chloride 104
Carbon Dioxide 31 H
BUN 20 H
Creatinine 0.9
Glucose 102 H
Calcium 9.3
Vital Signs:
Vital Signs
Temp Pulse Resp BP Pulse Ox
97.7 F 82 18 138/85 96
01/10/25 11:22 01/10/25 11:22 01/10/25 11:22 01/10/25 11:22 01/10/25 11:22
I&O
01/09/25 01/10/25 01/11/25
06:59 06:59 06:59
Intake Total 480 / 480
Balance 480 / 480
Physical Exam
-
General: Well Developed and No Apparent Distress
HEENT: Normocephalic, Atraumatic and Moist Mucous Membranes
Respiratory: Rhonchi; Negative Wheezes
Cardiac: Regular Rhythm and S1/S2; Negative Murmur, Rub or Gallop
GI: Soft, Nontender, Nondistended and Normal Bowel Sounds; Negative Organomegaly
Rectal: Deferred by Provider
Musculoskeletal: No Clubbing, No Cyanosis and No Edema
Skin: Negative Rash
Neuro: Nonfocal/Grossly Intact
[2025-01-10] MEDS: KLOR-CON 20 MEQ PO (13:05)
[2025-01-10] MEDS: ROCEPHIN 1000 MG IV (13:05)
--- NOTE | 2025-01-10 13:56 | PTOTSP ---
Speech Therapy VSE:
Patient presents with functional oral stage and mild pharyngeal dysphagia. No aspiration observed, however deep laryngeal penetration occurred with thin liquids via consecutive cup sips. Upper laryngeal penetration also occurred with thin and mildly
thick liquids, though material was not observed to descend towards vocal folds and a cued cough/throat clear + re-swallow was effective at clearing residue from vestibule. No significant pharyngeal retention. Esophageal screen showed esophageal
retention from proximal third to distal esophagus, per PA-C. Esophagus also appeared dilated and filled with air after swallowing. If esophageal complaints arise, consider referral to GI. Please see patient care note for full details of penetration
and swallowing physiology.
Recommend:
1. Continue IDDSI Level 7 (regular solids) and thin liquids via single sips (no consecutive sips)
2. Medications as best tolerated
3. Strict aspiration precautions: Upright all meals, small bites/sips, slow rate, intermittent throat clear + re-swallow to clear material from vestibule, alternate solids/liquids
4. Modifiable risk factors for aspiration pneumonia including encouraging frequent and thorough oral care, pulmonary hygiene measures, and increasing physical mobility as medically feasible
5. INSURANCE SALES PROFESSIONAL to follow for further education regarding results and recommendations of study and to assess tolerance of diet.
--- NOTE | 2025-01-10 14:47 | CM ---
Pt is known to [facility] and services will resume after discharge.
[2025-01-10] MEDS: DUONEB 3 ML INH (15:12)
[2025-01-10] MEDS: NON-FORMULARY ITEM 1 GM PO (20:43)
[2025-01-10 21:23] LABS: Urine Character Clear (Clear)
[2025-01-10] MEDS: ELAVIL 50 MG PO (22:25)
[2025-01-10] MEDS: TYLENOL 500 MG PO (22:25)
[2025-01-10] MEDS: ZOLOFT 25 MG PO (22:25)
[2025-01-11 03:25] VITALS: BP 135/84
[2025-01-11 06:00] VITALS: BMI 24.7
[2025-01-11 07:00] VITALS: BP 110/77
[2025-01-11] MEDS: PROTONIX 40 MG PO (08:03)
[2025-01-11] MEDS: VIBRAMYCIN 100 MG PO ×2 (08:03→21:33)
[2025-01-11] MEDS: LASIX 40 MG IV ×2 (08:03→16:45)
[2025-01-11] MEDS: SODIUM CHLORIDE 1 GRAM PO ×2 (08:07→21:33)
[2025-01-11] MEDS: MAGNESIUM OXIDE 400 MG PO ×2 (08:07→21:33)
[2025-01-11] MEDS: TOPROL XL 100 MG PO ×2 (08:07→21:33)
[2025-01-11] MEDS: NAMENDA 10 MG PO ×2 (08:08→21:33)
[2025-01-11] MEDS: ELIQUIS 5 MG PO ×2 (08:08→21:33)
[2025-01-11] MEDS: NON-FORMULARY ITEM 1 GM PO ×2 (08:08→21:35)
--- NOTE | 2025-01-11 09:47 | W.PN.PUL.V3 ---
Today's Communication / Plan
-
Wean oxygen
Increase activity
Diuresis
Antibiotics
Assessment
-
84-year-old former smoking female with a history of hypertension, atrial fibrillation, heart failure, GERD, and dementia recently discharged from the hospital 12/06/2024 with previous hypercalcemia hospitalization and then acute heart failure
exacerbation now presents with confusion and hypoxemia and possible hemoptysis noted to have pneumonia and pulmonary consulted for hypoxemia/pneumonia 01/10/2025.
Pneumonia-elevated procalcitonin
Hemoptysis-resolved
Acute on top of chronic heart failure preserved EF
Leukocytosis
Ttagfw-rckeliaahr-wizhzoqaai 8.9
Conditions present prior to admission:
Recent hospitalization 11/18/2024-hypercalcemia and IVETTE
Recent hospitalization-heart failure 12/06/2024
Hypertension.
Atrial fibrillation.
Chronic Eliquis
Heart failure preserved EF.
Left thoracentesis 12/22--200 ml clear transudative fluid hypercalcemia
Hypomagnesemia
History of E. coli UTI
Intermittent urinary retention
GERD.
Depression/anxiety.
Dementia.
Cholecystectomy.
Hysterectomy. Left hip replacement. Rectocele repair. Bladder suspension repair. Hemorrhoidectomy. Epidural steroid injections. Cardioversion [facility] September 2023.
Plan
Recent hospitalization records reviewed-now admitted with acute decompensation likely due to pneumonia-aspiration risk
Supplemental oxygen as needed
Aspiration precautions
Speech therapy evaluation noted
Video swallow 01/10/25-regular solids and thin liquids
Incentive spirometry
Mucolytic's
Mucus clearing devices if needed
Nebulizers if needed-currently not bronchospastic
Cultures reviewed.
Urine culture pending.
Legionella and streptococcal antigen negative.
Blood cultures negative.
Influenza negative.
Sputum culture-pending .
Ceftriaxone and doxycycline initiated-finite course
Follow radiographically
Monitor leukocytosis
Diuresis as tolerated
Monitor renal function, electrolytes, intake/output, lower extremity edema and weight
Replace electrolytes as needed
Cardiology following-correspondence reviewed
Follow hemoglobin
Transfuse if needed
DVT prophylaxis-on apixaban
GI prophylaxis-on pantoprazole
Nutrition
Early mobilization
Consider outpatient pulmonary evaluation to ensure pneumonia resolution
Diagnostic data:
Chest x-ray 11/15/2024-small bilateral pleural effusions, cardiomegaly
Chest x-ray 12/22-status post left thoracentesis, no pneumothorax
Chest x-ray 01/09/2025-new patchy airspace opacifications left mid and lower lung field likely pneumonia, small bilateral pleural effusions more pronounced on the left
CT chest 11/28/2024-moderate bilateral pleural effusions left greater than right, moderate left lower lobe and mild right lower lobe consult patient-ectasis or pneumonia, no pulmonary nodules identified, pericardial effusion
Echo 03/18: EF 55 to 60%, mild MR, TR
Echo 09/2023: EF 45 to 50%, mild LVH, mild MR, AI, TR, PASP 39 mmHg
Echo 07/2024: EF 50%, mild MR, AI, mild to moderate TR with PAP 30 mmHg
ECHO 11/21/24: EF 55%, MAC, moderate MR, aortic sclerosis, mild AR, dilated RV and RA with moderate TR, PASP 49 mmHg
Subjective Data
-
Date of Service:
Date of Service: January 11, 2025
Chief Complaint: Pulmonary Follow Up and Dyspnea Follow Up
Subjective:
She feels about the same, still has some chest congestion, minimal sputum production, no hemoptysis, some nasal congestion, no reflux
Review of Systems
General: Other ( per HPI)
Objective Data
Data Reviewed
Vital Signs / I&O:
Vital Signs
Temp Pulse Resp BP Pulse Ox
97.8 F 84 16 130/75 95
01/11/25 07:00 01/11/25 08:07 01/11/25 07:00 01/11/25 08:07 01/11/25 07:00
Intake and Output
01/10/25 01/11/25 01/12/25
06:59 06:59 06:59
Intake Total 480 / 480 480 / 480
Output Total 100 / 100
Balance 480 / 480 380 / 380
SaO2: 95
Nasal Cannula flow liters per minute: 2
Physical Exam
General: Respiratory Distress (n) and Comfortable
HEENT: Normocephalic and Moist Mucous Membranes
Cardiovascular: Regular Rhythm
Respiratory: Crackles ( bases), Rhonchi ( Expiratory), Non-Labored Respirations, Accessory Resp Muscle Use (n) and Stridor (n)
GI: Soft, Non Distended and Non Tender
Neurology: Awake, Alert and No Motor Deficits
Skin: Warm, Good Color, Cyanosis (n), Jaundice (n) and Rash (n)
Labs/Micro/Reports
Lab Data
01/10/25 07:32
Microbiology
01/10/25 07:32 Blood/Venous Blood Culture - Preliminary
No Growth in 24 hours- Final report to follow
01/10/25 21:15 Urine Legionella Urinary Antigen - Final
Negative for Legionella pneumophila Serogroup 1 antigen.
A negative result does not rule out the possiblity of
Legionella infection due to other serogroups or species of
Legionella. Clinical correlation is recommended.
01/10/25 21:15 Urine Streptococcus pneumoniae Antigen (M - Final
Negative for Streptococcus pneumoniae antigen.
A negative result does not exclude infection with
Streptococcus pneumoniae. Clinical correlation is
recommended.
01/09/25 13:08 Nasal Swab Influenza Types A & B (ANISA) - Final
Negative for Influenza A & B, NAAT
Negative results must be combined with clinical observations
and patient history.
Nucleic Acid Amplification test (NAAT)performed on the
[employer] platform.
--- NOTE | 2025-01-11 09:52 | W.PN.CARDCBS ---
Addendum entered and electronically signed by Suha Lowery MD 01/11/25 12:43:
I saw and examined the patient.
The Information Systems Architect's note was reviewed and I agree with the note.
Comment: Shima continues to have improved breathing however still appears somewhat volume overloaded.
Vital signs and lab work reviewed. On exam patient is well-appearing, no acute distress, daughter is at bedside, regular rate, normal S1 and S2, no murmurs, rubs or gallops, decreased breath sounds at bilateral bases, elevated JVD at about 9-10
cmH2O, abdomen is soft, nontender, nondistended with active bowel sounds, warm extremities without significant edema.
Recommendations:
1. Continue with IV diuresis with strict monitoring of daily upright weights, close monitoring of renal function and electrolytes with repletion as needed.
2. Continue to wean supplemental oxygen. Encourage incentive spirometry and out of bed as much as possible. PT/OT
3. Defer treatment of pneumonia to primary team.
4. Discussed with case management cost for SGLT2 inhibitors in the setting of heart failure with preserved EF.
5. If blood pressure allows will consider adding low-dose SHANELLE inhibitor
Suha Lowery MD, [facility], [facility]
Original Note:
Today's Communication / Plan
-
continue IV lasix
treat PNA
wean supp O2
BMP pending
consider addition of low dose acei pending BP trends, previously hypotension precluded addition
Impression / Plan
-
PCP:Darian Giles
Primary Loom Changeover Operator: Dr Stoll
Impression:
Admitted with SOB, cough, confusion and possible PNA and HFpEF 01/09/2025
PNA
Acute on chronic HFpEF
Recent admission for acute HF 11/20/2024 until 12/06/2024
Recent admission for IVETTE, hypercalcemia/dehydration 11/15/24 until 11/18/2024
Permanent atrial fibrillation
Chronic Eliquis OAC
Hyperlipidemia
Hypercalcemia
Hypomagnesemia
HTN
intermittent urinary retention
GERD
Dementia
Hypokalemia
Echo 03/18: EF 55 to 60%, mild MR, TR
Echo 09/2023: EF 45 to 50%, mild LVH, mild MR, AI, TR, PASP 39 mmHg
Echo 07/2024: EF 50%, mild MR, AI, mild to moderate TR with PAP 30 mmHg
ECHO 11/21/24: EF 55%, MAC, moderate MR, aortic sclerosis, mild AR, dilated RV and RA with moderate TR, PASP 49 mmHg
Plan:
-Patient presented with cough and lower extremity edema
-Being treated for pneumonia. aspiration precautions
-Also with elevated proBNP, treating for acute CHF. Was on regimen of Lasix 80 mg every morning and 40 mg every afternoon prior to admission. Is presently on IV Lasix 40 mg twice daily. weight down trending if accurate
-repeat BMP pending 01/11
-Wean supplemental oxygen as able
-continue compression stockings
-EF was 55% by echo 11/21/2024. She has history of mild reduction in EF of 45% in September 2023 with subsequent recovery
-Outpatient dose of Toprol XL 100 mg BID should be continued
-Patient is not chronically on SHANELLE/ARB/ARNI due to hypotension, could consider adding low dose lisinopril given history of recovered CM
-Patient was previously on spironolactone, but it was held due to hypotension starting 11/2024
-Patient not a great candidate for SGLT2 inhibitors given history of UTIs
-Patient with known permanent A-fib and she is not interested in rhythm control. Continue rate control with Toprol-XL as noted.
-Continue outpatient dose of Eliquis 5 mg BID
-PT/OT evals
PREADMIT DATA:
-Patient came to the ER today after an episode of confusion and new coughing and SOB prompting admission for PNA, possible HF and therefore consultation to cardiology. Patient was just admitted from 11/20/2024 until 12/06/2024 with acute HF. Patient
was at rehab until 12/26/2024 and has been home for about 2 weeks. Family feels that the patient has been doing well at home and reports that yesterday she was able to walk 4 houses down on the block and then come back home which is an overall
increase in her activity levels. Patient was seen in the cardiology office on 12/22/2024 and appeared to be doing well, but weight was trending up since last admission so her Lasix was increased to 80 mg a.m. and 40 mg p.m. daily. Patient's
daughter, Chrissy who is a nurse in same-day surgery, called the office then to report that weight had improved and was down to 148 lbs, the LE edema was not improving much. Patient had labs that were stable and she remained on her usual dose of Lasix
and now the daughter feels that overall the edema has improved, but separately patient is now coughing and has blood in her mucus which is a new change in less than 24 hours. Patient denies any chest pain. No fevers or chills. Patient is now
requiring 2 L nasal cannula. CXR suggest PNA, but interestingly the proBNP is 5550 which is up from last admission when it was only 1910.
Progress Note - Loom Changeover Operator
Subjective
Date of Service: January 11, 2025
reports breathing improving. remains with tightness in her legs
Objective
Labs:
01/10/25 07:32
Labs
Hgb 8.9 g/dL (12.0-16.0) L 01/10/25 07:32
Hct 29.9 % (37.0-47.0) L 01/10/25 07:32
Plt Count 10^3/uL (130-400) 01/10/25 07:32
Sodium 139 mmol/L (135-145) 01/10/25 07:32
Potassium 3.5 mmol/L (3.5-5.1) 01/10/25 07:32
BUN 20 mg/dl (7-17) H 01/10/25 07:32
Creatinine 0.9 mg/dL (0.6-1.0) 01/10/25 07:32
Glucose 102 mg/dl (70-99) H 01/10/25 07:32
Troponins
01/09/25
13:08
Troponin I 0.013
Vital Signs and I&O:
Vital Signs
Temp Pulse Resp BP Pulse Ox
97.8 F 84 16 130/75 95
01/11/25 07:00 01/11/25 08:07 01/11/25 07:00 01/11/25 08:07 01/11/25 09:47
Vital Signs
Temp Pulse Resp BP Pulse Ox
97.8 F 84 16 130/75 95
01/11/25 07:00 01/11/25 08:07 01/11/25 07:00 01/11/25 08:07 01/11/25 09:47
Intake & Output
01/09/25 01/10/25 01/11/25 01/12/25
07:59 07:59 07:59 07:59
Intake Total 480 / 480 480 / 480
Output Total 100 / 100
Balance 480 / 480 380 / 380
Physical Exam
Physical Exam
GEN: No distress, awake, alert, oriented x3. on supp O2
HEENT: supple, anicteric, mmm, eomi
LUNGS: no audible wheezes
CV: Irreg on tele
ABD: soft, BS+, NT/ND
EXT: No cyanosis, clubbing. 1+ edema of B/L LE
NEURO: Gross non-focal
SKIN: Warm, pink, dry. No rash
[2025-01-11 11:09] LABS: Blood Urea Nitrogen 20 mg/dl (7-17); Calcium 9.6 mg/dl (8.4-10.2); Carbon Dioxide 31 mmol/L (22-30); Chloride 100 mmol/L (98-107); Estimated Creatinine Clearance 41 ml/min; Glucose 152 mg/dl (70-99); Potassium 3.8 mmol/L (3.5-5.1); Sodium 137 mmol/L (135-145); eGFR > 60.00
--- NOTE | 2025-01-11 11:15 | W.PN.HOSP.TC ---
Today's Communication/Plan
-
IV antibiotics
Aspiration precautions per
IV Lasix with daily BMP and weight monitoring.
Attempt to wean off oxygen as tolerates
Assessment / Plan
Assessment / Plan
Impression:
Presentation with shortness of breath, persistent cough and mild hemoptysis.
Acute hypoxic respiratory failure (hypoxemia at 88% on room air on presentation).
Bilateral multifocal pneumonia left greater than right suspected secondary to aspiration event.
Acute CHF preserved EF exacerbation
Conditions prior to admission:
Recent hospitalization for decompensated CHF and IVETTE 11/20/2024 - 12/06/2024.
Permanent atrial fibrillation
Anticoagulation with Eliquis
Dyslipidemia.
Essential hypertension.
GERD.
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
Plan:
Patient presents with rather acute onset of cough, mild hemoptysis and hypoxemia
Afebrile,
Mild elevated WBC
Chest x-ray with multifocal left greater than right infiltrates.
No prior aspiration events, and patient denies any trouble swallowing
Bedside speech is elevation with no overt aspiration
VSE reviewed
Continue aspiration precautions
At this point recommended regular consistency diet and thin liquids.
Continue antibiotics narrowing coverage to ceftriaxone and doxycycline
If hemoptysis persist we will quantify.
Sputum culture.
Acute CHF preserved EF
ECHO 11/21/24: EF 55%, MAC, moderate MR, aortic sclerosis, mild AR, dilated RV and RA with moderate TR, PASP 49 mmHg
Hypoxemic likely due to multifactorial causes including aspiration. Chest x-ray suggestive rather pneumonia with focal infiltrates rather than interstitial pattern pulmonary edema per
Noted elevated pro CHF BNP offline with weight gain up to 69 kg on admission (dry weight 65 kg)
Continue IV Lasix
Follow renal function and daily weights closely.
Continue preadmission regimen including metoprolol XL,
Chronic hyponatremia
Monitor sodium and volume status while on Lasix and preadmission regimen including solutab
Permanent atrial fibrillation baseline rate controlled. Continue metoprolol.
Continue Eliquis
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
Continue preadmission regimen including Zoloft, Namenda
Anticipated Discharge: 24 - 48 hours
Subjective/Interval History
-
Date of Service: January 11, 2025
Objective Data
-
Labs:
Laboratory Results
01/11/25
10:41
Sodium 137
Potassium 3.8
Chloride 100
Carbon Dioxide 31 H
BUN 20 H
Creatinine 0.9
Glucose 152 H
Calcium 9.6
Vital Signs:
Vital Signs
Temp Pulse Resp BP Pulse Ox
97.8 F 84 16 130/75 95
01/11/25 07:00 01/11/25 08:07 01/11/25 07:00 01/11/25 08:07 01/11/25 09:47
I&O
01/10/25 01/11/25 01/12/25
06:59 06:59 06:59
Intake Total 480 / 480 480 / 480
Output Total 100 / 100
Balance 480 / 480 380 / 380
Physical Exam
-
General: Well Developed and No Apparent Distress
HEENT: Normocephalic, Atraumatic and Moist Mucous Membranes
Respiratory: Rhonchi; Negative Wheezes
Cardiac: Regular Rhythm and S1/S2; Negative Murmur, Rub or Gallop
GI: Soft, Nontender, Nondistended and Normal Bowel Sounds; Negative Organomegaly
Rectal: Deferred by Provider
Musculoskeletal: No Clubbing, No Cyanosis and No Edema
Skin: Negative Rash
Neuro: Nonfocal/Grossly Intact
[2025-01-11 12:00] VITALS: BP 114/63
[2025-01-11] MEDS: ROCEPHIN 1000 MG IV (14:58)
[2025-01-11] MEDS: STERILE WATER FOR INJECTION 10 ML IV (14:58)
[2025-01-11 15:00] VITALS: BP 117/63
[2025-01-11] MEDS: DUONEB 3 ML INH (15:15)
[2025-01-11 19:25] VITALS: BP 107/61
[2025-01-11] MEDS: ELAVIL 50 MG PO (21:34)
[2025-01-11] MEDS: TYLENOL 500 MG PO (21:34)
[2025-01-11] MEDS: ZOLOFT 25 MG PO (21:34)
[2025-01-11 23:15] VITALS: BP 121/68
[2025-01-12] VITALS (8 sets, daily range): BP systolic 108–126; BP diastolic 60–68; PULSE 90–96; O2SAT 96–97; BMI 24.6
[2025-01-12 06:52] LABS: Blood Urea Nitrogen 18 mg/dl (7-17); Calcium 9.4 mg/dl (8.4-10.2); Carbon Dioxide 30 mmol/L (22-30); Chloride 103 mmol/L (98-107); Estimated Creatinine Clearance 41 ml/min; Glucose 109 mg/dl (70-99); Potassium 3.5 mmol/L (3.5-5.1); Sodium 137 mmol/L (135-145); eGFR > 60.00
[2025-01-12] MEDS: ELIQUIS 5 MG PO ×2 (09:49→20:46)
[2025-01-12] MEDS: LASIX 40 MG IV ×3 (09:49→17:14)
[2025-01-12] MEDS: VIBRAMYCIN 100 MG PO ×2 (09:50→20:47)
[2025-01-12] MEDS: NAMENDA 10 MG PO ×2 (09:50→20:47)
[2025-01-12] MEDS: TOPROL XL 100 MG PO ×2 (09:50→21:55)
[2025-01-12] MEDS: PROTONIX 40 MG PO (09:50)
[2025-01-12] MEDS: MAGNESIUM OXIDE 400 MG PO ×2 (09:50→20:46)
[2025-01-12] MEDS: SODIUM CHLORIDE 1 GRAM PO ×2 (09:50→20:47)
--- NOTE | 2025-01-12 09:56 | W.PN.PUL.V3 ---
Today's Communication / Plan
-
Wean oxygen
Increase activity
Finite course of antibiotics
Assessment
-
84-year-old former smoking female with a history of hypertension, atrial fibrillation, heart failure, GERD, and dementia recently discharged from the hospital 12/06/2024 with previous hypercalcemia hospitalization and then acute heart failure
exacerbation now presents with confusion and hypoxemia and possible hemoptysis noted to have pneumonia and pulmonary consulted for hypoxemia/pneumonia 01/10/2025.
Pneumonia-elevated procalcitonin
Hemoptysis-resolved
Acute on top of chronic heart failure preserved EF
Leukocytosis
Iowjtr-cepimhrprc-spxzirtosz 8.9
Conditions present prior to admission:
Recent hospitalization 11/18/2024-hypercalcemia and IVETTE
Recent hospitalization-heart failure 12/06/2024
Hypertension.
Atrial fibrillation.
Chronic Eliquis
Heart failure preserved EF.
Left thoracentesis 12/22--200 ml clear transudative fluid hypercalcemia
Hypomagnesemia
History of E. coli UTI
Intermittent urinary retention
GERD.
Depression/anxiety.
Dementia.
Cholecystectomy.
Hysterectomy. Left hip replacement. Rectocele repair. Bladder suspension repair. Hemorrhoidectomy. Epidural steroid injections. Cardioversion [facility] September 2023.
Plan
Recent hospitalization records reviewed-now admitted with acute decompensation likely due to pneumonia-aspiration risk
Supplemental oxygen as needed-currently on 2 L - 95% saturation
Aspiration precautions
Speech therapy evaluation noted
Video swallow 01/10/25-regular solids and thin liquids
Incentive spirometry
Mucolytic's
Mucus clearing devices if needed
Nebulizers if needed-currently not bronchospastic
Cultures reviewed.
Urine culture negative continues
Legionella and streptococcal antigen negative.
Blood cultures negative.
Influenza negative.
Sputum culture-unable to produce
Ceftriaxone and doxycycline initiated-finite course
Follow radiographically
Monitor leukocytosis
Diuresis as tolerated
Monitor renal function, electrolytes, intake/output, lower extremity edema and weight
Replace electrolytes as needed
Cardiology following-correspondence reviewed
Follow hemoglobin
Transfuse if needed
DVT prophylaxis-on apixaban
GI prophylaxis-on pantoprazole
Nutrition
Early mobilization
Consider outpatient pulmonary evaluation to ensure pneumonia resolution
Diagnostic data:
Chest x-ray 11/15/2024-small bilateral pleural effusions, cardiomegaly
Chest x-ray 12/22-status post left thoracentesis, no pneumothorax
Chest x-ray 01/09/2025-new patchy airspace opacifications left mid and lower lung field likely pneumonia, small bilateral pleural effusions more pronounced on the left
CT chest 11/28/2024-moderate bilateral pleural effusions left greater than right, moderate left lower lobe and mild right lower lobe consult patient-ectasis or pneumonia, no pulmonary nodules identified, pericardial effusion
Echo 03/18: EF 55 to 60%, mild MR, TR
Echo 09/2023: EF 45 to 50%, mild LVH, mild MR, AI, TR, PASP 39 mmHg
Echo 07/2024: EF 50%, mild MR, AI, mild to moderate TR with PAP 30 mmHg
ECHO 11/21/24: EF 55%, MAC, moderate MR, aortic sclerosis, mild AR, dilated RV and RA with moderate TR, PASP 49 mmHg
Subjective Data
-
Date of Service:
Date of Service: January 12, 2025
Chief Complaint: Pulmonary Follow Up and Dyspnea Follow Up
Subjective:
Same, still has some chest congestion, minimal mucus, no chest pain or abdominal pain
Review of Systems
General: Other (Per HPI)
Objective Data
Data Reviewed
Vital Signs / I&O:
Vital Signs
Temp Pulse Resp BP Pulse Ox
97.6 F 85 17 125/66 95
01/12/25 08:11 01/12/25 08:11 01/12/25 08:11 01/12/25 08:11 01/12/25 08:11
Intake and Output
01/11/25 01/12/25 01/13/25
06:59 06:59 06:59
Intake Total 480 / 480 1040 / 1040
Output Total 100 / 100
Balance 380 / 380 1040 / 1040
SaO2: 95
Nasal Cannula flow liters per minute: 1
Physical Exam
General: Respiratory Distress (n) and Comfortable
HEENT: Normocephalic and Moist Mucous Membranes
Cardiovascular: Regular Rhythm
Respiratory: Crackles ( bases), Rhonchi ( Expiratory), Non-Labored Respirations, Accessory Resp Muscle Use (n) and Stridor (n)
GI: Soft, Non Distended and Non Tender
Neurology: Awake, Alert and No Motor Deficits
Skin: Warm, Good Color, Cyanosis (n), Jaundice (n) and Rash (n)
Labs/Micro/Reports
Lab Data
01/10/25 07:32
01/12/25 05:54
Microbiology
01/10/25 21:15 Urine Urine Culture - Final
NO GROWTH
01/10/25 07:32 Blood/Venous Blood Culture - Preliminary
No Growth in 48 hours- Final report to follow
01/10/25 21:15 Urine Legionella Urinary Antigen - Final
Negative for Legionella pneumophila Serogroup 1 antigen.
A negative result does not rule out the possiblity of
Legionella infection due to other serogroups or species of
Legionella. Clinical correlation is recommended.
01/10/25 21:15 Urine Streptococcus pneumoniae Antigen (M - Final
Negative for Streptococcus pneumoniae antigen.
A negative result does not exclude infection with
Streptococcus pneumoniae. Clinical correlation is
recommended.
01/09/25 13:08 Nasal Swab Influenza Types A & B (ANISA) - Final
Negative for Influenza A & B, NAAT
Negative results must be combined with clinical observations
and patient history.
Nucleic Acid Amplification test (NAAT)performed on the
[employer] platform.
[2025-01-12] MEDS: NON-FORMULARY ITEM 1 GM PO ×2 (10:21→20:48)
[2025-01-12] MEDS: STERILE WATER FOR INJECTION 10 ML IV (13:28)
[2025-01-12] MEDS: ROCEPHIN 1000 MG IV (13:28)
--- NOTE | 2025-01-12 14:06 | W.PN.CARDCBS ---
Addendum entered and electronically signed by Gina Gaines PA-C 01/12/25 16:52:
called and updated patient's daughter Chrissy via telephone for 9:16. she would like daily updates if possible
Original Note:
Today's Communication / Plan
-
Plan:
-Patient presented with cough and lower extremity edema
-Being treated for pneumonia. aspiration precautions
-Also with elevated proBNP, treating for acute CHF. Was on regimen of Lasix 80 mg every morning and 40 mg every afternoon prior to admission. Is presently on IV Lasix 40 mg twice daily. Weight continues to be downtrending but exam still
consistent with volume overload, continue IV diuresis.
-Check daily renal function with electrolytes
-Wean supplemental oxygen as able
-continue compression stockings
-EF was 55% by echo 11/21/2024. She has history of mild reduction in EF of 45% in September 2023 with subsequent recovery
-Outpatient dose of Toprol XL 100 mg BID should be continued
-Patient is not chronically on SHANELLE/ARB/ARNI due to hypotension, could consider adding low dose lisinopril given history of recovered CM
-Patient was previously on spironolactone, but it was held due to hypotension starting 11/2024
-Patient not a great candidate for SGLT2 inhibitors given history of UTIs.
-Patient with known permanent A-fib and she is not interested in rhythm control. Continue rate control with Toprol-XL as noted.
-Continue outpatient dose of Eliquis 5 mg BID
-PT/OT eval and OOB ambulate, IS
Impression / Plan
-
PCP:Darian Giles
Primary Diesel Dragline Operator: Dr Stoll
Impression:
Admitted with SOB, cough, confusion and possible PNA and HFpEF 01/09/2025
PNA
Acute on chronic HFpEF
Recent admission for acute HF 11/20/2024 until 12/06/2024
Recent admission for IVETTE, hypercalcemia/dehydration 11/15/24 until 11/18/2024
Permanent atrial fibrillation
Chronic Eliquis OAC
Hyperlipidemia
Hypercalcemia
Hypomagnesemia
HTN
intermittent urinary retention
GERD
Dementia
Hypokalemia
Echo 03/18: EF 55 to 60%, mild MR, TR
Echo 09/2023: EF 45 to 50%, mild LVH, mild MR, AI, TR, PASP 39 mmHg
Echo 07/2024: EF 50%, mild MR, AI, mild to moderate TR with PAP 30 mmHg
ECHO 11/21/24: EF 55%, MAC, moderate MR, aortic sclerosis, mild AR, dilated RV and RA with moderate TR, PASP 49 mmHg
Plan:
-Patient presented with cough and lower extremity edema
-Being treated for pneumonia. aspiration precautions
-Also with elevated proBNP, treating for acute CHF. Was on regimen of Lasix 80 mg every morning and 40 mg every afternoon prior to admission. Is presently on IV Lasix 40 mg twice daily. Weight continues to be downtrending but exam still
consistent with volume overload, continue IV diuresis.
-Check daily renal function with electrolytes
-Wean supplemental oxygen as able
-continue compression stockings
-EF was 55% by echo 11/21/2024. She has history of mild reduction in EF of 45% in September 2023 with subsequent recovery
-Outpatient dose of Toprol XL 100 mg BID should be continued
-Patient is not chronically on SHANELLE/ARB/ARNI due to hypotension, could consider adding low dose lisinopril given history of recovered CM
-Patient was previously on spironolactone, but it was held due to hypotension starting 11/2024
-Patient not a great candidate for SGLT2 inhibitors given history of UTIs.
-Patient with known permanent A-fib and she is not interested in rhythm control. Continue rate control with Toprol-XL as noted.
-Continue outpatient dose of Eliquis 5 mg BID
-PT/OT eval and OOB ambulate, IS
PREADMIT DATA:
-Patient came to the ER today after an episode of confusion and new coughing and SOB prompting admission for PNA, possible HF and therefore consultation to cardiology. Patient was just admitted from 11/20/2024 until 12/06/2024 with acute HF. Patient
was at rehab until 12/26/2024 and has been home for about 2 weeks. Family feels that the patient has been doing well at home and reports that yesterday she was able to walk 4 houses down on the block and then come back home which is an overall
increase in her activity levels. Patient was seen in the cardiology office on 12/22/2024 and appeared to be doing well, but weight was trending up since last admission so her Lasix was increased to 80 mg a.m. and 40 mg p.m. daily. Patient's
daughter, Chrissy who is a nurse in same-day surgery, called the office then to report that weight had improved and was down to 148 lbs, the LE edema was not improving much. Patient had labs that were stable and she remained on her usual dose of Lasix
and now the daughter feels that overall the edema has improved, but separately patient is now coughing and has blood in her mucus which is a new change in less than 24 hours. Patient denies any chest pain. No fevers or chills. Patient is now
requiring 2 L nasal cannula. CXR suggest PNA, but interestingly the proBNP is 5550 which is up from last admission when it was only 1910.
Progress Note - Diesel Dragline Operator
Subjective
Date of Service: January 12, 2025
Overall breathing conitnues to improve
Objective
Labs:
01/10/25 07:32
01/12/25 05:54
Labs
Hgb 8.9 g/dL (12.0-16.0) L 01/10/25 07:32
Hct 29.9 % (37.0-47.0) L 01/10/25 07:32
Plt Count 10^3/uL (130-400) 01/10/25 07:32
Sodium 137 mmol/L (135-145) 01/12/25 05:54
Potassium 3.5 mmol/L (3.5-5.1) 01/12/25 05:54
BUN 18 mg/dl (7-17) H 01/12/25 05:54
Creatinine 0.9 mg/dL (0.6-1.0) 01/12/25 05:54
Glucose 109 mg/dl (70-99) H 01/12/25 05:54
Vital Signs and I&O:
Vital Signs
Temp Pulse Resp BP Pulse Ox
98.1 F 89 17 116/64 97
01/12/25 11:25 01/12/25 11:25 01/12/25 11:25 01/12/25 11:25 01/12/25 11:25
Vital Signs
Temp Pulse Resp BP Pulse Ox
98.1 F 89 17 116/64 97
01/12/25 11:25 01/12/25 11:25 01/12/25 11:25 01/12/25 11:25 01/12/25 11:25
Intake & Output
01/10/25 01/11/25 01/12/25 01/13/25
06:59 06:59 06:59 06:59
Intake Total 480 / 480 480 / 480 1040 / 1040
Output Total 100 / 100
Balance 480 / 480 380 / 380 1040 / 1040
Physical Exam
Physical Exam
GEN: No distress, awake, alert, oriented x3. on supp O2
HEENT: supple, anicteric, mmm, eomi, +JVD
LUNGS: no audible wheezes
CV: Irreg on tele
ABD: soft, BS+, NT/ND
EXT: No cyanosis, clubbing. 1-2+ edema of B/L LE
NEURO: Gross non-focal
SKIN: Warm, pink, dry. No rash
--- NOTE | 2025-01-12 15:24 | W.PN.HOSP.TC ---
Today's Communication/Plan
-
Continue IV Lasix monitoring BMP and weight daily.
Continue IV antibiotics
Attempt to wean off oxygen
Physical therapy assessment
Assessment / Plan
Assessment / Plan
Impression:
Presentation with shortness of breath, persistent cough and mild hemoptysis.
Acute hypoxic respiratory failure (hypoxemia at 88% on room air on presentation).
Bilateral multifocal pneumonia left greater than right suspected secondary to aspiration event.
Acute CHF preserved EF exacerbation
Conditions prior to admission:
Recent hospitalization for decompensated CHF and IVETTE 11/20/2024 - 12/06/2024.
Permanent atrial fibrillation
Anticoagulation with Eliquis
Dyslipidemia.
Essential hypertension.
GERD.
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
Plan:
Patient presents with rather acute onset of cough, mild hemoptysis and hypoxemia
Afebrile,
Mild elevated WBC
Chest x-ray with multifocal left greater than right infiltrates.
No prior aspiration events, and patient denies any trouble swallowing
Bedside speech is elevation with no overt aspiration
VSE reviewed
Continue aspiration precautions
At this point recommended regular consistency diet and thin liquids.
Continue antibiotics narrowing coverage to ceftriaxone and doxycycline
If hemoptysis persist we will quantify.
Sputum culture.
Acute CHF preserved EF
ECHO 11/21/24: EF 55%, MAC, moderate MR, aortic sclerosis, mild AR, dilated RV and RA with moderate TR, PASP 49 mmHg
Hypoxemic likely due to multifactorial causes including aspiration. Chest x-ray suggestive rather pneumonia with focal infiltrates rather than interstitial pattern pulmonary edema per
Noted elevated pro CHF BNP offline with weight gain up to 69 kg on admission (dry weight 65 kg)
Continue IV Lasix
Follow renal function and daily weights closely.
Continue preadmission regimen including metoprolol XL,
Chronic hyponatremia
Monitor sodium and volume status while on Lasix and preadmission regimen including solutab
Permanent atrial fibrillation baseline rate controlled. Continue metoprolol.
Continue Eliquis
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
Continue preadmission regimen including Zoloft, Namenda
Anticipated Discharge: 24 - 48 hours
Subjective/Interval History
-
Date of Service: January 12, 2025
Objective Data
-
Labs:
Laboratory Results
01/12/25
05:54
Sodium 137
Potassium 3.5
Chloride 103
Carbon Dioxide 30
BUN 18 H
Creatinine 0.9
Glucose 109 H
Calcium 9.4
Vital Signs:
Vital Signs
Temp Pulse Resp BP Pulse Ox
97.8 F 88 17 122/66 96
01/12/25 15:05 01/12/25 15:05 01/12/25 15:05 01/12/25 15:05 01/12/25 15:05
I&O
01/11/25 01/12/25 01/13/25
06:59 06:59 06:59
Intake Total 480 / 480 1040 / 1040
Output Total 100 / 100
Balance 380 / 380 1040 / 1040
Physical Exam
-
General: Well Developed and No Apparent Distress
HEENT: Normocephalic, Atraumatic and Moist Mucous Membranes
Respiratory: Rhonchi; Negative Wheezes
Cardiac: Regular Rhythm and S1/S2; Negative Murmur, Rub or Gallop
GI: Soft, Nontender, Nondistended and Normal Bowel Sounds; Negative Organomegaly
Rectal: Deferred by Provider
Musculoskeletal: No Clubbing, No Cyanosis and No Edema
Skin: Negative Rash
Neuro: Nonfocal/Grossly Intact
[2025-01-12] MEDS: KCL 40 MEQ PO (17:14)
[2025-01-12] MEDS: TOPROL XL PO (21:09)
[2025-01-12] MEDS: ELAVIL 50 MG PO (21:09)
[2025-01-12] MEDS: TYLENOL 500 MG PO (21:10)
[2025-01-12] MEDS: ZOLOFT 25 MG PO (21:10)
[2025-01-13 03:00] VITALS: BP 118/70
[2025-01-13 06:00] VITALS: BMI 24.4
[2025-01-13 06:52] LABS: Blood Urea Nitrogen 19 mg/dl (7-17); Calcium 9.5 mg/dl (8.4-10.2); Carbon Dioxide 30 mmol/L (22-30); Chloride 104 mmol/L (98-107); Estimated Creatinine Clearance 41 ml/min; Glucose 119 mg/dl (70-99); Potassium 3.8 mmol/L (3.5-5.1); Sodium 137 mmol/L (135-145); eGFR > 60.00
[2025-01-13 07:00] VITALS: BP 112/61
[2025-01-13] MEDS: TOPROL XL 100 MG PO ×2 (08:51→20:06)
[2025-01-13] MEDS: MAGNESIUM OXIDE 400 MG PO ×2 (08:51→20:05)
[2025-01-13] MEDS: LASIX 40 MG IV ×2 (08:51→16:35)
[2025-01-13] MEDS: VIBRAMYCIN 100 MG PO ×2 (08:51→20:07)
[2025-01-13] MEDS: KCL 40 MEQ PO ×2 (08:51→20:04)
[2025-01-13] MEDS: NAMENDA 10 MG PO ×2 (08:51→20:05)
[2025-01-13] MEDS: NON-FORMULARY ITEM 1 GM PO ×2 (08:51→21:25)
[2025-01-13] MEDS: SODIUM CHLORIDE 1 GRAM PO ×2 (08:51→20:06)
[2025-01-13] MEDS: PROTONIX 40 MG PO (08:51)
[2025-01-13] MEDS: ELIQUIS 5 MG PO ×2 (08:51→20:04)
[2025-01-13 09:04] VITALS: BP 114/63
--- NOTE | 2025-01-13 09:27 | W.PN.PUL.V3 ---
Today's Communication / Plan
-
Chest x-ray with improved infiltrate.
Finite course of antibiotics.
Wean FiO2.
Increase activity.
Outpatient pulmonary follow-up
Assessment
-
84-year-old former smoking female with a history of hypertension, atrial fibrillation, heart failure, GERD, and dementia recently discharged from the hospital 12/06/2024 with previous hypercalcemia hospitalization and then acute heart failure
exacerbation now presents with confusion and hypoxemia and possible hemoptysis noted to have pneumonia and pulmonary consulted for hypoxemia/pneumonia 01/10/2025.
Pneumonia-elevated procalcitonin
Hemoptysis-resolved
Acute on top of chronic heart failure preserved EF
Leukocytosis
Jaukxc-ynjsoswdkk-ebrgxlubvj 8.9
Conditions present prior to admission:
Recent hospitalization 11/18/2024-hypercalcemia and IVETTE
Recent hospitalization-heart failure 12/06/2024
Hypertension.
Atrial fibrillation.
Chronic Eliquis
Heart failure preserved EF.
Left thoracentesis 12/22--200 ml clear transudative fluid hypercalcemia
Hypomagnesemia
History of E. coli UTI
Intermittent urinary retention
GERD.
Depression/anxiety.
Dementia.
Cholecystectomy.
Hysterectomy. Left hip replacement. Rectocele repair. Bladder suspension repair. Hemorrhoidectomy. Epidural steroid injections. Cardioversion [facility] September 2023.
Plan
Recent hospitalization records reviewed-now admitted with acute decompensation likely due to pneumonia-aspiration risk
Supplemental oxygen as needed-currently on 1 L - 95% saturation
Aspiration precautions
Speech therapy evaluation noted
Video swallow 01/10/25-regular solids and thin liquids
Incentive spirometry
Mucolytic's
Mucus clearing devices if needed
Nebulizers if needed-currently not bronchospastic
Chest x-ray 01/13/25-resolution of previously seen opacification right lower lobe, trace right and slightly increased left pleural effusion
Cultures reviewed.
Urine culture negative continues
Legionella and streptococcal antigen negative.
Blood cultures negative.
Influenza negative.
Sputum culture-unable to produce
Ceftriaxone and doxycycline initiated-finite course
Follow radiographically
Monitor leukocytosis
Diuresis as tolerated
Monitor renal function, electrolytes, intake/output, lower extremity edema and weight
Replace electrolytes as needed
Cardiology following-correspondence reviewed
Follow hemoglobin
Transfuse if needed
DVT prophylaxis-on apixaban
GI prophylaxis-on pantoprazole
Nutrition
Early mobilization
Consider outpatient pulmonary evaluation to ensure pneumonia resolution
Diagnostic data:
Chest x-ray 11/15/2024-small bilateral pleural effusions, cardiomegaly
Chest x-ray 12/22-status post left thoracentesis, no pneumothorax
Chest x-ray 01/09/2025-new patchy airspace opacifications left mid and lower lung field likely pneumonia, small bilateral pleural effusions more pronounced on the left
CT chest 11/28/2024-moderate bilateral pleural effusions left greater than right, moderate left lower lobe and mild right lower lobe consult patient-ectasis or pneumonia, no pulmonary nodules identified, pericardial effusion
Echo 03/18: EF 55 to 60%, mild MR, TR
Echo 09/2023: EF 45 to 50%, mild LVH, mild MR, AI, TR, PASP 39 mmHg
Echo 07/2024: EF 50%, mild MR, AI, mild to moderate TR with PAP 30 mmHg
ECHO 11/21/24: EF 55%, MAC, moderate MR, aortic sclerosis, mild AR, dilated RV and RA with moderate TR, PASP 49 mmHg
Subjective Data
-
Date of Service:
Date of Service: January 13, 2025
Chief Complaint: Pulmonary Follow Up and Dyspnea Follow Up
Subjective:
Feels better, no productive cough, no chest pain or abdominal pain, no obvious hemoptysis
Review of Systems
General: Other ( per HPI)
Objective Data
Data Reviewed
Vital Signs / I&O:
Vital Signs
Temp Pulse Resp BP Pulse Ox
97.9 F 78 18 112/61 94
01/13/25 07:00 01/13/25 07:00 01/13/25 07:00 01/13/25 07:00 01/13/25 07:00
Intake and Output
01/12/25 01/13/25 01/14/25
06:59 06:59 06:59
Intake Total 1040 / 1040 1320 / 1320
Balance 1040 / 1040 1320 / 1320
SaO2: 94
Nasal Cannula flow liters per minute: 2
Physical Exam
General: Respiratory Distress (n) and Comfortable
HEENT: Normocephalic and Moist Mucous Membranes
Cardiovascular: Regular Rhythm
Respiratory: Crackles ( bases), Rhonchi ( Expiratory), Non-Labored Respirations, Accessory Resp Muscle Use (n) and Stridor (n)
GI: Soft, Non Distended and Non Tender
Neurology: Awake, Alert and No Motor Deficits
Skin: Warm, Good Color, Cyanosis (n), Jaundice (n) and Rash (n)
Labs/Micro/Reports
Lab Data
01/10/25 07:32
01/13/25 06:03
Microbiology
01/10/25 07:32 Blood/Venous Blood Culture - Preliminary
No Growth in 72 hours- Final report to follow
01/10/25 21:15 Urine Urine Culture - Final
NO GROWTH
01/10/25 21:15 Urine Legionella Urinary Antigen - Final
Negative for Legionella pneumophila Serogroup 1 antigen.
A negative result does not rule out the possiblity of
Legionella infection due to other serogroups or species of
Legionella. Clinical correlation is recommended.
01/10/25 21:15 Urine Streptococcus pneumoniae Antigen (M - Final
Negative for Streptococcus pneumoniae antigen.
A negative result does not exclude infection with
Streptococcus pneumoniae. Clinical correlation is
recommended.
[2025-01-13 11:00] VITALS: BMI 24.4
--- NOTE | 2025-01-13 12:08 | W.PN.CARDCBS ---
Addendum entered and electronically signed by Suha Lowery MD 01/13/25 14:35:
I saw and examined the patient.
The Magnaflux Operator's note was reviewed and I agree with the note.
Comment: Overall her breathing has been improving.
Vital signs and lab work reviewed. On exam her volume status appears better. She is out of bed into a chair, regular rate, normal S1 and S2, mildly elevated JVD, decreased breath sounds at bilateral bases, abdomen is soft, nontender, nondistended
with active bowel sounds, warm extremities without significant edema
Recommendations:
1. Agree with continued IV diuresis at least for today. Possibly consider transitioning to p.o. Lasix tomorrow morning.
2. Closely monitor renal function as an outpatient. No SGLT2 inhibitors given history of UTIs.
3. Management of pneumonia per primary team.
4. With a week and coming up we will arrange for outpatient cardiology follow-up.
Suha Lowery MD, FAC, [facility]
Original Note:
Today's Communication / Plan
-
Additional IV Lasix this afternoon
Will plan to transition to p.o. Lasix in a.m.
BMP in 1 week upon discharge
Will arrange outpatient cardiac follow-up
Impression / Plan
-
PCP:Darian Giles
Primary Barge Hand: Dr Stoll
Impression:
Admitted with SOB, cough, confusion and possible PNA and HFpEF 01/09/2025
PNA
Acute on chronic HFpEF
Recent admission for acute HF 11/20/2024 until 12/06/2024
Recent admission for IEVTTE, hypercalcemia/dehydration 11/15/24 until 11/18/2024
Permanent atrial fibrillation
Chronic Eliquis OAC
Hyperlipidemia
Hypercalcemia
Hypomagnesemia
HTN
intermittent urinary retention
GERD
Dementia
Hypokalemia
Echo 03/18: EF 55 to 60%, mild MR, TR
Echo 09/2023: EF 45 to 50%, mild LVH, mild MR, AI, TR, PASP 39 mmHg
Echo 07/2024: EF 50%, mild MR, AI, mild to moderate TR with PAP 30 mmHg
ECHO 11/21/24: EF 55%, MAC, moderate MR, aortic sclerosis, mild AR, dilated RV and RA with moderate TR, PASP 49 mmHg
Plan:
-Patient presented with cough and lower extremity edema
-Being treated for pneumonia. aspiration precautions
-diuresed well overnight with extra 40mg IV lasix 01/12, weight down 2 pounds if accurate. Cr stable. will plan to give additional dose IV again this evening. plan to transition to po lasix in AM, prior to admission was taking 80mg lasix in AM and
40mg QPM.
-continue compression stockings
-EF was 55% by echo 11/21/2024. She has history of mild reduction in EF of 45% in September 2023 with subsequent recovery
-Outpatient dose of Toprol XL 100 mg BID should be continued
-Patient is not chronically on SHANELLE/ARB/ARNI due to hypotension, could consider adding low dose lisinopril given history of recovered CM
-Patient was previously on spironolactone, but it was held due to hypotension starting 11/2024
-Patient not a great candidate for SGLT2 inhibitors given history of UTIs.
-Patient with known permanent A-fib and she is not interested in rhythm control. Continue rate control with Toprol-XL. continue eliquis
-will arrange OP cardiac follow up
PREADMIT DATA:
-Patient came to the ER today after an episode of confusion and new coughing and SOB prompting admission for PNA, possible HF and therefore consultation to cardiology. Patient was just admitted from 11/20/2024 until 12/06/2024 with acute HF. Patient
was at rehab until 12/26/2024 and has been home for about 2 weeks. Family feels that the patient has been doing well at home and reports that yesterday she was able to walk 4 houses down on the block and then come back home which is an overall
increase in her activity levels. Patient was seen in the cardiology office on 12/22/2024 and appeared to be doing well, but weight was trending up since last admission so her Lasix was increased to 80 mg a.m. and 40 mg p.m. daily. Patient's
daughter, Chrissy who is a nurse in same-day surgery, called the office then to report that weight had improved and was down to 148 lbs, the LE edema was not improving much. Patient had labs that were stable and she remained on her usual dose of Lasix
and now the daughter feels that overall the edema has improved, but separately patient is now coughing and has blood in her mucus which is a new change in less than 24 hours. Patient denies any chest pain. No fevers or chills. Patient is now
requiring 2 L nasal cannula. CXR suggest PNA, but interestingly the proBNP is 5550 which is up from last admission when it was only 1910.
Progress Note - Barge Hand
Subjective
Date of Service: January 13, 2025
reports improvement in breathing and LE edema. reports good urine output with diuresis
Objective
Labs:
01/10/25 07:32
01/13/25 06:03
Labs
Hgb 8.9 g/dL (12.0-16.0) L 01/10/25 07:32
Hct 29.9 % (37.0-47.0) L 01/10/25 07:32
Plt Count 10^3/uL (130-400) 01/10/25 07:32
Sodium 137 mmol/L (135-145) 01/13/25 06:03
Potassium 3.8 mmol/L (3.5-5.1) 01/13/25 06:03
BUN 19 mg/dl (7-17) H 01/13/25 06:03
Creatinine 0.9 mg/dL (0.6-1.0) 01/13/25 06:03
Glucose 119 mg/dl (70-99) H 01/13/25 06:03
Vital Signs and I&O:
Vital Signs
Temp Pulse Resp BP Pulse Ox
97.9 F 78 18 112/61 94
01/13/25 07:00 01/13/25 07:00 01/13/25 07:00 01/13/25 07:00 01/13/25 09:27
Vital Signs
Temp Pulse Resp BP Pulse Ox
97.9 F 78 18 112/61 94
01/13/25 07:00 01/13/25 07:00 01/13/25 07:00 01/13/25 07:00 01/13/25 09:27
Intake & Output
01/11/25 01/12/25 01/13/25 01/14/25
07:59 07:59 07:59 07:59
Intake Total 480 / 480 1040 / 1040 1320 / 1320
Output Total 100 / 100
Balance 380 / 380 1040 / 1040 1320 / 1320
Physical Exam
Physical Exam
GEN: No distress, awake, alert, oriented x3. Sitting in chair
HEENT: supple, anicteric, mmm, eomi
LUNGS: CTA bilaterally, no wheezes
CV: Irregular, S1/S2
ABD: soft, BS+, NT/ND
EXT: No cyanosis, clubbing. trace-1+ edema of B/L LE. compression stockings in place
NEURO: Gross non-focal
SKIN: Warm, pink, dry. No rash
[2025-01-13] MEDS: STERILE WATER FOR INJECTION 10 ML IV (14:01)
[2025-01-13] MEDS: ROCEPHIN 1000 MG IV (14:01)
--- NOTE | 2025-01-13 14:13 | W.PN.HOSP.TC ---
Today's Communication/Plan
-
Home O2 assessment
PT assessment with discharge planning
Stop ceftriaxone and continue doxycycline through 01/16
Plan is to transition to oral Lasix on 01/14
Assessment / Plan
Assessment / Plan
Impression:
Presentation with shortness of breath, persistent cough and mild hemoptysis.
Acute hypoxic respiratory failure (hypoxemia at 88% on room air on presentation).
Bilateral multifocal pneumonia left greater than right suspected secondary to aspiration event.
Acute CHF preserved EF exacerbation
Conditions prior to admission:
Recent hospitalization for decompensated CHF and IVETTE 11/20/2024 - 12/06/2024.
Permanent atrial fibrillation
Anticoagulation with Eliquis
Dyslipidemia.
Essential hypertension.
GERD.
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
Plan:
Patient presents with rather acute onset of cough, mild hemoptysis and hypoxemia
Afebrile,
Mild elevated WBC
Chest x-ray with multifocal left greater than right infiltrates.
No prior aspiration events, and patient denies any trouble swallowing
Bedside speech is elevation with no overt aspiration
VSE reviewed
Continue aspiration precautions
At this point recommended regular consistency diet and thin liquids.
Has been afebrile with improved respiratory status while off oxygen supplementation at rest as of 01/13.
Follow-up chest x-ray on 01/13 with significant improvement of bilateral infiltrates.
Start ceftriaxone
Continue with doxycycline through 01/16
Home O2 assessment
Acute CHF preserved EF
ECHO 11/21/24: EF 55%, MAC, moderate MR, aortic sclerosis, mild AR, dilated RV and RA with moderate TR, PASP 49 mmHg
Hypoxemic likely due to multifactorial causes including aspiration. Chest x-ray suggestive rather pneumonia with focal infiltrates rather than interstitial pattern pulmonary edema per
Noted elevated pro CHF BNP offline with weight gain up to 69 kg on admission (dry weight 65 kg)
Continue IV Lasix
Follow renal function and daily weights closely.
Transition to oral Lasix on 01/14
Continue preadmission regimen including metoprolol XL,
Chronic hyponatremia
Monitor sodium and volume status while on Lasix and preadmission regimen including solutab
Permanent atrial fibrillation baseline rate controlled. Continue metoprolol.
Continue Eliquis
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
Continue preadmission regimen including Zoloft, Namenda
Anticipated Discharge: 24 - 48 hours
Subjective/Interval History
-
Date of Service: January 13, 2025
Objective Data
-
Labs:
Laboratory Results
01/13/25
06:03
Sodium 137
Potassium 3.8
Chloride 104
Carbon Dioxide 30
BUN 19 H
Creatinine 0.9
Glucose 119 H
Calcium 9.5
Vital Signs:
Vital Signs
Temp Pulse Resp BP Pulse Ox
97.9 F 78 18 112/61 94
01/13/25 07:00 01/13/25 07:00 01/13/25 07:00 01/13/25 07:00 01/13/25 09:27
I&O
01/12/25 01/13/25 01/14/25
06:59 06:59 06:59
Intake Total 1040 / 1040 1320 / 1320
Balance 1040 / 1040 1320 / 1320
Physical Exam
-
General: Well Developed and No Apparent Distress
HEENT: Normocephalic, Atraumatic and Moist Mucous Membranes
Respiratory: Rhonchi; Negative Wheezes
Cardiac: Regular Rhythm and S1/S2; Negative Murmur, Rub or Gallop
GI: Soft, Nontender, Nondistended and Normal Bowel Sounds; Negative Organomegaly
Rectal: Deferred by Provider
Musculoskeletal: No Clubbing, No Cyanosis and No Edema
Skin: Negative Rash
Neuro: Nonfocal/Grossly Intact
[2025-01-13 15:00] VITALS: BP 116/64
--- NOTE | 2025-01-13 15:12 | CM ---
CM met with pt and her daughter today. Pt is current with [facility], and services will resume after discharge.
[2025-01-13] MEDS: LASIX 20 MG IV (16:34)
[2025-01-13] MEDS: ROBITUSSIN DM 5 ML PO (16:35)
[2025-01-13] MEDS: ELAVIL 50 MG PO (21:25)
[2025-01-13] MEDS: ZOLOFT 25 MG PO (21:26)
[2025-01-13] MEDS: TYLENOL 500 MG PO (21:26)
[2025-01-13 23:09] VITALS: BP 109/71
[2025-01-14 06:00] VITALS: BMI 24.4
[2025-01-14 06:26] LABS: Hematocrit 29.8 % (37.0-47.0); Hemoglobin 9.1 g/dL (12.0-16.0); Mean Corp Hgb Conc. 30.5 g/dL (33.0-37.0); Mean Corpuscular Volume 79.7 fL (81.0-99.0); Nucleated Red Blood Cells % 0 %; Platelet Count 132 10^3/uL (130-400); Red Cell Dist. Width 17.0 % (11.5-14.5)
[2025-01-14 06:48] LABS: Blood Urea Nitrogen 17 mg/dl (7-17); Calcium 9.7 mg/dl (8.4-10.2); Carbon Dioxide 28 mmol/L (22-30); Chloride 104 mmol/L (98-107); Estimated Creatinine Clearance 41 ml/min; Glucose 109 mg/dl (70-99); Potassium 4.4 mmol/L (3.5-5.1); Sodium 136 mmol/L (135-145); eGFR > 60.00
[2025-01-14 07:45] VITALS: BP 109/59
[2025-01-14] MEDS: ROBITUSSIN DM 5 ML PO ×2 (07:52→20:17)
[2025-01-14] MEDS: TOPROL XL 100 MG PO ×2 (07:52→20:12)
[2025-01-14] MEDS: VIBRAMYCIN 100 MG PO ×2 (07:52→20:12)
[2025-01-14] MEDS: MAGNESIUM OXIDE 400 MG PO ×2 (07:52→20:11)
[2025-01-14] MEDS: PROTONIX 40 MG PO (07:52)
[2025-01-14] MEDS: NAMENDA 10 MG PO ×2 (07:52→20:10)
[2025-01-14] MEDS: ELIQUIS 5 MG PO ×2 (07:53→20:08)
[2025-01-14] MEDS: KCL 40 MEQ PO ×2 (07:53→20:13)
[2025-01-14] MEDS: LASIX 40 MG IV ×2 (07:53→15:33)
[2025-01-14] MEDS: SODIUM CHLORIDE 1 GRAM PO ×2 (07:54→20:10)
[2025-01-14 08:02] LABS: ALT (SGPT) 14 U/L (0-35); AST (SGOT) 23 U/L (14-36); Albumin 3.1 g/dl (3.5-5.0); Alkaline Phosphatase 207 U/L (38-126); Iron 41 ug/dl (37-170); Magnesium 1.7 mg/dl (1.6-2.3); Total Protein 6.5 g/dl (6.3-8.2)
[2025-01-14 08:11] LABS: Total Iron Binding Capacity 481 ug/dl (265-497)
[2025-01-14] MEDS: NON-FORMULARY ITEM 1 GM PO ×2 (08:20→20:12)
[2025-01-14 08:35] LABS: Ferritin 45.3 ng/ml (11.1-264.0)
[2025-01-14 08:59] VITALS: BP 104/74
[2025-01-14] MEDS: MAGNESIUM SULFATE 50 IV (09:07)
--- NOTE | 2025-01-14 10:42 | W.PN.HOSP.TC ---
Addendum entered and electronically signed by Ilya Gannon MD 01/14/25 10:45:
left VM on daughters phone
Original Note:
Today's Communication/Plan
-
cont diuresis for 1 more day
PT/OT recommeded home
Assessment / Plan
Assessment / Plan
84yo F with PMHx of Afib on ELiquis, HFpEF, HTN, HLD, GERD, dementia came with cough, hemoptysis managed for bilateral multifocal pneumonia, concerning for aspiration and acute HFpEF exacerbation. Improved, weaned of O2. Targeting dry weight close
to 65.5kg. PROJECT ACCOUNT MANAGER recommended regular with thin liquid diet after VSE. Also aspiration precautions. as per Pulm eval - Abx till 01/16/25.
A/P:
#Acute hypoxic respiratory failure - resolved
#Multifocal, most liekly aspiration pneumonia
#Dysphagia unspecified
cont Abx
Pulm consult
S/P VSE. PROJECT ACCOUNT MANAGER for regular with thin liqud diet
Weaned off O2 as of 01/13/25
Cont Abx till 01/16/25
#Acute on chronic HFpEF exacerbation
Echo as of Oct 2024: EF 55%, moderate MR, with ulmonary HTN
Lasix, daily weight, follow and correct electrolytes
Cardio consult
due to HX of multipel UTI - no SGLT-2 recommended
#Chronic nhyponatremia
mild
follow BMP
#Permanent Afib
telemetry
cont rate control and Eliquis
#Dementia, most likely vascular
#Anxiety/depression d/o
cont home meds
#ANTONIO
#Mild alk.phos elevation, chronic since 2019
check GGT
IRon supplement
outpatient GI referral to be considered by PCP
#Hypomagnesemia
replete
#GERD
#Atopic D/O
#HLD
cont home meds
DVT ppx Eliquis
DNR/DNI
I have spent at least 55min reviewing chart, test results, communication with consultants and providing direct patient care
Anticipated Discharge: 24 - 48 hours
Subjective/Interval History
-
Date of Service: January 14, 2025
Objective Data
-
Labs:
Laboratory Results
01/14/25
05:48
WBC 4.2 L
Hgb 9.1 L
Hct 29.8 L
Plt Count 132
Sodium 136
Potassium 4.4
Chloride 104
Carbon Dioxide 28
BUN 17
Creatinine 0.9
Glucose 109 H
Calcium 9.7
Total Bilirubin 0.8
AST 23
ALT 14
Alkaline Phosphatase 207 H
Vital Signs:
Vital Signs
Temp Pulse Resp BP Pulse Ox
97.7 F 89 16 104/74 93
01/14/25 07:45 01/14/25 08:59 01/14/25 07:45 01/14/25 08:59 01/14/25 08:02
I&O
01/13/25 01/14/25 01/15/25
06:59 06:59 06:59
Intake Total 1320 / 1320 720 / 720
Balance 1320 / 1320 720 / 720
Review of Systems
-
History Source: Patient
All other systems: Reviewed and negative
Physical Exam
-
General: No Apparent Distress
HEENT: Normocephalic
Respiratory: Crackles (R)
Cardiac: Regular Rhythm
GI: Soft, Nontender and Nondistended
Skin: Warm
Neuro: Awake, Alert, Oriented and AO x 3
Psych: Calm
[2025-01-14 11:13] LABS: GGTP 127 U/L (12-43)
[2025-01-14] MEDS: FERRLECIT 110 MG IV (13:19)
--- NOTE | 2025-01-14 14:41 | W.PN.UPDATE ---
Update Note
Progress Note Update
Pulmonary service will sign off, please call as needed
Out patient follow up with [facility] Pulmonary clinic
[2025-01-14 15:32] VITALS: BP 102/56
[2025-01-14] MEDS: TYLENOL 500 MG PO (21:18)
[2025-01-14] MEDS: ELAVIL 50 MG PO (21:18)
[2025-01-14] MEDS: ZOLOFT 25 MG PO (21:18)
[2025-01-14 23:38] VITALS: BP 121/64
[2025-01-15 06:00] VITALS: BMI 24.2
[2025-01-15 07:00] VITALS: BP 121/64
[2025-01-15 07:11] LABS: Blood Urea Nitrogen 15 mg/dl (7-17); Calcium 9.7 mg/dl (8.4-10.2); Carbon Dioxide 29 mmol/L (22-30); Chloride 103 mmol/L (98-107); Estimated Creatinine Clearance 41 ml/min; Glucose 107 mg/dl (70-99); Potassium 5.4 mmol/L (3.5-5.1); Sodium 134 mmol/L (135-145); eGFR > 60.00
[2025-01-15] MEDS: SODIUM CHLORIDE 1 GRAM PO (08:00)
[2025-01-15] MEDS: VIBRAMYCIN 100 MG PO (08:00)
[2025-01-15] MEDS: TOPROL XL 100 MG PO (08:00)
[2025-01-15] MEDS: MAGNESIUM OXIDE 400 MG PO (08:00)
[2025-01-15] MEDS: PROTONIX 40 MG PO (08:00)
[2025-01-15] MEDS: LASIX 40 MG IV (08:00)
[2025-01-15] MEDS: ELIQUIS 5 MG PO (08:00)
[2025-01-15] MEDS: NAMENDA 10 MG PO (08:00)
[2025-01-15] MEDS: NON-FORMULARY ITEM 1 GM PO (08:01)
--- NOTE | 2025-01-15 08:16 | W.PN.CARDCBS ---
Today's Communication / Plan
-
Transition back to oral lasix
Outpt cardiac follow up
Please recall if needed
Impression / Plan
-
.
PCP:Darian Giles
Primary Resident Assistant: Dr Stoll
Impression:
Admitted with SOB, cough, confusion and possible PNA and HFpEF 01/09/2025
PNA
Acute on chronic HFpEF
Recent admission for acute HF 11/20/2024 until 12/06/2024
Recent admission for IVETTE, hypercalcemia/dehydration 11/15/24 until 11/18/2024
Permanent atrial fibrillation
Chronic Eliquis OAC
Hyperlipidemia
Hypercalcemia
Hypomagnesemia
HTN
intermittent urinary retention
GERD
Dementia
Hypokalemia
Echo 03/18: EF 55 to 60%, mild MR, TR
Echo 09/2023: EF 45 to 50%, mild LVH, mild MR, AI, TR, PASP 39 mmHg
Echo 07/2024: EF 50%, mild MR, AI, mild to moderate TR with PAP 30 mmHg
ECHO 11/21/24: EF 55%, MAC, moderate MR, aortic sclerosis, mild AR, dilated RV and RA with moderate TR, PASP 49 mmHg
Plan:
-Patient presented with cough and lower extremity edema and PNA
Her wt is down and she appears euvolemic.
Can transition to oral lasix back to outpt dosing of Lasix 80mg QAM and 40mg QPM.
Continue compression stockings
Cont GDMT
-EF was 55% by echo 11/21/2024. She has history of mild reduction in EF of 45% in September 2023 with subsequent recovery
-Outpatient dose of Toprol XL 100 mg BID should be continued
-Patient is not chronically on SHANELLE/ARB/ARNI due to hypotension,
-As outpt, could consider adding low dose lisinopril given history of recovered CM
Patient not a great candidate for SGLT2 inhibitors given history of UTIs.
Permanent A-fib and she is not interested in rhythm control.
Continue rate control with Toprol-XL.
Continue eliquis
Cont pulm toilet for PNA, aspiration precautions. s/p VSE
Will arrange OP cardiac follow up
Discussed with nursing.
Please recall if needed.
PREADMIT DATA:
-Patient came to the ER today after an episode of confusion and new coughing and SOB prompting admission for PNA, possible HF and therefore consultation to cardiology. Patient was just admitted from 11/20/2024 until 12/06/2024 with acute HF. Patient
was at rehab until 12/26/2024 and has been home for about 2 weeks. Family feels that the patient has been doing well at home and reports that yesterday she was able to walk 4 houses down on the block and then come back home which is an overall
increase in her activity levels. Patient was seen in the cardiology office on 12/22/2024 and appeared to be doing well, but weight was trending up since last admission so her Lasix was increased to 80 mg a.m. and 40 mg p.m. daily. Patient's
daughter, Chrissy who is a nurse in same-day surgery, called the office then to report that weight had improved and was down to 148 lbs, the LE edema was not improving much. Patient had labs that were stable and she remained on her usual dose of Lasix
and now the daughter feels that overall the edema has improved, but separately patient is now coughing and has blood in her mucus which is a new change in less than 24 hours. Patient denies any chest pain. No fevers or chills. Patient is now
requiring 2 L nasal cannula. CXR suggest PNA, but interestingly the proBNP is 5550 which is up from last admission when it was only 1910.
Progress Note - Resident Assistant
Subjective
Date of Service: January 15, 2025
Pt seen and examined. No complaints. No chest pain or shortness of breath.
Objective
Labs:
01/14/25 05:48
Labs
Hgb 9.1 g/dL (12.0-16.0) L 01/14/25 05:48
Hct 29.8 % (37.0-47.0) L 01/14/25 05:48
Plt Count 132 10^3/uL (130-400) 01/14/25 05:48
Sodium 134 mmol/L (135-145) L 01/15/25 06:04
Potassium 5.4 mmol/L (3.5-5.1) H 01/15/25 06:04
BUN 15 mg/dl (7-17) 01/15/25 06:04
Creatinine 0.9 mg/dL (0.6-1.0) 01/15/25 06:04
Glucose 107 mg/dl (70-99) H 01/15/25 06:04
Vital Signs and I&O:
Vital Signs
Temp Pulse Resp BP Pulse Ox
98.4 F 80 17 121/64 93
01/15/25 07:00 01/15/25 08:00 01/15/25 07:00 01/15/25 08:00 01/15/25 07:00
Vital Signs
Temp Pulse Resp BP Pulse Ox
98.4 F 80 17 121/64 93
01/15/25 07:00 01/15/25 08:00 01/15/25 07:00 01/15/25 08:00 01/15/25 07:00
Intake & Output
01/13/25 01/14/25 01/15/25 01/16/25
06:59 06:59 06:59 06:59
Intake Total 1320 / 1320 720 / 720 1200 / 1200
Output Total 250 / 250
Balance 1320 / 1320 720 / 720 950 / 950
Physical Exam
Physical Exam
General: No acute distress, AAOX3
Neck: Negative JVD
Heart: Irregularly irregular, Negative S3 positive S1/S2, Negative S4, No murmur
Lungs: CTA b/l, negative wheezes/rales/rhonchi
Abd: Positive BS, NT/ND, neg rebound/rigidity/guarding
Ext: Negative cyanosis/clubbing/edema
Neuro: nonfocal
[2025-01-15 10:29] LABS: Potassium 4.6 mmol/L (3.5-5.1)
--- NOTE | 2025-01-15 11:12 | W.PN.HOSP.TC ---
Today's Communication/Plan
-
dc
Assessment / Plan
Assessment / Plan
84yo F with PMHx of Afib on ELiquis, HFpEF, HTN, HLD, GERD, dementia came with cough, hemoptysis managed for bilateral multifocal pneumonia, concerning for aspiration and acute HFpEF exacerbation. Improved, weaned of O2. Targeting dry weight close
to 65.5kg. DIRECTOR OF STATE recommended regular with thin liquid diet after VSE. Also aspiration precautions. as per Pulm eval - Abx till 01/16/25. Cardiology switched to oral lasix. PT recommended home health. Medically stable for d/c. Planned for outpatient
f/u with refrigerator glazier - referral provided, recommended cont following with established GI to discuss colonoscopy, MRCP. Fur Nailer as previously recommended. Daughter informed and verbalized understanding of the instructions.
A/P:
#Acute hypoxic respiratory failure - resolved
#Multifocal, most likely aspiration pneumonia
#Dysphagia unspecified
cont Abx
Pulm consult
S/P VSE. DIRECTOR OF STATE for regular with thin liquid diet
Weaned off O2 as of 01/13/25
Cont Abx till 01/16/25
#Acute on chronic HFpEF exacerbation
Echo as of Oct 2024: EF 55%, moderate MR, with pulmonary HTN
Lasix, daily weight, follow and correct electrolytes
Cardio consult
due to HX of multiple UTI - no SGLT-2 recommended
#Chronic hyponatremia
mild
follow BMP
#Permanent Afib
telemetry
cont rate control and Eliquis
#Dementia, most likely vascular
#Anxiety/depression d/o
cont home meds
#ANTONIO
#Mild alk.phos elevation, chronic since 2019
GGT elevated
IRon supplement
outpatient GI referral to be considered by PCP
#Hypomagnesemia
replete
#GERD
#Atopic D/O
#HLD
cont home meds
DVT ppx Eliquis
DNR/DNI
I have spent at least 36min reviewing chart, test results, communication with consultants and providing direct patient care
Anticipated Discharge: Today
Subjective/Interval History
-
Date of Service: January 15, 2025
Objective Data
-
Labs:
Laboratory Results
01/15/25 01/15/25
06:04 10:03
Sodium 134 L
Potassium 5.4 H 4.6
Chloride 103
Carbon Dioxide 29
BUN 15
Creatinine 0.9
Glucose 107 H
Calcium 9.7
Vital Signs:
Vital Signs
Temp Pulse Resp BP Pulse Ox
98.4 F 80 17 121/64 93
01/15/25 07:00 01/15/25 08:00 01/15/25 07:00 01/15/25 08:00 01/15/25 08:52
I&O
01/14/25 01/15/25 01/16/25
06:59 06:59 06:59
Intake Total 720 / 720 1200 / 1200
Output Total 250 / 250
Balance 720 / 720 950 / 950
Review of Systems
-
History Source: Patient
All other systems: Reviewed and negative
Respiratory: Reports Cough
Physical Exam
-
General: No Apparent Distress and Comfortable
HEENT: Normocephalic
Respiratory: Clear to Auscultation
GI: Soft, Nontender and Nondistended
Neuro: Awake, Alert, Oriented and AO x 3
Psych: Calm and Apparent Dementia
--- NOTE | 2025-01-15 11:26 | W.DCSUMMARY ---
Discharge Summary
Discharge Data
Date of Admission: 01/09/25
Date of Discharge: 01/15/25
-
Pending Results: No
Hospital Course
84yo F with PMHx of Afib on ELiquis, HFpEF, HTN, HLD, GERD, dementia came with cough, hemoptysis managed for bilateral multifocal pneumonia, concerning for aspiration and acute HFpEF exacerbation. Improved, weaned of O2. Targeting dry weight close
to 65.5kg. HOME ECONOMICS TEACHER recommended regular with thin liquid diet after VSE. Also aspiration precautions. as per Pulm eval - Abx till 01/16/25. Cardiology switched to oral lasix. PT recommended home health. Medically stable for d/c. Planned for outpatient
f/u with breeding manager - referral provided, recommended cont following with established GI to discuss colonoscopy, MRCP. Clinical Systems Analyst as previously recommended. Daughter informed and verbalized understanding of the instructions.
I have spent at least 36min reviewing chart, test results, communication with consultants, family and providing direct patient care
Patietn was managed for:
#Acute hypoxic respiratory failure - resolved
#Multifocal, most likely aspiration pneumonia
#Dysphagia unspecified
#Acute on chronic HFpEF exacerbation
Echo as of Oct 2024: EF 55%, moderate MR, with pulmonary HTN
Lasix, daily weight, follow and correct electrolytes
Cardio consult
due to HX of multiple UTI - no SGLT-2 recommended
#leukopenia
#chronic platelet clumping
#Chronic hyponatremia
#Permanent Afib
#Dementia, most likely vascular
#Anxiety/depression d/o
#ANTONIO
#Mild alk.phos elevation, chronic since 2019
#Hypomagnesemia
#GERD
#Atopic D/O
#HLD
Discharge Plan
-
Patient Disposition: Home with Home Care
Discharge Diagnosis/Procedures: CHF, pneumonia
Diet: Low Cholesterol
Driving Restrictions: As prior to admission
Other Services: PT and OT
Instructions: *[facility] Heart Failure Instructions
Referrals:
Darian Giles DO [Family Provider, Family Practice]
Gerardo Triplett MD [Active, Pulmonary Medicine] - in two to three weeks
Referral Note: or nurse [id number] pneumonia
Prescriptions:
New
dextromethorphan-guaifenesin 10-100 mg/5 mL Syrup
5 ml PO Q4HPRN PRN (Reason: cough) Qty: 237 0RF
doxycycline hyclate 100 mg Capsule
100 mg PO Q12 Qty: 3 0RF
ferrous sulfate 325 mg (65 mg iron) tablet
325 mg PO DAILY Qty: 30 0RF
sennosides-docusate sodium [Senna-S] 8.6-50 mg tablet
1 tab-cap PO HS Qty: 30 0RF
Continued
memantine 10 mg Tablet
10 mg PO BID
Eliquis 5 mg Tablet
5 mg PO BID
sertraline [Zoloft] 25 mg Tablet
25 mg PO HS
amitriptyline 50 mg Tablet
50 mg PO HS
Systane (PF) 0.4-0.3 % Dropperette
1 drp BOTH EYES TIDPRN PRN (Reason: dryness)
acetaminophen 500 mg Tablet
500 mg PO HS
sodium chloride 1,000 mg Tablet,Soluble
1,000 mg PO BID Qty: 60 0RF
magnesium oxide 400 mg (241.3 mg magnesium) Tablet
400 mg PO BID Qty: 60 0RF
furosemide [Lasix] 80 mg Tablet
80 mg PO DAILY
loratadine 10 mg Tablet
10 mg PO DAILYPRN PRN (Reason: allergies)
furosemide 20 mg tablet
40 mg PO QPM
metoprolol succinate 100 mg tablet extended release 24 hr
100 mg PO BID
pantoprazole 40 MG tablet,delayed release (DR/EC)
40 mg PO DAILY Qty: 30 0RF
colestipol 1 GM tablet
1 gm PO BID Qty: 60 0RF
Discontinued
dextromethorphan polistirex [Delsym 12 hour] 30 mg/5 mL Suspension,Extended Rel 12 Hr
10 ml PO DAILYPRN PRN (Reason: cough)
Discharge Orders:
Discharge Patient (As Directed); Ordered 01/15/25
Ordered By: Ilya Gannon
Discharge Date and Time
Print Language: GAMBIAN
[2025-01-15 11:51] VITALS: BP 105/55
--- NOTE | 2025-01-15 12:30 | CM ---
entered order for discahrge .
Spoke with Chrissy she said Caitlin will drive pt home today
IMM reviewed with Chrissy she agrees with dc today with [facility] .
PLAN Home with [facility]
== END 2025-01-15 13:19 | disposition home health service (06) | DRG 177 ==
LOC: 3 WEST ACU 15:32
PROVIDERS: Internal Medicine; Nurse Practitioner Family; Physician Assistant; ADMITTING PHYSICIAN Internal Medicine; ATTENDING PHYSICIAN Internal Medicine; CONSULT PHYSICIAN Internal Medicine Critical Care Medicine; CONSULT PHYSICIAN Nuclear Medicine Nuclear Cardiology; EMERGENCY PHYSICIAN Emergency Medicine; FAMILY PHYSICIAN Family Medicine
DX: J69.0 Pneumonitis due to inhalation of food and vomit (principal); I50.33 Acute on chronic diastolic (congestive) heart failure; J96.01 Acute respiratory failure with hypoxia; E87.1 Hypo-osmolality and hyponatremia; I48.21 Permanent atrial fibrillation; F01.54 Vascular dementia, unspecified severity, with anxiety; F01.53 Vascular dementia, unspecified severity, with mood disturbance; R04.2 Hemoptysis; I11.0 Hypertensive heart disease with heart failure; R13.10 Dysphagia, unspecified; I27.20 Pulmonary hypertension, unspecified; D72.819 Decreased white blood cell count, unspecified; F32.A Depression, unspecified; E83.42 Hypomagnesemia; K21.9 Gastro-esophageal reflux disease without esophagitis; E78.00 Pure hypercholesterolemia, unspecified; Z79.01 Long term (current) use of anticoagulants; Z87.891 Personal history of nicotine dependence; Z88.1 Allergy status to other antibiotic agents; Z88.5 Allergy status to narcotic agent; Z79.899 Other long term (current) drug therapy; Z66 Do not resuscitate; Z87.440 Personal history of urinary (tract) infections; D64.9 Anemia, unspecified; E83.52 Hypercalcemia; E87.6 Hypokalemia; M85.80 Other specified disorders of bone density and structure, unspecified site; Z90.710 Acquired absence of both cervix and uterus; Z96.642 Presence of left artificial hip joint
CPT/HCPCS: 71046; 74230; 80048; 80053; 81003; 81015; 82248; 82728; 82977; 83540; 83550; 83735; 83880; 84132; 84145; 84484; 85025; 85027; 87040; 87086; 87449; 87502; 87811; 87899; 92526; 92610; 92611; 93005; 94640; 96374; 97116; 97162; 97166; 97530; 97535; 99285; J2916

== ENCOUNTER → 2025-02-06 11:52 | Outpatient (REF) | payer OTHER, SELFPAY | LOC: RAD 11:52 | PROVIDERS: ATTENDING PHYSICIAN Family Medicine | DX: J18.9 Pneumonia, unspecified organism (principal) | CPT/HCPCS: 71046 ==

== ENCOUNTER → 2025-02-14 14:30 | Outpatient (REF) | payer OTHER, SELFPAY | LOC: RAD 14:30 | PROVIDERS: ATTENDING PHYSICIAN Registered Nurse; FAMILY PHYSICIAN Family Medicine | DX: I73.9 Peripheral vascular disease, unspecified (principal) | CPT/HCPCS: 93922; 93925 ==

== ENCOUNTER → 2025-03-06 13:47 | Outpatient (REF) | payer OTHER, SELFPAY | LOC: RAD 13:47 | PROVIDERS: ATTENDING PHYSICIAN Family Medicine | DX: J18.9 Pneumonia, unspecified organism (principal) | CPT/HCPCS: 71046 ==